=== PATIENT | male | born 1935 | race Caucasian/White ===

== ENCOUNTER → 2023-09-03 03:00 | Outpatient (REF) | payer OTHER, MEDICARE, SELFPAY ==
[2023-09-03 13:10] LABS: Urine Albumin Trace (Neg - Trace); Urine Bilirubin Negative (Negative); Urine Character Clear (Clear); Urine Color Yellow; Urine Glucose Negative (Negative); Urine Ketone Negative (Negative); Urine Leukocyte 2+ (Negative); Urine Nitrite Positive (Negative); Urine Occult Blood 3+ (Negative); Urine Specific Gravity 1.015 (<1.030); Urine Urobilinogen Negative (Neg - 1+)
[2023-09-03 13:29] LABS: Urine Mucus Few; Urine Squamous Cell 0-2 /LPF (Few)
[2023-09-03 13:30] LABS: Urine Bacteria Few (Negative); Urine White Cell 30-40 /HPF (0-5)
== END ==
LOC: OLABN 03:00
PROVIDERS: ATTENDING PHYSICIAN Student in an Organized Health Care Education/Training Program
DX: R39.15 Urgency of urination (principal)
CPT/HCPCS: 81003; 81015; 87077; 87086; 87186

== ENCOUNTER → 2023-09-04 09:57 | Outpatient (REF) | payer OTHER, MEDICARE, SELFPAY ==
[2023-09-04 10:26] LABS: Hematocrit 28.5 % (39.0-52.0); Hemoglobin 9.1 g/dL (13.0-18.0); Mean Corp Hgb Conc. 31.9 g/dL (33.0-37.0); Mean Corpuscular Hgb 31.9 pg (27.0-31.0); Mean Platelet Volume 9.7 fL (7.4-10.4); Platelet Count 332 10^3/uL (130-400); Red Blood Cell Count 2.85 10^6/uL (4.70-6.10); Red Cell Dist. Width 12.3 % (11.5-14.5); White Blood Cell Count 12.5 10^3/uL (4.8-10.8)
[2023-09-04 10:57] LABS: Blood Urea Nitrogen 37 mg/dl (9-20); Calcium 9.7 mg/dl (8.4-10.2); Carbon Dioxide 26 mmol/L (22-30); Chloride 108 mmol/L (98-107); Glucose 84 mg/dl (70-99); Magnesium 2.1 mg/dl (1.6-2.3); Potassium 4.3 mmol/L (3.5-5.1); Sodium 136 mmol/L (135-145); eGFR > 60.00
== END ==
LOC: OLABN 09:57
PROVIDERS: ATTENDING PHYSICIAN Student in an Organized Health Care Education/Training Program
DX: I10 Essential (primary) hypertension (principal); E78.5 Hyperlipidemia, unspecified
CPT/HCPCS: 80048; 83735; 85027

== ENCOUNTER → 2023-09-19 10:50 | Outpatient (REF) | payer OTHER, MEDICARE, SELFPAY ==
[2023-09-19 12:09] LABS: Urine Albumin Negative (Neg - Trace); Urine Bilirubin Negative (Negative); Urine Character Clear (Clear); Urine Color Yellow; Urine Glucose Negative (Negative); Urine Ketone Negative (Negative); Urine Leukocyte Negative (Negative); Urine Nitrite Negative (Negative); Urine Occult Blood Negative (Negative); Urine Urobilinogen Negative (Neg - 1+)
== END ==
LOC: OLABN 10:50
PROVIDERS: ATTENDING PHYSICIAN Student in an Organized Health Care Education/Training Program
DX: R39.15 Urgency of urination (principal)
CPT/HCPCS: 81003; 87086

== ENCOUNTER → 2023-10-03 12:37 | Outpatient (REF) | payer OTHER, MEDICARE, SELFPAY ==
[2023-10-03 13:24] LABS: % Eosinophils 2.7 % (0-6); % Immature Granulocytes 0.4 % (0-0.5); % Lymphocytes 21.7 % (20.5-51.1); % Monocytes 10.2 % (1.7-9.3); Absolute Basophils 0.1 10^3/uL (0-0.2); Absolute Eosinophils 0.2 10^3/uL (0-0.7); Absolute Lymphocytes 1.7 10^3/uL (1.2-3.4); Absolute Monocytes 0.8 10^3/uL (0.1-0.6); Absolute Neutrophils 5.1 10^3/uL (1.4-6.5); Hemoglobin 9.1 g/dL (13.0-18.0); Mean Corp Hgb Conc. 30.3 g/dL (33.0-37.0); Mean Corpuscular Hgb 30.6 pg (27.0-31.0); Mean Platelet Volume 10.4 fL (7.4-10.4); Nucleated Red Blood Cells % 0 % (-); Platelet Count 253 10^3/uL (130-400); Red Blood Cell Count 2.97 10^6/uL (4.70-6.10); Red Cell Dist. Width 12.7 % (11.5-14.5)
[2023-10-03 14:04] LABS: Blood Urea Nitrogen 32 mg/dl (9-20); Calcium 9.7 mg/dl (8.4-10.2); Carbon Dioxide 26 mmol/L (22-30); Chloride 108 mmol/L (98-107); Glucose 100 mg/dl (70-99); Magnesium 2.1 mg/dl (1.6-2.3); Potassium 4.9 mmol/L (3.5-5.1); Sodium 139 mmol/L (135-145)
[2023-10-03 14:12] LABS: NT-proBNP 21600 pg/ml
== END ==
LOC: OLABN 12:37
PROVIDERS: ATTENDING PHYSICIAN Student in an Organized Health Care Education/Training Program
DX: I10 Essential (primary) hypertension (principal); R60.9 Edema, unspecified
CPT/HCPCS: 36415; 80048; 83735; 83880; 85025

== ENCOUNTER → 2023-10-09 11:47 | Outpatient (REF) | payer OTHER, MEDICARE, SELFPAY ==
[2023-10-09 13:35] LABS: Blood Urea Nitrogen 41 mg/dl (9-20); Calcium 10.2 mg/dl (8.4-10.2); Carbon Dioxide 27 mmol/L (22-30); Chloride 107 mmol/L (98-107); Glucose 101 mg/dl (70-99); Magnesium 2.1 mg/dl (1.6-2.3); Potassium 4.2 mmol/L (3.5-5.1); Sodium 141 mmol/L (135-145)
== END ==
LOC: OLABN 11:47
PROVIDERS: ATTENDING PHYSICIAN Student in an Organized Health Care Education/Training Program
DX: R60.9 Edema, unspecified (principal); N17.9 Acute kidney failure, unspecified
CPT/HCPCS: 36415; 80048; 83735

== ENCOUNTER 2023-10-16 13:36 | Inpatient (IN) | payer MEDICARE, OTHER, SELFPAY ==
[2023-10-16] VITALS (86 sets, daily range): BP systolic 89–163; BP diastolic 50–109; PULSE 2–108; BMI 34.0
[2023-10-16 10:08] LABS: Glucose - Point of Care 152 mg/dl (70-99)
--- NOTE | 2023-10-16 10:19 | ED.GENMED ---
History of Present Illness
General
Chief Complaint: Change Level of Consciousness
Time Seen by Provider: 10/16/23 10:06
Travel History
Have you had any contact with someone who has COVID-19?: Unable to Answer
Do you have any symptoms of coronavirus? Fever > 100 degrees, chills, cough, shortness of breath, sore throat, loss of taste or smell, muscle aches, or headache?: Unable to Answer
History of Present Illness
History of Present Illness:
HPI: Patient presents due to shortness of breath and altered level of consciousness. Details are somewhat limited at this time. I spoke to the daughter who states that he recently had a heart attack and was recently volume overloaded and they were
trying to increase his diuretic as an outpatient. He has been doing poorly over the last few days and this morning became much more unresponsive
EXAM:
GENERAL: Is critically ill in appearance
HEENT: Moist oral mucosa
CARDIOVASCULAR: Regular rate and rhythm
PULMONARY: Has increased work of breathing, accessory muscle use, coarse breath sounds
ABDOMEN: Soft and nontender with no peritoneal signs
NEUROLOGIC: The patient is currently nonverbal and does not respond to sternal rub his eyes are closed
EXTREMITIES: 3+ bilateral lower extremity edema
PYSCHIATRIC: Nonverbal
TIME OF INITIAL ENCOUNTER: 10 AM
NUMBER AND COMPLEXITY OF PROBLEMS ADDRESSED AT THE ENCOUNTER
� Chronic conditions affecting care: CAD/OK, volume overload/CHF
� Acute Exacerbation and/or Progression of Chronic Illness: This is an acute problem
� Differential Diagnosis includes: Volume overload, pulmonary edema, pleural effusions, pneumonia/sepsis, hypercapnia
AMOUNT AND/OR COMPLEXITY OF DATA TO BE REVIEWED AND ANALYZED
� I performed an independent evaluation of and my interpretation is:
EKG: Sinus 92, right bundle branch block, inferior Q waves, PVC, nonspecific ST abnormality, no old to compare
CT:
X-rays: Chest x-ray suggest volume overload/pleural effusion on the right
Laboratory Studies: BNP greater than 27,000, white count 17.5, hemoglobin 10.9, creatinine 1.8 with no old to compare bicarb is 38, ABG shows pCO2 of 87
Other:
� Review of other/old records: No old records available for review however I did review the POLST and advanced directive
� Clinical information was obtained by an independent historian: I spoke to daughter in the family room as well as the son over the phone. We discussed the POLST indicating yes to CPR if he is in a code situation. I also
reviewed the advance directive indicating that if he is in a end-stage medical condition with no meaningful chance of recovery that he would not want to be intubated. At this point is unclear if he will have a meaningful chance of recovery with
intubation and aggressive care. Daughter and son have been talking extensively and I am awaiting their wishes as of 10:23 AM
� Prescriptions/Medications Considered but not given:
� Further testing considered but not performed:
RISK OF COMPLICATIONS AND/OR MORBIDITY OR MORTALITY OF PATIENT MANAGEMENT
� Social determinants of health affecting care: Currently staying at [facility] after rehab for [place]
� Discussion with other providers: Hospitalist for admission, Dr. Blue
� Escalation of care including admission/observation vs risk of discharge considered: The patient is critically ill in appearance. He is nonresponsive to sternal rub markedly decreased GCS. Multiple discussions with family.
Ultimately decided against intubation. He did improve while on BiPAP released from an oxygen standpoint however his mental status has remained poor. There likely is a component of hypercapnic respiratory failure as well based on ABG.
Phy Exam
Physical Exam
Physical Exam:
See HPI
Course
Orders/Labs/Results
Orders:
Orders
10/16/23 09:54
Etomidate [Amidate] 40 mg .ROUTE .STK-MED ONE
Succinylcholine Chloride [Anectine] 200 mg .ROUTE .STK-MED ONE
10/16/23 10:02
Electrocardiogram (*1) Urgent
Reason for Study: Other
Other Reason for Exam: Respiratory Distress
Cardiac Monitoring- Treatment ONCE
EKG- Treatment ONCE
IV Insert/Care/Rem.- Treatment PRN
O2 Therapy [RESP] Urgent
Titrate/Wean O2 to maintain O2 sat greater than (%): 93
Special Instructions: TO MAINTAIN CONTINUOUS O2 SATS >/= 93%
Pulse Ox/cont/shift [RESP] Urgent
Quantity: 1
Special Instructions: continuous pulse ox
10/16/23 10:08
Complete Blood Count/With Diff Urgent
Comprehensive Metabolic Panel Urgent
NT-proBNP Urgent
Prothrombin Time Urgent
Troponin I Urgent
Propofol 1,000,000 Mcg/100 ml [Diprivan] 1,000,000 mcg in 100 ml .ROUTE .STK-MED
10/16/23 10:16
COVID-19 Antigen Urgent
Source: Nasal Swab
Lactic Acid Urgent
10/16/23 10:17
Blood Culture Urgent
ANNITA Source: Blood/Venous
Specimen Description:
INF RAPID [Influenza A+B Rapid Molecular] Urgent
ANNITA Source: Nasal Swab
Specimen Description:
10/16/23 10:18
CR Chest Portable - 1 View Urgent
Comment:
Reason For Exam: sob
Reason Study Needs to be Portable: Patient Unstable
10/16/23 10:20
Blood Culture Urgent
ANNITA Source: Blood/Venous
Specimen Description:
10/16/23 10:30
Furosemide [Lasix] 120 mg IV NOW STA
10/16/23 10:31
Furosemide [Lasix] 100 mg .ROUTE .STK-MED ONE
Furosemide [Lasix] 40 mg .ROUTE .STK-MED ONE
10/16/23 10:32
Nitroglycerin 100 mg/250 ml [Nitroglycerin Premix] 100 mg in 250 ml .ROUTE .STK-MED
10/16/23 10:33
Bipap [RESP] Urgent
Patient to use own unit?: No
Inspiratory Pressure (cm H2O): 12
Expiratory Pressure (cm H2O): 5
10/16/23 10:45
Nitroglycerin 100 mg/250 ml [Nitroglycerin Premix] 100 mg in 250 ml IV PER PROTOCOL
Initial dose in mcg/min, then titrate:: 10
Titrate to keep:: MAP 70-100 mmHg
Titrate by mcg/min:: 5 mcg/min, may increase by 10 mcg/min if dose > 20 mcg/min
Frequency of titrations (minutes):: every 3-5 minutes
Maximum dose in mcg/min:: 200
Begin to taper infusion when:: Remained at goal for 2hrs
Taper by mcg/min:: 5 mcg/min
Frequency of taper (minutes) if patient maintains goal:: 30
Taper to off?: Yes
If infusion off & no longer maintaining goal:: Contact Provider
10/16/23 12:30
ABG [Arterial Blood Gas] Urgent
%Oxygen/Room Air: 100
10/16/23 12:52
UA Reflex to Culture [Urinalysis Reflex To Culture] Stat
Abnormal Lab Results
10/16/23 10/16/23 10/16/23
10:07 10:08 12:30
WBC 17.5 H 10^3/uL
(4.8-10.8)
RBC 3.57 L 10^6/uL
(4.70-6.10)
Hgb 10.9 L g/dL
(13.0-18.0)
Hct 37.1 L %
(39.0-52.0)
MCV 103.9 H fL
(80.0-94.0)
MCHC 29.4 L g/dL
(33.0-37.0)
MPV 10.8 H fL
(7.4-10.4)
Abs Immat Gran (auto) 0.1 H 10^3/uL
(0-0.05)
Absolute Neuts (auto) 14.4 H 10^3/uL
(1.4-6.5)
Absolute Monos (auto) 1.7 H 10^3/uL
(0.1-0.6)
Immature Gran % 0.7 H %
(0-0.5)
Neutrophils % 82.0 H %
(42.2-75.2)
Lymphocytes % 6.9 L %
(20.5-51.1)
Monocytes % 9.7 H %
(1.7-9.3)
PT 14.7 H Sec
(11.4-14.6)
pH 7.24 L
(7.35-7.45)
pCO2 87 H* mmHg
(35-48)
pO2 68 L mmHg
(83-108)
HCO3 37.3 H mmol/L
(21-28)
Sodium 146 H mmol/L
(135-145)
Carbon Dioxide 38 H mmol/L
(22-30)
BUN 47 H mg/dl
(9-20)
Creatinine 1.8 H mg/dL
(0.7-1.3)
Glucose 146 H mg/dl
(70-99)
Troponin I 0.251 H* ng/ml
POC Glucose 152 H mg/dl
(70-99)
10/16/23 10:08
10/16/23 10:08
Vital Signs
Initial and Last Documented VS:
Initial Vital Signs
BP
150/70
10/16/23 09:57
Last Documented Vital Signs
Temp Pulse Resp BP Pulse Ox
100.7 F H 87 29 134/72 92
10/16/23 10:10 10/16/23 12:40 10/16/23 12:40 10/16/23 12:40 10/16/23 12:40
*Pulse Oximetry
Patient hypoxic: yes
Comment: 88% on nonrebreather mask
*Critical Care Note
Total Time (30-74mins, 75-104mins- exclusive of procedures): 65 minutes
comment:
I had numerous discussions with family both at bedside and over the phone. Considered intubation and was prepared to intubate but ultimately decision made to hold off on intubation. We have placed him on BiPAP and vital signs closely monitored.
His sats have primarily been in the 80% range and transiently became bradycardic but has stabilized more recently. Will be DNR now. Multiple reassessment. He ultimately was placed on BiPAP.
ED Attending Note
-
Portions of this chart may have been created with voice recognition software.� Occasional wrong word or��sound alike� substitutions may have occurred due to the inherent limitations of voice recognition software.
Discharge Plan
Departure
Patient Disposition: Admit
Date of Disposition: 10/16/23
Time of Disposition: 11:18
Presentation/result/management discussed w/ accepting MD/DO: Hospitalist
Discharge Problem:
Volume overload
Prescriptions:
No Action
multivitamin Tablet
1 tab PO DAILY
furosemide 40 mg Tablet
120 mg PO DAILY
atorvastatin 80 mg Tablet
80 mg PO QPM
acetaminophen [Tylenol] 325 mg Tablet
650 mg PO Q4H MDD 3000 mg PRN (Reason: mild pain/fever>100.4)
lidocaine 4 % Cream
1 applic TOPICAL BID
Patient Comments:
10/16/2023, first date: 10/03/2023 given for 14 days.
clopidogrel 75 mg Tablet
75 mg PO DAILY
aspirin 81 mg Tablet,Delayed Release (Dr/Ec)
81 mg PO DAILY
tramadol 50 mg Tablet
50 mg PO BID PRN (Reason: moderate pain)
ascorbic acid (vitamin C) [Vitamin C] 500 mg Tablet
1,000 mg PO DAILY
bisacodyl 10 mg Suppository
10 mg [place] DAILY PRN (Reason: q 3 days when no BM and MOM/lactulose ineffective)
ginkgo biloba 60 mg Tablet
60 mg PO DAILY
nitroglycerin 0.4 mg Tablet, Sublingual
0.4 mg SUBLINGUAL [id number] PRN (Reason: acute angina)
oxybutynin chloride 5 mg Tablet Extended Release 24hr
5 mg PO DAILY
gabapentin 300 mg Capsule
300 mg PO Q12H
folic acid 1 mg Tablet
1 mg PO DAILY
metoprolol succinate 25 mg Tablet Extended Release 24 Hr
25 mg PO DAILY
finasteride 5 mg Tablet
5 mg PO DAILY
loratadine 10 mg Tablet
10 mg PO DAILY
lactulose 10 gram/15 mL Solution
30 ml PO HS PRN (Reason: constipation)
[place]-3 1,000 mg capsule
1,000 mg PO DAILY
Referrals:
Je Owen DO [Family Provider] -
Interventions
Interventions:
*Risk Screen - Suicide Last Done: 10/16/23 11:30
*General Assessment Last Done: 10/16/23 10:03
*Neglect/Abuse Screening Last Done: 10/16/23 11:30
ED- Cardiac Assessment Last Done: 10/16/23 10:27
ED- Neurological Assessment Last Done: 10/16/23 11:00
ED-Psychological Assessment Last Done: 10/16/23 11:00
ED- Pulmonary Assessment Last Done: 10/16/23 11:00
Discharge Date and Time
Print Language: CHADIAN
[2023-10-16 10:23] LABS: % Basophils 0.6 % (0-2); % Eosinophils 0.1 % (0-6); % Immature Granulocytes 0.7 % (0-0.5); % Lymphocytes 6.9 % (20.5-51.1); % Monocytes 9.7 % (1.7-9.3); Absolute Basophils 0.1 10^3/uL (0-0.2); Absolute Immature Granulocytes 0.1 10^3/uL (0-0.05); Absolute Lymphocytes 1.2 10^3/uL (1.2-3.4); Absolute Monocytes 1.7 10^3/uL (0.1-0.6); Absolute Neutrophils 14.4 10^3/uL (1.4-6.5); Hematocrit 37.1 % (39.0-52.0); Hemoglobin 10.9 g/dL (13.0-18.0); Mean Corp Hgb Conc. 29.4 g/dL (33.0-37.0); Mean Corpuscular Hgb 30.5 pg (27.0-31.0); Mean Corpuscular Volume 103.9 fL (80.0-94.0); Mean Platelet Volume 10.8 fL (7.4-10.4); Nucleated Red Blood Cells % 0 % (-); Platelet Count 217 10^3/uL (130-400); Red Blood Cell Count 3.57 10^6/uL (4.70-6.10); Red Cell Dist. Width 13.2 % (11.5-14.5); White Blood Cell Count 17.5 10^3/uL (4.8-10.8)
[2023-10-16 10:24] LABS: INR 1.14; PT 14.7 Sec (11.4-14.6)
[2023-10-16] MEDS: LASIX 120 MG IV (10:35)
[2023-10-16 10:38] LABS: ALT (SGPT) 12 U/L (0-50); AST (SGOT) 18 U/L (17-59); Albumin 3.7 g/dl (3.5-5.0); Alkaline Phosphatase 93 U/L (38-126); Blood Urea Nitrogen 47 mg/dl (9-20); Carbon Dioxide 38 mmol/L (22-30); Chloride 102 mmol/L (98-107); Glucose 146 mg/dl (70-99); Potassium 4.1 mmol/L (3.5-5.1); Sodium 146 mmol/L (135-145); Total Bilirubin 0.6 mg/dl (0.2-1.3); Total Protein 6.7 g/dl (6.3-8.2); eGFR 36.21
[2023-10-16] MEDS: NITROGLYCERIN PREMIX 250 IV (10:40)
[2023-10-16 10:45] LABS: COVID-19 Antigen Negative (Negative)
[2023-10-16 10:53] LABS: NT-proBNP > 27000 pg/ml; Troponin I 0.251 ng/ml
[2023-10-16 12:38] LABS: B.E. 7.5 mmol/L; HCO3 37.3 mmol/L (21-28); O2 Saturation % 95.2 % (94-98); PO2 68 mmHg (83-108); pH 7.24 (7.35-7.45)
[2023-10-16 12:46] LABS: PCO2 87 mmHg (35-48)
--- NOTE | 2023-10-16 13:23 | HPS.HSE ---
Addendum entered and electronically signed by Avtar Medina MD 10/16/23 15:23:
I saw and examined the patient.
The HEALTH IT SPECIALIST or PA's note was reviewed and I agree with the note.
Comment: 88 y/o male past medical history of a recent PA with stent at [facility], CHF, HTN and COPD who presents with acute change in mental status. History was taken from the 2 daughters at bedside. Patient has had persistent weight gain
despite increasing doses of Lasix. Noted to have febrile episode and patient, altered mental status. Blood gas with evidence of acute hypercapnic respiratory failure. Of note, should to have on NIV at night although noncompliant. Patient
lethargic although does follow commands, slightly more awake than arrival to the ED. blood pressure 118/62, pulse 86. Crackles also noted bilaterally. ABG with pH 7.2 . White count 17.5, creatinine 1.8, sodium 146, proBNP above 27,000
(21,600 on 10/03/2023). x-ray showing possible right basilar opacification suggesting right pleural effusion. Of note patient's nurse was saying patient sounded like he had a gurgling voice yesterday.
Plan
# Acute hypercapnic respiratory failure
�most likely exacerbated by acute on chronic heart failure, unknown type as well as possible UTI/infection
� Noncompliant to BiPAP at facility
� Continue BiPAP for now
� Continue IV diuresis, antibiotics
#Acute on chronic heart failure, unknown type
# Follow-up new echo
� Continue 80 mg IV Lasix twice daily
� Cardiology consulted�monitor I's and O's and daily weights
#Sepsis
� Possible pneumonia including a large aspiration pneumonia versus UTI
� Speech eval
� Follow-up urine analysis, cultures
� Follow-up with cultures
� Empiric antibiotics vancomycin and Zosyn�follow MRSA swab
#Elevated troponin, suspect nonischemic myocardial injury
� Continue to trend troponins until peak
# ENRICO
# Most likely cardiorenal
Monitor with diuresis
� Can follow-up VBG in 2 hours
#Acute metabolic encephalopathy
� Secondary to most likely hypercapnia as well as possible infection
- treat as above
#Urinary retention
� Lock catheter placed in ED
� Start Flomax when able to tolerate p.o.
� Status post stent August 2023
� Obtain records from [facility] [facility]
� Resume aspirin and Plavix when able to tolerate medications
#Hyperlipidemia
� Resume statin when able to tolerate p.o.
#DVT prophylaxis
� HSQ
#DNR/DNI
Original Note:
Family Physician
-
Family Physician: Je Owen,
Chief Complaint
-
Change in mental status
History of Present Illness
Patient is an 88 y/o male past medical history of a recent PA with stent at [facility], CHF, HTN and COPD who presents with acute change in mental status. Patient is unable to provide any history, additional history is obtained from patient's
daughter at the bedside. Patient was admitted to [facility] about a month ago following a hospitalization at [facility] for an acute PA requiring stent. Daughter reports over the past few weeks patient has gained a significant amount of weight,
over 20lbs, despite increasing Lasix dose over the last week. Prior to arrival patient had been complaining of having difficulty urinating. While at [facility] patient had required a Lock catheter which was removed a few weeks ago.
Medical History
Past Medical History
Past Medical History: Reports Other
Additional Past Medical History:
Coronary Artery Disease
Congestive Heart Failure
Essential Hypertension
Hyperlipidemia
COPD
Peripheral Neuropathy
Obstructive Sleep Apnea
Bladder Cancer
Past Surgical History: Reports Other
Additional Past Surgical History:
TURBT
Foot/Ankle Surgery
Social History
Tobacco: Former Smoker (Quit over 30 years ago)
Living: Other (Currently resides at [facility] for receiving rehab following recent hospitalization)
Family History
Family History: Unable to Obtain
Allergies / Home Medications
Allergies reflects when Allergies were last updated in [facility].
Home Medications with original date entered in [facility]
Allergy/Medication List:
Allergies
Allergy/AdvReac Type Severity Reaction Status Date / Time
No Known Allergies Allergy Unverified 10/16/23 09:59
Home Medications
[place]-3 1,000 mg PO DAILY Supplement 10/16/23
acetaminophen 325 mg tablet (Tylenol) 650 mg PO Q4H PRN mild pain/fever>100.4 10/16/23
ascorbic acid (vitamin C) 500 mg tablet (Vitamin C) 1,000 mg PO DAILY Supplement 10/16/23
aspirin 81 mg tablet,delayed release 81 mg PO DAILY Blood Clot Prevention/Tx 10/16/23
atorvastatin 80 mg tablet 80 mg PO QPM High Cholesterol 10/16/23
bisacodyl 10 mg rectal suppository 10 mg AK DAILY PRN q 3 days when no BM and MOM/lactulose ineffective 10/16/23
clopidogrel 75 mg tablet 75 mg PO DAILY Blood Clot Prevention/Tx 10/16/23
finasteride 5 mg tablet 5 mg PO DAILY Urinary Issue 10/16/23
folic acid 1 mg tablet 1 mg PO DAILY Supplement 10/16/23
furosemide 40 mg tablet 120 mg PO DAILY Fluid Retention/Swelling 10/16/23
gabapentin 300 mg capsule 300 mg PO Q12H Pain 10/16/23
ginkgo biloba 60 mg tablet 60 mg PO DAILY Supplement 10/16/23
lactulose 10 gram/15 mL oral solution 30 ml PO HS PRN constipation 10/16/23
lidocaine 4 % topical cream 1 applic topical BID B/L feet 10/16/23
loratadine 10 mg tablet 10 mg PO DAILY Allergies 10/16/23
metoprolol succinate 25 mg tablet,extended release 24 hr 25 mg PO DAILY Blood Pressure 10/16/23
multivitamin 1 tab PO DAILY Supplement 10/16/23
nitroglycerin 0.4 mg sublingual tablet 0.4 mg sublingual [id number] PRN acute angina 10/16/23
oxybutynin chloride 5 mg tablet,extended release 24 hr 5 mg PO DAILY Urinary Issue 10/16/23
tramadol 50 mg tablet 50 mg PO BID PRN moderate pain 10/16/23
Review of Systems
-
Unable to obtain full review of systems at this time due to: Acuity
Physical Exam
Vital Signs
Vital Signs
Temp Pulse Resp BP Pulse Ox
100.7 F H 87 29 134/72 92
10/16/23 10:10 10/16/23 12:40 10/16/23 12:40 10/16/23 12:40 10/16/23 12:40
Physical Exam
General: Well Developed and Well Nourished
HEENT: Anicteric, Moist mucous membranes and Oxygen (BiPAP)
Respiratory: Wheezes (Faint anteriorly) and Non Labored Respirations
Cardiac: S1/S2 and Regular Rhythm; No Murmur
GI: Soft and Non Tender
Genito-urinary: Lock
Musculoskeletal: No Clubbing, No Cyanosis and Other (+3 pitting edema bilateral lower ext; Mild edema noted in bilateral fingers)
Skin: Warm and Dry
Neuro: Other (Slightly opens his eyes to name, but otherwise unable to participate in neurologic evaluation)
Laboratory Results
-
10/16/23 10:08
10/16/23 10:08
Laboratory Results
PT 14.7 Sec (11.4-14.6) H 10/16/23 10:08
INR 1.14 10/16/23 10:08
pH 7.24 (7.35-7.45) L 10/16/23 12:30
pCO2 87 mmHg (35-48) H* 10/16/23 12:30
pO2 68 mmHg (83-108) L 10/16/23 12:30
HCO3 37.3 mmol/L (21-28) H 10/16/23 12:30
Lactic Acid 1.0 mmol/L (0.7-2.0) 10/16/23 10:16
Total Bilirubin 0.6 mg/dl (0.2-1.3) 10/16/23 10:08
AST 18 U/L (17-59) 10/16/23 10:08
ALT 12 U/L (0-50) 10/16/23 10:08
Alkaline Phosphatase 93 U/L (38-126) 10/16/23 10:08
Troponin I 0.251 ng/ml H* 10/16/23 10:08
Data Reviewed
-
Diagnostic Radiology: Report Reviewed by me
Lab Data: Labs Reviewed by me
Old Records: Requested and Reviewed
Impression/Plan
-
Acute Hypercapnic Respiratory Failure
-Patient placed on BiPAP in ED
-Admit to IMU for close monitoring
-Recheck ABG later this afternoon
Acute on Chronic Heart Failure of unknown type
-Consult Cardiology
-Check Echo
-Continue Lasix 80mg IV BID
-Monitor Is&Os and Daily Weights
Elevated Troponin suspect Non-Ischemic Myocardial Injury secondary to heart failure and hypoxia
-Continue to trend troponin
Acute Kidney Injury
-Continue to monitor creatinine closely
Urinary Retention
-Lock catheter placed in ED
-Start Flomax when able to take PO
Fever/Leukocytosis, possible PNA vs UTI
-Check urinalysis
-Await blood culture
-Start empiric vancomycin and Zosyn
Coronary Artery Disease s/p stent August 2023
-Attempt to obtain records from [facility]
-Resume aspirin and Plavix when able to take oral meds
Hyperlipidemia
-Resume atorvastatin when able to take oral meds
DVT proph: SC Heparin
Code Status: DNR/DNI
--- NOTE | 2023-10-16 14:23 | CON.CAR ---
Addendum entered and electronically signed by Mahamed Soni MD 10/16/23 21:47:
I saw and examined the patient.
The EMPLOYEE WELLNESS/FITNESS COORDINATOR or PA's note was reviewed and I agree with the note.
Comment: General: unresponsive
Neck: Supple, no JVD, HJR, carotids +2 B/L, no bruits bilaterally.
Heart: Non displaced PMI, RRR, no murmurs, No S3, S4, no rubs.
Lungs: scattered rhonchi with poor effort
Extremities: moderate lower extremity edema bilaterally.
Neuro: unresponsive
Robert has a history of in her study with RCA stent in August 2023 at [facility], chronic systolic CHF, viral encephalitis, footdrop, prothrombin, bladder cancer, cardiomyopathy ejection fraction 35%. He has been treated as an outpatient for CHF with
escalating Lasix doses. He has been at [facility]. He presented with change in mental status with fever and leukocytosis. [place] to be in CHF with pro BNP of greater than 27,000 and is currently on BiPAP.
We'll treat for CHF. Get records from [facility]. Treat with antibiotics. Discussed with patient and family in detail at bedside. check echocardiogram. Follow renal function with diuresis. Track troponins.
Original Note:
Consultation
Consultation Request
Date/Time Consultation Performed: 10/16/23
Requesting Provider: Dr. Medina
Performing Provider: Elizabeth Paayn PA-C for Dr. Soni
Reason for Consultation: SOB, CHF
Medical History
-
Chief Complaint: SOB
History of Present Illness:
Patient is an 88 yo F with PMH of viral encephalitis ~25 years ago, foot drop and neuropathy, ambulatory around apartment with walker, history of bladder cancer s/p TURBT 2016 who had recent admission to [facility] 08/2023. He was found to have acute
inferior STEMI and underwent cath resulting in RCA PCI per daughter. Echo during that admission showed ICM with EF 35-40%. He had issues with his kidneys during that admission per daughters. He was discharged to [facility] and was not on diuretic upon DC
(he had been on chlorthalidone prior which was stopped during admission). Daughter believes he had post admission blood work ~10/03 [place] [address]. He was started on po lasix 40mg daily at that time. He was then seen in office
by Dr. Cooley's EMPLOYEE WELLNESS/FITNESS COORDINATOR last and was felt to be grossly volume overloaded. reportedly had echo in office same day which was 'good for him.' his lasix dose was increased to 80mg daily x5 days with plan to increase to 120mg daily thereafter if
still with volume overload. He was increased to 120mg daily yesterday as weight has continued to trend up. He has also had difficulty with urination, resulting in bernabe placement and then hematuria, which was removed at [facility] ~2 weeks post discharge.
He was brought to [facility] this morning due to change in mental status. with fever and leukocytosis. Also with proBNP >70477. Currently on BIPAP, which he was reportedly supposed to be getting at [facility] but was not by report.
PMH:
Admission to [facility] 08/2023 for acute inferior STEMI status post RCA PCI, ischemic cardiomyopathy EF 35 to 40%
Chronic heart failure with reduced EF
HLD
HTN
History of viral encephalitis approximately 25 years ago
Foot drop
Peripheral neuropathy
History of bladder cancer status post TURP in 2017
Pulmonary nodules
Past Medical History
Past Medical History: Other (in HPI)
Social History
Tobacco: Former Smoker (remote)
Alcohol: None
Living: With Roomate
Employment: Retired
Allergies / Home Medications
Allergy/AdvReac Type Severity Reaction Status Date / Time
No Known Allergies Allergy Unverified 10/16/23 09:59
�Medication �Instructions �Recorded �Confirmed �Type
[place]-3 1,000 mg PO DAILY Supplement 10/16/23 10/16/23 History
acetaminophen 325 mg tablet 650 mg PO Q4H PRN mild 10/16/23 10/16/23 History
(Tylenol) pain/fever>100.4
ascorbic acid (vitamin C) 500 mg 1,000 mg PO DAILY Supplement 10/16/23 10/16/23 History
tablet (Vitamin C)
aspirin 81 mg tablet,delayed 81 mg PO DAILY Blood Clot 10/16/23 10/16/23 History
release Prevention/Tx
atorvastatin 80 mg tablet 80 mg PO QPM High Cholesterol 10/16/23 10/16/23 History
bisacodyl 10 mg rectal suppository 10 mg TX DAILY PRN q 3 days when 10/16/23 10/16/23 History
no BM and MOM/lactulose ineffective
clopidogrel 75 mg tablet 75 mg PO DAILY Blood Clot 10/16/23 10/16/23 History
Prevention/Tx
finasteride 5 mg tablet 5 mg PO DAILY Urinary Issue 10/16/23 10/16/23 History
folic acid 1 mg tablet 1 mg PO DAILY Supplement 10/16/23 10/16/23 History
furosemide 40 mg tablet 120 mg PO DAILY Fluid 10/16/23 10/16/23 History
Retention/Swelling
gabapentin 300 mg capsule 300 mg PO Q12H Pain 10/16/23 10/16/23 History
ginkgo biloba 60 mg tablet 60 mg PO DAILY Supplement 10/16/23 10/16/23 History
lactulose 10 gram/15 mL oral 30 ml PO HS PRN constipation 10/16/23 10/16/23 History
solution
lidocaine 4 % topical cream 1 applic topical BID B/L feet 10/16/23 10/16/23 History
loratadine 10 mg tablet 10 mg PO DAILY Allergies 10/16/23 10/16/23 History
metoprolol succinate 25 mg 25 mg PO DAILY Blood Pressure 10/16/23 10/16/23 History
tablet,extended release 24 hr
multivitamin 1 tab PO DAILY Supplement 10/16/23 10/16/23 History
nitroglycerin 0.4 mg sublingual 0.4 mg sublingual [id number] PRN 10/16/23 10/16/23 History
tablet acute angina
oxybutynin chloride 5 mg 5 mg PO DAILY Urinary Issue 10/16/23 10/16/23 History
tablet,extended release 24 hr
tramadol 50 mg tablet 50 mg PO BID PRN moderate pain 10/16/23 10/16/23 History
Review of Systems
-
Unable to obtain full review of systems at this time due to: Other (lethargic on BIPAP)
History Source: Family
All other systems: Negative unless noted
Physical Exam
Vital Signs
Temp Pulse Resp BP Pulse Ox
100.7 F H 86 15 118/62 99
10/16/23 10:10 10/16/23 14:00 10/16/23 14:00 10/16/23 14:00 10/16/23 14:00
Lab Results
10/16/23 10:08
10/16/23 10:08
Troponin I 0.251 ng/ml H* 10/16/23 10:08
Pio-I-Pggqjzbgqwd Pept > 85479 pg/ml 10/16/23 10:08
Physical Exam
General: Other (lethargic on BiPAP. obese)
HEENT: Normocephalic, Anicteric and Moist Mucous Membranes
Respiratory: Non Labored Respirations and Other (decreased BS at bases)
Cardiac: S1/S2 and Regular Rhythm
GI: Soft and Normal Bowel Sounds
Musculoskeletal: No Clubbing, No Cyanosis and Edema (3+ edema to thighs, also with 1+ B/L UE edema)
Skin: Warm and Dry
Neuro: Other (lethargic on BIPAP)
Impression / Plan
-
Primary Retail Special Event Associate: Dr. Cooley of [facility]
Assessment:
Presentation with change in mental status
Lethargy
Acute on chronic HFrEF
Acute hypercapnic respiratory failure, requiring BIPAP in ER
Elevated troponin
Leukocytosis with fever, presumed sepsis
ENRICO on CKD
Urinary retention
Admission to [facility] 08/2023 for acute inferior STEMI status post RCA PCI
ischemic cardiomyopathy EF 35 to 40% by echo 08/2023
HLD
HTN
RBBB, chronic
History of viral encephalitis approximately 25 years ago
Foot drop
Peripheral neuropathy
History of bladder cancer status post TURP in 2017
Pulmonary nodules
DNR code status
ECHO 08/21/2023: EF 35 to 40%, anteroseptal akinesis, mild global hypokinesis of the rest of LV, grade 1 diastolic dysfunction, trivial posterior pericardial effusion
Plan:
-Patient presents from [facility] with change in mental status
-s/p admission to [facility] 08/20-08/26/23. records obtained and reviewed from [facility] cardiology and [facility] including echo 08/21/23, cath report 08/21/23, discharge summary 08/26/23
-found to have evidence of acute CHF as well as possible sepsis with fever and leukocytosis
-continue abx per primary service
-proBNP >13685.
-patient ill. remains lethargic and currently on BIPAP in ER, wean as able
-Cr 1.8 on 10/15. was 1.3 on 10/08. would recommend IV diuresis, currently ordered 80mg IV BID. was on increasing diuretic therapy as OP, yesterday started 120mg daily, prior had been on 40 then 80mg. will need to determine dosing for DC. if Cr
continues to uptrend, consider nephro eval
-patient's daughter states patient was seen in office last week and had repeat echo, but no record of this in [facility] office, ? EKG. will repeat echo here to reassess EF
-continue low dose toprol 25mg daily as BP will tolerate. no leann/arb/arni, aldactone, SgLT2 inhibitor at present with ENRICO
-trend trop to peak. suspected nonischemic myocardial injury secondary to CHF, sepsis. no present chest pain. s/p RCA PCI 08/2023, continue asa and plavix. EKG SR with RBBB and prior inferior infarct.
-DNR code status noted
-d/w hospitalist IOANA
-d/w patient's family members at bedside
Data Reviewed
-
EKG: Tracing Personally Visualized and interpreted
Radiology: Report Reviewed by me
Medical Tests (Nuc Med, Echo etc): Report Reviewed by me
Labs: Labs Reviewed by me
Old Records: Requested and Reviewed
[2023-10-16 15:32] LABS: Urine Albumin Trace (Neg - Trace); Urine Bilirubin Negative (Negative); Urine Character Clear (Clear); Urine Color Yellow; Urine Glucose Negative (Negative); Urine Ketone Negative (Negative); Urine Leukocyte Negative (Negative); Urine Nitrite Negative (Negative); Urine Occult Blood 4+ (Negative); Urine Specific Gravity 1.015 (<1.030); Urine Urobilinogen Negative (Neg - 1+)
[2023-10-16 15:52] LABS: Urine Bacteria Moderate (Negative); Urine Red Blood Cell 50-60 /HPF (0-2); Urine White Cell 0-2 /HPF (0-5)
[2023-10-16 16:03] LABS: B.E. 10.4 mmol/L; HCO3 38.5 mmol/L (21-28); PO2 121 mmHg (83-108); pH 7.33 (7.35-7.45)
[2023-10-16 16:04] LABS: PCO2 73 mmHg (35-48)
[2023-10-16] MEDS: VANCOCIN 540 MG IV (16:40)
[2023-10-16] MEDS: LASIX 80 MG IV (16:42)
[2023-10-16] MEDS: HEPARIN 5000 UNITS SC ×2 (16:43→23:29)
--- NOTE | 2023-10-16 16:43 | PTCARENOTE ---
Pt arrived from ED via stretcher, on Bipap. Pt tachypneic and with sats in the high 80-low 90's- settings adjusted by RT. Pt unresponsive, only with an occasional grunt. Unable to answer admission questions. Medications administered as ordered. Bed
alarm in place for safety.
--- NOTE | 2023-10-16 17:22 | PTCARENOTE ---
Addendum entered by Aura Bauer 10/16/23 18:35:
Dr Anders at bedside to examine pt with this RN. Pt somewhat more awake upon reassessment. Sat's in the low 90's, RR in the 20's. Bed alarm in place.
Original Note:
Pt maxed on bipap with sats low in the 90's. Tremulous. Tachypneic with rates in the 20-40's. Attempts to obtain Trop unsuccessful x3, awaiting phlebotomy. Family now present, anxious regarding plan of care. Emotional support provided. Dr. Anders
notified of clinical presentation as cross coverage MD, arrived on unit and reviewing chart at this time.
[2023-10-16] MEDS: ZOSYN 50 IV ×2 (17:52→23:29)
--- NOTE | 2023-10-16 18:01 | W.PN.UPDATE ---
Update Note
Progress Note Update
Called to see patient by nursing as patient appeared unstable
Reviewed chart--spoke with PA who was admitting patient
Examined patient and spoke with family at bedside
temp 100 axillary, RR 20s HR 98 sat 89% 20/8 on 15L
GENERAL: well developed, well nourished, male in no apparent distress
HEENT:NC/AT--BiPAP Mask on--took off briefly with resp to hear pt--was talking about his neighbor having a view of his house
HEART: regular rate and rhythm, +S1, +S2--tachycardic
LUNGS : coarse breath sounds bilaterally
ABDOM: soft, nontender, nondistended, + bowel sounds
EXT: no cyanosis, clubbing-- still with edema bilaterally
NEUROLOGIC: confused
: bernabe
PLAN:
Spoke with nursing, family
Would keep BiPAP as is, continue IV Lasix as is, continue antibiotics as is
family asking about moving him to ICU with noninvasive ventilation (told to them by ED), given his DNR status and significant illness, I spoke with family and stated that I would not pursue that option because despite the fact that it is
noninvasive, it is not comfortable--they are in full agreement and wish for him to be comfortable in the event he worsens
will check ABG at 9 PM
add TSH to AM labs (he has that pale doughy appearance)
time: 35 minutes
[2023-10-16 19:25] LABS: Troponin I 0.455 ng/ml
[2023-10-16 20:43] LABS: B.E. 11.9 mmol/L; HCO3 38.3 mmol/L (21-28); O2 Saturation % 98.8 % (94-98); PCO2 59 mmHg (35-48); PO2 83 mmHg (83-108); pH 7.42 (7.35-7.45)
[2023-10-16] MEDS: TYLENOL/FEVERALL 650 MG RECTAL (21:10)
--- NOTE | 2023-10-16 23:06 | PTCARENOTE ---
Received pt at start of shift. daughter at bedside. arousable to verbal but very lethargic, drowsy, & confused. Pt was speaking but it was more garbles & unable to understand. BP's are running soft but stable at this time. Lock in place draining
great. Q2T. 15L on Bipap. ivabx. repeat abg's completed & have improved, RT at bedside, daughter updated. trending trops. lungs very diminished. Will continue to monitor progress. bed alarm on.
[2023-10-16 23:20] LABS: Troponin I 0.597 ng/ml
[2023-10-17] VITALS (26 sets, daily range): BP systolic 92–140; BP diastolic 48–107; PULSE 2–99; BMI 32.6
--- NOTE | 2023-10-17 03:20 | PTCARENOTE ---
Pt is now aaox3 & sao2 is 100%. TT RT & starting to wean. Weaned to 10L bipap. Will continue & monitor.
[2023-10-17 03:50] LABS: Troponin I 0.685 ng/ml
[2023-10-17 03:51] LABS: ALT (SGPT) 12 U/L (0-50); AST (SGOT) 18 U/L (17-59); Albumin 2.9 g/dl (3.5-5.0); Alkaline Phosphatase 73 U/L (38-126); Blood Urea Nitrogen 53 mg/dl (9-20); Calcium 9.5 mg/dl (8.4-10.2); Carbon Dioxide 34 mmol/L (22-30); Chloride 105 mmol/L (98-107); Estimated Creatinine Clearance 31 ml/min; Glucose 114 mg/dl (70-99); HDL Cholesterol 24 mg/dl; LDL Cholesterol, Calculated 32 mg/dl; Magnesium 1.9 mg/dl (1.6-2.3); Potassium 3.6 mmol/L (3.5-5.1); Sodium 144 mmol/L (135-145); Total Bilirubin 0.7 mg/dl (0.2-1.3); Total Cholesterol 69 mg/dl (50-199); Total Protein 5.5 g/dl (6.3-8.2); Triglyceride 69 mg/dl (10-149); Very Low Density Lipoprotein 13 mg/dl (0-30); eGFR 33.93
[2023-10-17 04:22] LABS: TSH Reflex To Free T4 0.63 uIU/ml (0.47-4.68)
--- NOTE | 2023-10-17 04:27 | PTCARENOTE ---
Troponin's still trending up. Patient denies any CP. VSS.
[2023-10-17] MEDS: ZOSYN 50 IV ×4 (05:43→23:54)
[2023-10-17 09:22] LABS: Troponin I 0.901 ng/ml
[2023-10-17] MEDS: PLAVIX 75 MG PO (09:52)
[2023-10-17] MEDS: TOPROL XL 25 MG PO (09:53)
[2023-10-17] MEDS: LASIX 80 MG IV ×2 (09:53→18:20)
[2023-10-17] MEDS: HEPARIN 5000 UNITS SC ×3 (09:53→23:54)
[2023-10-17] MEDS: ASPIR LOW (ENTERIC COATED) 81 MG PO (09:53)
--- NOTE | 2023-10-17 09:59 | W.PN.CARDCBS ---
Today's Communication / Plan
-
Will continue IV Lasix.
Continue aspirin, Plavix, and metoprolol. He is status post recent PCI.
Troponin is at 0.9, however I suspect this is nonischemic myocardial injury. He has no chest pains.
Will need to follow creatinine closely is up to 1.9. Will continue IV Lasix for now.
Impression / Plan
-
Primary Public Address System Mechanic: Dr. Cooley of [facility]
Assessment:
Presentation with change in mental status
Lethargy
Acute on chronic HFrEF
Acute hypercapnic respiratory failure, requiring BIPAP in ER
Elevated troponin
Leukocytosis with fever, presumed sepsis
ENRICO on CKD
Urinary retention
Admission to [facility] 08/2023 for acute inferior STEMI status post RCA PCI
ischemic cardiomyopathy EF 35 to 40% by echo 08/2023
HLD
HTN
RBBB, chronic
History of viral encephalitis approximately 25 years ago
Foot drop
Peripheral neuropathy
History of bladder cancer status post TURP in 2017
Pulmonary nodules
DNR code status
ECHO 08/21/2023: EF 35 to 40%, anteroseptal akinesis, mild global hypokinesis of the rest of LV, grade 1 diastolic dysfunction, trivial posterior pericardial effusion
Echo 10/16/2023, EF 30 to 35%, mild to moderate aortic stenosis, mean gradient 15, mild TR with PA pressure 55, RV hypokinesis
Plan:
-He is now diuresing. Continue Lasix 80 mg IV twice daily. Creatinine up to 1.9. Continue to follow.
-Weight is overall down.
-Continue antibiotics
-Echo was reviewed. His EF is depressed with moderate AAS and RV hypokinesis.
-continue low dose toprol 25mg daily as BP will tolerate. no leann/arb/arni, aldactone, SgLT2 inhibitor at present with NERICO
-trend trop to peak. suspected nonischemic myocardial injury secondary to CHF, sepsis. no present chest pain. s/p RCA PCI 08/2023, continue asa and plavix. EKG SR with RBBB and prior inferior infarct.
-DNR code status noted
Progress Note - Public Address System Mechanic
Subjective
Date of Service: October 17, 2023
He feels better today and is diuresing. Breathing is improved.
Objective
Labs:
10/16/23 10:08
10/17/23 03:12
Labs
Hgb 10.9 g/dL (13.0-18.0) L 10/16/23 10:08
Hct 37.1 % (39.0-52.0) L 10/16/23 10:08
Plt Count 217 10^3/uL (130-400) 10/16/23 10:08
PT 14.7 Sec (11.4-14.6) H 10/16/23 10:08
INR 1.14 10/16/23 10:08
Sodium 144 mmol/L (135-145) 10/17/23 03:12
Potassium 3.6 mmol/L (3.5-5.1) 10/17/23 03:12
BUN 53 mg/dl (9-20) H 10/17/23 03:12
Creatinine 1.9 mg/dL (0.7-1.3) H 10/17/23 03:12
Glucose 114 mg/dl (70-99) H 10/17/23 03:12
Troponins
10/16/23 10/16/23 10/16/23
10:08 18:54 22:42
Troponin I 0.251 H* 0.455 H* 0.597 H* D
10/17/23 10/17/23
03:12 08:37
Troponin I 0.685 H* 0.901 H* D
Vital Signs and I&O:
Vital Signs
Temp Pulse Resp BP Pulse Ox
98.6 F 102 17 139/79 98
10/17/23 07:43 10/17/23 09:53 10/17/23 05:00 10/17/23 09:53 10/17/23 05:00
Vital Signs
Temp Pulse Resp BP Pulse Ox
98.6 F 102 17 139/79 98
10/17/23 07:43 10/17/23 09:53 10/17/23 05:00 10/17/23 09:53 10/17/23 05:00
Intake & Output
10/15/23 10/16/23 10/17/23 10/18/23
06:59 06:59 06:59 06:59
Output Total 800 / 800
Balance -800 / -800
Physical Exam
Physical Exam
GEN: No distress, awake, Ox3
HEENT: supple, anicteric, mmm
LUNGS: Bilateral rhonchi
CV: Reg, S1/S2, 1/6 syst LSB, S3+
ABD: soft, BS+, NT/ND
EXT: ++ edema
NEURO: Gross non-focal
SKIN: No rash
--- NOTE | 2023-10-17 11:01 | PTOTSP ---
Dysphagia Evaluation
Suspect oral/pharyngeal stages of swallowing functional at this time based on clinical bedside swallow evaluation. However, increase in audible wheeze noted after PO trials as well as delayed coughing after all trials were completed. Cannot
determine if this was due to general exertion vs aspiration at the bedside. Patient reported history of dysphagia but could not elaborate and has a documented history of a cognitive impairment. Consider video swallow study to objectively assess
swallow and r/o aspiration given concern for possible PNA.
Recommend:
1. Regular, Thin Liquids
2. Medications as best tolerated
3. Strategies: SUPERVISION with PO, upright to 90 degrees, small sips/bites, slow rate with breaks for breathing
4. Oral care 3x daily
5. Consider video swallow study
--- NOTE | 2023-10-17 14:16 | PTOTSP ---
Video Swallow Study
Summary: Patient presents with WFL-mild oral and mild pharyngeal stage of swallowing. No definitive aspiration visualized. Please see patient care note for full details of penetration/aspiration and swallowing physiology.
Recommend:
1. Regular, Thin Liquids
2. Medications - whole in puree
3. Strategies: SUPERVISION with PO, upright to 90 degrees, small sips/bites, slow rate with breaks for breathing, TUCK CHIN when swallowing liquids
4. Oral care 3x daily
5. Dysphagia therapy follow up for education, instruction in compensations, and to assess tolerance of diet.
--- NOTE | 2023-10-17 15:06 | W.PN.HOSP.TC ---
Today's Communication/Plan
-
cont zosyn, f/u mrsa
IV lasix
BiPAP QHS and Naps
monitor renal function with diuresis
wean o2
asa, plavix, bb
trend trops - f/u cards recs
Assessment / Plan
Assessment / Plan
Physical Exam
General: Well Developed and Well Nourished
HEENT: Anicteric, Moist mucous membranes and Oxygen - 2L
Respiratory: Wheezes (Faint) and Non Labored Respirations
Cardiac: S1/S2 and Regular Rhythm; No Murmur
GI: Soft and Non Tender
Genito-urinary: Lock
Musculoskeletal: No Clubbing, No Cyanosis and Other (+3 pitting edema bilateral lower ext; Mild edema noted in bilateral fingers)
Skin: Warm and Dry
Neuro: AAOx1-2; much more alert than yesterday
# Acute hypercapnic respiratory failure
�most likely exacerbated by acute on chronic HFrEF, as well as possible pneumonia with Fever and impaired resp status
� Noncompliant to BiPAP at facility
� Continue BiPAP QHS and Naps
� Continue IV diuresis, antibiotics
#Acute on chronic HFrEF
- echo: EF is depressed (30-35%) with moderate AAS and RV hypokinesis.
� Continue 80 mg IV Lasix twice daily
� Cardiology consulted�monitor I's and O's and daily weights
-Monitor daily weights, Is&Os
#Severe Sepsis
� Possible pneumonia including a large aspiration pneumonia
-COVID, Flu negative
-Urine cultures negative
- Speech eval - reg, thin liquids
� F/u cultures
� Empiric antibiotics Zosyn
�follow MRSA swab
#Elevated troponin, suspect nonischemic myocardial injury
� Continue to trend troponins until peak
-no chest pain
-f/u cards recs
# ENRICO
# Most likely cardiorenal
Monitor with diuresis
#Acute metabolic encephalopathy
� Secondary to most likely hypercapnia as well as possible infection
- treat as above
-improving
#Urinary retention
� Lock catheter placed in ED
� Start Flomax when able to tolerate p.o.
#CAD
� Status post stent August 2023
� Obtain records from [place]
� Resume aspirin and Plavix,
-Cont BB
#Hyperlipidemia
� Resume statin when able to tolerate p.o.
#DVT prophylaxis
� HSQ
#DNR/DNI
Total time spent on today's encounter was 50 minutes which included time spent in counseling the patient/family regarding diagnosis and treatment plan as listed above, goals of care, and symptom management. Case was discussed with nursing staff,
specialists, and care coordinators/case management. All labs and imaging personally reviewed by me. Remainder the time spent in detailed review of previous records, lab data, imaging, and other medical provider documentation.
Anticipated Discharge: > 48 hours
Subjective/Interval History
-
Date of Service: October 17, 2023
Off noninvasive ventilation, mental status improved
Objective Data
-
Labs:
Laboratory Results
10/17/23
03:12
Sodium 144
Potassium 3.6
Chloride 105
Carbon Dioxide 34 H
BUN 53 H
Creatinine 1.9 H
Glucose 114 H
Calcium 9.5
Total Bilirubin 0.7
AST 18
ALT 12
Alkaline Phosphatase 73
Vital Signs:
Vital Signs
Temp Pulse Resp BP Pulse Ox
98.6 F 102 17 139/79 100
10/17/23 07:43 10/17/23 09:53 10/17/23 05:00 10/17/23 09:53 10/17/23 13:46
I&O
10/16/23 10/17/23 10/18/23
06:59 06:59 06:59
Output Total 800 / 800
Balance -800 / -800
Review of Systems
-
History Source: Patient
All other systems: Not reviewed unless documented
Data Reviewed
-
Diagnostic Radiology: Image personally visualized and interpreted and Report Reviewed by me
Labs: Labs Reviewed by me
--- NOTE | 2023-10-17 15:35 | PTCARENOTE ---
Troponin resulted this am 0.0901, Dr. Medina notified, awaiting cards rec at this time.
--- NOTE | 2023-10-17 15:43 | CM ---
Patient from [facility] with Dx Acute hypercapnic respiratory failure< HF, sepsis, ENRICO, acute metabolic encephalopathy, urinary retention. O2 2L. Receiving IV Lasix, IV Abx. VSE today.
Met with patient and daughter Andra;
the patient resides with a roommate in a third floor apartment with elevator in building in [place].
He had been independent in ADLs and ambulation using his RW prior to his last admission.
The patient had been mostly homebound but still has a drivers license and a car with hand controls due to neuropathy & footdrop.
He was recently at [facility] and discharged to [facility] for rehab.
DME - RW, shower chair
No prior VN
SNF - prior [facility]
[place] - prior [facility]
The patient's daughter Andra (ph [phone]) in [place] and son Luis (ph [phone]) in [place] are both POA - Andra is primary contact.
Andra would like the patient to return to [facility] to complete rehab. She had a call today from their SW and was debating whether to hold his SNF bed.
Spoke with Xavier, [facility]; the patient was there for short term rehab and is on a private pay bed hold. He was actively receiving PT/OT. He was able to transfer to a w/c with assist of 2. They are able to accept the patient back
when he is medically ready. The ph for report to is [phone], fax [phone]. If ready over the weekend, call the main # and speak with nursing bleach supervisor.
Plan return to [facility] when medically ready.
[2023-10-17 21:57] LABS: Troponin I 0.723 ng/ml
[2023-10-18] VITALS (33 sets, daily range): BP systolic 95–143; BP diastolic 46–110; PULSE 2–89; O2SAT 94; BMI 32.3
[2023-10-18 05:03] LABS: Hematocrit 32.7 % (39.0-52.0); Hemoglobin 10.2 g/dL (13.0-18.0); Mean Corp Hgb Conc. 31.2 g/dL (33.0-37.0); Mean Corpuscular Hgb 30.3 pg (27.0-31.0); Mean Platelet Volume 11.2 fL (7.4-10.4); Platelet Count 201 10^3/uL (130-400); Red Blood Cell Count 3.37 10^6/uL (4.70-6.10); Red Cell Dist. Width 13.3 % (11.5-14.5); White Blood Cell Count 12.2 10^3/uL (4.8-10.8)
[2023-10-18 05:24] LABS: ALT (SGPT) 15 U/L (0-50); AST (SGOT) 24 U/L (17-59); Alkaline Phosphatase 70 U/L (38-126); Blood Urea Nitrogen 71 mg/dl (9-20); Calcium 9.7 mg/dl (8.4-10.2); Carbon Dioxide 39 mmol/L (22-30); Chloride 101 mmol/L (98-107); Estimated Creatinine Clearance 29 ml/min; Glucose 111 mg/dl (70-99); Potassium 3.1 mmol/L (3.5-5.1); Sodium 144 mmol/L (135-145); Total Bilirubin 0.6 mg/dl (0.2-1.3); Total Protein 5.9 g/dl (6.3-8.2)
[2023-10-18] MEDS: ZOSYN 50 IV ×4 (05:42→23:10)
[2023-10-18 05:47] LABS: Troponin I 0.557 ng/ml
[2023-10-18] MEDS: KCL 270 MEQ IV (06:31)
[2023-10-18] MEDS: ASPIR LOW (ENTERIC COATED) 81 MG PO (09:24)
[2023-10-18] MEDS: LASIX 80 MG IV ×2 (09:24→15:28)
[2023-10-18] MEDS: HEPARIN 5000 UNITS SC ×3 (09:24→23:09)
[2023-10-18] MEDS: TOPROL XL 25 MG PO (09:24)
[2023-10-18] MEDS: PLAVIX 75 MG PO (09:24)
[2023-10-18] MEDS: KCL ELIXIR 40 MEQ PO ×2 (10:07→12:11)
--- NOTE | 2023-10-18 11:40 | PTCARENOTE ---
Patient oriented x3 this morning. Pt took off his BiPAP himself and then was switched to 4L NC by nursing, will wean as tolerated. Pt has been incontinent of bowel this morning. Lock catheter intact and to remain per , asked for new
order. Pt's daughter Andra was updated by phone this morning and also now at the bedside. PT worked with patient and he was assisted x2 to chair. Bed alarm on. Assessment, care and VS as charted.
--- NOTE | 2023-10-18 15:22 | W.PN.HOSP.TC ---
Today's Communication/Plan
-
cont diuresis, abx
monitor I&Os and daily weights, maintain bernabe
wean o2
cxr in am
Assessment / Plan
Assessment / Plan
Physical Exam
General: Well Developed and Well Nourished
HEENT: Anicteric, Moist mucous membranes and Oxygen - 2L
Respiratory: Wheezes (Faint) and Non Labored Respirations
Cardiac: S1/S2 and Regular Rhythm; No Murmur
GI: Soft and Non Tender
Genito-urinary: Bernabe
Musculoskeletal: No Clubbing, No Cyanosis and Other (+3 pitting edema bilateral lower ext; Mild edema noted in bilateral fingers)
Skin: Warm and Dry
Neuro: AAOx1-2; much more alert than yesterday
# Acute hypercapnic respiratory failure
�most likely exacerbated by acute on chronic HFrEF, as well as possible pneumonia with Fever and impaired resp status
� Noncompliant to BiPAP at facility
� Continue BiPAP QHS and Naps
� Continue IV diuresis, antibiotics
#Acute on chronic HFrEF
- echo: EF is depressed (30-35%) with moderate AAS and RV hypokinesis.
� Continue 80 mg IV Lasix twice daily
� Cardiology consulted
�monitor I's and O's and daily weights
-Monitor daily weights, Is&Os
#Severe Sepsis
� Possible pneumonia including a large aspiration pneumonia
-COVID, Flu negative
-Urine cultures negative
- Speech eval - reg, thin liquids
� cultures NGTD
� Empiric antibiotics Zosyn
�MRSA swab - negative
#Elevated troponin, suspect nonischemic myocardial injury
� Continue to trend troponins until peak
-no chest pain
-f/u cards recs
# ENRICO
# Most likely cardiorenal
Monitor with diuresis
#Acute metabolic encephalopathy
� Secondary to most likely hypercapnia as well as possible infection
- treat as above
-improving
#Urinary retention
� Bernabe catheter placed in ED
� Start Flomax when able to tolerate p.o.
#CAD
� Status post stent August 2023
� Obtain records from [facility]
� Resume aspirin and Plavix,
-Cont BB
#Hypokalemia
-monitor and replete
#Hyperlipidemia
� Resume statin when able to tolerate p.o.
#DVT prophylaxis
� HSQ
#DNR/DNI
Total time spent on today's encounter was 51 minutes which included time spent in counseling the patient/family regarding diagnosis and treatment plan as listed above, goals of care, and symptom management. Case was discussed with nursing staff,
specialists, and care coordinators/case management. All labs and imaging personally reviewed by me. Remainder the time spent in detailed review of previous records, lab data, imaging, and other medical provider documentation.
Anticipated Discharge: > 48 hours
Subjective/Interval History
-
Date of Service: October 18, 2023
sitting in chair, saturating 93% on 3L
Objective Data
-
Labs:
Laboratory Results
10/18/23
04:50
WBC 12.2 H
Hgb 10.2 L
Hct 32.7 L
Plt Count 201
Sodium 144
Potassium 3.1 L
Chloride 101
Carbon Dioxide 39 H
BUN 71 H
Creatinine 2.0 H
Glucose 111 H
Calcium 9.7
Total Bilirubin 0.6
AST 24
ALT 15
Alkaline Phosphatase 70
Vital Signs:
Vital Signs
Temp Pulse Resp BP Pulse Ox
98.6 F 107 31 112/57 95
10/18/23 11:41 10/18/23 12:43 10/18/23 12:43 10/18/23 12:43 10/18/23 12:43
I&O
10/17/23 10/18/23 10/19/23
06:59 06:59 06:59
Intake Total 290 / 290
Output Total 800 / 800 1800 / 1800
Balance -800 / -800 -1510 / -1510
Review of Systems
-
History Source: Patient
All other systems: Not reviewed unless documented
Data Reviewed
-
Diagnostic Radiology: Image personally visualized and interpreted and Report Reviewed by me
Labs: Labs Reviewed by me
--- NOTE | 2023-10-18 18:27 | W.PN.CARDCBS ---
Today's Communication / Plan
-
Switch to Lasix 80 mg p.o. twice daily with creatinine at 2.0. Replete potassium.
Continue Toprol. Blood pressure remains marginal.
Continue antibiotics.
Once kidney stabilize could consider JENNA/ARB/Arni/Entresto/SLG 2
Impression / Plan
-
Primary Bottle Capping Machine Operator: Dr. Cooley of [facility]
Assessment:
Presentation with change in mental status
Lethargy
Acute on chronic HFrEF
Acute hypercapnic respiratory failure, requiring BIPAP in ER
Elevated troponin
Leukocytosis with fever, presumed sepsis
ENRICO on CKD
Urinary retention
Admission to [facility] 08/2023 for acute inferior STEMI status post RCA PCI
ischemic cardiomyopathy EF 35 to 40% by echo 08/2023
HLD
HTN
RBBB, chronic
History of viral encephalitis approximately 25 years ago
Foot drop
Peripheral neuropathy
History of bladder cancer status post TURP in 2017
Pulmonary nodules
DNR code status
ECHO 08/21/2023: EF 35 to 40%, anteroseptal akinesis, mild global hypokinesis of the rest of LV, grade 1 diastolic dysfunction, trivial posterior pericardial effusion
Echo 10/16/2023, EF 30 to 35%, mild to moderate aortic stenosis, mean gradient 15, mild TR with PA pressure 55, RV hypokinesis
Plan:
-He is now diuresing. Will switch to Lasix 80 mg p.o. twice daily. Creatinine is up to 2.0. Replete potassium.
-Weight is overall down.
-Continue antibiotics
-Echo was reviewed. His EF is depressed with moderate AAS and RV hypokinesis.
-continue low dose toprol 25mg daily as BP will tolerate. no jenna/arb/arni, aldactone, SgLT2 inhibitor at present with ENRICO
-trend trop to peak. suspected nonischemic myocardial injury secondary to CHF, sepsis. no present chest pain. s/p RCA PCI 08/2023, continue asa and plavix. EKG SR with RBBB and prior inferior infarct.
-I do not think he is an ideal candidate for primary prevention ICD
-DNR code status noted
Progress Note - Bottle Capping Machine Operator
Subjective
Date of Service: October 18, 2023
Breathing continues to improve. His weight is overall down with IV diuresis.
Objective
Labs:
10/18/23 04:50
10/18/23 04:50
Labs
Hgb 10.2 g/dL (13.0-18.0) L 10/18/23 04:50
Hct 32.7 % (39.0-52.0) L 10/18/23 04:50
Plt Count 201 10^3/uL (130-400) 10/18/23 04:50
PT 14.7 Sec (11.4-14.6) H 10/16/23 10:08
INR 1.14 10/16/23 10:08
Sodium 144 mmol/L (135-145) 10/18/23 04:50
Potassium 3.1 mmol/L (3.5-5.1) L 10/18/23 04:50
BUN 71 mg/dl (9-20) H 10/18/23 04:50
Creatinine 2.0 mg/dL (0.7-1.3) H 10/18/23 04:50
Glucose 111 mg/dl (70-99) H 10/18/23 04:50
Troponins
10/16/23 10/16/23 10/16/23
10:08 18:54 22:42
Troponin I 0.251 H* 0.455 H* 0.597 H* D
10/17/23 10/17/23 10/17/23
03:12 08:37 16:00
Troponin I 0.685 H* 0.901 H* D Cancelled
10/17/23 10/18/23 10/18/23
21:25 04:50 10:00
Troponin I 0.723 H* 0.557 H* Cancelled
Vital Signs and I&O:
Vital Signs
Temp Pulse Resp BP Pulse Ox
98.1 F 64 23 95/54 100
10/18/23 15:46 10/18/23 18:00 10/18/23 18:00 10/18/23 18:00 10/18/23 18:08
Vital Signs
Temp Pulse Resp BP Pulse Ox
98.1 F 64 23 /54 100
10/18/23 15:46 10/18/23 18:00 10/18/23 18:00 10/18/23 18:00 10/18/23 18:08
Intake & Output
10/16/23 10/17/23 10/18/23 10/19/23
06:59 06:59 06:59 06:59
Intake Total 290 / 290 580 / 580
Output Total 800 / 800 1800 / 1800 700 / 700
Balance -800 / -800 -1510 / -1510 -120 / -120
Physical Exam
Physical Exam
GEN: No distress, awake,
HEENT: supple, anicteric, mmm
LUNGS: CTA, no wheezes/rales
CV: Reg, S1/S2, 1/6 syst LSB, no gallop
ABD: soft, BS+, NT/ND
EXT: +1 edema
NEURO: Gross non-focal
SKIN: No rash
--- NOTE | 2023-10-18 22:00 | PTCARENOTE ---
Assume care from AM RN. VSS. AAOx1, drowsy,forgetful and confused. Easily arousable. NSR w/ PVC in the monitor. +1 BLUE and +2 BLLE, scrotal edema. Pt has been on BIPAP 12/5 10L throughout the night, SaO2 96%. Lung sounds are diminished and
occasional moist nonproductive cough. Pt requires monitoring with eating and drinking. Lock cath intact. Will continue with tx.
[2023-10-19] VITALS (17 sets, daily range): BP systolic 104–140; BP diastolic 53–104; PULSE 2–89; BMI 31.7
[2023-10-19] MEDS: ZOSYN 50 IV ×4 (05:48→23:22)
[2023-10-19 05:54] LABS: Hematocrit 33.9 % (39.0-52.0); Hemoglobin 10.4 g/dL (13.0-18.0); Mean Corp Hgb Conc. 30.7 g/dL (33.0-37.0); Mean Corpuscular Hgb 30.3 pg (27.0-31.0); Mean Corpuscular Volume 98.8 fL (80.0-94.0); Mean Platelet Volume 11.4 fL (7.4-10.4); Platelet Count 189 10^3/uL (130-400); Red Blood Cell Count 3.43 10^6/uL (4.70-6.10); Red Cell Dist. Width 13.2 % (11.5-14.5); White Blood Cell Count 13.5 10^3/uL (4.8-10.8)
[2023-10-19 06:30] LABS: ALT (SGPT) 13 U/L (0-50); AST (SGOT) 21 U/L (17-59); Albumin 2.9 g/dl (3.5-5.0); Alkaline Phosphatase 78 U/L (38-126); Blood Urea Nitrogen 74 mg/dl (9-20); Carbon Dioxide 38 mmol/L (22-30); Chloride 102 mmol/L (98-107); Estimated Creatinine Clearance 27 ml/min; Glucose 108 mg/dl (70-99); Magnesium 2.4 mg/dl (1.6-2.3); Potassium 3.5 mmol/L (3.5-5.1); Sodium 148 mmol/L (135-145); Total Bilirubin 0.8 mg/dl (0.2-1.3); Total Protein 5.7 g/dl (6.3-8.2); eGFR 30.09
[2023-10-19] MEDS: HEPARIN 5000 UNITS SC ×3 (08:00→23:21)
[2023-10-19] MEDS: ASPIR LOW (ENTERIC COATED) 81 MG PO (08:01)
[2023-10-19] MEDS: TOPROL XL 25 MG PO (08:01)
[2023-10-19] MEDS: PLAVIX 75 MG PO (08:01)
[2023-10-19] MEDS: LASIX 80 MG PO ×2 (08:01→16:34)
--- NOTE | 2023-10-19 08:24 | PTCARENOTE ---
Pt aaox3 this morning and using call lyon appropriately. Pt supervised while eating breakfast. Meds given in applesauce. Oral care provided following breakfast. Pt still with occasional coughing, unable to bring any sputum up at this time but
encouraged hard coughs. Daughter Andra updated over the phone this morning. Assessment, care and VS as charted.
--- NOTE | 2023-10-19 10:23 | W.PN.CARDCBS ---
Today's Communication / Plan
-
Cr 2.1 from 2.0; diuresing overnight -> Continue Lasix and monitor
ABX per primary service
Continue BB; once renal function stabilizes/improves, consider additional HF medical therapy (JENNA/ARB/ARNI/Entresto/SGLT2)
Impression / Plan
-
Primary Cnc Service Engineer: Dr. Cooley of [facility]
Assessment:
Presentation with change in mental status
Lethargy
Acute on chronic HFrEF
Acute hypercapnic respiratory failure, requiring BIPAP in ER
Elevated troponin
Leukocytosis with fever, presumed sepsis
ENRICO on CKD
Urinary retention
Admission to [facility] 08/2023 for acute inferior STEMI status post RCA PCI
ischemic cardiomyopathy EF 35 to 40% by echo 08/2023
HLD
HTN
RBBB, chronic
History of viral encephalitis approximately 25 years ago
Foot drop
Peripheral neuropathy
History of bladder cancer status post TURP in 2017
Pulmonary nodules
DNR code status
ECHO 08/21/2023: EF 35 to 40%, anteroseptal akinesis, mild global hypokinesis of the rest of LV, grade 1 diastolic dysfunction, trivial posterior pericardial effusion
Echo 10/16/2023, EF 30 to 35%, mild to moderate aortic stenosis, mean gradient 15, mild TR with PA pressure 55, RV hypokinesis
Plan:
-He is now diuresing. Continue Lasix 80 mg p.o. twice daily. Creatinine is up to 2.0. Replete potassium.---down 2L overnight 10/17-10/18
-Weight is overall down; monitor I/Os, and weights
-Continue antibiotics
-Echo was reviewed. His EF is depressed with moderate AAS and RV hypokinesis.
-continue low dose toprol 25mg daily as BP will tolerate. no jenna/arb/arni, aldactone, SgLT2 inhibitor at present with ENRICO
-trend trop to peak. suspected nonischemic myocardial injury secondary to CHF, sepsis. no present chest pain. s/p RCA PCI 08/2023, continue asa and plavix. EKG SR with RBBB and prior inferior infarct.
-I do not think he is an ideal candidate for primary prevention ICD
-DNR code status noted
Progress Note - Cnc Service Engineer
Subjective
Date of Service: October 19, 2023
Patient seen and examined. No acute events overnight. Patient resting comfortably noting cough. No cp, sob, palpitations, pnd, or weakness. SR with PACs on telemetry.
Objective
Labs:
10/19/23 05:31
10/19/23 05:31
Labs
Hgb 10.4 g/dL (13.0-18.0) L 10/19/23 05:31
Hct 33.9 % (39.0-52.0) L 10/19/23 05:31
Plt Count 189 10^3/uL (130-400) 10/19/23 05:31
PT 14.7 Sec (11.4-14.6) H 10/16/23 10:08
INR 1.14 10/16/23 10:08
Sodium 148 mmol/L (135-145) H 10/19/23 05:31
Potassium 3.5 mmol/L (3.5-5.1) 10/19/23 05:31
BUN 74 mg/dl (9-20) H 10/19/23 05:31
Creatinine 2.1 mg/dL (0.7-1.3) H 10/19/23 05:31
Glucose 108 mg/dl (70-99) H 10/19/23 05:31
Troponins
10/16/23 10/16/23 10/16/23
10:08 18:54 22:42
Troponin I 0.251 H* 0.455 H* 0.597 H* D
10/17/23 10/17/23 10/17/23
03:12 08:37 16:00
Troponin I 0.685 H* 0.901 H* D Cancelled
10/17/23 10/18/23 10/18/23
21:25 04:50 10:00
Troponin I 0.723 H* 0.557 H* Cancelled
Vital Signs and I&O:
Vital Signs
Temp Pulse Resp BP Pulse Ox
98.4 F 89 26 116/70 95
10/19/23 07:52 10/19/23 08:01 10/19/23 08:00 10/19/23 08:01 10/19/23 09:59
Vital Signs
Temp Pulse Resp BP Pulse Ox
98.4 F 89 26 116/70 95
10/19/23 07:52 10/19/23 08:01 10/19/23 08:00 10/19/23 08:01 10/19/23 09:59
Intake & Output
10/17/23 10/18/23 10/19/23 10/20/23
06:59 06:59 06:59 06:59
Intake Total 290 / 290 820 / 820
Output Total 800 / 800 1800 / 1800 2850 / 2850
Balance -800 / -800 -1510 / -1510 -2029 / -2029
Physical Exam
Physical Exam
GEN: No distress, awake,
HEENT: supple, anicteric, mmm
LUNGS: CTA, no wheezes/rales
CV: Reg, S1/S2, 1/6 syst LSB, no gallop
ABD: soft, BS+, NT/ND
EXT: +1 edema
NEURO: Gross non-focal
SKIN: No rash
[2023-10-19] MEDS: KCL ELIXIR 40 MEQ PO (11:22)
--- NOTE | 2023-10-19 15:14 | W.PN.HOSP.TC ---
Today's Communication/Plan
-
switch to PO lasix
cont abx
wean o2
PT/OT; ambulation
monitor renal function with diuretics
Assessment / Plan
Assessment / Plan
Physical Exam
General: Well Developed and Well Nourished
HEENT: Anicteric, Moist mucous membranes and Oxygen - 2L
Respiratory: Wheezes (Faint) and Non Labored Respirations
Cardiac: S1/S2 and Regular Rhythm; No Murmur
GI: Soft and Non Tender
Genito-urinary: Lock
Musculoskeletal: No Clubbing, No Cyanosis and Other (+3 pitting edema bilateral lower ext; Mild edema noted in bilateral fingers)
Skin: Warm and Dry
Neuro: AAOx1-2; much more alert than yesterday
# Acute hypercapnic respiratory failure
�most likely exacerbated by acute on chronic HFrEF, as well as possible pneumonia with Fever and impaired resp status
� Noncompliant to BiPAP at facility
� Continue BiPAP QHS and Naps
� Continue IV diuresis, antibiotics
#Acute on chronic HFrEF
- echo: EF is depressed (30-35%) with moderate AAS and RV hypokinesis.
� Switch to PO lasix
� Cardiology consulted
�monitor I's and O's and daily weights
-Monitor daily weights, Is&Os
#Severe Sepsis
� Possible pneumonia including a large aspiration pneumonia
-COVID, Flu negative
-Urine cultures negative
- Speech eval - reg, thin liquids
� cultures NGTD
� Empiric antibiotics Zosyn
�MRSA swab - negative
#Hypernatremia
-most likely 2/2 to overdiuresis
-Monitor with switching to PO lasix
#Elevated troponin, suspect nonischemic myocardial injury
� Continue to trend troponins until peak
-no chest pain
-f/u cards recs
# ENRICO
# Most likely cardiorenal v septic atn
Monitor with diuresis, resuscitation
#Acute metabolic encephalopathy
� Secondary to most likely hypercapnia as well as possible infection
- treat as above
-improving
#Urinary retention
� Lock catheter placed
#CAD
� Status post stent August 2023
� Obtain records from [place]
� Resume aspirin and Plavix,
-Cont BB
#Hypokalemia
-monitor and replete
#Hyperlipidemia
� Resume statin when able to tolerate p.o.
#DVT prophylaxis
� HSQ
#DNR/DNI
Total time spent on today's encounter was 52 minutes which included time spent in counseling the patient/family regarding diagnosis and treatment plan as listed above, goals of care, and symptom management. Case was discussed with nursing staff,
specialists, and care coordinators/case management. All labs and imaging personally reviewed by me. Remainder the time spent in detailed review of previous records, lab data, imaging, and other medical provider documentation.
Anticipated Discharge: > 48 hours
Subjective/Interval History
-
Date of Service: October 19, 2023
More alert today
Objective Data
-
Labs:
Laboratory Results
10/19/23
05:31
WBC 13.5 H
Hgb 10.4 L
Hct 33.9 L
Plt Count 189
Sodium 148 H
Potassium 3.5
Chloride 102
Carbon Dioxide 38 H
BUN 74 H
Creatinine 2.1 H
Glucose 108 H
Calcium 10.0
Total Bilirubin 0.8
AST 21
ALT 13
Alkaline Phosphatase 78
Vital Signs:
Vital Signs
Temp Pulse Resp BP Pulse Ox
98.4 F 81 29 106/54 99
10/19/23 11:50 10/19/23 14:00 10/19/23 14:00 10/19/23 14:00 10/19/23 14:00
I&O
10/18/23 10/19/23 10/20/23
06:59 06:59 06:59
Intake Total 290 / 290 820 / 820 120 / 120
Output Total 1800 / 1800 2850 / 2850 400 / 400
Balance -1510 / -1510 -2030 / -2030 -280 / -280
Review of Systems
-
History Source: Patient
All other systems: Not reviewed unless documented
Data Reviewed
-
Diagnostic Radiology: Image personally visualized and interpreted and Report Reviewed by me
Labs: Labs Reviewed by me
--- NOTE | 2023-10-19 22:30 | PTCARENOTE ---
Pt has been AAOx2 forgetful and confused. Anxious and periods of drowsiness. Flat effect and withdrawn. NRS in the monitor. +2 BLLE and +1 BLUE, and scrotal edema. Pt is on BIPAP 12/5 6L tachypneic, dyspneic with exertion, orthopneic. Nonproductive
cough. High aspiration risk, requires monitoring when eating. Lung sounds are diminished. Abd round and obese. Pt has been have clear mucus BP. Lock cath intact. Will continue to monitor.
[2023-10-20] VITALS (17 sets, daily range): BP systolic 109–137; BP diastolic 51–86; PULSE 2–93; O2SAT 96; BMI 31.3
--- NOTE | 2023-10-20 04:55 | PTCARENOTE ---
Pt converted to Afib 80-100's. Pt changed rhythm after having a clear mucus BM and passing flatulence. PAEDIATRICIAN notified and EKG done to confirm heat rhythm. Will Cont w/ tx.
[2023-10-20] MEDS: ZOSYN 50 IV ×4 (05:38→23:05)
[2023-10-20 05:53] LABS: Hematocrit 34.2 % (39.0-52.0); Hemoglobin 10.5 g/dL (13.0-18.0); Mean Corp Hgb Conc. 30.7 g/dL (33.0-37.0); Mean Corpuscular Hgb 29.7 pg (27.0-31.0); Mean Corpuscular Volume 96.9 fL (80.0-94.0); Mean Platelet Volume 11.1 fL (7.4-10.4); Platelet Count 214 10^3/uL (130-400); Red Blood Cell Count 3.53 10^6/uL (4.70-6.10); Red Cell Dist. Width 13.4 % (11.5-14.5); White Blood Cell Count 15.1 10^3/uL (4.8-10.8)
[2023-10-20 06:12] LABS: Blood Urea Nitrogen 76 mg/dl (9-20); Calcium 9.8 mg/dl (8.4-10.2); Chloride 102 mmol/L (98-107); Estimated Creatinine Clearance 28 ml/min; Glucose 113 mg/dl (70-99); Potassium 3.3 mmol/L (3.5-5.1); Sodium 148 mmol/L (135-145)
[2023-10-20 06:23] LABS: Carbon Dioxide 38 mmol/L (22-30)
[2023-10-20] MEDS: KCL ELIXIR 40 MEQ PO (07:14)
[2023-10-20] MEDS: HEPARIN 5000 UNITS SC ×2 (07:59→16:31)
[2023-10-20] MEDS: LASIX 80 MG PO ×2 (07:59→16:33)
[2023-10-20] MEDS: ASPIR LOW (ENTERIC COATED) 81 MG PO (07:59)
[2023-10-20] MEDS: TOPROL XL 25 MG PO (08:00)
[2023-10-20] MEDS: PLAVIX 75 MG PO (08:00)
--- NOTE | 2023-10-20 13:30 | W.PN.HOSP.TC ---
Today's Communication/Plan
-
cont abx
wean o2
monitor renal function, na
monitor mental status
early ambulation/PT/OT
restart finasteride
cxr in am
Assessment / Plan
Assessment / Plan
Physical Exam
General: Well Developed and Well Nourished
HEENT: Anicteric, Moist mucous membranes and Oxygen - 2L
Respiratory: Wheezes (Faint) and Non Labored Respirations
Cardiac: S1/S2 and Regular Rhythm; No Murmur
GI: Soft and Non Tender
Genito-urinary: Lock
Musculoskeletal: No Clubbing, No Cyanosis and Other (+3 pitting edema bilateral lower ext; Mild edema noted in bilateral fingers)
Skin: Warm and Dry
Neuro: AAOx1-2; much more alert than yesterday
# Acute hypercapnic respiratory failure
�most likely exacerbated by acute on chronic HFrEF, as well as possible pneumonia with Fever and impaired resp status
� Noncompliant to BiPAP at facility
� Continue BiPAP QHS and Naps
� switch to PO diuresis, antibiotics
#Acute on chronic HFrEF
- echo: EF is depressed (30-35%) with moderate AAS and RV hypokinesis.
� Switch to PO lasix
� Cardiology consulted
�monitor I's and O's and daily weights
-Monitor daily weights, Is&Os
#Severe Sepsis
� Possible pneumonia including a large aspiration pneumonia
-COVID, Flu negative
-Urine cultures negative
- Speech eval - reg, thin liquids
� cultures NGTD
� Empiric antibiotics Zosyn - can switch to unasyn tomorrow if continues to improve
�MRSA swab - negative
#Hypernatremia
-most likely 2/2 to overdiuresis
-Monitor with switching to PO lasix
#Elevated troponin, suspect nonischemic myocardial injury
� Continue to trend troponins until peak
-no chest pain
-f/u cards recs
# ENRICO
# Most likely cardiorenal v septic atn
Monitor with diuresis, resuscitation
#Acute metabolic encephalopathy
� Secondary to most likely hypercapnia as well as possible infection
- treat as above
-improving
#Urinary retention
� Lock catheter placed
-TOV prior to dc
-restart finasteride
#CAD
� Status post stent August 2023
� Obtain records from [place]
� Resume aspirin and Plavix,
-Cont BB
#Hypokalemia
-monitor and replete
#Hyperlipidemia
� Resume statin when able to tolerate p.o.
#DVT prophylaxis
� HSQ
#DNR/DNI
Total time spent on today's encounter was 53 minutes which included time spent in counseling the patient/family regarding diagnosis and treatment plan as listed above, goals of care, and symptom management. Case was discussed with nursing staff,
specialists, and care coordinators/case management. All labs and imaging personally reviewed by me. Remainder the time spent in detailed review of previous records, lab data, imaging, and other medical provider documentation.
Anticipated Discharge: 24 - 48 hours
Subjective/Interval History
-
Date of Service: October 20, 2023
No acute events
Objective Data
-
Labs:
Laboratory Results
10/20/23
05:32
WBC 15.1 H
Hgb 10.5 L
Hct 34.2 L
Plt Count 214
Sodium 148 H
Potassium 3.3 L
Chloride 102
Carbon Dioxide 38 H
BUN 76 H
Creatinine 2.0 H
Glucose 113 H
Calcium 9.8
Vital Signs:
Vital Signs
Temp Pulse Resp BP Pulse Ox
98.1 F 83 31 133/58 91
10/20/23 04:05 10/20/23 12:00 10/20/23 12:00 10/20/23 12:00 10/20/23 12:00
I&O
10/19/23 10/20/23 10/21/23
06:59 06:59 06:59
Intake Total 820 / 820 1280 / 1280 50 / 50
Output Total 2850 / 2850 1850 / 1850 500 / 500
Balance -2030 / -2030 -570 / -570 -450 / -450
Review of Systems
-
History Source: Patient
All other systems: Not reviewed unless documented
Data Reviewed
-
Diagnostic Radiology: Image personally visualized and interpreted and Report Reviewed by me
Labs: Labs Reviewed by me
--- NOTE | 2023-10-20 14:47 | PTCARENOTE ---
Pt lethargic, rsp called ti put pt on Bipap,
--- NOTE | 2023-10-20 16:25 | CHAP ---
A visit had been requested for Mr. Schaeferan. Emotional support provided - he appreciated the company.
[2023-10-20] MEDS: PROSCAR 5 MG PO (16:33)
--- NOTE | 2023-10-20 19:46 | W.PN.CARDCBS ---
Today's Communication / Plan
-
Remains overloaded, continue diuresis
Antibiotics per primary service
Monitor renal function and mental status
New diagnosis atrial fibrillation, paroxysmal start heparin for now monitor
Obtain records from primary orthotic aide
Impression / Plan
-
Primary Kettle Coordinator: Dr. Cooley of [facility]
Assessment:
Presentation with change in mental status
Lethargy
Acute on chronic HFrEF
PAF new diagnosis
Acute hypercapnic respiratory failure, requiring BIPAP in ER
Elevated troponin
Leukocytosis with fever, presumed sepsis
ENRICO on CKD
Urinary retention
Admission to [facility] 08/2023 for acute inferior STEMI status post RCA PCI
ischemic cardiomyopathy EF 35 to 40% by echo 08/2023
HLD
HTN
RBBB, chronic
History of viral encephalitis approximately 25 years ago
Foot drop
Peripheral neuropathy
History of bladder cancer status post TURP in 2017
Pulmonary nodules
DNR code status
ECHO 08/21/2023: EF 35 to 40%, anteroseptal akinesis, mild global hypokinesis of the rest of LV, grade 1 diastolic dysfunction, trivial posterior pericardial effusion
Echo 10/16/2023, EF 30 to 35%, mild to moderate aortic stenosis, mean gradient 15, mild TR with PA pressure 55, RV hypokinesis
Plan:
-He is now diuresing. Continue Lasix 80 mg p.o. twice daily. Creatinine is up to 2.0. Replete potassium.---down 2L overnight 10/17-10/18; down an additional 1.1 L 10/19
-Weight is overall down; monitor I/Os, and weights
-Continue antibiotics
� New diagnosis of paroxysmal atrial fibrillation patient with an episode lasting roughly 5 hours overnight; however unclear if this is present from prior documentation of prior orthotic aide; recommend obtaining records. May need more thoughtful
discussion regarding anticoagulation given significant comorbidities. In the short-term, can start IV heparin without bolus and monitor PTT. When patient is stable place, can consider change to oral anticoagulation
-Echo was reviewed. His EF is depressed with moderate AAS and RV hypokinesis.
-continue low dose toprol 25mg daily as BP will tolerate. no leann/arb/arni, aldactone, SgLT2 inhibitor at present with ENRICO
-trend trop to peak. suspected nonischemic myocardial injury secondary to CHF, sepsis. no present chest pain. s/p RCA PCI 08/2023, continue asa and plavix. EKG SR with RBBB and prior inferior infarct.
-I do not think he is an ideal candidate for primary prevention ICD
-DNR code status noted
Progress Note - Kettle Coordinator
Subjective
Date of Service: October 20, 2023
Patient seen and examined this morning. No acute events overnight. Of note, patient had an episode of atrial fibrillation lasting from roughly 230 to 7:30 AM roughly 5 hours in duration unclear if symptomatic. Patient denies chest pain,
palpitations, lightheadedness, dizziness. Notes continued shortness of breath and fatigue.
Objective
Labs:
10/20/23 05:32
10/20/23 05:32
Labs
Hgb 10.5 g/dL (13.0-18.0) L 10/20/23 05:32
Hct 34.2 % (39.0-52.0) L 10/20/23 05:32
Plt Count 214 10^3/uL (130-400) 10/20/23 05:32
PT 14.7 Sec (11.4-14.6) H 10/16/23 10:08
INR 1.14 10/16/23 10:08
Sodium 148 mmol/L (135-145) H 10/20/23 05:32
Potassium 3.3 mmol/L (3.5-5.1) L 10/20/23 05:32
BUN 76 mg/dl (9-20) H 10/20/23 05:32
Creatinine 2.0 mg/dL (0.7-1.3) H 10/20/23 05:32
Glucose 113 mg/dl (70-99) H 10/20/23 05:32
Troponins
10/17/23 10/17/23 10/18/23
16:00 21:25 04:50
Troponin I Cancelled 0.723 H* 0.557 H*
10/18/23
10:00
Troponin I Cancelled
Vital Signs and I&O:
Vital Signs
Temp Pulse Resp BP Pulse Ox
99.1 F 86 33 135/62 96
10/20/23 15:50 10/20/23 16:33 10/20/23 16:00 10/20/23 16:33 10/20/23 16:00
Vital Signs
Temp Pulse Resp BP Pulse Ox
99.1 F 86 33 135/62 96
10/20/23 15:50 10/20/23 16:33 10/20/23 16:00 10/20/23 16:33 10/20/23 16:00
Intake & Output
10/18/23 10/19/23 10/20/23 10/21/23
06:59 06:59 06:59 06:59
Intake Total 290 / 290 820 / 820 1280 / 1280 340 / 340
Output Total 1800 / 1800 2850 / 2850 1850 / 1850 750 / 750
Balance -1510 / -1510 -2030 / -2030 -570 / -570 -410 / -410
Physical Exam
Physical Exam
GEN: No distress, awake,
HEENT: supple, anicteric, mmm
LUNGS: CTA, no wheezes/rales
CV: Reg, S1/S2, 1/6 syst LSB, no gallop
ABD: soft, BS+, NT/ND
EXT: +1 edema
NEURO: Gross non-focal
SKIN: No rash
[2023-10-20 23:14] LABS: Hematocrit 32.7 % (39.0-52.0); Hemoglobin 10.1 g/dL (13.0-18.0); Mean Corp Hgb Conc. 30.9 g/dL (33.0-37.0); Mean Corpuscular Hgb 30.4 pg (27.0-31.0); Mean Corpuscular Volume 98.5 fL (80.0-94.0); Platelet Count 206 10^3/uL (130-400); Red Blood Cell Count 3.32 10^6/uL (4.70-6.10); Red Cell Dist. Width 13.4 % (11.5-14.5); White Blood Cell Count 13.1 10^3/uL (4.8-10.8)
[2023-10-20] MEDS: HEPARIN 25000 UNITS/250 ML IV (23:15)
--- NOTE | 2023-10-20 23:17 | PTCARENOTE ---
Received pt from jennifer RN. Pt is AAOx2 (time), confused/forgetful, drowsy, slow speech. NSR w/PVCs on the monitor. On 3L NC, pt placed on bipap HS 12/5 @ 12L O2 sat 90%, lungs diminished. Lock in place for acute retention, hygiene provided.
Incont of stool. Heparin gtt started per Dr. Christian orders @ 1000 units/hr. Pt is laying comfortable in bed with call lyon in reach.
[2023-10-20 23:27] LABS: APTT 34.6 Sec (23.4-35.0)
[2023-10-21] VITALS (12 sets, daily range): BP systolic 95–137; BP diastolic 45–85; PULSE 2–68; BMI 31.1
[2023-10-21] MEDS: ZOSYN 50 IV ×3 (05:09→17:08)
[2023-10-21 05:16] LABS: Hematocrit 34.5 % (39.0-52.0); Hemoglobin 10.2 g/dL (13.0-18.0); Mean Corp Hgb Conc. 29.6 g/dL (33.0-37.0); Mean Corpuscular Volume 101.5 fL (80.0-94.0); Mean Platelet Volume 11.2 fL (7.4-10.4); Platelet Count 188 10^3/uL (130-400); Red Cell Dist. Width 13.6 % (11.5-14.5); White Blood Cell Count 12.6 10^3/uL (4.8-10.8)
[2023-10-21 05:29] LABS: APTT 82.4 Sec (23.4-35.0)
[2023-10-21 05:42] LABS: Blood Urea Nitrogen 76 mg/dl (9-20); Calcium 9.8 mg/dl (8.4-10.2); Carbon Dioxide 40 mmol/L (22-30); Chloride 104 mmol/L (98-107); Estimated Creatinine Clearance 27 ml/min; Glucose 121 mg/dl (70-99); Magnesium 2.5 mg/dl (1.6-2.3); Potassium 3.5 mmol/L (3.5-5.1); Sodium 151 mmol/L (135-145); eGFR 30.09
--- NOTE | 2023-10-21 05:54 | W.PN.HOSP.TC ---
Today's Communication/Plan
-
monitor renal function
gentle hydration as per nephro
hep gtt to transition to Eliquis as per Cardio
wean O2 supplementation as tolerated
PT/OT
Assessment / Plan
Assessment / Plan
Physical Exam
General: Well Developed and Well Nourished
HEENT: Anicteric, Moist mucous membranes and Oxygen - 2L
Respiratory: Wheezes (Faint) and Non Labored Respirations
Cardiac: S1/S2 and Regular Rhythm; No Murmur
GI: Soft and Non Tender
Genito-urinary: Lock
Musculoskeletal: No Clubbing, No Cyanosis and Other (+3 pitting edema bilateral lower ext; Mild edema noted in bilateral fingers)
Skin: Warm and Dry
Neuro: Awake Alert Conversant some confusion noted
# Acute hypercapnic respiratory failure
�most likely exacerbated by acute on chronic HFrEF, as well as possible pneumonia with Fever impaired resp status
� Noncompliant to BiPAP at facility
� Continue BiPAP QHS and Naps
-wean O2 supplementation as tolerated
#Acute on chronic HFrEF
- echo: EF is depressed (30-35%) with moderate AAS and RV hypokinesis.
� Cardiology consult appreciated
� Lasix switched from IV to PO since placed on hold d/t concerns overdiuresis progressive Hypernatremia
�monitor I's and O's and daily weights
-Monitor daily weights, Is&Os
#New paroxysmal afib
Cardio eval appreciated
hep gtt transitioned to Eliquis renally dosed
#CAD
� Status post stent August 2023 [place]
� on aspirin and Plavix, w/ start of anticoagulation for pAfib as above, ASA discontinued in favor of Plavix/Eliquis combination as per Cardio
-Cont BB
#Severe Sepsis
� Possible pneumonia including a large aspiration pneumonia
-COVID, Flu negative
-Urine cultures negative
- Speech eval - reg, thin liquids
� cultures NGTD
� Empiric antibiotics Zosyn Day 6, tentatively planning for 7 day course.
�MRSA swab - negative
#Hypernatremia
#ENRICO
-most likely 2/2 to overdiuresis
-Lasix since placed on hold
-liberalized fluid restriction
-2g Na restriction
-Nephro eval appreciated gentle IVF hydration D5W
#Elevated troponin, suspect nonischemic myocardial injury
� Troponin trended to peak 0.901 since trended down
- chest pain free
#Acute metabolic encephalopathy
� Secondary to most likely hypercapnia as well as possible infection
- treat as above
-improving
#Urinary retention
� Lock catheter placed
-TOV prior to dc
- finasteride
#Hypokalemia
-monitor and replete
#Hyperlipidemia
� Resume statin when able to tolerate p.o.
#DVT prophylaxis
� HSQ
#DNR/DNI
discussed with Patient and Patient's daughter Andra
Total time spent on today's encounter was 53 minutes which included time spent in counseling the patient/family regarding diagnosis and treatment plan as listed above, goals of care, and symptom management. Case was discussed with nursing staff,
specialists, and care coordinators/case management. All labs and imaging personally reviewed by me. Remainder the time spent in detailed review of previous records, lab data, imaging, and other medical provider documentation.
Anticipated Discharge: > 48 hours
Subjective/Interval History
-
Date of Service: October 21, 2023
Seen and examined at bedside in no acute distress resting comfortably in bed. remains oxygen dependent.
Objective Data
-
Labs:
Laboratory Results
10/20/23 10/21/23 10/21/23
23:04 04:59 11:00
WBC 13.1 H 12.6 H
Hgb 10.1 L 10.2 L
Hct 32.7 L 34.5 L
Plt Count 206 188
APTT 34.6 82.4 H Pending
Sodium 151 H
Potassium 3.5
Chloride 104
Carbon Dioxide 40 H
BUN 76 H
Creatinine 2.1 H
Glucose 121 H
Calcium 9.8
Vital Signs:
Vital Signs
Temp Pulse Resp BP Pulse Ox
98.1 F 71 25 124/45 93
10/21/23 04:26 10/21/23 04:00 10/21/23 04:00 10/21/23 04:00 10/21/23 04:00
I&O
10/19/23 10/20/23 10/21/23
06:59 06:59 06:59
Intake Total 820 / 820 1280 / 1280 440 / 440
Output Total 2850 / 2850 1850 / 1850 1500 / 1500
Balance -2030 / -2030 -570 / -570 -1060 / -1060
[2023-10-21] MEDS: ASPIR LOW (ENTERIC COATED) 81 MG PO (07:59)
[2023-10-21] MEDS: PLAVIX 75 MG PO (07:59)
[2023-10-21] MEDS: TOPROL XL 25 MG PO (07:59)
[2023-10-21] MEDS: LASIX 80 MG PO (08:00)
[2023-10-21] MEDS: PROSCAR 5 MG PO (08:00)
--- NOTE | 2023-10-21 10:20 | W.PN.CARDCBS ---
Today's Communication / Plan
-
Plan:
Volume status improved. Sodium is 151 and he could be a little bit too dry. He has been receiving Lasix 80 mg p.o. twice daily. Hold Lasix for now. Defer to primary service whether 500 milliliters D5W would be helpful.
Follow creatinine
Replete potassium
New diagnosis of paroxysmal atrial fibrillation now in sinus rhythm. However unclear if this is present from prior documentation of prior ultrasound tech. After discussion with family and plan for long-term care facility IV heparin will be switched
to novel anticoagulant. Patient will be on Eliquis and Plavix and aspirin will be discontinued (recent stent at [place] 08/31 )
Impression / Plan
-
Primary Ratings Analyst: Dr. Cooley of [facility]
Assessment:
Presentation with change in mental status
Lethargy
Acute on chronic HFrEF
Now with hypernatremia
PAF new diagnosis
Acute hypercapnic respiratory failure, requiring BIPAP in ER
Elevated troponin
Leukocytosis with fever, presumed sepsis
ENRICO on CKD
Urinary retention
Admission to [facility] 08/2023 for acute inferior STEMI status post RCA PCI
ischemic cardiomyopathy EF 35 to 40% by echo 08/2023
HLD
HTN
RBBB, chronic
History of viral encephalitis approximately 25 years ago
Foot drop
Peripheral neuropathy
History of bladder cancer status post TURP in 2017
Pulmonary nodules
DNR code status
ECHO 08/21/2023: EF 35 to 40%, anteroseptal akinesis, mild global hypokinesis of the rest of LV, grade 1 diastolic dysfunction, trivial posterior pericardial effusion
Echo 10/16/2023, EF 30 to 35%, mild to moderate aortic stenosis, mean gradient 15, mild TR with PA pressure 55, RV hypokinesis
Plan:
-Volume status improved compared to prior. Initial weight was around 207 pounds now 198 pounds currently. However his sodium is 151 and he could be a little bit too dry. He has been receiving Lasix 80 mg p.o. twice daily. Hold Lasix for now.
Perhaps 500 to D5W would be helpful. Will defer to primary service. Creatinine had increased to 2.1 but stable. Continue current treatment. Monitor input/output and daily weights.
-Asymptomatic PVCs noted on the monitor. Primary service to replete potassium.
� New diagnosis of paroxysmal atrial fibrillation patient with an episode lasting roughly 5 hours 10/20/2023; however unclear if this is present from prior documentation of prior ultrasound tech. Patient remains in sinus rhythm. Currently on IV
heparin. tax services professional had discussion with daughter at great length. Plan for patient is to eventually stay at long-term facility. Discussion regarding risks and benefits of oral anticoagulation was undertaken. Both patient and
family agreeable to proceed and IV heparin will be switched to Eliquis.
-Echo was reviewed. His EF is depressed with moderate AAS and RV hypokinesis. This is known post recent stents.
-Continue low dose toprol 25mg daily as BP will tolerate. Patient unfortunately cannot take leann/arb/arni, aldactone, SgLT2 inhibitor at present with ENRICO. Continue to reassess. Guideline directed medical therapy as able.
-Troponin peaked at 0.901 suspected nonischemic myocardial injury secondary to CHF, sepsis. Patient is s/p RCA PCI 08/2023, had been on asa and plavix. Now switched to Plavix/Eliquis.
-Continue antibiotics for pneumonia per primary service
-I do not think he is an ideal candidate for primary prevention ICD at this time.
-DNR code status noted
Discussed plan with anticoagulation with nursing.
Progress Note - Ratings Analyst
Subjective
Date of Service: October 21, 2023
Patient denies chest pain and palpitations.
Objective
Labs:
10/21/23 04:59
10/21/23 04:59
Labs
Hgb 10.2 g/dL (13.0-18.0) L 10/21/23 04:59
Hct 34.5 % (39.0-52.0) L 10/21/23 04:59
Plt Count 188 10^3/uL (130-400) 10/21/23 04:59
PT 14.7 Sec (11.4-14.6) H 10/16/23 10:08
INR 1.14 10/16/23 10:08
APTT 82.4 Sec (23.4-35.0) H 10/21/23 04:59
Sodium 151 mmol/L (135-145) H 10/21/23 04:59
Potassium 3.5 mmol/L (3.5-5.1) 10/21/23 04:59
BUN 76 mg/dl (9-20) H 10/21/23 04:59
Creatinine 2.1 mg/dL (0.7-1.3) H 10/21/23 04:59
Glucose 121 mg/dl (70-99) H 10/21/23 04:59
Vital Signs and I&O:
Vital Signs
Temp Pulse Resp BP Pulse Ox
97.6 F 73 25 102/74 97
10/21/23 07:19 10/21/23 08:03 10/21/23 08:03 10/21/23 08:03 10/21/23 08:03
Vital Signs
Temp Pulse Resp BP Pulse Ox
97.6 F 73 25 102/74 97
10/21/23 07:19 10/21/23 08:03 10/21/23 08:03 10/21/23 08:03 10/21/23 08:03
Intake & Output
10/19/23 10/20/23 10/21/23 10/22/23
06:59 06:59 06:59 06:59
Intake Total 820 / 820 1280 / 1280 440 / 440 240 / 240
Output Total 2850 / 2850 1850 / 1850 1500 / 1500
Balance -2030 / -2030 -570 / -570 -1060 / -1060 240 / 240
Physical Exam
Physical Exam
General: Frail elderly man
Heart: Distant heart sounds
Lungs: Coarse anterior breath sounds
Extremities: +1 edema bilateral
Neuro: Grossly nonfocal, awake, alert
[2023-10-21] MEDS: KCL ELIXIR 40 MEQ PO (11:08)
[2023-10-21] MEDS: D5W 500 IV (11:35)
--- NOTE | 2023-10-21 12:04 | W.CON.NEPH ---
Consultation
-
Date/Time Consultation Requested: 10/21/2023 10:28AM
Date/Time Consultation Performed: 10/21/2023 12:05PM
Requesting Provider: Cecilio Engle
Performing Provider: Adrianne Mojica
Reason for Consultation: hypernatremia
Medical History
-
Chief Complaint: hypernatremia
History of Present Illness:
Mr. Lainez is an 88YOM with PMH of CHF, CAD, HTN, DLD, COPD, peripheral neuropathy, MARICEL, bladder cancer who presents to the hospital for a change in mental status. he had come from a fpc after a recent hospitalization s/p DC requiring
stenting. He had gained a significant amount of weight over the weeks prior to admission. Patient has undergone treatment for PNA. He is also recieving BiPAP.
Nephrology is consulted for hypernatremia. His Na has trended up from 146 on admission to 151 currently. He does endorse being thirsty. It appears his mentation might now be at baseline.
Past Medical History
Coronary Artery Disease
Congestive Heart Failure
Essential Hypertension
Hyperlipidemia
COPD
Peripheral Neuropathy
Obstructive Sleep Apnea
Bladder Cancer
Past Surgical History: Other (TURBT Foot/Ankle Surgery)
Social History
Tobacco: Former Smoker
Alcohol: None
Drug: None
Living: Jail
Family History
Family History: Not Pertinent
Allergies / Home Medications
Allergy/AdvReac Type Severity Reaction Status Date / Time
No Known Allergies Allergy Unverified 10/16/23 09:59
�Medication �Instructions �Recorded �Confirmed �Type
[place]-3 1,000 mg PO DAILY Supplement 10/16/23 10/16/23 History
acetaminophen 325 mg tablet 650 mg PO Q4H PRN mild 10/16/23 10/16/23 History
(Tylenol) pain/fever>100.4
ascorbic acid (vitamin C) 500 mg 1,000 mg PO DAILY Supplement 10/16/23 10/16/23 History
tablet (Vitamin C)
aspirin 81 mg tablet,delayed 81 mg PO DAILY Blood Clot 10/16/23 10/16/23 History
release Prevention/Tx
atorvastatin 80 mg tablet 80 mg PO QPM High Cholesterol 10/16/23 10/16/23 History
bisacodyl 10 mg rectal suppository 10 mg OK DAILY PRN q 3 days when 10/16/23 10/16/23 History
no BM and MOM/lactulose ineffective
clopidogrel 75 mg tablet 75 mg PO DAILY Blood Clot 10/16/23 10/16/23 History
Prevention/Tx
finasteride 5 mg tablet 5 mg PO DAILY Urinary Issue 10/16/23 10/16/23 History
folic acid 1 mg tablet 1 mg PO DAILY Supplement 10/16/23 10/16/23 History
furosemide 40 mg tablet 120 mg PO DAILY Fluid 10/16/23 10/16/23 History
Retention/Swelling
gabapentin 300 mg capsule 300 mg PO Q12H Pain 10/16/23 10/16/23 History
ginkgo biloba 60 mg tablet 60 mg PO DAILY Supplement 10/16/23 10/16/23 History
lactulose 10 gram/15 mL oral 30 ml PO HS PRN constipation 10/16/23 10/16/23 History
solution
lidocaine 4 % topical cream 1 applic topical BID B/L feet 10/16/23 10/16/23 History
loratadine 10 mg tablet 10 mg PO DAILY Allergies 10/16/23 10/16/23 History
metoprolol succinate 25 mg 25 mg PO DAILY Blood Pressure 10/16/23 10/16/23 History
tablet,extended release 24 hr
multivitamin 1 tab PO DAILY Supplement 10/16/23 10/16/23 History
nitroglycerin 0.4 mg sublingual 0.4 mg sublingual [id number] PRN 10/16/23 10/16/23 History
tablet acute angina
oxybutynin chloride 5 mg 5 mg PO DAILY Urinary Issue 10/16/23 10/16/23 History
tablet,extended release 24 hr
tramadol 50 mg tablet 50 mg PO BID PRN moderate pain 10/16/23 10/16/23 History
Review of Systems
-
Unable to obtain full review of systems at this time due to: Dementia
History Source: Patient
All other systems: Negative unless noted
Constitutional: Weight Gain
EENT: Other (dry mouth)
Respiratory: Cough
Neurological: Weakness
Physical Exam
Vital Signs
Vital Signs
Temp Pulse Resp BP Pulse Ox
97.1 F 73 25 102/74 97
10/21/23 11:00 10/21/23 08:03 10/21/23 08:03 10/21/23 08:03 10/21/23 08:03
Lab Results
WBC 12.6 10^3/uL (4.8-10.8) H 10/21/23 04:59
RBC 3.40 10^6/uL (4.70-6.10) L 10/21/23 04:59
Hgb 10.2 g/dL (13.0-18.0) L 10/21/23 04:59
Hct 34.5 % (39.0-52.0) L 10/21/23 04:59
Plt Count 188 10^3/uL (130-400) 10/21/23 04:59
Sodium 151 mmol/L (135-145) H 10/21/23 04:59
Potassium 3.5 mmol/L (3.5-5.1) 10/21/23 04:59
Chloride 104 mmol/L (98-107) 10/21/23 04:59
Carbon Dioxide 40 mmol/L (22-30) H 10/21/23 04:59
BUN 76 mg/dl (9-20) H 10/21/23 04:59
Creatinine 2.1 mg/dL (0.7-1.3) H 10/21/23 04:59
eGFR 30.09 10/21/23 04:59
Glucose 121 mg/dl (70-99) H 10/21/23 04:59
Calcium 9.8 mg/dl (8.4-10.2) 10/21/23 04:59
Yun-V-Bskppznbpry Pept > 60848 pg/ml 10/16/23 10:08
Albumin 2.9 g/dl (3.5-5.0) L 10/19/23 05:31
Physical Exam
General: Awake, Alert, No Distress and Nontoxic
HEENT: PERRL, EOMI, Anicteric, Conjunctivae Clear, Ear/Nose Intact, Neck Supple and Trachea Midline
Respiratory: Crackels
Cardiac: S1/S2 and Regular Rate/Rhythm
Breast: N/A
Abdomen: Soft and Nontender
Genito-urinary: Clear Urine
Musculoskeletal: No Clubbing, No Cyanosis and Edema
Skin: No Rash
Neuro: Nonfocal/Grossly Intact
Hematologic/Lymphatic: No Cervical Lymphadenopathy
Psych: Mood/afflect pleasant
Data Reviewed
-
Radiology: Image Personally Visualized and interpreted (RLL PNA, PLEURAL EFFUSION ON R)
Labs: Labs Reviewed by me, Discussed with Nurse and Discussed with Patient
Old Records: Reviewed
Assessment/Plan
-
Assessment:
hypernatremia
sepsis 2/2 to PNA
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
CKD (bl Cr 1.8-2.1)
Afib
CAD s/p recent stenting
Plan:
- i agree with liberalizing fluids
- he has lost about 9lbs at this point
- has at minimum 2L FWD. will plan for 1L at 60cc/hr of D5W and encourage more PO intake. unclear if he will correct adequately due to his mental status
- continue to trend Na
- okay to correct Na to 145 or less at this point
- diuretics per cardiology. lasix on hold
[2023-10-21 13:49] LABS: APTT 99.6 Sec (23.4-35.0)
[2023-10-21] MEDS: ELIQUIS 2.5 MG PO (20:18)
[2023-10-21] MEDS: D5W 1000 IV (21:18)
--- NOTE | 2023-10-21 21:20 | PTCARENOTE ---
Heparin gtt stopped, first dose of Eliquis given. Patient able to swallow pill with applesauce, no s/s of aspiration. Lungs sound diminished. Sp02 97-99% on 6L. Patient incontinent of large amount of stool and urine. Isabelle care provided, barrier
cream applied generously. Sacrum has a small, pea-sized stage 2, and stage 1. Repositioned with pillows, heels floated. Oral care done. NSR/SB w/ PVCs on tele. IVF continue per AUG. Bed alarm set. call lyon and tray table left within reach.
[2023-10-22] VITALS (14 sets, daily range): BP systolic 91–146; BP diastolic 45–103; PULSE 2–68; BMI 31.7
[2023-10-22] MEDS: ZOSYN 50 IV ×4 (00:54→17:09)
[2023-10-22 04:51] LABS: Hematocrit 33.1 % (39.0-52.0); Hemoglobin 9.7 g/dL (13.0-18.0); Mean Corp Hgb Conc. 29.3 g/dL (33.0-37.0); Mean Corpuscular Hgb 29.8 pg (27.0-31.0); Mean Corpuscular Volume 101.5 fL (80.0-94.0); Mean Platelet Volume 11.3 fL (7.4-10.4); Platelet Count 193 10^3/uL (130-400); Red Blood Cell Count 3.26 10^6/uL (4.70-6.10); Red Cell Dist. Width 13.4 % (11.5-14.5); White Blood Cell Count 11.3 10^3/uL (4.8-10.8)
[2023-10-22 05:19] LABS: Blood Urea Nitrogen 72 mg/dl (9-20); Calcium 9.4 mg/dl (8.4-10.2); Chloride 99 mmol/L (98-107); Estimated Creatinine Clearance 23 ml/min; Glucose 164 mg/dl (70-99); Magnesium 2.5 mg/dl (1.6-2.3); Phosphorus 5.2 mg/dl (2.5-4.5); Potassium 3.9 mmol/L (3.5-5.1); Sodium 148 mmol/L (135-145); eGFR 24.41
[2023-10-22 05:31] LABS: Carbon Dioxide 36 mmol/L (22-30)
--- NOTE | 2023-10-22 07:32 | W.PN.HOSP.TC ---
Today's Communication/Plan
-
monitor renal function
gentle hydration as per nephro
last day of abx
cont Plavix and renally dosed Eliquis
wean O2 supplementation as tolerated
PT/OT
Assessment / Plan
Assessment / Plan
Physical Exam
General: Well Developed and Well Nourished
HEENT: Anicteric, Moist mucous membranes and Oxygen - 3L
Respiratory: Clear to auscultation b/l no wheezes crackles noted
Cardiac: S1/S2 and Regular Rhythm; No Murmur
GI: Soft and Non Tender
Genito-urinary: Lock
Musculoskeletal: No Clubbing, No Cyanosis and Other (+3 pitting edema bilateral lower ext; Mild edema noted in bilateral fingers)
Skin: Warm and Dry
Neuro: Awake Alert Conversant some confusion noted
# Acute hypercapnic respiratory failure
�most likely exacerbated by acute on chronic HFrEF, as well as possible pneumonia with Fever impaired resp status
� Noncompliant to BiPAP at facility
� Continue BiPAP QHS and Naps
-wean O2 supplementation as tolerated
#Acute on chronic HFrEF
- echo: EF is depressed (30-35%) with moderate AAS and RV hypokinesis.
� Cardiology consult appreciated
� Lasix switched from IV to PO since placed on hold d/t concerns overdiuresis progressive Hypernatremia
�monitor I's and O's and daily weights
-Monitor daily weights, Is&Os
#New paroxysmal afib
Cardio eval appreciated
hep gtt transitioned to Eliquis renally dosed
#CAD
� Status post stent August 2023 [place]
� on aspirin and Plavix, w/ start of anticoagulation for pAfib as above, ASA discontinued in favor of Plavix/Eliquis combination as per Cardio
-Cont BB
#Severe Sepsis
� Possible pneumonia including a large aspiration pneumonia
-COVID, Flu negative
-Urine cultures negative
- Speech eval - reg, thin liquids
� cultures NGTD
� Empiric antibiotics Zosyn Day 7 last day of abx then monitor off
�MRSA swab - negative
#Hypernatremia
#ENRICO
-most likely 2/2 to overdiuresis
-Lasix since placed on hold
-liberalized fluid restriction
-2g Na restriction
-Nephro eval appreciated gentle IVF hydration D5W
#Elevated troponin, suspect nonischemic myocardial injury
� Troponin trended to peak 0.901 since trended down
- chest pain free
#Acute metabolic encephalopathy
� Secondary to most likely hypercapnia as well as possible infection
- treat as above
-improving
#Urinary retention
� Lock catheter placed
-TOV prior to dc
- finasteride
#Hypokalemia
-monitor and replete
#Hyperlipidemia
� Resume statin when able to tolerate p.o.
#DVT prophylaxis
� HSQ
#DNR/DNI
discussed with Patient and Patient's daughter Andra
Total time spent on today's encounter was 55 minutes which included time spent in counseling the patient/family regarding diagnosis and treatment plan as listed above, goals of care, and symptom management. Case was discussed with nursing staff,
specialists, and care coordinators/case management. All labs and imaging personally reviewed by me. Remainder the time spent in detailed review of previous records, lab data, imaging, and other medical provider documentation.
Anticipated Discharge: > 48 hours
Subjective/Interval History
-
Date of Service: October 22, 2023
Seen and examined at bedside in no acute distress resting comfortably in bed. stable respiratory status remains oxygen dependent.
Objective Data
-
Labs:
Laboratory Results
10/22/23
04:21
WBC 11.3 H
Hgb 9.7 L
Hct 33.1 L
Plt Count 193
Sodium 148 H
Potassium 3.9
Chloride 99
Carbon Dioxide 36 H
BUN 72 H
Creatinine 2.5 H
Glucose 164 H
Calcium 9.4
Vital Signs:
Vital Signs
Temp Pulse Resp BP Pulse Ox
97.3 F 57 17 91/45 88
10/22/23 03:37 10/22/23 06:00 10/22/23 06:00 10/22/23 06:00 10/22/23 06:00
I&O
10/21/23 10/22/23 10/23/23
06:59 06:59 06:59
Intake Total 440 / 440 1388 / 1388
Output Total 1500 / 1500
Balance -1060 / -1060 1388 / 1388
[2023-10-22] MEDS: ELIQUIS 2.5 MG PO ×2 (09:04→20:15)
[2023-10-22] MEDS: PLAVIX 75 MG PO (09:04)
[2023-10-22] MEDS: PROSCAR 5 MG PO (09:04)
[2023-10-22] MEDS: TOPROL XL 25 MG PO (09:05)
--- NOTE | 2023-10-22 09:58 | W.PN.CARDCBS ---
Today's Communication / Plan
-
In sinus rhythm. Continue Toprol and Eliquis 2.5 mg p.o. twice daily. Hemoglobin at 9.7.
Hypernatremia is improving but creatinine at 2.5. Continue to hold diuretics with gentle hydration.
Would continue Plavix, Toprol and atorvastatin for CAD
Impression / Plan
-
Primary Interventional Neuroradiologist: Dr. Cooley of [facility]
Assessment:
Presentation with change in mental status
Lethargy
Acute on chronic HFrEF
Now with hypernatremia
PAF new diagnosis
Acute hypercapnic respiratory failure, requiring BIPAP in ER
Elevated troponin
Leukocytosis with fever, presumed sepsis
ENRICO on CKD
Urinary retention
Admission to [facility] 08/2023 for acute inferior STEMI status post RCA PCI
ischemic cardiomyopathy EF 35 to 40% by echo 08/2023
HLD
HTN
RBBB, chronic
History of viral encephalitis approximately 25 years ago
Foot drop
Peripheral neuropathy
History of bladder cancer status post TURP in 2016
Pulmonary nodules
DNR code status
ECHO 08/21/2023: EF 35 to 40%, anteroseptal akinesis, mild global hypokinesis of the rest of LV, grade 1 diastolic dysfunction, trivial posterior pericardial effusion
Echo 10/16/2023, EF 30 to 35%, mild to moderate aortic stenosis, mean gradient 15, mild TR with PA pressure 55, RV hypokinesis
Plan:
-He likely remains somewhat volume depleted. Continue gentle hydration. Sodium is improved and down to 148. Creatinine at 2.5. Continue to follow. Continue to hold diuresis.
-He is back in sinus rhythm but agreeable to start full anticoagulation. Continue Toprol 25 mg daily and Eliquis 2.5 mg daily.
-We will need to watch for bleeding with the Eliquis and Plavix with recent PCI.
-Echo was reviewed. His EF is depressed with moderate AAS and RV hypokinesis. This is known post recent stents.
-Continue low dose toprol 25mg daily as BP will tolerate. Patient unfortunately cannot take leann/arb/arni, aldactone, SgLT2 inhibitor at present with ENRICO. Continue to reassess. Guideline directed medical therapy as able.
-Troponin peaked at 0.901 suspected nonischemic myocardial injury secondary to CHF, sepsis. Patient is s/p RCA PCI 08/2023, had been on asa and plavix. Now switched to Plavix/Eliquis.
-Continue antibiotics for pneumonia per primary service
-I do not think he is an ideal candidate for primary prevention ICD at this time.
-DNR code status noted
Progress Note - Interventional Neuroradiologist
Subjective
Date of Service: October 22, 2023
States he is thirsty. Denies chest pains or shortness of breath.
Objective
Labs:
10/22/23 04:21
10/22/23 04:21
Labs
Hgb 9.7 g/dL (13.0-18.0) L 10/22/23 04:21
Hct 33.1 % (39.0-52.0) L 10/22/23 04:21
Plt Count 193 10^3/uL (130-400) 10/22/23 04:21
PT 14.7 Sec (11.4-14.6) H 10/16/23 10:08
INR 1.14 10/16/23 10:08
APTT 99.6 Sec (23.4-35.0) H 10/21/23 13:12
Sodium 148 mmol/L (135-145) H 10/22/23 04:21
Potassium 3.9 mmol/L (3.5-5.1) 10/22/23 04:21
BUN 72 mg/dl (9-20) H 10/22/23 04:21
Creatinine 2.5 mg/dL (0.7-1.3) H 10/22/23 04:21
Glucose 164 mg/dl (70-99) H 10/22/23 04:21
Vital Signs and I&O:
Vital Signs
Temp Pulse Resp BP Pulse Ox
97.3 F 82 17 146/76 88
10/22/23 03:37 10/22/23 09:05 10/22/23 06:00 10/22/23 09:05 10/22/23 06:00
Vital Signs
Temp Pulse Resp BP Pulse Ox
97.3 F 82 17 146/76 88
10/22/23 03:37 10/22/23 09:05 10/22/23 06:00 10/22/23 09:05 10/22/23 06:00
Intake & Output
10/20/23 10/21/23 10/22/23 10/23/23
06:59 06:59 06:59 06:59
Intake Total 1280 / 1280 440 / 440 1388 / 1388
Output Total 1850 / 1850 1500 / 1500
Balance -570 / -570 -1060 / -1060 1388 / 1388
Physical Exam
Physical Exam
GEN: No distress, awake, Ox3
HEENT: supple, anicteric, mmm
LUNGS: CTA, no wheezes/rales
CV: Reg, S1/S2, 1/6 syst LSB, no gallop
ABD: soft, BS+, NT/ND
EXT: No edema
NEURO: Gross non-focal
SKIN: No rash
--- NOTE | 2023-10-22 10:11 | CM ---
I spoke with Xavier at [facility] ([phone]) to check status of private pay bed hold. She will confirm with Drop Hammer Mechanic and get back to me with an update. CM will continue to follow.
--- NOTE | 2023-10-22 10:43 | CM ---
I visited with Robert this morning; he was listening to the television with headphones at the time of my visit and appeared to be sleeping (eyes closed), however he opened his eyes and asked for a drink. PCT and RN advised of pt request. RN
advised that he needs to be supervised when drinking and would see him shortly to assist.
Case Management will continue to follow to assist with discharge plans; anticipate return to [facility] when medically stable.
--- NOTE | 2023-10-22 14:23 | PTOTSP ---
ST Follow-Up
Pt continues to present with mild pharyngeal dysphagia with a suspected esophageal component. Pt is at a LOW threshold for diet downgrade given his current respiratory status. Of note, pt's current presentation could be 2/2 esophageal dysfunction +
the use of BiPAP resulting in reverse aspiration.
Recommendations:
- Continue with REGULAR SOLIDS and THIN LIQUIDS with SINGLE SIPS and CHIN TUCK; meds crushed in puree.
- FULL SUPERVISION for all PO intake to ensure pt utilizes chin tuck and single sips; if pt needs to cough, encourage him to cough LOUD/strong.
- Aspiration & reflux precautions: HOB fully upright for ALL PO intake and for at least 60 minutes after PO intake; alternate liquids and solids; consider adding PPI.
- EKG MANAGER will continue to follow closely to ensure pt is on the safest/least restrictive diet and to determine whether or not a VFSS should be repeated given his worsening respiratory status.
--- NOTE | 2023-10-22 15:14 | W.PN.NEPH.PH ---
Today's Communication / Plan
-
- more D5W today
Assessment/Plan
-
Assessment:
hypernatremia
sepsis 2/2 to PNA
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
CKD (bl Cr 1.8-2.1)
Afib
CAD s/p recent stenting
Plan:
Hypernatremia
- i agree with liberalizing fluids
- he has lost about 9lbs at this point
- has at minimum 2L FWD. will plan for another 1L at 60cc/hr of D5W and encourage more PO intake. patient's mental status makes PO repletion difficult
- continue to trend Na
- okay to correct Na to 145 or less at this point
- diuretics per cardiology. lasix on hold
ENRICO
- Cr worse at 2.5 today
- will give D5W for hypernatremia. this will not fix intravascular volume depletion
- once Na corrects, can plan for LR tomorrow
-
-
Date of Service: October 22, 2023
CC / HPI / ROS
-
Chief Complaint:
hypernatremia
ENRICO
History of Present Illness:
hypernatremia to 151, now donw to 148
ENRICO Cr up to 2.5 (bl 2)
Review of Systems:
- sleeping comfortably
- pleasantly confused
Labs
-
Labs:
WBC 11.3 10^3/uL (4.8-10.8) H 10/22/23 04:21
RBC 3.26 10^6/uL (4.70-6.10) L 10/22/23 04:21
Hgb 9.7 g/dL (13.0-18.0) L 10/22/23 04:21
Hct 33.1 % (39.0-52.0) L 10/22/23 04:21
Plt Count 193 10^3/uL (130-400) 10/22/23 04:21
Sodium 148 mmol/L (135-145) H 10/22/23 04:21
Potassium 3.9 mmol/L (3.5-5.1) 10/22/23 04:21
Chloride 99 mmol/L (98-107) 10/22/23 04:21
Carbon Dioxide 36 mmol/L (22-30) H 10/22/23 04:21
BUN 72 mg/dl (9-20) H 10/22/23 04:21
Creatinine 2.5 mg/dL (0.7-1.3) H 10/22/23 04:21
eGFR 24.41 10/22/23 04:21
Glucose 164 mg/dl (70-99) H 10/22/23 04:21
Calcium 9.4 mg/dl (8.4-10.2) 10/22/23 04:21
Phosphorus 5.2 mg/dl (2.5-4.5) H 10/22/23 04:21
Feh-K-Cgpovtqltgs Pept > 36619 pg/ml 10/16/23 10:08
Albumin 2.9 g/dl (3.5-5.0) L 10/19/23 05:31
Physical Exam
-
Vital Signs:
Vital Signs
Temp Pulse Resp BP Pulse Ox
98.2 F 63 29 118/103 97
10/22/23 12:00 10/22/23 12:00 10/22/23 12:00 10/22/23 12:00 10/22/23 11:08
Cardiovascular:: Regular rate and rhythm
Respiratory:: Bilateral: Coarse
Lung Excursion:: Normal
Abdomen:: Nontender and Soft
Bowel Sounds:: Normal
Extremity Edema:: None: Bilateral:
Lock Catheter: No
[2023-10-22] MEDS: D5W 1000 IV (15:26)
--- NOTE | 2023-10-22 17:38 | PTCARENOTE ---
Patient awake for most of the day and sat in chair for about 2 hours. He had 2 loose BM's but was able to tell us he was soiled. Patient had a poor appetite today. He ate fruit and yogurt but refusing most of his main course of his meals. Pt's
daughter, Andra, was updated and she is concerned he may be 'giving up.' He likes his oral fluids. Nephrology advised his fluids may be liberalized. Assessment, care and VS as charted.
[2023-10-23] VITALS (17 sets, daily range): BP systolic 95–145; BP diastolic 51–88; PULSE 2–74; O2SAT 98–99; BMI 32.4
--- NOTE | 2023-10-23 03:15 | DOWNTIME ---
There was a [employer] Client Call Center Recruiter Downtime on 10/22/2023 from 0100 to 10/23/2023 at 0300. Downtime documentation of patient's care, including medication administrations, has been reconciled in the electronic record per guidelines. Refer to the
patient's paper chart under the miscellaneous tab to see printed paper medication records and downtime forms.
[2023-10-23 05:35] LABS: Mean Corp Hgb Conc. 29.4 g/dL (33.0-37.0); Mean Corpuscular Hgb 29.9 pg (27.0-31.0); Mean Corpuscular Volume 101.5 fL (80.0-94.0); Mean Platelet Volume 11.3 fL (7.4-10.4); Platelet Count 181 10^3/uL (130-400); Red Blood Cell Count 3.35 10^6/uL (4.70-6.10); Red Cell Dist. Width 13.2 % (11.5-14.5); White Blood Cell Count 13.1 10^3/uL (4.8-10.8)
[2023-10-23 06:26] LABS: Blood Urea Nitrogen 77 mg/dl (9-20); Calcium 9.3 mg/dl (8.4-10.2); Carbon Dioxide 36 mmol/L (22-30); Chloride 94 mmol/L (98-107); Estimated Creatinine Clearance 23 ml/min; Glucose 121 mg/dl (70-99); Magnesium 2.5 mg/dl (1.6-2.3); Phosphorus 4.5 mg/dl (2.5-4.5); Potassium 3.2 mmol/L (3.5-5.1); Sodium 139 mmol/L (135-145); eGFR 24.41
--- NOTE | 2023-10-23 07:09 | W.PN.HOSP.TC ---
Addendum entered and electronically signed by Cecilio Engle MD 10/24/23 08:22:
Stage 2 pressure ulcer gluteal cleft, stage 1 pressure ulcer sacrum
cont local wound care
Original Note:
Today's Communication/Plan
-
monitor renal function
IVF completed
once lasix 40 mg IV as per Cardio
replete Potassium
cont Plavix and renally dosed Eliquis
wean O2 supplementation as tolerated
PT/OT
Assessment / Plan
Assessment / Plan
Physical Exam
General: Well Developed and Well Nourished
HEENT: Anicteric, Moist mucous membranes and Oxygen - 3L
Respiratory: Clear to auscultation b/l no wheezes crackles noted
Cardiac: S1/S2 and Regular Rhythm; No Murmur
GI: Soft and Non Tender
Genito-urinary: Lock
Musculoskeletal: No Clubbing, No Cyanosis, +2 pitting edema bilateral lower ext
Skin: Warm and Dry
Neuro: Awake Alert Conversant some confusion noted
# Acute hypercapnic respiratory failure
�most likely exacerbated by acute on chronic HFrEF, as well as possible pneumonia with Fever impaired resp status
� Noncompliant to BiPAP at facility
� Continue BiPAP QHS and Naps
-wean O2 supplementation as tolerated
#Acute on chronic HFrEF
- echo: EF is depressed (30-35%) with moderate AAS and RV hypokinesis.
� Cardiology consult appreciated
� Lasix switched from IV to PO since placed on hold d/t concerns overdiuresis progressive Hypernatremia
-Hypernatremia since resolved as below, kidney function appears stable, once lasix IV 40 mg ordered 10/22 as per cardio recc's
�monitor I's and O's and daily weights
-Monitor daily weights, Is&Os
#New paroxysmal afib
Cardio eval appreciated
hep gtt transitioned to Eliquis renally dosed
cont Eliquis
#CAD
� Status post stent August 2023 [place]
� on aspirin and Plavix, w/ start of anticoagulation for pAfib as above, ASA discontinued in favor of Plavix/Eliquis combination as per Cardio
-Cont BB
#Severe Sepsis
� Possible pneumonia including a large aspiration pneumonia
-COVID, Flu negative
-Urine cultures negative
- Speech eval - reg, thin liquids
� cultures NGTD
� Empiric antibiotics Zosyn completed 7 days however leukocytosis remains persistent though mild, afebrile, ID eval requested
�MRSA swab - negative
#Hypernatremia
#ENRICO
-most likely 2/2 to overdiuresis
-scheduled oral Lasix 80 mg BID placed on hold
-liberalized fluid restriction
-2g Na restriction
-Resolved
-Nephro eval appreciated IVF hydration D5W completed
#Elevated troponin, suspect nonischemic myocardial injury
� Troponin trended to peak 0.901 since trended down
- chest pain free
#Acute metabolic encephalopathy
� Secondary to most likely hypercapnia as well as possible infection
- treat as above
-improving
#Urinary retention
� Lock catheter placed
-TOV prior to dc
- finasteride
#Hypokalemia
-monitor and replete as necessary
-scheduled potassium 20 mEQ BID started 10/22
#Hyperlipidemia
� Resume statin when able to tolerate p.o.
#DVT prophylaxis
� HSQ
#DNR/DNI
discussed with Patient and Patient's daughter Andra
Total time spent on today's encounter was 55 minutes which included time spent in counseling the patient/family regarding diagnosis and treatment plan as listed above, goals of care, and symptom management. Case was discussed with nursing staff,
specialists, and care coordinators/case management. All labs and imaging personally reviewed by me. Remainder the time spent in detailed review of previous records, lab data, imaging, and other medical provider documentation.
Anticipated Discharge: > 48 hours
Subjective/Interval History
-
Date of Service: October 23, 2023
Seen and examined at bedside in no acute distress sitting up comfortably in bed. Reports overall feeling well. Remains oxygen dependent 3L. AOx3
Objective Data
-
Labs:
Laboratory Results
10/23/23
05:30
WBC 13.1 H
Hgb 10.0 L
Hct 34.0 L
Plt Count 181
Sodium 139 D
Potassium 3.2 L
Chloride 94 L
Carbon Dioxide 36 H
BUN 77 H
Creatinine 2.5 H
Glucose 121 H
Calcium 9.3
Vital Signs:
Vital Signs
Temp Pulse Resp BP Pulse Ox
98.0 F 60 23 116/54 93
10/23/23 03:56 10/23/23 06:14 10/23/23 06:14 10/23/23 06:14 10/23/23 06:14
I&O
10/22/23 10/23/23 10/24/23
06:59 06:59 06:59
Intake Total 1388 / 1388 2444 / 2444
Balance 1388 / 1388 2444 / 2444
[2023-10-23] MEDS: D5W IV (07:40)
[2023-10-23] MEDS: PROSCAR 5 MG PO (08:14)
[2023-10-23] MEDS: ELIQUIS 2.5 MG PO ×2 (08:14→20:35)
[2023-10-23] MEDS: PLAVIX 75 MG PO (08:14)
[2023-10-23] MEDS: TOPROL XL PO (08:15)
--- NOTE | 2023-10-23 09:05 | W.PN.NEPH.PH ---
Today's Communication / Plan
-
No more IV fluid
Follow BMP
Check postvoid bladder scan
Assessment/Plan
-
Assessment:
hypernatremia
sepsis 2/2 to PNA
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
CKD (bl Cr 1.8-2.1)
Afib
CAD s/p recent stenting
Plan:
Hypernatremia
- i agree with liberalizing fluids
- he has lost about 9lbs at this point
- has at minimum 2L FWD. will plan for another 1L at 60cc/hr of D5W and encourage more PO intake. patient's mental status makes PO repletion difficult
- continue to trend Na
- okay to correct Na to 145 or less at this point
- diuretics per cardiology. lasix on hold
ENR[place]
- Cr unchanged at 2.5, no urine output recorded
-Hyponatremia corrected
-Replete potassium
- once Na corrects, can plan for LR tomorrow
-Check bladder scan with low threshold for Lock catheter
-
-
Date of Service: October 23, 2023
CC / HPI / ROS
-
Chief Complaint:
hypernatremia
ENRICO
History of Present Illness:
hypernatremia now normalized
EN[place] Cr up to 2.5 (bl 2)
Hypotensive
Review of Systems:
- sleeping comfortably
- pleasantly confused
Labs
-
Labs:
WBC 13.1 10^3/uL (4.8-10.8) H 10/23/23 05:30
RBC 3.35 10^6/uL (4.70-6.10) L 10/23/23 05:30
Hgb 10.0 g/dL (13.0-18.0) L 10/23/23 05:30
Hct 34.0 % (39.0-52.0) L 10/23/23 05:30
Plt Count 181 10^3/uL (130-400) 10/23/23 05:30
Sodium 139 mmol/L (135-145) D 10/23/23 05:30
Potassium 3.2 mmol/L (3.5-5.1) L 10/23/23 05:30
Chloride 94 mmol/L (98-107) L 10/23/23 05:30
Carbon Dioxide 36 mmol/L (22-30) H 10/23/23 05:30
BUN 77 mg/dl (9-20) H 10/23/23 05:30
Creatinine 2.5 mg/dL (0.7-1.3) H 10/23/23 05:30
eGFR 24.41 10/23/23 05:30
Glucose 121 mg/dl (70-99) H 10/23/23 05:30
Calcium 9.3 mg/dl (8.4-10.2) 10/23/23 05:30
Phosphorus 4.5 mg/dl (2.5-4.5) 10/23/23 05:30
Ncm-T-Inmztowmrcn Pept > 25263 pg/ml 10/16/23 10:08
Albumin 2.9 g/dl (3.5-5.0) L 10/19/23 05:31
Physical Exam
-
Vital Signs:
Vital Signs
Temp Pulse Resp BP Pulse Ox
98.3 F 69 23 98/51 93
10/23/23 07:51 10/23/23 08:15 10/23/23 06:14 10/23/23 08:15 10/23/23 06:14
Cardiovascular:: Irregular rate and rhythm
Respiratory:: Bilateral: Coarse
Lung Excursion:: Normal
Abdomen:: Nontender and Soft
Bowel Sounds:: Decreased
Extremity Edema:: +2: Bilateral:
Lock Catheter: No
--- NOTE | 2023-10-23 10:27 | W.PN.CARDCBS ---
Today's Communication / Plan
-
Weight back up after sodium is corrected. Would give Lasix 40 mg IV today. Creatinine at 2.5.
Continue metoprolol and Eliquis for paroxysmal A-fib.
Continue medical therapy for coronary artery disease.
Hemoglobin overall stable at 10. Remains on Plavix and Eliquis.
Impression / Plan
-
Primary Engine Designer: Dr. Cooley of [facility]
Assessment:
Presentation with change in mental status
Lethargy
Acute on chronic HFrEF
Now with hypernatremia
PAF new diagnosis
Acute hypercapnic respiratory failure, requiring BIPAP in ER
Elevated troponin
Leukocytosis with fever, presumed sepsis
ENRICO on CKD
Urinary retention
Admission to [facility] 08/2023 for acute inferior STEMI status post RCA PCI
ischemic cardiomyopathy EF 35 to 40% by echo 08/2023
HLD
HTN
RBBB, chronic
History of viral encephalitis approximately 25 years ago
Foot drop
Peripheral neuropathy
History of bladder cancer status post TURP in 2017
Pulmonary nodules
DNR code status
ECHO 08/21/2023: EF 35 to 40%, anteroseptal akinesis, mild global hypokinesis of the rest of LV, grade 1 diastolic dysfunction, trivial posterior pericardial effusion
Echo 10/16/2023, EF 30 to 35%, mild to moderate aortic stenosis, mean gradient 15, mild TR with PA pressure 55, RV hypokinesis
Plan:
-His weight is back up with IV fluids. His sodium is corrected. Creatinine overall stable at 2.5. Will give Lasix 40 mg IV x 1 today. Continue to follow sodium and creatinine closely.
-He is back in sinus rhythm but agreeable to start full anticoagulation. Continue Toprol 25 mg daily and Eliquis 2.5 mg daily.
-We will need to watch for bleeding with the Eliquis and Plavix with recent PCI.
-Echo was reviewed. His EF is depressed with moderate AAS and RV hypokinesis. This is known post recent stents.
-Continue low dose toprol 25mg daily as BP will tolerate. Patient unfortunately cannot take leann/arb/arni, aldactone, SgLT2 inhibitor at present with ENRIOC. Continue to reassess. Guideline directed medical therapy as able.
-Troponin peaked at 0.901 suspected nonischemic myocardial injury secondary to CHF, sepsis. Patient is s/p RCA PCI 08/2023, had been on asa and plavix. Now switched to Plavix/Eliquis.
-Finished antibiotics for pneumonia per primary service
-I do not think he is an ideal candidate for primary prevention ICD at this time.
-DNR code status noted
Progress Note - Engine Designer
Subjective
Date of Service: October 23, 2023
Overall feels okay but weight is back up. Sodium is now corrected. Denies chest pain.
Objective
Labs:
10/23/23 05:30
10/23/23 05:30
Labs
Hgb 10.0 g/dL (13.0-18.0) L 10/23/23 05:30
Hct 34.0 % (39.0-52.0) L 10/23/23 05:30
Plt Count 181 10^3/uL (130-400) 10/23/23 05:30
PT 14.7 Sec (11.4-14.6) H 10/16/23 10:08
INR 1.14 10/16/23 10:08
APTT 99.6 Sec (23.4-35.0) H 10/21/23 13:12
Sodium 139 mmol/L (135-145) D 10/23/23 05:30
Potassium 3.2 mmol/L (3.5-5.1) L 10/23/23 05:30
BUN 77 mg/dl (9-20) H 10/23/23 05:30
Creatinine 2.5 mg/dL (0.7-1.3) H 10/23/23 05:30
Glucose 121 mg/dl (70-99) H 10/23/23 05:30
Vital Signs and I&O:
Vital Signs
Temp Pulse Resp BP Pulse Ox
98.3 F 69 23 98/51 93
10/23/23 07:51 10/23/23 08:15 10/23/23 06:14 10/23/23 08:15 10/23/23 06:14
Vital Signs
Temp Pulse Resp BP Pulse Ox
98.3 F 69 23 98/51 93
10/23/23 07:51 10/23/23 08:15 10/23/23 06:14 10/23/23 08:15 10/23/23 06:14
Intake & Output
10/21/23 10/22/23 10/23/23 10/24/23
06:59 06:59 06:59 06:59
Intake Total 440 / 440 1388 / 1388 2444 / 2444
Output Total 1500 / 1500
Balance -1060 / -1060 1388 / 1388 2444 / 2444
Physical Exam
Physical Exam
GEN: No distress, awake, Ox3
HEENT: supple, anicteric, mmm
LUNGS: bilat rhochi
CV: Reg, S1/S2, 1/6 syst LSB, no gallop
ABD: soft, BS+, NT/ND
EXT: +1 edema
NEURO: Gross non-focal
SKIN: No rash
--- NOTE | 2023-10-23 10:55 | CON.ID ---
Consultation
-
Date/Time Consultation Requested: 10/23/23 10:35
Date/Time Consultation Performed: 10/23/23 10:57
Requesting Provider: Dr Engle
Performing Provider: Dr Poole
Reason for Consultation: persistent leukocytosis despite 7 days abx sepsis pna
Chief Complaint / Past History
Chief Complaint
AMS
History of Present Illness
Mr Lainez is an 88 year old male with history of COPD, CHF EF 35%, Bladder Cancer who presented here 10/15 (7 days ago) for AMS, history at that time from daughter, he was recently hospitalized at [facility] for [place] requiring stent and discharged to
rehab. Then gained about 20 lbs over sevveral weeks despite escalating lasix doses. +urinary obstructive symptoms; previously required bernabe.
Course here has been notable in that he initially required Bipap, diagnosed with possible pneumonia with aspiration, TME, ENRICO cr baseline 2 now 2.5
Currently afebrile, last fevers were 10/15, bp intermittent mild hypotension, HR currently 60-70, wbc 13 now, on arrival it was 17.5. Yesterday 11. No steroids. cr 2.5. CXR 10/20: /Pleura: Interval worsening of airspace disease within the right
lung with patchy interstitial and alveolar opacities within the upper lung midlung with more confluent opacity seen within the right lung base. Small to moderate right-sided pleural effusion may also be present. There is a dense left basilar opacity
which obscures the hemidiaphragm, which may represent additional airspace consolidation and/or pleural fluid. No pneumothorax. CXR 10/15: some right basilar opacification at least in part suggesting right pleural effusion, cannot exclude
underlying/accompanying pneumonia, atelectasis or mass. Blood cultures x2 from 10/15 are finalized neg. Sputum culture not yet ordered. MRSA screen negative. Today is day 7 of zosyn. ID is consulted for assistance with antibiotic management.
Past History
Additional Past Medical History:
Viral encephalitis? remote
Coronary Artery Disease
Congestive Heart Failure
Essential Hypertension
Hyperlipidemia
COPD
Peripheral Neuropathy
Obstructive Sleep Apnea
Bladder Cancer status post TURP in 2017
Additional Past Surgical History:
TURBT
Foot/Ankle Surgery
Allergy History:
No Known Allergies Allergy (Unverified 10/16/23 09:59)
Medications Reviewed: Yes
Social History
Tobacco: Former Smoker
Living: Long Term
Employment: Not Employed
Family History
Family History: Not Pertinent
Review of Systems
Review of Systems
General: Negative Fever or Chills
unable to obtain due to the condition of the patient
Vital Signs
Temp Pulse Resp BP Pulse Ox
98.3 F 67 17 109/74 96
10/23/23 07:51 10/23/23 10:00 10/23/23 10:00 10/23/23 10:00 10/23/23 10:34
Physical Exam
Physical Exam
Constitutional: No Acute Distress and Chronically Ill
Cardiovascular: Regular Rate and S1/S2; Negative Murmur or Rub
Pulmonary: Clear and Symmetric; Negative Wheezes, Rales or Rhonchi
Gastrointestinal: Soft, Non Tender, Non Distended and Normal Bowel Sounds
Skin: Warm and Dry; Negative Rash or Jaundice
Lab / Diagnostic Study Results
10/23/23 05:30
10/23/23 05:30
Abs Immat Gran (auto) 0.1 10^3/uL (0-0.05) H 10/16/23 10:08
Absolute Neuts (auto) 14.4 10^3/uL (1.4-6.5) H 10/16/23 10:08
Absolute Lymphs (auto) 1.2 10^3/uL (1.2-3.4) 10/16/23 10:08
Absolute Monos (auto) 1.7 10^3/uL (0.1-0.6) H 10/16/23 10:08
Absolute Basos (auto) 0.1 10^3/uL (0-0.2) 10/16/23 10:08
Immature Gran % 0.7 % (0-0.5) H 10/16/23 10:08
Neutrophils % 82.0 % (42.2-75.2) H 10/16/23 10:08
Lymphocytes % 6.9 % (20.5-51.1) L 10/16/23 10:08
Monocytes % 9.7 % (1.7-9.3) H 10/16/23 10:08
Eosinophils % 0.1 % (0-6) 10/16/23 10:08
Basophils % 0.6 % (0-2) 10/16/23 10:08
PT 14.7 Sec (11.4-14.6) H 10/16/23 10:08
INR 1.14 10/16/23 10:08
Lactic Acid 1.0 mmol/L (0.7-2.0) 10/16/23 10:16
Microbiology Results
Micro:
10/16/23 10:20 Blood Culture - Final
Blood/Venous No Growth - Final Report
10/16/23 10:17 Blood Culture - Final
Blood/Venous No Growth - Final Report
10/16/23 22:42 MRSA Screen - Final
Nose No Methicillin Resistant Staphylococcus aureus isolated.
10/16/23 15:22 Urine Culture - Final
Urine NO GROWTH
10/16/23 10:17 Influenza Types A & B (TIANA) - Final
Nasal Swab Negative for Influenza A & B, NAAT
Negative results must be combined with clinical observations
and patient history.
Nucleic Acid Amplification test (NAAT)performed on the
[employer] platform.
Assessment / Plan
Possible Aspiration pneumonia
R sided Pleural Effusion
- sputum culture if able to produce one
- chest US to assess size of R sided effusion
- blood cultures from arrival finalized negative
- zosyn has a high salt load, will switch to unasyn while awaiting the above studies
- follow clinically
[2023-10-23] MEDS: LASIX 40 MG IV (11:37)
[2023-10-23] MEDS: KCL 40 MEQ PO (11:37)
--- NOTE | 2023-10-23 12:11 | PTCARENOTE ---
Addendum entered by Natalia Barker RN 10/23/23 14:21:
Pt has been bradycardic while sleeping HR in 50s, made aware on his rounds this morning.
Original Note:
Assumed care of patient this morning. He is aaox3 this morning but drowsy. Pt ate his muffin, banana, OJ and coffee this morning. Pt able to tell staff when he is soiled. Pericare performed. Pt remains on 3L NC, occasional throat clearing,
nonproductive cough. Lungs with fine crackles at the bases. Pt has been incontinent of bladder, Nephrology ordered bladder scan to check retention, resulted 153, see worklist. Pt sent for US of chest ordered by ID. Pt's daughter Andra at bedside
and updated. Assessment, care and VS as charted.
--- NOTE | 2023-10-23 15:59 | PN.CDI ---
CDI
- -
CDI:
Physician Documentation Request
Admit Date: 10/16/23 13:36
Dear Doctor Oniel,
Patient admitted for sepsis.
10/20-10/21 Nursing Documentation: 'Stage 2 pressure ulcer gluteal cleft, stage 1 pressure ulcer sacrum'
Physician documentation of the type and location of wounds is required for compliant documentation. Based on the above clinical findings and your assessment, please provide the following in your progress note:
1. Location of the ulcer/wound, including laterality.
2. Type (etiology) of ulcer/wound:
- Diabetic ulcer
- Arterial (ischemic) ulcer
- Traumatic wound
- Venous stasis ulcer
- Pressure (decubitus) ulcer
- Non-healing surgical wound
- Other
- Unable to determine
3. For a non-pressure ulcer, please indicate the depth/severity:
- Limited to the breakdown of skin
- With fat layer exposed
- With necrosis of muscle
- With necrosis of bone
- Other
- Unable to determine
4. If a pressure ulcer, please also include the stage* of the ulcer:
- Stage 1 - Skin intact, non-blanchable redness
- Stage 2 - Partial thickness loss of dermis, includes intact or open blister
- Stage 3 - Full thickness tissue not including bone, tendon or muscle
- Stage 4 - Full thickness tissue loss, including exposed bone, tendon or muscle
- Unstageable - Full thickness loss in which the base of the ulcer is covered by slough (yellow, isabel, toussaint, green or brown) and/or eschar (isabel, brown or black) in the wound bed.
- Unable to determine
Use of terms such as suspected, likely, concern for, or probable (associated with a specific diagnosis that is being evaluated, monitored, or treated as if it exists) are acceptable and can be coded in the inpatient setting, when documented at the
time of discharge.
Thank you,
Catie Schuster RN, BSN
CDI Specialist
Available via [place] text
Please use your independent medical judgment in providing your response.
*Source: National Pressure Ulcer Advisory Panel (NPUAP)
[2023-10-23] MEDS: KCL 20 MEQ PO (20:35)
[2023-10-23] MEDS: UNASYN IV (20:35)
[2023-10-24] VITALS (15 sets, daily range): BP systolic 88–145; BP diastolic 52–88; PULSE 2–90; O2SAT 95; BMI 32.6
[2023-10-24 04:48] LABS: Hematocrit 31.2 % (39.0-52.0); Hemoglobin 9.7 g/dL (13.0-18.0); Mean Corp Hgb Conc. 31.1 g/dL (33.0-37.0); Mean Corpuscular Hgb 29.8 pg (27.0-31.0); Mean Corpuscular Volume 95.7 fL (80.0-94.0); Mean Platelet Volume 11.6 fL (7.4-10.4); Platelet Count 204 10^3/uL (130-400); Red Blood Cell Count 3.26 10^6/uL (4.70-6.10); Red Cell Dist. Width 13.3 % (11.5-14.5); White Blood Cell Count 11.1 10^3/uL (4.8-10.8)
--- NOTE | 2023-10-24 05:19 | PTCARENOTE ---
No acute changes overnight. Incont of B&B. Swallowed meds whole in applesauce. Tele showing NSR HR 60-80s. Bipap HS. Repositioned throughout the night, heels floated. Pt able to sleep. Bed alarm set. Call lyon within reach.
[2023-10-24 05:20] LABS: Blood Urea Nitrogen 75 mg/dl (9-20); Calcium 9.1 mg/dl (8.4-10.2); Carbon Dioxide 37 mmol/L (22-30); Chloride 95 mmol/L (98-107); Estimated Creatinine Clearance 19 ml/min; Glucose 107 mg/dl (70-99); Magnesium 2.5 mg/dl (1.6-2.3); Phosphorus 4.7 mg/dl (2.5-4.5); Potassium 3.8 mmol/L (3.5-5.1); Sodium 139 mmol/L (135-145); eGFR 19.61
--- NOTE | 2023-10-24 07:17 | W.PN.HOSP.TC ---
Today's Communication/Plan
-
Abx completed, monitor off
monitor renal function
IVF completed
Lasix briefly resumed placed back on hold due to worsening ENRICO
replete Potassium
cont Plavix and renally dosed Eliquis
wean O2 supplementation as tolerated
PT/OT
VSE in AM
Lock re-inserted, maintain for acurrate I/O
Assessment / Plan
Assessment / Plan
Physical Exam
General: Well Developed and Well Nourished
HEENT: Anicteric, Moist mucous membranes and Oxygen - 3L
Respiratory: Clear to auscultation b/l no wheezes crackles noted
Cardiac: S1/S2 and Regular Rhythm; No Murmur
GI: Soft and Non Tender
Genito-urinary: Lock
Musculoskeletal: No Clubbing, No Cyanosis, +2 pitting edema bilateral lower ext
Skin: Warm and Dry
Neuro: Awake Alert Conversant some confusion noted, disoriented to time
# Acute hypercapnic respiratory failure
�most likely exacerbated by acute on chronic HFrEF, as well as possible pneumonia with Fever impaired resp status
� Noncompliant to BiPAP at facility
� Continue BiPAP QHS and Naps
-wean O2 supplementation as tolerated
#Acute on chronic HFrEF
- echo: EF is depressed (30-35%) with moderate AAS and RV hypokinesis.
� Cardiology consult appreciated
� Lasix switched from IV to PO since placed on hold d/t concerns overdiuresis progressive Hypernatremia
-Hypernatremia since resolved as below, kidney function appears stable, once lasix IV 40 mg ordered 10/22 as per cardio recc's, Cr however continued to worsen, Lasix since placed on hold again.
�monitor I's and O's and daily weights
-Monitor daily weights, Is&Os
#New paroxysmal afib
Cardio eval appreciated
hep gtt transitioned to Eliquis renally dosed
cont Eliquis
#CAD
� Status post stent August 2023 [place]
� on aspirin and Plavix, w/ start of anticoagulation for pAfib as above, ASA discontinued in favor of Plavix/Eliquis combination as per Cardio
-Cont BB
#Severe Sepsis
� Possible pneumonia including a large aspiration pneumonia
-COVID, Flu negative
-Urine cultures negative
- Speech eval - reg, thin liquids
� cultures NGTD
� Empiric antibiotics Zosyn completed 7 days however leukocytosis remains persistent though mild, afebrile, ID eval appreciated, initially abx continued with unasyn, total 8 days abx including zosyn, abx since discontinued monitoring off
�MRSA swab - negative
-VSE repeat in AM 10/24 to assess for possible silent aspiration
#Small moderate pleural effusion Right lung noted on chest US
IR eval requested thoracentesis
#Hypernatremia
#ENRICO
-most likely 2/2 to overdiuresis
-scheduled oral Lasix 80 mg BID placed on hold
-liberalized fluid restriction previously on 40 oz increased to 48 oz
-2g Na restriction
-hypernatremia since resolved
-Nephro eval appreciated IVF hydration D5W completed
-Cr however continues to worsen, lasix previously resumed placed back on hold.
#Elevated troponin, suspect nonischemic myocardial injury
� Troponin trended to peak 0.901 since trended down
- chest pain free
#Acute metabolic encephalopathy
� Secondary to most likely hypercapnia as well as possible infection
- treat as above
-fluctuating mental status throughout stay.
#Urinary retention
� Lock catheter placed
-TOV prior to dc
- finasteride
#Hypokalemia
-monitor and replete as necessary
-scheduled potassium 20 mEQ BID started 10/22
#Hyperlipidemia
� Resume statin when able to tolerate p.o.
#DVT prophylaxis
� HSQ
#Stage 2 pressure ulcer gluteal cleft, stage 1 pressure ulcer sacrum
cont local wound care
#DNR/DNI
discussed with Patient and Patient's daughter Andra
Total time spent on today's encounter was 55 minutes which included time spent in counseling the patient/family regarding diagnosis and treatment plan as listed above, goals of care, and symptom management. Case was discussed with nursing staff,
specialists, and care coordinators/case management. All labs and imaging personally reviewed by me. Remainder the time spent in detailed review of previous records, lab data, imaging, and other medical provider documentation.
Anticipated Discharge: > 48 hours
Subjective/Interval History
-
Date of Service: October 24, 2023
AOx2 disoriented to time. No acute distress. Remains oxygen dependent. Intermittent confusion noted throughout day.
Objective Data
-
Labs:
Laboratory Results
10/24/23
04:24
WBC 11.1 H
Hgb 9.7 L
Hct 31.2 L
Plt Count 204
Sodium 139
Potassium 3.8
Chloride 95 L
Carbon Dioxide 37 H
BUN 75 H
Creatinine 3.0 H
Glucose 107 H
Calcium 9.1
Vital Signs:
Vital Signs
Temp Pulse Resp BP Pulse Ox
98.1 F 75 18 121/88 96
10/24/23 03:42 10/24/23 06:00 10/24/23 06:00 10/24/23 06:00 10/24/23 06:00
I&O
10/23/23 10/24/23 10/25/23
06:59 06:59 06:59
Intake Total 2444 / 2444 580 / 580
Balance 2444 / 2444 580 / 580
[2023-10-24] MEDS: KCL 20 MEQ PO ×2 (08:41→20:05)
[2023-10-24] MEDS: PROSCAR 5 MG PO (08:41)
[2023-10-24] MEDS: TOPROL XL 25 MG PO (08:41)
[2023-10-24] MEDS: ELIQUIS 2.5 MG PO ×2 (08:41→20:05)
[2023-10-24] MEDS: PLAVIX 75 MG PO (08:41)
--- NOTE | 2023-10-24 08:49 | W.PN.CARDCBS ---
Today's Communication / Plan
-
HR and bp stable.
Cr is rising despite a dose of IV lasix on October 22. Hold further lasix for now.
Cont to monitor cr and wt.
Appreciate nephrology input.
Remains in sinus on Eliquis 2.5 mg BID and Toprol XL 25 mg daily.
Cont to monitor for bleeding with Eliquis and Plavix for recent PCI. He had been on DAPT with ASA and Plavix post PCI and is now on Eliquis and Plavix.
Echo shows EF reduced with mod and RV hypokinesis. EF remains reduced despite PCI.
Patient unfortunately cannot take ACEI/ARB/ARNI/Aldactone, SGLT2 inhibitor at present with ENRICO. GDMT as renal function and bp francheska allow.
Cont medi
Impression / Plan
-
Primary Proof Sorter: Dr. Cooley of [facility]
Impression:
Presentation with change in mental status
Lethargy
Acute on chronic HFrEF
Now with hypernatremia
PAF new diagnosis
Acute hypercapnic respiratory failure, requiring BIPAP in ER
Elevated troponin
Leukocytosis with fever, presumed sepsis
ENRICO on CKD
Urinary retention
Admission to [facility] 08/2023 for acute inferior STEMI status post RCA PCI
ischemic cardiomyopathy EF 35 to 40% by echo 08/2023
HLD
HTN
RBBB, chronic
History of viral encephalitis approximately 25 years ago
Foot drop
Peripheral neuropathy
History of bladder cancer status post TURP in 2017
Pulmonary nodules
DNR code status
ECHO 08/21/2023: EF 35 to 40%, anteroseptal akinesis, mild global hypokinesis of the rest of LV, grade 1 diastolic dysfunction, trivial posterior pericardial effusion
Echo 10/16/2023, EF 30 to 35%, mild to moderate aortic stenosis, mean gradient 15, mild TR with PA pressure 55, RV hypokinesis
Plan:
HR and bp stable.
Cr is rising despite a dose of IV lasix on October 22. Hold further lasix for now.
Cont to monitor cr and wt.
Appreciate nephrology input.
Remains in sinus on Eliquis 2.5 mg BID and Toprol XL 25 mg daily.
Cont to monitor for bleeding with Eliquis and Plavix for recent PCI. He had been on DAPT with ASA and Plavix post PCI and is now on Eliquis and Plavix.
Echo shows EF reduced with mod and RV hypokinesis. EF remains reduced despite PCI.
Patient unfortunately cannot take ACEI/ARB/ARNI/Aldactone, SGLT2 inhibitor at present with ENRICO. GDMT as renal function and bp francheska allow.
Cont medical therapy for nonMI trop with peak at 0.9.
ID managing abx.
Pt is DNR
Discussed with nursing.
Progress Note - Proof Sorter
Subjective
Date of Service: October 24, 2023
Pt seen and examined. No cp or dyspnea.
Objective
Labs:
10/24/23 04:24
10/24/23 04:24
Labs
Hgb 9.7 g/dL (13.0-18.0) L 10/24/23 04:24
Hct 31.2 % (39.0-52.0) L 10/24/23 04:24
Plt Count 204 10^3/uL (130-400) 10/24/23 04:24
PT 14.7 Sec (11.4-14.6) H 10/16/23 10:08
INR 1.14 10/16/23 10:08
APTT 99.6 Sec (23.4-35.0) H 10/21/23 13:12
Sodium 139 mmol/L (135-145) 10/24/23 04:24
Potassium 3.8 mmol/L (3.5-5.1) 10/24/23 04:24
BUN 75 mg/dl (9-20) H 10/24/23 04:24
Creatinine 3.0 mg/dL (0.7-1.3) H 10/24/23 04:24
Glucose 107 mg/dl (70-99) H 10/24/23 04:24
Vital Signs and I&O:
Vital Signs
Temp Pulse Resp BP Pulse Ox
98.0 F 85 18 124/60 96
10/24/23 07:32 10/24/23 08:41 10/24/23 06:00 10/24/23 08:41 10/24/23 06:00
Vital Signs
Temp Pulse Resp BP Pulse Ox
98.0 F 85 18 124/60 96
10/24/23 07:32 10/24/23 08:41 10/24/23 06:00 10/24/23 08:41 10/24/23 06:00
Intake & Output
10/22/23 10/23/23 10/24/23 10/25/23
06:59 06:59 06:59 06:59
Intake Total 1388 / 1388 2444 / 2444 580 / 580
Balance 1388 / 1388 2444 / 2444 580 / 580
Physical Exam
Physical Exam
General: No acute distress, awake but lethargic
Neck: Negative JVD
Heart: Regular, Negative S3 positive S1/S2, Negative S4, No murmur
Lungs: CTA b/l, negative wheezes/rales/rhonchi
Abd: Positive BS, NT/ND, neg rebound/rigidity/guarding
Ext: Negative cyanosis/clubbing/edema
Neuro: nonfocal
[2023-10-24] MEDS: UNASYN IV (09:27)
--- NOTE | 2023-10-24 10:03 | W.PN.NEPH.PH ---
Today's Communication / Plan
-
Lock
Holding diuretic
Follow BMP
Assessment/Plan
-
Assessment:
hypernatremia
sepsis 2/2 to PNA
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
CKD (bl Cr 1.8-2.1)
Afib
CAD s/p recent stenting
Plan:
Hypernatremia
- i agree with liberalizing fluids
-Serum sodium improved to 139
- diuretics per cardiology. lasix on hold
ENRICO
-Worsening with creatinine up to 3 no urine output record
-Check urine eosinophils to check for evolving acute interstitial nephritis in setting of antibiotic administration
-Lock to be placed
-Patient hemodynamically stable
-diuretics currently held
-
-
Date of Service: October 24, 2023
CC / HPI / ROS
-
Chief Complaint:
hypernatremia
ENRICO
History of Present Illness:
hypernatremia now normalized
ENRICO Cr up to 3(bl 2)
Hemodynamically stable
Review of Systems:
-Urine output not recorded
-Remains on oxygen
-Weights
- pleasantly confused
Labs
-
Labs:
WBC 11.1 10^3/uL (4.8-10.8) H 10/24/23 04:24
RBC 3.26 10^6/uL (4.70-6.10) L 10/24/23 04:24
Hgb 9.7 g/dL (13.0-18.0) L 10/24/23 04:24
Hct 31.2 % (39.0-52.0) L 10/24/23 04:24
Plt Count 204 10^3/uL (130-400) 10/24/23 04:24
Sodium 139 mmol/L (135-145) 10/24/23 04:24
Potassium 3.8 mmol/L (3.5-5.1) 10/24/23 04:24
Chloride 95 mmol/L (98-107) L 10/24/23 04:24
Carbon Dioxide 37 mmol/L (22-30) H 10/24/23 04:24
BUN 75 mg/dl (9-20) H 10/24/23 04:24
Creatinine 3.0 mg/dL (0.7-1.3) H 10/24/23 04:24
eGFR 19.61 10/24/23 04:24
Glucose 107 mg/dl (70-99) H 10/24/23 04:24
Calcium 9.1 mg/dl (8.4-10.2) 10/24/23 04:24
Phosphorus 4.7 mg/dl (2.5-4.5) H 10/24/23 04:24
Msi-B-Qdfqpwuampn Pept > 60325 pg/ml 10/16/23 10:08
Albumin 2.9 g/dl (3.5-5.0) L 10/19/23 05:31
Physical Exam
-
Vital Signs:
Vital Signs
Temp Pulse Resp BP Pulse Ox
98.0 F 85 18 124/60 96
10/24/23 07:32 10/24/23 08:41 10/24/23 06:00 10/24/23 08:41 10/24/23 06:00
Cardiovascular:: Regular rate and rhythm
Respiratory:: Bilateral: Coarse
Lung Excursion:: Normal
Abdomen:: Nontender
Bowel Sounds:: Normal
Extremity Edema:: None: Bilateral:
Lock Catheter: No
--- NOTE | 2023-10-24 11:38 | CM ---
CM following re: discharge planning.
Reviewed pt's chart, met with pt.
PT and OT continues recommending SNF level of care.
Pt is admitted from [facility] where he was for a short term rehab and per CM note, pt is private bed hold.
D/C plan: Return back to [facility] to continue on skilled services.
CM will follow with discharge plan updates as hospitalization progresses
[2023-10-24 11:51] LABS: Body Fluid for Eosinophils No Eosinophils seen
--- NOTE | 2023-10-24 11:58 | PTCARENOTE ---
Assumed care of patient this morning. He is oriented x2, disoriented to place and confused at times. He only ate his banana this morning and drank coffee and OJ. Pt has been incontinent of urine with minimal residual bladder scans, ordered
Lock catheter this morning, see worklist. His daughter, Andra, at the bedside and updated per ability. Assessment, care and VS as charted.
--- NOTE | 2023-10-24 13:54 | W.PN.ID1 ---
Date of Service
Date of Service: October 24, 2023
Today's Communication
- chest US small/mod free flowing effusion
- stop antibiotics and follow clinically
Assessment / Plan
Possible Aspiration pneumonia
R sided Pleural Effusion
- hasnt produced a sputum
- chest US small/mod free flowing effusion
- stop antibiotics and follow clinically
Chief Complaint
-: Pneumonia
Subjective / Review of Systems
afebrile
bp stable
declining wbc count
cr 3.0 today
no urine eos
chest US small/mod effusion - free flowing
Vital Signs / Physical Exam
Vital Signs
Vital Signs
Temp Pulse Resp BP Pulse Ox
98.5 F 74 23 127/63 97
10/24/23 12:03 10/24/23 10:17 10/24/23 10:17 10/24/23 10:17 10/24/23 10:33
Physical Exam
Constitutional: No Acute Distress
Cardiovascular: Regular Rate and S1/S2; Negative Murmur or Rub
Pulmonary: Clear and Symmetric; Negative Wheezes or Rales
Gastrointestinal: Soft, Non Tender, Non Distended and Normal Bowel Sounds
Skin: Warm and Dry; Negative Rash or Jaundice
Neurological: Awake
Objective Data
Lab Data
Lab Results
10/24/23 04:24
10/24/23 04:24
PT 14.7 Sec (11.4-14.6) H 10/16/23 10:08
INR 1.14 10/16/23 10:08
APTT 99.6 Sec (23.4-35.0) H 10/21/23 13:12
Estimated Creat Clear 19 ml/min 10/24/23 04:24
Lactic Acid 1.0 mmol/L (0.7-2.0) 10/16/23 10:16
Total Bilirubin 0.8 mg/dl (0.2-1.3) 10/19/23 05:31
AST 21 U/L (17-59) 10/19/23 05:31
ALT 13 U/L (0-50) 10/19/23 05:31
Alkaline Phosphatase 78 U/L (38-126) 10/19/23 05:31
Most recent labs reviewed.
Micro Results:
10/16/23 10:20 Blood Culture - Final
Blood/Venous No Growth - Final Report
10/16/23 10:17 Blood Culture - Final
Blood/Venous No Growth - Final Report
10/16/23 22:42 MRSA Screen - Final
Nose No Methicillin Resistant Staphylococcus aureus isolated.
10/16/23 15:22 Urine Culture - Final
Urine NO GROWTH
10/16/23 10:17 Influenza Types A & B (TIANA) - Final
Nasal Swab Negative for Influenza A & B, NAAT
Negative results must be combined with clinical observations
and patient history.
Nucleic Acid Amplification test (NAAT)performed on the
[employer] platform.
[2023-10-25] VITALS (13 sets, daily range): BP systolic 115–150; BP diastolic 55–99; PULSE 2–88; BMI 32.2
[2023-10-25 05:05] LABS: Hematocrit 31.7 % (39.0-52.0); Mean Corp Hgb Conc. 31.5 g/dL (33.0-37.0); Mean Corpuscular Hgb 29.8 pg (27.0-31.0); Mean Corpuscular Volume 94.3 fL (80.0-94.0); Mean Platelet Volume 11.5 fL (7.4-10.4); Platelet Count 223 10^3/uL (130-400); Red Blood Cell Count 3.36 10^6/uL (4.70-6.10); Red Cell Dist. Width 13.5 % (11.5-14.5)
[2023-10-25 05:11] LABS: Blood Urea Nitrogen 76 mg/dl (9-20); Calcium 9.2 mg/dl (8.4-10.2); Carbon Dioxide 38 mmol/L (22-30); Chloride 97 mmol/L (98-107); Estimated Creatinine Clearance 21 ml/min; Glucose 98 mg/dl (70-99); Magnesium 2.4 mg/dl (1.6-2.3); Phosphorus 4.3 mg/dl (2.5-4.5); Sodium 141 mmol/L (135-145); eGFR 21.31
--- NOTE | 2023-10-25 07:20 | W.PN.HOSP.TC ---
Today's Communication/Plan
-
wean O2 supplementation as tolerated
monitor off abx
monitor renal function, hold on lasix as per Cardio Nephro
PT/OT
Hydralazine start for afterload reduction as per Cardio
Assessment / Plan
Assessment / Plan
Physical Exam
General: Well Developed and Well Nourished
HEENT: Anicteric, Moist mucous membranes and Oxygen - 3L
Respiratory: Clear to auscultation b/l no wheezes crackles noted
Cardiac: S1/S2 and Regular Rhythm; No Murmur
GI: Soft and Non Tender
Genito-urinary: Lock
Musculoskeletal: No Clubbing, No Cyanosis, +2 pitting edema bilateral lower ext
Skin: Warm and Dry
Neuro: Awake Alert Conversant some confusion noted, disoriented to time
# Acute hypercapnic respiratory failure
�most likely exacerbated by acute on chronic HFrEF, as well as possible pneumonia with Fever impaired resp status
� Noncompliant to BiPAP at facility
� Continue BiPAP QHS and Naps
-wean O2 supplementation as tolerated
#Acute on chronic HFrEF
- echo: EF is depressed (30-35%) with moderate AAS and RV hypokinesis.
� Cardiology consult appreciated hydralazine added for afterload reduction 10/24
� Lasix switched from IV to PO since placed on hold d/t concerns overdiuresis progressive Hypernatremia
-Hypernatremia since resolved as below, kidney function appears stable, once lasix IV 40 mg ordered 10/22 as per cardio recc's, Cr however continued to worsen, Lasix since placed on hold again.
�monitor I's and O's and daily weights
-Monitor daily weights, Is&Os
#New paroxysmal afib
Cardio eval appreciated
hep gtt transitioned to Eliquis renally dosed
cont Eliquis
#CAD
� Status post stent August 2023 [facility]
� on aspirin and Plavix, w/ start of anticoagulation for pAfib as above, ASA discontinued in favor of Plavix/Eliquis combination as per Cardio
-Cont BB
#Severe Sepsis
� Possible pneumonia including a large aspiration pneumonia
-COVID, Flu negative
-Urine cultures negative
- Speech eval - reg, thin liquids
� cultures NGTD
� Empiric antibiotics Zosyn completed 7 days however leukocytosis remains persistent though mild, afebrile, ID eval appreciated, initially abx continued with unasyn, total 8 days abx including zosyn, abx since discontinued monitoring off
�MRSA swab - negative
-VSE repeat 10/24 noted improvement from prior VSE examination, no aspiration noted
#Small moderate pleural effusion Right lung noted on chest US
IR eval thoracentesis appreciated only 150 cc drawn, pleural fluid studies not suggestive of infection
#Hypernatremia
#ENRICO
-most likely 2/2 to overdiuresis
-scheduled oral Lasix 80 mg BID placed on hold
-liberalized fluid restriction previously on 40 oz increased to 48 oz
-2g Na restriction
-hypernatremia since resolved
-Nephro eval appreciated IVF hydration D5W completed
-Cr however continues to worsen, lasix previously resumed placed back on hold.
#Elevated troponin, suspect nonischemic myocardial injury
� Troponin trended to peak 0.901 since trended down
- chest pain free
#Acute metabolic encephalopathy
� Secondary to most likely hypercapnia as well as possible infection
- treat as above
-fluctuating mental status throughout stay.
#Urinary retention
� Lock catheter placed
-TOV prior to dc
- finasteride
#Hypokalemia
-monitor and replete as necessary
-scheduled potassium 20 mEQ BID started 10/22
#Hyperlipidemia
� Resume statin when able to tolerate p.o.
#DVT prophylaxis
� HSQ
#Stage 2 pressure ulcer gluteal cleft, stage 1 pressure ulcer sacrum
cont local wound care
#DNR/DNI
discussed with Patient and Patient's daughter Andra
Total time spent on today's encounter was 55 minutes which included time spent in counseling the patient/family regarding diagnosis and treatment plan as listed above, goals of care, and symptom management. Case was discussed with nursing staff,
specialists, and care coordinators/case management. All labs and imaging personally reviewed by me. Remainder the time spent in detailed review of previous records, lab data, imaging, and other medical provider documentation.
Anticipated Discharge: > 48 hours
Subjective/Interval History
-
Date of Service: October 25, 2023
Seen and examined at bedside no acute distress sitting up comfortably in bed. Daughter Andra present during evaluation.
Objective Data
-
Labs:
Laboratory Results
10/25/23
04:49
WBC 11.0 H
Hgb 10.0 L
Hct 31.7 L
Plt Count 223
Sodium 141
Potassium 4.0
Chloride 97 L
Carbon Dioxide 38 H
BUN 76 H
Creatinine 2.8 H
Glucose 98
Calcium 9.2
Vital Signs:
Vital Signs
Temp Pulse Resp BP Pulse Ox
96.8 F L 85 28 133/62 97
10/25/23 03:32 10/25/23 06:01 10/25/23 06:01 10/25/23 06:01 10/25/23 06:01
I&O
10/24/23 10/25/23 10/26/23
06:59 06:59 06:59
Intake Total 580 / 580 640 / 640
Output Total 1100 / 1100
Balance 580 / 580 -460 / -460
[2023-10-25] MEDS: KCL 20 MEQ PO ×2 (08:28→20:38)
[2023-10-25] MEDS: TOPROL XL 25 MG PO (08:28)
[2023-10-25] MEDS: PLAVIX 75 MG PO (08:28)
[2023-10-25] MEDS: ELIQUIS 2.5 MG PO ×2 (08:28→20:38)
[2023-10-25] MEDS: PROSCAR 5 MG PO (08:28)
[2023-10-25 09:29] LABS: Iron 75 ug/dl (49-181)
[2023-10-25 09:38] LABS: Percent Saturation 34 % (20-50); Total Iron Binding Capacity 220 ug/dl (261-462)
[2023-10-25 10:08] LABS: Folate > 20.0 ng/ml (2.76-20); Vitamin B12 968 pg/ml (239-931)
[2023-10-25 10:33] LABS: Body Fluid pH 7.44
[2023-10-25 10:42] LABS: Body Fluid LDH 91 U/L; Body Fluid Mononuclear 86.1 %; Body Fluid Polymorphonuclear 13.9 %; Body Fluid WBC 706 /CUMM
--- NOTE | 2023-10-25 10:51 | W.PN.ID1 ---
Date of Service
Date of Service: October 25, 2023
Today's Communication
follow off of antibiotics
Assessment / Plan
Possible Aspiration pneumonia
R sided Pleural Effusion
- hasnt produced a sputum
- s/p thora 10/24: pH normal, glucose normal, WBC monocytic, LDH low; body fluid gram stain neg and culture pending
- no indication to restart antibiotics
Chief Complaint
-: Pneumonia
Subjective / Review of Systems
remains afebrile
bp stable
minimal leukocytosis
cr slightly improved
s/p thora 10/24: pH normal, glucose normal, WBC pending, LDH low; body fluid gram stain and culture pending; 150 ccs straw fluid
Vital Signs / Physical Exam
Vital Signs
Vital Signs
Temp Pulse Resp BP Pulse Ox
98.3 F 85 28 133/62 97
10/25/23 07:30 10/25/23 06:01 10/25/23 06:01 10/25/23 06:01 10/25/23 06:01
Physical Exam
Constitutional: No Acute Distress
Cardiovascular: Regular Rate and S1/S2; Negative Murmur or Rub
Pulmonary: Clear and Symmetric; Negative Wheezes or Rales
Gastrointestinal: Soft, Non Tender, Non Distended and Normal Bowel Sounds
Skin: Warm and Dry; Negative Rash or Jaundice
Objective Data
Lab Data
Lab Results
10/25/23 04:49
10/25/23 04:49
PT 14.7 Sec (11.4-14.6) H 10/16/23 10:08
INR 1.14 10/16/23 10:08
APTT 99.6 Sec (23.4-35.0) H 10/21/23 13:12
Estimated Creat Clear 21 ml/min 10/25/23 04:49
Lactic Acid 1.0 mmol/L (0.7-2.0) 10/16/23 10:16
Total Bilirubin 0.8 mg/dl (0.2-1.3) 10/19/23 05:31
AST 21 U/L (17-59) 10/19/23 05:31
ALT 13 U/L (0-50) 10/19/23 05:31
Alkaline Phosphatase 78 U/L (38-126) 10/19/23 05:31
Most recent labs reviewed.
Micro Results:
10/25/23 10:06 Body Fluid Culture - Pending
Pleural Fluid Gram Stain - Pending
10/16/23 10:20 Blood Culture - Final
Blood/Venous No Growth - Final Report
10/16/23 10:17 Blood Culture - Final
Blood/Venous No Growth - Final Report
10/16/23 22:42 MRSA Screen - Final
Nose No Methicillin Resistant Staphylococcus aureus isolated.
10/16/23 15:22 Urine Culture - Final
Urine NO GROWTH
10/16/23 10:17 Influenza Types A & B (TIANA) - Final
Nasal Swab Negative for Influenza A & B, NAAT
Negative results must be combined with clinical observations
and patient history.
Nucleic Acid Amplification test (NAAT)performed on the
[employer] platform.
[2023-10-25 10:53] LABS: Body Fluid Glucose 106 mg/dl
[2023-10-25 10:59] LABS: Body Fluid Triglycerides < 30 mg/dl
--- NOTE | 2023-10-25 11:00 | PTCARENOTE ---
Sent to radiology this am completed VSE and thoracentesis. Returned with dressing to upper back with small amt sanganeous drainage- reinforced with 2x2s and surg. tape. O2 3L NC 98%- LCTA shallow.
[2023-10-25 11:13] LABS: Body Fluid Second Tech EF
--- NOTE | 2023-10-25 11:25 | CM ---
Patient from [facility] with Dx Acute hypercapnic respiratory failure< HF, sepsis, ENRICO, acute metabolic encephalopathy, urinary retention. O2 & BiPAP. VSE today. Thoracentesis today. PT/OT recommend skilled rehab. Per nursing; drowsy
slow speech.
Message with Dr Engle; patient will be here over weekend.
Spoke with Fatimah [facility] (cell [phone]); provided clinical update including that patient would remain here over weekend 10/25 - 10/26. If discharged, please contact weekend operations supervisor chemical cleaning at [phone]. The for report
[phone], fax [phone].
Spoke with patient's daughter Andra (ph [phone]); she was with her father at the bedside. She is aware he will be here over the weekend.
Plan return to [facility] when medically ready.
--- NOTE | 2023-10-25 11:35 | PTOTSP ---
Addendum entered and electronically signed by ST Verónica 10/25/23 14:24:
Supervision with PO, assist as needed
Original Note:
Video Swallow Examination
Summary: Oral and pharyngeal stages of swallowing grossly WFL. No laryngeal penetration or aspiration occurred. Esophageal sweep revealed retention throughout the esophagus which did not clear with a thin liquid wash. Risk for bottom up
aspiration is elevated.
Recommend:
1. Regular, Thin Liquids
2. Medications - whole and/or crushed in puree
3. Strategies: upright to 90 degrees, small single sips/bites with breaks for breathing, alternate sips/bites (to help clear esophagus), remain upright for 30 minutes after PO intake (as a reflux precaution)
4. Will follow up briefly to discuss results with family as able/appropriate (given patient with cognitive deficits). No family available in room after study. Updated nurse.
5. Consider GI consult to assess esophageal stage of swallowing.
--- NOTE | 2023-10-25 13:15 | PTCARENOTE ---
Pt daughter called staff in - pt was coughing/ choking (no food present) resolved with sip of water per daughter- My assessment showing RR 25-35 visibly having slightly labored breathing. LC/ breath sounds throughout and 98% 3L. TT to Dr. Engle -
will monitor.
--- NOTE | 2023-10-25 15:11 | W.PN.NEPH.PH ---
Today's Communication / Plan
-
- hold lasix again today, consider restarting tomorrow
Assessment/Plan
-
Assessment:
hypernatremia
sepsis 2/2 to PNA
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
CKD (bl Cr 1.8-2.1)
Afib
CAD s/p recent stenting
Plan:
Hypernatremia
-i agree with liberalizing fluids
-sodium now at 141
-lasix held from 10/22-today, consider restarting tomorrow
ENRICO
-Cr peak at 3, now 2.8
-urine eos negative
-Lock to be placed
-Patient hemodynamically stable
-diuretics currently held --> ?cardiorenal?
-
-
Date of Service: October 25, 2023
CC / HPI / ROS
-
Chief Complaint:
hypernatremia
ENRICO
History of Present Illness:
hypernatremia now normalized
ENRICO Cr up to 2.8(bl 2)
Hemodynamically stable
Review of Systems:
-UOP 850cc
-Remains on oxygen
-Weights
-pleasantly confused
Labs
-
Labs:
WBC 11.0 10^3/uL (4.8-10.8) H 10/25/23 04:49
RBC 3.36 10^6/uL (4.70-6.10) L 10/25/23 04:49
Hgb 10.0 g/dL (13.0-18.0) L 10/25/23 04:49
Hct 31.7 % (39.0-52.0) L 10/25/23 04:49
Plt Count 223 10^3/uL (130-400) 10/25/23 04:49
Sodium 141 mmol/L (135-145) 10/25/23 04:49
Potassium 4.0 mmol/L (3.5-5.1) 10/25/23 04:49
Chloride 97 mmol/L (98-107) L 10/25/23 04:49
Carbon Dioxide 38 mmol/L (22-30) H 10/25/23 04:49
BUN 76 mg/dl (9-20) H 10/25/23 04:49
Creatinine 2.8 mg/dL (0.7-1.3) H 10/25/23 04:49
eGFR 21.31 10/25/23 04:49
Glucose 98 mg/dl (70-99) 10/25/23 04:49
Calcium 9.2 mg/dl (8.4-10.2) 10/25/23 04:49
Phosphorus 4.3 mg/dl (2.5-4.5) 10/25/23 04:49
Npm-F-Saecwqmdvdy Pept > 87499 pg/ml 10/16/23 10:08
Albumin 2.9 g/dl (3.5-5.0) L 10/19/23 05:31
Physical Exam
-
Vital Signs:
Vital Signs
Temp Pulse Resp BP Pulse Ox
97.6 F 85 28 133/62 97
10/25/23 11:35 10/25/23 06:01 10/25/23 06:01 10/25/23 06:01 10/25/23 08:30
Cardiovascular:: Regular rate and rhythm
Respiratory:: Bilateral: Coarse
Lung Excursion:: Normal
Abdomen:: Nontender and Soft
Bowel Sounds:: Normal
Extremity Edema:: +2: Bilateral:
Lock Catheter: No
--- NOTE | 2023-10-25 16:09 | PTCARENOTE ---
Weaning O2 on 2L maintains sao2 95-99%, when removed to room air drops to 88% and is dyspneic. Very poor appetite- encouraging ensure and asked for sue ad. Incontinent 2 dk brown loose soft stools today. Denies pain. Lock adequate output.
+2 general anasarca- no weeping noted. Q 2 turning.
--- NOTE | 2023-10-25 16:30 | PTCARENOTE ---
Earlier labored breathing resolved on own. RR16-24 now. Remains 99% on 4L NC- Weaning O2 on 2L maintains sao2 95-99%, when removed to room air drops to 88% and is dyspneic. Very poor appetite- encouraging ensure and asked for sue ad.
Incontinent 2 dk brown loose soft stools today. Denies pain. Lock adequate output. +2 general anasarca- no weeping noted. Q 2 turning.
[2023-10-25] MEDS: APRESOLINE 10 MG PO ×2 (17:50→21:25)
--- NOTE | 2023-10-25 17:54 | W.PN.CARDCBS ---
Today's Communication / Plan
-
Start low-dose hydralazine for afterload reduction
Appreciate nephrology input regarding diuretics, hopefully can be resumed soon
Impression / Plan
-
Primary Utility Inspector: Dr. Cooley of [facility]
Impression:
Presentation with change in mental status
Lethargy
Acute on chronic HFrEF
Now with hypernatremia
PAF new diagnosis
Acute hypercapnic respiratory failure, requiring BIPAP in ER
Elevated troponin
Leukocytosis with fever, presumed sepsis
ENRICO on CKD
Urinary retention
Admission to [facility] 08/2023 for acute inferior STEMI status post RCA PCI
ischemic cardiomyopathy EF 35 to 40% by echo 08/2023
HLD
HTN
RBBB, chronic
History of viral encephalitis approximately 25 years ago
Foot drop
Peripheral neuropathy
History of bladder cancer status post TURP in 2017
Pulmonary nodules
DNR code status
ECHO 08/21/2023: EF 35 to 40%, anteroseptal akinesis, mild global hypokinesis of the rest of LV, grade 1 diastolic dysfunction, trivial posterior pericardial effusion
Echo 10/16/2023, EF 30 to 35%, mild to moderate aortic stenosis, mean gradient 15, mild TR with PA pressure 55, RV hypokinesis
Plan:
HR and bp stable.
Lasix on hold for rising Cr, now down trending.
Cont to monitor cr and wt.
Appreciate nephrology input.
Remains in sinus on Eliquis 2.5 mg BID and Toprol XL 25 mg daily.
Cont to monitor for bleeding with Eliquis and Plavix for recent PCI. He had been on DAPT with ASA and Plavix post PCI and is now on Eliquis and Plavix.
Echo shows EF reduced with mild-mod and RV hypokinesis. EF remains reduced despite PCI.
Patient unfortunately cannot take ACEI/ARB/ARNI/Aldactone, SGLT2 inhibitor at present with ENRICO. GDMT as renal function and bp will allow.
Add hydralazine for afterload reduction
Cont medical therapy for nonMI trop with peak at 0.9.
Pt is DNR
Discussed with patient's daughter at bedside
Progress Note - Utility Inspector
Subjective
Date of Service: October 25, 2023
No acute overnight events. Patient resting comfortably in bed. Remains in IMU.
Objective
Labs:
10/25/23 04:49
10/25/23 04:49
Labs
Hgb 10.0 g/dL (13.0-18.0) L 10/25/23 04:49
Hct 31.7 % (39.0-52.0) L 10/25/23 04:49
Plt Count 223 10^3/uL (130-400) 10/25/23 04:49
PT 14.7 Sec (11.4-14.6) H 10/16/23 10:08
INR 1.14 10/16/23 10:08
APTT 99.6 Sec (23.4-35.0) H 10/21/23 13:12
Sodium 141 mmol/L (135-145) 10/25/23 04:49
Potassium 4.0 mmol/L (3.5-5.1) 10/25/23 04:49
BUN 76 mg/dl (9-20) H 10/25/23 04:49
Creatinine 2.8 mg/dL (0.7-1.3) H 10/25/23 04:49
Glucose 98 mg/dl (70-99) 10/25/23 04:49
Vital Signs and I&O:
Vital Signs
Temp Pulse Resp BP Pulse Ox
97.6 F 80 24 115/99 99
10/25/23 15:49 10/25/23 16:00 10/25/23 16:00 10/25/23 16:00 10/25/23 16:00
Vital Signs
Temp Pulse Resp BP Pulse Ox
97.6 F 80 24 115/99 99
10/25/23 15:49 10/25/23 16:00 10/25/23 16:00 10/25/23 16:00 10/25/23 16:00
Intake & Output
10/23/23 10/24/23 10/25/23 10/26/23
06:59 06:59 06:59 06:59
Intake Total 2444 / 2444 580 / 580 640 / 640
Output Total 1100 / 1100
Balance 2444 / 2444 580 / 580 -460 / -460
Physical Exam
Physical Exam
Gen: NAD, AA
HEENT: NC/AT, sclera anicteric
Neck: No JVD
CV: RRR, NL s1/s2
Lungs: Tachypneic on 3 L nasal cannula
Abd: S/ND
Ext: 2+ pitting b/l LE edema
Skin: Warm, dry
Neuro: Non-focal
[2023-10-26] VITALS (16 sets, daily range): BP systolic 99–171; BP diastolic 50–115; PULSE 2–84; O2SAT 99; BMI 32.9
--- NOTE | 2023-10-26 03:53 | PTCARENOTE ---
After walking rounds, Assumed care of pt resting in bed with headphones on watching TV. Pt's daughter present at bedside and had no questions at that time. She left for night approx 2029. Pt on 2L NC, fine crackles in bases, tachypneic with bed
mobility. BIPAP applied by Resp therapy approx 0 and pt tolerating BIPAP, sleeping soundly with Resp rate 22. Patient alert and asking for assist with TV remote earlier in the shift. He does follow simple instructions but appears confused
regarding plan of care for the night, plan of care reviewed and patient then resting quietly watching TV.Pt bernabe patent for dark yellow urine. Incontinent os small soft BM. Hygiene provided.
--- NOTE | 2023-10-26 07:53 | W.PN.CARDCBS ---
Today's Communication / Plan
-
HR and bp stable.
Cr improving to 2.6 on October 25, with holding lasix. Resume lasix once ok with nephrology.
Cont to monitor cr and wt.
Remains in sinus on Eliquis 2.5 mg BID and Toprol XL 25 mg daily.
Cont to monitor for bleeding with Eliquis and Plavix for recent PCI. He had been on DAPT with ASA and Plavix post PCI and is now on Eliquis and Plavix.
Echo shows EF reduced with mild-mod and RV hypokinesis. EF remains reduced despite PCI.
Patient unfortunately cannot take ACEI/ARB/ARNI/Aldactone, SGLT2 inhibitor at present with ENRICO. Hydralazine was added for afterload reduction.
GDMT as renal function and bp will allow.
Impression / Plan
-
Primary [employer] Sales Consultant: Dr. Cooley of [facility]
Impression:
Presentation with change in mental status
Lethargy
Acute on chronic HFrEF
Now with hypernatremia
PAF new diagnosis
Acute hypercapnic respiratory failure, requiring BIPAP in ER
Elevated troponin
Leukocytosis with fever, presumed sepsis
ENRICO on CKD
Urinary retention
Admission to [facility] 08/2023 for acute inferior STEMI status post RCA PCI
ischemic cardiomyopathy EF 35 to 40% by echo 08/2023
HLD
HTN
RBBB, chronic
History of viral encephalitis approximately 25 years ago
Foot drop
Peripheral neuropathy
History of bladder cancer status post TURP in 2017
Pulmonary nodules
DNR code status
ECHO 08/21/2023: EF 35 to 40%, anteroseptal akinesis, mild global hypokinesis of the rest of LV, grade 1 diastolic dysfunction, trivial posterior pericardial effusion
Echo 10/16/2023, EF 30 to 35%, mild to moderate aortic stenosis, mean gradient 15, mild TR with PA pressure 55, RV hypokinesis
Plan:
HR and bp stable.
Cr improving to 2.6 on October 25, with holding lasix. Resume lasix once ok with nephrology.
Cont to monitor cr and wt. Wt up slightly since admit
Appreciate nephrology input. Pt is not HD candidate.
Remains in sinus on Eliquis 2.5 mg BID and Toprol XL 25 mg daily.
Cont to monitor for bleeding with Eliquis and Plavix for recent PCI. He had been on DAPT with ASA and Plavix post PCI and is now on Eliquis and Plavix.
Echo shows EF reduced with mild-mod and RV hypokinesis. EF remains reduced despite PCI.
Patient unfortunately cannot take ACEI/ARB/ARNI/Aldactone, SGLT2 inhibitor at present with ENRICO. GDMT as renal function and bp will allow.
Hydralazine added for afterload reduction.
Cont medical therapy for nonMI trop with peak at 0.9.
Pt is DNR
Progress Note - [employer] Sales Consultant
Subjective
Date of Service: October 26, 2023
Pt seen and examined. No complaints. No chest pain or shortness of breath.
Objective
Labs:
Labs
Hgb 10.0 g/dL (13.0-18.0) L 10/25/23 04:49
Hct 31.7 % (39.0-52.0) L 10/25/23 04:49
Plt Count 223 10^3/uL (130-400) 10/25/23 04:49
PT 14.7 Sec (11.4-14.6) H 10/16/23 10:08
INR 1.14 10/16/23 10:08
APTT 99.6 Sec (23.4-35.0) H 10/21/23 13:12
Sodium 141 mmol/L (135-145) 10/25/23 04:49
Potassium 4.0 mmol/L (3.5-5.1) 10/25/23 04:49
BUN 76 mg/dl (9-20) H 10/25/23 04:49
Creatinine 2.8 mg/dL (0.7-1.3) H 10/25/23 04:49
Glucose 98 mg/dl (70-99) 10/25/23 04:49
Vital Signs and I&O:
Vital Signs
Temp Pulse Resp BP Pulse Ox
98.3 F 78 26 155/54 97
10/26/23 02:37 10/26/23 02:00 10/26/23 02:00 10/26/23 02:00 10/26/23 02:00
Vital Signs
Temp Pulse Resp BP Pulse Ox
98.3 F 78 26 155/54 97
10/26/23 02:37 10/26/23 02:00 10/26/23 02:00 10/26/23 02:00 10/26/23 02:00
Intake & Output
10/24/23 10/25/23 10/26/23 10/27/23
06:59 06:59 06:59 06:59
Intake Total 580 / 580 640 / 640 845 / 845
Output Total 1100 / 1100 1090 / 1090
Balance 580 / 580 -460 / -460 -245 / -245
Physical Exam
Physical Exam
General: No acute distress, AAOX3
Neck: Negative JVD
Heart: Regular, Negative S3 positive S1/S2, Negative S4, No murmur
Lungs: CTA b/l, negative wheezes/rales/rhonchi
Abd: Positive BS, NT/ND, neg rebound/rigidity/guarding
Ext: Negative cyanosis/clubbing/edema
Neuro: nonfocal
[2023-10-26 08:35] LABS: Hemoglobin 10.6 g/dL (13.0-18.0); Mean Corp Hgb Conc. 31.2 g/dL (33.0-37.0); Mean Corpuscular Volume 96.3 fL (80.0-94.0); Mean Platelet Volume 10.7 fL (7.4-10.4); Platelet Count 206 10^3/uL (130-400); Red Blood Cell Count 3.53 10^6/uL (4.70-6.10); Red Cell Dist. Width 13.6 % (11.5-14.5); White Blood Cell Count 9.7 10^3/uL (4.8-10.8)
[2023-10-26] MEDS: APRESOLINE 10 MG PO ×3 (08:40→21:48)
[2023-10-26] MEDS: PLAVIX 75 MG PO (08:40)
[2023-10-26] MEDS: PROSCAR 5 MG PO (08:41)
[2023-10-26] MEDS: KCL 20 MEQ PO ×2 (08:41→21:48)
[2023-10-26] MEDS: ELIQUIS 2.5 MG PO ×2 (08:41→21:48)
[2023-10-26] MEDS: TOPROL XL 25 MG PO (08:41)
[2023-10-26 08:58] LABS: Blood Urea Nitrogen 66 mg/dl (9-20); Calcium 9.6 mg/dl (8.4-10.2); Chloride 99 mmol/L (98-107); Estimated Creatinine Clearance 22 ml/min; Glucose 103 mg/dl (70-99); Magnesium 2.5 mg/dl (1.6-2.3); Phosphorus 4.2 mg/dl (2.5-4.5); Potassium 4.4 mmol/L (3.5-5.1); Sodium 143 mmol/L (135-145); eGFR 23.29
[2023-10-26 09:15] LABS: Carbon Dioxide 39 mmol/L (22-30)
--- NOTE | 2023-10-26 10:25 | W.PN.ID1 ---
Date of Service
Date of Service: October 26, 2023
Today's Communication
- continued clinical improvement off of antibiotics
ID service will no longer actively follow this patient please recall for further questions
Assessment / Plan
Possible Aspiration pneumonia - resolved
R sided Pleural Effusion - resolved
Leukocytosis - resolved
- continued clinical improvement off of antibiotics
ID service will no longer actively follow this patient please recall for further questions
Chief Complaint
-: Pneumonia
Subjective / Review of Systems
afebrile
bp stable
leukocytosis resolved
cr further improved
body fluid culture pending
no complaints
Vital Signs / Physical Exam
Vital Signs
Vital Signs
Temp Pulse Resp BP Pulse Ox
97.4 F 84 26 118/59 97
10/26/23 07:59 10/26/23 08:41 10/26/23 02:00 10/26/23 08:41 10/26/23 02:00
Physical Exam
Constitutional: No Acute Distress
Cardiovascular: Regular Rate and S1/S2; Negative Murmur or Rub
Pulmonary: Clear and Symmetric; Negative Wheezes or Rales
Gastrointestinal: Soft, Non Tender, Non Distended and Normal Bowel Sounds
Skin: Warm and Dry; Negative Rash or Jaundice
Neurological: Awake
Objective Data
Lab Data
Lab Results
10/26/23 08:25
10/26/23 08:25
PT 14.7 Sec (11.4-14.6) H 10/16/23 10:08
INR 1.14 10/16/23 10:08
APTT 99.6 Sec (23.4-35.0) H 10/21/23 13:12
Estimated Creat Clear 22 ml/min 10/26/23 08:25
Lactic Acid 1.0 mmol/L (0.7-2.0) 10/16/23 10:16
Total Bilirubin 0.8 mg/dl (0.2-1.3) 10/19/23 05:31
AST 21 U/L (17-59) 10/19/23 05:31
ALT 13 U/L (0-50) 10/19/23 05:31
Alkaline Phosphatase 78 U/L (38-126) 10/19/23 05:31
Most recent labs reviewed.
Micro Results:
10/25/23 10:06 Body Fluid Culture - Pending
Pleural Fluid Gram Stain - Preliminary
10/16/23 10:20 Blood Culture - Final
Blood/Venous No Growth - Final Report
10/16/23 10:17 Blood Culture - Final
Blood/Venous No Growth - Final Report
10/16/23 22:42 MRSA Screen - Final
Nose No Methicillin Resistant Staphylococcus aureus isolated.
10/16/23 15:22 Urine Culture - Final
Urine NO GROWTH
10/16/23 10:17 Influenza Types A & B (TIANA) - Final
Nasal Swab Negative for Influenza A & B, NAAT
Negative results must be combined with clinical observations
and patient history.
Nucleic Acid Amplification test (NAAT)performed on the
[employer] platform.
--- NOTE | 2023-10-26 10:38 | W.PN.HOSP.TC ---
Today's Communication/Plan
-
wean O2 supplementation as tolerated
BIPAP HS Naps/PRN
monitor off abx
monitor renal function, lasix as per nephro
PT/OT
GI eval
Assessment / Plan
Assessment / Plan
Physical Exam
General: Well Developed and Well Nourished
HEENT: Anicteric, Moist mucous membranes and Oxygen - 3L
Respiratory: Clear to auscultation b/l no wheezes crackles noted
Cardiac: S1/S2 and Regular Rhythm; No Murmur
GI: Soft and Non Tender
Genito-urinary: Lock
Musculoskeletal: No Clubbing, No Cyanosis, +2 pitting edema bilateral lower ext
Skin: Warm and Dry
Neuro: Awake Alert Conversant some confusion noted, disoriented to time
# Acute hypercapnic respiratory failure
�most likely exacerbated by acute on chronic HFrEF, as well as possible pneumonia with Fever impaired resp status
� Noncompliant to BiPAP at facility
� Continue BiPAP QHS and Naps/PRN
-wean O2 supplementation as tolerated
#Acute on chronic HFrEF
- echo: EF is depressed (30-35%) with moderate AAS and RV hypokinesis.
� Cardiology consult appreciated hydralazine added for afterload reduction 10/24
� Lasix switched from IV to PO since placed on hold d/t concerns overdiuresis progressive Hypernatremia
-Hypernatremia since resolved as below, kidney function appears stable, once lasix IV 40 mg ordered 10/22 as per cardio recc's, Cr however continued to worsen leading to hold on lasix again.
-10/25 Kidney function improving, IV lasix 60 mg daily as per nephro
�monitor I's and O's and daily weights
-Monitor daily weights, Is&Os
#New paroxysmal afib
Cardio eval appreciated
hep gtt transitioned to Eliquis renally dosed
cont Eliquis
#CAD
� Status post stent August 2023 [place]
� on aspirin and Plavix, w/ start of anticoagulation for pAfib as above, ASA discontinued in favor of Plavix/Eliquis combination as per Cardio
-Cont BB
#Severe Sepsis
� Possible pneumonia including a large aspiration pneumonia
-COVID, Flu negative
-Urine cultures negative
- Speech eval - reg, thin liquids
� cultures NGTD
� Empiric antibiotics Zosyn completed 7 days however leukocytosis remains persistent though mild, afebrile, ID eval appreciated, initially abx continued with unasyn, total 8 days abx including zosyn, abx since discontinued monitoring off
�MRSA swab - negative
-VSE repeat 10/24 noted improvement from prior VSE examination, no aspiration noted however esophageal retention noted concerning for back aspiration
GI eval appreciated
#Small moderate pleural effusion Right lung noted on chest US
IR eval thoracentesis appreciated only 150 cc drawn, pleural fluid studies not suggestive of infection
#Hypernatremia
#ENRICO
-most likely 2/2 to overdiuresis
-scheduled oral Lasix 80 mg BID placed on hold
-liberalized fluid restriction previously on 40 oz increased to 48 oz
-2g Na restriction
-hypernatremia since resolved
-Nephro eval appreciated IVF hydration D5W completed
-Cr improving 10/25 lasix since resumed as per nephro
#Elevated troponin, suspect nonischemic myocardial injury
� Troponin trended to peak 0.901 since trended down
- chest pain free
#Acute metabolic encephalopathy
� Secondary to most likely hypercapnia as well as possible infection
- treat as above
-fluctuating mental status throughout stay.
#Urinary retention
� Lock catheter placed
-TOV prior to dc
- finasteride
#Hypokalemia
-monitor and replete as necessary
-scheduled potassium 20 mEQ BID started 10/22
#Hyperlipidemia
� Resume statin when able to tolerate p.o.
#DVT prophylaxis
� HSQ
#Stage 2 pressure ulcer gluteal cleft, stage 1 pressure ulcer sacrum
cont local wound care
#DNR/DNI
discussed with Patient and Patient's daughter Andra
Total time spent on today's encounter was 55 minutes which included time spent in counseling the patient/family regarding diagnosis and treatment plan as listed above, goals of care, and symptom management. Case was discussed with nursing staff,
specialists, and care coordinators/case management. All labs and imaging personally reviewed by me. Remainder the time spent in detailed review of previous records, lab data, imaging, and other medical provider documentation.
Anticipated Discharge: > 48 hours
Subjective/Interval History
-
Date of Service: October 26, 2023
No acute distress appears comfortable at rest. AO x2 disoriented to time. Remains on oxygen supplementation.
Objective Data
-
Labs:
Laboratory Results
10/26/23
08:25
WBC 9.7
Hgb 10.6 L
Hct 34.0 L
Plt Count 206
Sodium 143
Potassium 4.4
Chloride 99
Carbon Dioxide 39 H
BUN 66 H
Creatinine 2.6 H
Glucose 103 H
Calcium 9.6
Vital Signs:
Vital Signs
Temp Pulse Resp BP Pulse Ox
97.4 F 77 18 132/73 96
10/26/23 07:59 10/26/23 10:00 10/26/23 10:00 10/26/23 10:00 10/26/23 10:00
I&O
10/25/23 10/26/23 10/27/23
06:59 06:59 06:59
Intake Total 640 / 640 845 / 845 300 / 300
Output Total 1100 / 1100 1090 / 1090
Balance -460 / -460 -245 / -245 300 / 300
--- NOTE | 2023-10-26 10:55 | CON.GI ---
Consultation
-
Date/Time Consultation Requested: 10/26/23 0817
Date/Time Consultation Performed: 10/26/23 1050
Requesting Provider: Dr. Cecilio Engle
Performing Provider: Dr. Siobhan Blank / Brittaney Avila PA-C
Reason for Consultation: dysphagia / esophageal retention seen on VSE
Medical History
Chief Complaint / HPI
Chief Complaint: dysphagia
History of Present Illness:
This is an 88 year old male who was admitted to on 10/16/23 with change in mental status following recent WA and cardiac stenting (August 2023), with past medical history of CHF, HTN, CAD, HTN, hyperlipidemia, COPD, peripheral neuropathy, MARICEL, and
bladder cancer. GI is asked to consult for dysphagia. Patient was evaluated by Speech therapy and had a video swallow exam which showed esophageal retention. Patient has been tolerating PO intake mostly without issue, per nursing staff. He does
cough at times with liquids. Patient was actively drinking water and sue ad from a cup during my examination and had no difficulties, no coughing. Patient denies any painful swallowing or sensation of food or pills 'sticking.' He states he
occasionally gets heartburn. I spoke with his daughter Andra who states that prior to admission, he had been eating 3 meals a day with a good appetite when he was in the care home following his WA. She is uncertain if he has ever had an
endoscopy. He is a former smoker. No alcohol use. Patient is a DNR and per daughter, he does not wish to have any invasive testing. There is no family history of GI malignancies.
Past Medical History
Past Medical History: CAD, Cancer (bladder), CHF, COPD, HTN, Hypercholesterolemia and Other (peripheral neuropathy, MARICEL)
Past Surgical History: Other
Social History
Tobacco: Former Smoker
Alcohol: None
Drug: None
Living: Custodial
Family History
Family History: Reviewed & Not Pertinent (no family history of GI malignancies)
Allergies / Home Medications
Allergy/AdvReac Type Severity Reaction Status Date / Time
No Known Allergies Allergy Unverified 10/16/23 09:59
�Medication �Instructions �Recorded
[place]-3 1,000 mg PO DAILY Supplement 10/16/23
acetaminophen 325 mg tablet 650 mg PO Q4H PRN mild 10/16/23
(Tylenol) pain/fever>100.4
ascorbic acid (vitamin C) 500 mg 1,000 mg PO DAILY Supplement 10/16/23
tablet (Vitamin C)
aspirin 81 mg tablet,delayed 81 mg PO DAILY Blood Clot 10/16/23
release Prevention/Tx
atorvastatin 80 mg tablet 80 mg PO QPM High Cholesterol 10/16/23
bisacodyl 10 mg rectal suppository 10 mg KS DAILY PRN q 3 days when 10/16/23
no BM and MOM/lactulose ineffective
clopidogrel 75 mg tablet 75 mg PO DAILY Blood Clot 10/16/23
Prevention/Tx
finasteride 5 mg tablet 5 mg PO DAILY Urinary Issue 10/16/23
folic acid 1 mg tablet 1 mg PO DAILY Supplement 10/16/23
furosemide 40 mg tablet 120 mg PO DAILY Fluid 10/16/23
Retention/Swelling
gabapentin 300 mg capsule 300 mg PO Q12H Pain 10/16/23
ginkgo biloba 60 mg tablet 60 mg PO DAILY Supplement 10/16/23
lactulose 10 gram/15 mL oral 30 ml PO HS PRN constipation 10/16/23
solution
lidocaine 4 % topical cream 1 applic topical BID B/L feet 10/16/23
loratadine 10 mg tablet 10 mg PO DAILY Allergies 10/16/23
metoprolol succinate 25 mg 25 mg PO DAILY Blood Pressure 10/16/23
tablet,extended release 24 hr
multivitamin 1 tab PO DAILY Supplement 10/16/23
nitroglycerin 0.4 mg sublingual 0.4 mg sublingual [id number] PRN 10/16/23
tablet acute angina
oxybutynin chloride 5 mg 5 mg PO DAILY Urinary Issue 10/16/23
tablet,extended release 24 hr
tramadol 50 mg tablet 50 mg PO BID PRN moderate pain 10/16/23
Review of Systems
-
History Source: Patient and Family
All other systems: A 12 pt ROS was Negative except as stated above in HPI
Vital Signs
Temp Pulse Resp BP Pulse Ox
97.4 F 77 18 132/73 96
10/26/23 07:59 10/26/23 10:00 10/26/23 10:00 10/26/23 10:00 10/26/23 10:32
Physical Exam
Exam
General: Well Developed, Well Nourished and No Apparent Distress
Respiratory: Clear
Cardiac: Regular Rhythm
GI: Soft, Non Tender, Non Distended and Normal Bowel Sounds
Skin: Warm and Dry
Neuro: Awake and Alert
Psych: Calm and Confused (somewhat confused)
Results
WBC 9.7 10^3/uL (4.8-10.8) 10/26/23 08:25
Hgb 10.6 g/dL (13.0-18.0) L 10/26/23 08:25
Hct 34.0 % (39.0-52.0) L 10/26/23 08:25
MCV 96.3 fL (80.0-94.0) H 10/26/23 08:25
Plt Count 206 10^3/uL (130-400) 10/26/23 08:25
Absolute Neuts (auto) 14.4 10^3/uL (1.4-6.5) H 10/16/23 10:08
PT 14.7 Sec (11.4-14.6) H 10/16/23 10:08
INR 1.14 10/16/23 10:08
APTT 99.6 Sec (23.4-35.0) H 10/21/23 13:12
Sodium 143 mmol/L (135-145) 10/26/23 08:25
Potassium 4.4 mmol/L (3.5-5.1) 10/26/23 08:25
Chloride 99 mmol/L (98-107) 10/26/23 08:25
Carbon Dioxide 39 mmol/L (22-30) H 10/26/23 08:25
BUN 66 mg/dl (9-20) H 10/26/23 08:25
Creatinine 2.6 mg/dL (0.7-1.3) H 10/26/23 08:25
Calcium 9.6 mg/dl (8.4-10.2) 10/26/23 08:25
Total Bilirubin 0.8 mg/dl (0.2-1.3) 10/19/23 05:31
AST 21 U/L (17-59) 10/19/23 05:31
ALT 13 U/L (0-50) 10/19/23 05:31
Alkaline Phosphatase 78 U/L (38-126) 10/19/23 05:31
Diagnostic Image Results:
Video swallow: 10/25/23
Summary: Oral and pharyngeal stages of swallowing grossly WFL. No laryngeal penetration or aspiration occurred. Esophageal sweep revealed retention throughout the esophagus which did not clear with a thin liquid wash. Risk for bottom up
aspiration is elevated.
Recommend:
1. Regular, Thin Liquids
2. Medications - whole and/or crushed in puree
3. Strategies: upright to 90 degrees, small single sips/bites with breaks for breathing, alternate sips/bites (to help clear esophagus), remain upright for 30 minutes after PO intake (as a reflux precaution)
4. Will follow up briefly to discuss results with family as able/appropriate (given patient with cognitive deficits). No family available in room after study. Updated nurse.
5. Consider GI consult to assess esophageal stage of swallowing.
Prior GI Procedures:
EGD: ?
Colonoscopy: per daughter, history of colon polyps
Assessment / Plan
-
88 year old male who was admitted to on 10/16/23 with change in mental status following recent WA and cardiac stenting (August 2023), with past medical history of CHF, HTN, CAD, HTN, hyperlipidemia, COPD, peripheral neuropathy, MARICEL, and bladder
cancer. GI is asked to consult for dysphagia. Patient was evaluated by Speech therapy and had a video swallow exam which showed esophageal retention. Patient has been tolerating PO intake mostly without issue, per nursing staff. He does cough at
times with liquids. Patient was actively drinking water and sue ad from a cup during my examination and had no difficulties, no coughing. Patient denies any painful swallowing or sensation of food or pills 'sticking.' He states he occasionally
gets heartburn. I spoke with his daughter Andra who states that prior to admission, he had been eating 3 meals a day with a good appetite when he was in the care home following his WA. She is uncertain if he has ever had an endoscopy. He is a
former smoker. No alcohol use. Patient is a DNR and per daughter, he does not wish to have any invasive testing. There is no family history of GI malignancies.
IMPRESSION / PLAN:
Dysphagia
-VSE showed some esophageal retention
-patient tolerating liquids without any difficulty during my examination and per conversation with his daughter was eating 3 meals a day at the care home prior to hospital admission
-will order barium esophagram for further evaluation
-per daughter, pt would not wish to have invasive testing so would hold off on endoscopy
-continue diet with Speech recommendations for supervision with PO's and assistance as needed
-
-
Thank you for consultation and allowing me to participate in the patient's care. Please call the [facility] GI physician during the after hours with any questions or concerns.
--- NOTE | 2023-10-26 11:37 | PTCARENOTE ---
Pt's daughter Andra present in room visiting Pt - informed this nurse that if any 'invasive' tests or procedures that are expected to be done she would like to be notified to assure Pt's wishes are followed. Pt resting comfortably in bed, will
continue to monitor and assess.
--- NOTE | 2023-10-26 13:59 | W.PN.NEPH.PH ---
Today's Communication / Plan
-
lasix 60IV daily
Assessment/Plan
-
Assessment:
hypernatremia
sepsis 2/2 to PNA
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
CKD (bl Cr 1.8-2.1)
Afib
CAD s/p recent stenting
Plan:
Hypernatremia
-i agree with liberalizing fluids
-sodium now at 143
-lasix held from 10/22, appears significantly volume up. will restart at this time. planning for 60IV daily
ENRICO
-Cr peak at 3, now 2.6
-urine eos negative
-Lock to be placed
-Patient hemodynamically stable
-diuretics currently held --> ?cardiorenal?
-
-
Date of Service: October 26, 2023
CC / HPI / ROS
-
Chief Complaint:
hypernatremia
ENRICO
History of Present Illness:
hypernatremia now normalized
ENRICO Cr up to 2.6(bl 2)
Hemodynamically stable
Review of Systems:
-UOP 1L
-Remains on oxygen
-Weights
-pleasantly confused
Labs
-
Labs:
WBC 9.7 10^3/uL (4.8-10.8) 10/26/23 08:25
RBC 3.53 10^6/uL (4.70-6.10) L 10/26/23 08:25
Hgb 10.6 g/dL (13.0-18.0) L 10/26/23 08:25
Hct 34.0 % (39.0-52.0) L 10/26/23 08:25
Plt Count 206 10^3/uL (130-400) 10/26/23 08:25
Sodium 143 mmol/L (135-145) 10/26/23 08:25
Potassium 4.4 mmol/L (3.5-5.1) 10/26/23 08:25
Chloride 99 mmol/L (98-107) 10/26/23 08:25
Carbon Dioxide 39 mmol/L (22-30) H 10/26/23 08:25
BUN 66 mg/dl (9-20) H 10/26/23 08:25
Creatinine 2.6 mg/dL (0.7-1.3) H 10/26/23 08:25
eGFR 23.29 10/26/23 08:25
Glucose 103 mg/dl (70-99) H 10/26/23 08:25
Calcium 9.6 mg/dl (8.4-10.2) 10/26/23 08:25
Phosphorus 4.2 mg/dl (2.5-4.5) 10/26/23 08:25
Iuj-Z-Pgaillsfmqo Pept > 81326 pg/ml 10/16/23 10:08
Albumin 2.9 g/dl (3.5-5.0) L 10/19/23 05:31
Physical Exam
-
Vital Signs:
Vital Signs
Temp Pulse Resp BP Pulse Ox
98.5 F 77 18 132/73 96
10/26/23 12:44 10/26/23 10:00 10/26/23 10:00 10/26/23 10:00 10/26/23 10:47
Cardiovascular:: Regular rate and rhythm
Respiratory:: Bilateral: Coarse
Lung Excursion:: Normal
Abdomen:: Nontender and Soft
Bowel Sounds:: Normal
Extremity Edema:: +2: Bilateral:
Lock Catheter: Yes
[2023-10-26] MEDS: LASIX 60 MG IV (14:22)
[2023-10-26] MEDS: PROTONIX IV 40 MG IV (14:23)
[2023-10-26] MEDS: NSS (PRESERVATIVE FREE) 10 ML IV (14:23)
[2023-10-27] VITALS (18 sets, daily range): BP systolic 103–134; BP diastolic 45–106; PULSE 2–85; BMI 32.1
--- NOTE | 2023-10-27 00:42 | PTCARENOTE ---
Assumed care of Pt from Day RN. Pt had no complaints at that time. Pt on BiPAP at HS. Pt appears to be tolerating well, respiration even and unlabored vitals stable at this time. Assessment care and vitals as charted
--- NOTE | 2023-10-27 03:40 | PTCARENOTE ---
Pt received from previous RN. Pt on BIPAP and tolerating, BIPAP to %L 02 05/14. Pt satting 95%. Respirations even and unlabored. no acute changes. call lyon in reach.
[2023-10-27 06:44] LABS: Hematocrit 29.9 % (39.0-52.0); Hemoglobin 9.4 g/dL (13.0-18.0); Mean Corp Hgb Conc. 31.4 g/dL (33.0-37.0); Mean Corpuscular Hgb 29.7 pg (27.0-31.0); Mean Corpuscular Volume 94.6 fL (80.0-94.0); Mean Platelet Volume 10.7 fL (7.4-10.4); Platelet Count 206 10^3/uL (130-400); Red Blood Cell Count 3.16 10^6/uL (4.70-6.10); Red Cell Dist. Width 13.4 % (11.5-14.5)
[2023-10-27 06:58] LABS: Blood Urea Nitrogen 58 mg/dl (9-20); Calcium 9.7 mg/dl (8.4-10.2); Carbon Dioxide 35 mmol/L (22-30); Chloride 101 mmol/L (98-107); Estimated Creatinine Clearance 25 ml/min; Glucose 96 mg/dl (70-99); Magnesium 2.4 mg/dl (1.6-2.3); Phosphorus 4.3 mg/dl (2.5-4.5); Potassium 4.8 mmol/L (3.5-5.1); Sodium 142 mmol/L (135-145); eGFR 26.98
--- NOTE | 2023-10-27 07:10 | W.PN.HOSP.TC ---
Today's Communication/Plan
-
wean O2 supplementation as tolerated
BIPAP HS Naps/PRN
monitor off abx
monitor renal function, lasix as per nephro
PT/OT
Barium pill Esophagram in AM
Assessment / Plan
Assessment / Plan
Physical Exam
General: Well Developed and Well Nourished
HEENT: Anicteric, Moist mucous membranes and Oxygen - 2L
Respiratory: Clear to auscultation b/l no wheezes crackles noted
Cardiac: S1/S2 and Regular Rhythm; No Murmur
GI: Soft and Non Tender
Genito-urinary: Lock
Musculoskeletal: No Clubbing, No Cyanosis, +2 pitting edema bilateral lower ext
Skin: Warm and Dry
Neuro: Awake Alert Conversant some confusion noted, oriented x3
# Acute hypercapnic respiratory failure
�most likely exacerbated by acute on chronic HFrEF, as well as possible pneumonia with Fever impaired resp status
� Noncompliant to BiPAP at facility
� Continue BiPAP QHS and Naps/PRN
-wean O2 supplementation as tolerated
#Acute on chronic HFrEF
- echo: EF is depressed (30-35%) with moderate AAS and RV hypokinesis.
� Cardiology consult appreciated hydralazine added for afterload reduction 10/24
� Lasix switched from IV to PO since placed on hold d/t concerns overdiuresis progressive Hypernatremia
-Hypernatremia since resolved as below, kidney function appears stable, once lasix IV 40 mg ordered 10/22 as per cardio recc's, Cr however continued to worsen leading to hold on lasix again.
-10/25 Kidney function improving, IV lasix 60 mg daily as per nephro
�monitor I's and O's and daily weights
-Monitor daily weights, Is&Os
#New paroxysmal afib
Cardio eval appreciated
hep gtt transitioned to Eliquis renally dosed
cont Eliquis
#CAD
� Status post stent August 2023 [place]
� on aspirin and Plavix, w/ start of anticoagulation for pAfib as above, ASA discontinued in favor of Plavix/Eliquis combination as per Cardio
-Cont BB
#Severe Sepsis
� Possible pneumonia including a large aspiration pneumonia
-COVID, Flu negative
-Urine cultures negative
- Speech eval - reg, thin liquids
� cultures NGTD
� Empiric antibiotics Zosyn completed 7 days however leukocytosis remains persistent though mild, afebrile, ID eval appreciated, initially abx continued with unasyn, total 8 days abx including zosyn, abx since discontinued monitoring off
�MRSA swab - negative
-VSE repeat 10/24 noted improvement from prior VSE examination, no aspiration noted however esophageal retention noted concerning for back aspiration
GI eval appreciated pending pill esophagram in AM
#Small moderate pleural effusion Right lung noted on chest US
IR eval thoracentesis appreciated only 150 cc drawn, pleural fluid studies not suggestive of infection
#Hypernatremia
#ENRICO
-most likely 2/2 to overdiuresis
-scheduled oral Lasix 80 mg BID placed on hold
-liberalized fluid restriction previously on 40 oz increased to 48 oz
-2g Na restriction
-hypernatremia since resolved
-Nephro eval appreciated IVF hydration D5W completed
-Cr improving 10/25 lasix since resumed as per nephro
#Elevated troponin, suspect nonischemic myocardial injury
� Troponin trended to peak 0.901 since trended down
- chest pain free
#Acute metabolic encephalopathy
� Secondary to most likely hypercapnia as well as possible infection
- treat as above
-fluctuating mental status throughout stay.
#Urinary retention
� Lock catheter placed
-TOV prior to dc
- finasteride
#Hypokalemia
-monitor and replete as necessary
-scheduled potassium 20 mEQ BID started 10/22
-hypokalemia resolved, K supplement reduced to daily 10/26
#Hyperlipidemia
� cont statin
#DVT prophylaxis
� HSQ
#Stage 2 pressure ulcer gluteal cleft, stage 1 pressure ulcer sacrum
cont local wound care
#DNR/DNI
discussed with Patient and Patient's daughter Andra
Total time spent on today's encounter was 55 minutes which included time spent in counseling the patient/family regarding diagnosis and treatment plan as listed above, goals of care, and symptom management. Case was discussed with nursing staff,
specialists, and care coordinators/case management. All labs and imaging personally reviewed by me. Remainder the time spent in detailed review of previous records, lab data, imaging, and other medical provider documentation.
Anticipated Discharge: > 48 hours
Subjective/Interval History
-
Date of Service: October 27, 2023
No acute distress appears comfortable though confused at times. AOx3
Objective Data
-
Labs:
Laboratory Results
10/27/23
06:38
WBC 10.0
Hgb 9.4 L
Hct 29.9 L
Plt Count 206
Sodium 142
Potassium 4.8
Chloride 101
Carbon Dioxide 35 H
BUN 58 H
Creatinine 2.3 H
Glucose 96
Calcium 9.7
Vital Signs:
Vital Signs
Temp Pulse Resp BP Pulse Ox
98.4 F 73 21 129/55 96
10/27/23 03:00 10/27/23 06:08 10/27/23 06:08 10/27/23 06:08 10/27/23 06:08
I&O
10/26/23 10/27/23 10/28/23
06:59 06:59 06:59
Intake Total 845 / 845 540 / 540
Output Total 1090 / 1090 1350 / 1350
Balance -245 / -245 -810 / -810
[2023-10-27] MEDS: LASIX 60 MG IV (07:37)
[2023-10-27] MEDS: PROTONIX IV 40 MG IV (07:37)
[2023-10-27] MEDS: ELIQUIS 2.5 MG PO ×2 (07:38→20:27)
[2023-10-27] MEDS: KCL 20 MEQ PO (07:38)
[2023-10-27] MEDS: NSS (PRESERVATIVE FREE) 10 ML IV (07:38)
[2023-10-27] MEDS: TOPROL XL 25 MG PO (07:38)
[2023-10-27] MEDS: PLAVIX 75 MG PO (07:38)
[2023-10-27] MEDS: APRESOLINE 10 MG PO ×3 (07:38→21:33)
[2023-10-27] MEDS: PROSCAR 5 MG PO (07:39)
--- NOTE | 2023-10-27 09:15 | W.PN.CARDCBS ---
Today's Communication / Plan
-
Diuresis as per nephrology
Continue to Plavix recent PCI and Eliquis for new atrial fibrillation
Impression / Plan
-
Primary Etcher Enameling: Dr. Cooley of [facility]
Impression:
Presentation with change in mental status
Lethargy
Acute on chronic HFrEF
Now with hypernatremia
PAF new diagnosis
Acute hypercapnic respiratory failure, requiring BIPAP in ER
Elevated troponin
Leukocytosis with fever, presumed sepsis
ENRICO on CKD
Urinary retention
Admission to [facility] [place] 08/2023 for acute inferior STEMI status post RCA PCI
ischemic cardiomyopathy EF 35 to 40% by echo 08/2023
HLD
HTN
RBBB, chronic
History of viral encephalitis approximately 25 years ago
Foot drop
Peripheral neuropathy
History of bladder cancer status post TURP in 2016
Pulmonary nodules
DNR code status
ECHO 08/21/2023: EF 35 to 40%, anteroseptal akinesis, mild global hypokinesis of the rest of LV, grade 1 diastolic dysfunction, trivial posterior pericardial effusion
Echo 10/16/2023, EF 30 to 35%, mild to moderate aortic stenosis, mean gradient 15, mild TR with PA pressure 55, RV hypokinesis
Plan:
HR and bp stable.
Cr improving to 2.3 on October 26 from 2.6 on October 25, with holding lasix. Lasix resumed as per nephrology at 60 mg IV daily.
Cont to monitor cr and wt. Wt up since admit
Appreciate nephrology input. Pt is not HD candidate.
Remains in sinus on Eliquis 2.5 mg BID and Toprol XL 25 mg daily.
Cont to monitor for bleeding with Eliquis and Plavix for recent PCI. He had been on DAPT with ASA and Plavix post PCI and is now on Eliquis and Plavix.
Echo shows EF reduced with mild-mod and RV hypokinesis. EF remains reduced despite PCI.
Patient unfortunately cannot take ACEI/ARB/ARNI/Aldactone, SGLT2 inhibitor at present with ENRICO. GDMT as renal function and bp will allow.
Hydralazine added for afterload reduction. Blood pressure remains on the lower side so will not titrate for now or add Imdur.
Cont medical therapy for nonMI trop with peak at 0.9.
Pt is DNR
Progress Note - [employer]
Subjective
Date of Service: October 27, 2023
Pt seen and examined. No complaints. No chest pain or shortness of breath.
Objective
Labs:
10/27/23 06:38
10/27/23 06:38
Labs
Hgb 9.4 g/dL (13.0-18.0) L 10/27/23 06:38
Hct 29.9 % (39.0-52.0) L 10/27/23 06:38
Plt Count 206 10^3/uL (130-400) 10/27/23 06:38
PT 14.7 Sec (11.4-14.6) H 10/16/23 10:08
INR 1.14 10/16/23 10:08
APTT 99.6 Sec (23.4-35.0) H 10/21/23 13:12
Sodium 142 mmol/L (135-145) 10/27/23 06:38
Potassium 4.8 mmol/L (3.5-5.1) 10/27/23 06:38
BUN 58 mg/dl (9-20) H 10/27/23 06:38
Creatinine 2.3 mg/dL (0.7-1.3) H 10/27/23 06:38
Glucose 96 mg/dl (70-99) 10/27/23 06:38
Vital Signs and I&O:
Vital Signs
Temp Pulse Resp BP Pulse Ox
98.4 F 70 21 108/66 96
10/27/23 03:00 10/27/23 07:38 10/27/23 06:08 10/27/23 07:38 10/27/23 06:08
Vital Signs
Temp Pulse Resp BP Pulse Ox
98.4 F 70 21 108/66 96
10/27/23 03:00 10/27/23 07:38 10/27/23 06:08 10/27/23 07:38 10/27/23 06:08
Intake & Output
10/25/23 10/26/23 10/27/23 10/28/23
06:59 06:59 06:59 06:59
Intake Total 640 / 640 845 / 845 540 / 540
Output Total 1100 / 1100 1090 / 1090 1350 / 1350
Balance -460 / -460 -245 / -245 -810 / -810
Physical Exam
Physical Exam
General: No acute distress, AAOX3
Neck: Negative JVD
Heart: Regular, Negative S3 positive S1/S2, Negative S4, No murmur
Lungs: CTA b/l, negative wheezes/rales/rhonchi
Abd: Positive BS, NT/ND, neg rebound/rigidity/guarding
Ext: Negative cyanosis/clubbing/edema
Neuro: nonfocal
[2023-10-27] MEDS: MYLICON 80 MG PO (10:54)
--- NOTE | 2023-10-27 12:40 | W.PN.NEPH.PH ---
Today's Communication / Plan
-
- continue diuiretics
Assessment/Plan
-
Assessment:
hypernatremia
sepsis 2/2 to PNA
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
CKD (bl Cr 1.8-2.1)
Afib
CAD s/p recent stenting
Plan:
Hypernatremia
-i agree with liberalizing oral fluids
-sodium now at 142
-lasix held from 10/22, appears significantly volume up. will restart at this time. planning for 60IV daily
ENRICO
-Cr peak at 3, now 2.3
-urine eos negative
-Lock in place
-Patient hemodynamically stable
-restarted diuretics, Cr improving --> cardiorenal most likely?
-
-
Date of Service: October 27, 2023
CC / HPI / ROS
-
Chief Complaint:
hypernatremia
ENRICO
History of Present Illness:
hypernatremia now normalized
ENRICO Cr up to 2.3(bl 2)
Hemodynamically stable
Review of Systems:
-UOP 1L
-Remains on oxygen
-Weights
-less confused today
Labs
-
Labs:
WBC 10.0 10^3/uL (4.8-10.8) 10/27/23 06:38
RBC 3.16 10^6/uL (4.70-6.10) L 10/27/23 06:38
Hgb 9.4 g/dL (13.0-18.0) L 10/27/23 06:38
Hct 29.9 % (39.0-52.0) L 10/27/23 06:38
Plt Count 206 10^3/uL (130-400) 10/27/23 06:38
Sodium 142 mmol/L (135-145) 10/27/23 06:38
Potassium 4.8 mmol/L (3.5-5.1) 10/27/23 06:38
Chloride 101 mmol/L (98-107) 10/27/23 06:38
Carbon Dioxide 35 mmol/L (22-30) H 10/27/23 06:38
BUN 58 mg/dl (9-20) H 10/27/23 06:38
Creatinine 2.3 mg/dL (0.7-1.3) H 10/27/23 06:38
eGFR 26.98 10/27/23 06:38
Glucose 96 mg/dl (70-99) 10/27/23 06:38
Calcium 9.7 mg/dl (8.4-10.2) 10/27/23 06:38
Phosphorus 4.3 mg/dl (2.5-4.5) 10/27/23 06:38
Qgx-D-Jpmakjwzlyb Pept > 94504 pg/ml 10/16/23 10:08
Albumin 2.9 g/dl (3.5-5.0) L 10/19/23 05:31
Physical Exam
-
Vital Signs:
Vital Signs
Temp Pulse Resp BP Pulse Ox
98.8 F 70 21 108/66 96
10/27/23 11:40 10/27/23 07:38 10/27/23 06:08 10/27/23 07:38 10/27/23 06:08
Cardiovascular:: Regular rate and rhythm
Respiratory:: Bilateral: Coarse
Lung Excursion:: Normal
Abdomen:: Nontender and Soft
Extremity Edema:: +1: Bilateral:
Lock Catheter: Yes
--- NOTE | 2023-10-27 14:35 | W.PN.GI.CBS2 ---
Today's Communication / Plan
-
--- Ordered esophagram tomorrow barium pill
Assessment / Plan
-
Hospitalist requested GI consultation due to questionable esophageal retention during swallow examination and concern for aspiration considering he has a persistent oxygen requirement of 3 L when his baseline is room air
Review of imaging:
10/21/23 chest x-ray shows interval worsening within the right lung suspicious for pneumonia with a pleural effusion
10/23/23 chest ultrasound shows a small to moderate pleural effusion
chest x-ray after a diagnostic thoracentesis on 10/25/2023 with a small to moderate right pleural effusion and probable atelectasis, mild pulmonary vascular congestion
10/16/23 echocardiogram reviewed. Technically limited due to patient movement, tachycardia, LVEF is 30 to 35%, mild to moderate aortic stenosis pulmonary artery pressure 55 mmHg
Overall, Robert is an 88-year-old male with recent NV status post PCI at [facility] in August 2023 on Eliquis 2.5 mg twice daily, and Plavix who also has a history of chronic CHF, viral encephalitis, foot drop, bladder cancer.
Patient was admitted on 10/16/2023 for fever and leukocytosis, CHF required BiPAP.
Now roughly 10 days later also found to have a small to moderate pleural effusion.
According to nursing he has had no issues while eating or drinking. Rare cough at times with liquids.
Video swallow examination done on 10/25/2023 showed no laryngeal penetration or aspiration but concern for esophageal retention.
Plan: Barium esophagram on Saturday to assess esophageal motility and stricture with barium pill
Start once daily PPI
Discussed with family at bedside. Pending esophagram will determine the need for EGD
Discussed with family the importance of him moving even just raising his arms and legs, he is severely deconditioned because of the 2 months of hospitalization
Mobilizing fluid
The oxygen requirement is likely multifactorial including CHF, CKD, deconditioning and lack of moving and mobilizing fluid
Total Time Spent with Patient (in minutes): 10
Subjective
Subjective
Date of Service: October 27, 2023
No new events other than losing some fluid/diuresis. Daughter noticed some burping after drinking liquids but not after eating solids
Objective
Data Reviewed
Laboratory Data:
Laboratory Results
10/27/23 06:38
10/27/23 06:38
Laboratory Results
PT 14.7 Sec (11.4-14.6) H 10/16/23 10:08
INR 1.14 10/16/23 10:08
APTT 99.6 Sec (23.4-35.0) H 10/21/23 13:12
Phosphorus 4.3 mg/dl (2.5-4.5) 10/27/23 06:38
Magnesium 2.4 mg/dl (1.6-2.3) H 10/27/23 06:38
Total Bilirubin 0.8 mg/dl (0.2-1.3) 10/19/23 05:31
AST 21 U/L (17-59) 10/19/23 05:31
ALT 13 U/L (0-50) 10/19/23 05:31
Alkaline Phosphatase 78 U/L (38-126) 10/19/23 05:31
Vital Signs and I&O:
Vital Signs
Temp Pulse Resp BP Pulse Ox
98.8 F 70 21 108/66 96
10/27/23 11:40 10/27/23 07:38 10/27/23 06:08 10/27/23 07:38 10/27/23 06:08
I&O
10/26/23 10/27/23 10/28/23
06:59 06:59 06:59
Intake Total 845 / 845 540 / 540
Output Total 1090 / 1090 1350 / 1350
Balance -245 / -245 -810 / -810
Physical Exam
Physical Exam
HEENT: Anicteric
GI: Soft and Non Tender
Extremities: Edema
--- NOTE | 2023-10-27 17:30 | PTCARENOTE ---
Family notified staff to a 'wet floor' underneath patients bed, eventually found that Pt's bernabe bag had a very small leak that created a large puddle. Area cleaned - house keeping made aware to mop. Bernabe bag replaced. Bernabe output now unclear
for shift. Will continue to monitor and assess.
[2023-10-27] MEDS: LIPITOR 80 MG PO (18:25)
--- NOTE | 2023-10-27 20:00 | PTCARENOTE ---
Pt received from previous shift. Pt oriented to self. Answers simple questions, follows commands. Pt on BIPAP, tolerating, respirations even and unlabored. BIPAP to 5L. /. NSR on monitor, with BBB. Lock, draining yellow urine. See nursing shift
assessment for head to toe. Call lyon in reach.
[2023-10-28] VITALS (17 sets, daily range): BP systolic 116–138; BP diastolic 60–101; PULSE 2–84; O2SAT 99; BMI 31.6
[2023-10-28 05:39] LABS: Hematocrit 31.7 % (39.0-52.0); Hemoglobin 9.7 g/dL (13.0-18.0); Mean Corp Hgb Conc. 30.6 g/dL (33.0-37.0); Mean Corpuscular Hgb 29.6 pg (27.0-31.0); Mean Corpuscular Volume 96.6 fL (80.0-94.0); Mean Platelet Volume 10.7 fL (7.4-10.4); Platelet Count 239 10^3/uL (130-400); Red Blood Cell Count 3.28 10^6/uL (4.70-6.10); Red Cell Dist. Width 13.5 % (11.5-14.5)
[2023-10-28 06:20] LABS: Blood Urea Nitrogen 54 mg/dl (9-20); Carbon Dioxide 36 mmol/L (22-30); Chloride 100 mmol/L (98-107); Estimated Creatinine Clearance 26 ml/min; Glucose 100 mg/dl (70-99); Magnesium 2.3 mg/dl (1.6-2.3); Phosphorus 4.2 mg/dl (2.5-4.5); Potassium 4.4 mmol/L (3.5-5.1); Sodium 142 mmol/L (135-145); eGFR 28.46
--- NOTE | 2023-10-28 07:48 | W.PN.HOSP.TC ---
Today's Communication/Plan
-
wean O2 supplementation as tolerated
BIPAP HS Naps/PRN
monitor renal function, lasix as per nephro
PT/OT
NPO after midnight for Barium pill Esophagram in AM
Assessment / Plan
Assessment / Plan
Physical Exam
General: Well Developed and Well Nourished
HEENT: Anicteric, Moist mucous membranes and Oxygen - 2L
Respiratory: Clear to auscultation b/l no wheezes crackles noted
Cardiac: S1/S2 and Regular Rhythm; No Murmur
GI: Soft and Non Tender
Genito-urinary: Lock
Musculoskeletal: No Clubbing, No Cyanosis, +2 pitting edema bilateral lower ext
Skin: Warm and Dry
Neuro: Awake Alert Conversant some confusion noted, oriented x3
# Acute hypercapnic respiratory failure
�most likely exacerbated by acute on chronic HFrEF, as well as possible pneumonia with Fever impaired resp status
� Noncompliant to BiPAP at facility
� Continue BiPAP QHS and Naps/PRN
-wean O2 supplementation as tolerated
#Acute on chronic HFrEF
- echo: EF is depressed (30-35%) with moderate AAS and RV hypokinesis.
� Cardiology consult appreciated hydralazine added for afterload reduction 10/24
� Lasix switched from IV to PO since placed on hold d/t concerns overdiuresis progressive Hypernatremia
-Hypernatremia since resolved as below, kidney function appears stable, once lasix IV 40 mg ordered 10/22 as per cardio recc's, Cr however continued to worsen leading to hold on lasix again.
-10/25 Kidney function improving, IV lasix 60 mg daily as per nephro
�monitor I's and O's and daily weights
-Monitor daily weights, Is&Os
#New paroxysmal afib
Cardio eval appreciated
hep gtt transitioned to Eliquis renally dosed
cont Eliquis
#CAD
� Status post stent August 2023 [facility]
� on aspirin and Plavix, w/ start of anticoagulation for pAfib as above, ASA discontinued in favor of Plavix/Eliquis combination as per Cardio
-Cont BB
#Severe Sepsis
� Possible pneumonia including a large aspiration pneumonia
-COVID, Flu negative
-Urine cultures negative
- Speech eval - reg, thin liquids
� cultures NGTD
� Empiric antibiotics Zosyn completed 7 days however leukocytosis remains persistent though mild, afebrile, ID eval appreciated, initially abx continued with unasyn, total 8 days abx including zosyn, abx since discontinued monitoring off
�MRSA swab - negative
-VSE repeat 10/24 noted improvement from prior VSE examination, no aspiration noted however esophageal retention noted concerning for back aspiration
GI eval appreciated pending pill esophagram in AM Tues 10/28 npo after midnight for study
Episode diarrhea overnight, Cdiff study pending, diarrhea however seems resolved at this time, unlikely Cdiff
#Small moderate pleural effusion Right lung noted on chest US
IR eval thoracentesis appreciated only 150 cc drawn, pleural fluid studies not suggestive of infection
#Hypernatremia
#ENRICO
-most likely 2/2 to overdiuresis
-scheduled oral Lasix 80 mg BID placed on hold
-liberalized fluid restriction previously on 40 oz increased to 48 oz
-2g Na restriction
-hypernatremia since resolved
-Nephro eval appreciated IVF hydration D5W completed
-Cr improving 10/25 lasix since resumed as per nephro
#Elevated troponin, suspect nonischemic myocardial injury
� Troponin trended to peak 0.901 since trended down
- chest pain free
#Acute metabolic encephalopathy
� Secondary to most likely hypercapnia as well as possible infection
- treat as above
-fluctuating mental status throughout stay.
#Urinary retention
� Lock catheter placed
-TOV prior to dc
- finasteride
#Hypokalemia
-monitor and replete as necessary
-scheduled potassium 20 mEQ BID started 10/22
-hypokalemia resolved, K supplement reduced to daily 10/26
#Hyperlipidemia
� cont statin
#DVT prophylaxis
� HSQ
#Stage 2 pressure ulcer gluteal cleft, stage 1 pressure ulcer sacrum
cont local wound care
#DNR/DNI
discussed with Patient and Patient's daughter Andra
Total time spent on today's encounter was 55 minutes which included time spent in counseling the patient/family regarding diagnosis and treatment plan as listed above, goals of care, and symptom management. Case was discussed with nursing staff,
specialists, and care coordinators/case management. All labs and imaging personally reviewed by me. Remainder the time spent in detailed review of previous records, lab data, imaging, and other medical provider documentation.
Anticipated Discharge: 24 - 48 hours
Subjective/Interval History
-
Date of Service: October 28, 2023
No acute distress resting comfortably in bed. Reports general malaise. AOx3
Objective Data
-
Labs:
Laboratory Results
10/28/23
05:28
WBC 12.0 H
Hgb 9.7 L
Hct 31.7 L
Plt Count 239
Sodium 142
Potassium 4.4
Chloride 100
Carbon Dioxide 36 H
BUN 54 H
Creatinine 2.2 H
Glucose 100 H
Calcium 10.0
Vital Signs:
Vital Signs
Temp Pulse Resp BP Pulse Ox
99.2 F 98 20 134/71 94
10/28/23 03:20 10/28/23 06:00 10/28/23 06:00 10/28/23 06:00 10/28/23 06:00
I&O
10/27/23 10/28/23 10/29/23
06:59 06:59 06:59
Intake Total 540 / 540 360 / 360
Output Total 1350 / 1350 600 / 600
Balance -810 / -810 -240 / -240
--- NOTE | 2023-10-28 08:42 | W.PN.GI.CBS2 ---
Addendum entered and electronically signed by Siobhan Blank DO 10/28/23 14:24:
Patient seen and examined independently of [facility]. I agree with her note with my additions below
No overnight changes. Fortunately the patient ate some breakfast and wants to delay the esophagram until tomorrow, n.p.o. after midnight.
Agree with C. difficile check in the setting of diarrhea and rising white count
Original Note:
Today's Communication / Plan
-
Barium esophagram. PPI daily. Check C. difficile.
Assessment / Plan
-
The patient is a pleasant 88-year-old male with a past medical significant for CAD with recent UT/stent placement on Plavix at [facility], CHF, hypertension, COPD, hyperlipidemia, sleep apnea with CPAP use, prior history of bladder cancer,
viral encephalitis, foot drop, cardiomyopathy with an ejection fraction of 35%, who initially was admitted for altered mental status with fevers. He was found to have acute hypercapnic respiratory failure and CHF exacerbation with a BNP greater
than 27,000 requiring BiPAP. He has been followed by cardiology during this hospitalization and is being diuresed. Also with findings suspicious for pneumonia possibly aspiration component. He was placed on antibiotics and is being followed by
infectious disease. Nephrology also has been following due to ENRICO thought to be secondary to overdiuresis. GI was asked to evaluate for concern for adverse aspiration given video swallow findings suggesting esophageal retention and concern for
aspiration. He has had persistent oxygen requirements and baseline tachypnea secondary to likely CHF and pneumonia. He is also on Eliquis 2.5 mg twice daily for new onset of A-fib and Plavix for recent stent as noted above.
Review of imaging:
10/21/23 chest x-ray shows interval worsening within the right lung suspicious for pneumonia with a pleural effusion
10/23/23 chest ultrasound shows a small to moderate pleural effusion
chest x-ray after a diagnostic thoracentesis on 10/25/2023 with a small to moderate right pleural effusion and probable atelectasis, mild pulmonary vascular congestion
10/16/23 echocardiogram reviewed. Technically limited due to patient movement, tachycardia, LVEF is 30 to 35%, mild to moderate aortic stenosis pulmonary artery pressure 55 mmHg
Problem list:
#Concern for aspiration pneumonia/reverse aspiration with esophageal retention on VSE.
---Interval history as noted above. According to nursing he has had no issues while eating or drinking. Rare cough at times with liquids.
---Video swallow examination done on 10/25/2023 showed no laryngeal penetration or aspiration but concern for esophageal retention.
---His oxygen requirements are at baseline along with his respiratory status
---No prior EGD on record
---Speech is following recommending regular solids and thin liquids with medications whole and or crushed in pur�e with aspiration precautions
#Diarrhea; likely secondary to antibiotics
--- His electrolytes are stable
--- Rising WBC count without fevers
--- Will check C. difficile, discussed with Dr. Engle
Recommendations:
-Pending barium esophagram today to assess esophageal motility and stricture with barium pill
-Continue daily PPI
-Pending esophagram results, to consider EGD once medically improved from a respiratory standpoint
-N.p.o. pending esophagram; per nursing he did have half a banana this morning but I have changed his diet order. I did advise her to discuss this with radiology to see if the esophagram can still be done. If not I will change his diet back to
previous diet and will plan for esophagram tomorrow if they are unable to do this today
-He is having loose stools, large per nursing documentation with mucus. Given his white blood cell count is rising and he had been on antibiotics this admission, will check for C. difficile
-Further management as per hospitalist and medical team. His oxygen requirement is likely multifactorial including CHF, CKD, deconditioning and lack of moving and mobilizing fluid. This is at baseline as discussed with the hospitalist.
Subjective
Subjective
Date of Service: October 28, 2023
The pt was seen and examined at the bedside. He is pending a barium esophagram today. He has no significant complaints this morning. He remains on oxygen. He notes some loose stools. WBC uptrending without fevers. Per nursing he did have a half a
banana this morning.
Objective
Data Reviewed
Laboratory Data:
Laboratory Results
10/28/23 05:28
10/28/23 05:28
Laboratory Results
PT 14.7 Sec (11.4-14.6) H 10/16/23 10:08
INR 1.14 10/16/23 10:08
APTT 99.6 Sec (23.4-35.0) H 10/21/23 13:12
Phosphorus 4.2 mg/dl (2.5-4.5) 10/28/23 05:28
Magnesium 2.3 mg/dl (1.6-2.3) 10/28/23 05:28
Total Bilirubin 0.8 mg/dl (0.2-1.3) 10/19/23 05:31
AST 21 U/L (17-59) 10/19/23 05:31
ALT 13 U/L (0-50) 10/19/23 05:31
Alkaline Phosphatase 78 U/L (38-126) 10/19/23 05:31
Vital Signs and I&O:
Vital Signs
Temp Pulse Resp BP Pulse Ox
99.2 F 98 20 134/71 94
10/28/23 03:20 10/28/23 06:00 10/28/23 06:00 10/28/23 06:00 10/28/23 06:00
I&O
10/27/23 10/28/23 10/29/23
06:59 06:59 06:59
Intake Total 540 / 540 360 / 360
Output Total 1350 / 1350 600 / 600
Balance -810 / -810 -240 / -240
Physical Exam
Physical Exam
HEENT: Anicteric
Cardiology: S1, S2 and Irregular Rate/Rhythm
Pulmonary: Other (overall diminished, on supplemental O2, mild tachypnea)
GI: Soft, Non Distended, Non Tender, Normal Bowel Sounds and Other (obese abdomen)
Extremities: Edema
--- NOTE | 2023-10-28 08:48 | W.PN.UPDATE ---
Update Note
Progress Note Update
Continue diuresis as per nephrology
Continue to Plavix recent PCI and Eliquis for new atrial fibrillation
Outpt follow up with his primary Rf Test Engineer: Dr. Cooley of [facility] to be arranged.
Please recall if needed
[2023-10-28] MEDS: ELIQUIS 2.5 MG PO ×2 (11:47→21:46)
[2023-10-28] MEDS: APRESOLINE 10 MG PO ×3 (11:47→21:46)
[2023-10-28] MEDS: TOPROL XL 25 MG PO (11:47)
[2023-10-28] MEDS: KCL 20 MEQ PO (11:48)
[2023-10-28] MEDS: PROSCAR 5 MG PO (11:48)
[2023-10-28] MEDS: LASIX 60 MG IV (11:48)
[2023-10-28] MEDS: PLAVIX 75 MG PO (11:48)
[2023-10-28] MEDS: NSS (PRESERVATIVE FREE) 10 ML IV (11:49)
[2023-10-28] MEDS: PROTONIX IV 40 MG IV (11:49)
--- NOTE | 2023-10-28 12:47 | W.PN.NEPH.PH ---
Today's Communication / Plan
-
Continue diuresis
Assessment/Plan
-
Assessment:
hypernatremia
sepsis 2/2 to PNA
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
CKD (bl Cr 1.8-2.1)
Afib
CAD s/p recent stenting
Plan:
Continue diuresis with intravenous Lasix for decompensated heart failure.
Plan to diurese at least another 5 to 10 pounds of weight.
Follow basic metabolic panel
Continue 48 ounce fluid restriction
-
-
Date of Service: October 28, 2023
CC / HPI / ROS
-
Chief Complaint:
hypernatremia
ENRICO
History of Present Illness:
hypernatremia now normalized
ENRICO Cr stable at 2.2
Hemodynamically stable
On IV Lasix for decompensated heart failure
Review of Systems:
UOP nonoliguric
Remains on oxygen
No chest pain
Labs
-
Labs:
WBC 12.0 10^3/uL (4.8-10.8) H 10/28/23 05:28
RBC 3.28 10^6/uL (4.70-6.10) L 10/28/23 05:28
Hgb 9.7 g/dL (13.0-18.0) L 10/28/23 05:28
Hct 31.7 % (39.0-52.0) L 10/28/23 05:28
Plt Count 239 10^3/uL (130-400) 10/28/23 05:28
Sodium 142 mmol/L (135-145) 10/28/23 05:28
Potassium 4.4 mmol/L (3.5-5.1) 10/28/23 05:28
Chloride 100 mmol/L (98-107) 10/28/23 05:28
Carbon Dioxide 36 mmol/L (22-30) H 10/28/23 05:28
BUN 54 mg/dl (9-20) H 10/28/23 05:28
Creatinine 2.2 mg/dL (0.7-1.3) H 10/28/23 05:28
eGFR 28.46 10/28/23 05:28
Glucose 100 mg/dl (70-99) H 10/28/23 05:28
Calcium 10.0 mg/dl (8.4-10.2) 10/28/23 05:28
Phosphorus 4.2 mg/dl (2.5-4.5) 10/28/23 05:28
Nkw-S-Dcrraomauvw Pept > 70629 pg/ml 10/16/23 10:08
Albumin 2.9 g/dl (3.5-5.0) L 10/19/23 05:31
Physical Exam
-
Vital Signs:
Vital Signs
Temp Pulse Resp BP Pulse Ox
99.5 F 98 20 134/71 94
10/28/23 07:50 10/28/23 06:00 10/28/23 06:00 10/28/23 06:00 10/28/23 06:00
Cardiovascular:: Regular rate and rhythm
Respiratory:: Bilateral: Coarse
Lung Excursion:: Normal
Abdomen:: Nontender and Soft
Bowel Sounds:: Normal
Extremity Edema:: +3: Bilateral: (To thighs)
[2023-10-28] MEDS: LIPITOR 80 MG PO (17:34)
[2023-10-29] VITALS (14 sets, daily range): BP systolic 93–140; BP diastolic 57–120; PULSE 2–76; O2SAT 98; BMI 31.3
[2023-10-29 06:33] LABS: Hematocrit 31.4 % (39.0-52.0); Hemoglobin 9.4 g/dL (13.0-18.0); Mean Corp Hgb Conc. 29.9 g/dL (33.0-37.0); Mean Corpuscular Hgb 29.6 pg (27.0-31.0); Mean Corpuscular Volume 98.7 fL (80.0-94.0); Mean Platelet Volume 10.9 fL (7.4-10.4); Platelet Count 246 10^3/uL (130-400); Red Blood Cell Count 3.18 10^6/uL (4.70-6.10); Red Cell Dist. Width 13.5 % (11.5-14.5); White Blood Cell Count 10.7 10^3/uL (4.8-10.8)
[2023-10-29 07:08] LABS: Blood Urea Nitrogen 49 mg/dl (9-20); Calcium 9.9 mg/dl (8.4-10.2); Carbon Dioxide 39 mmol/L (22-30); Chloride 100 mmol/L (98-107); Estimated Creatinine Clearance 27 ml/min; Glucose 90 mg/dl (70-99); Potassium 4.4 mmol/L (3.5-5.1); Sodium 143 mmol/L (135-145); eGFR 30.09
--- NOTE | 2023-10-29 08:50 | PTCARENOTE ---
Patient with pudding and applesauce at his bedside this morning on rounds. Patient reports that he ate both this morning. Pt is confused therefore asked patient to stick out his tongue and it was brown. Message sent to nightshift RN asking if he ate
them last night but she reported the pudding was full this morning, therefore patient must have just ate it. GI, made aware and advised to postpone esophagram until tomorrow. She also advised he could be put back on his diet prior to
being NPO.
[2023-10-29] MEDS: LASIX 60 MG IV (09:02)
[2023-10-29] MEDS: APRESOLINE 10 MG PO ×3 (09:02→21:32)
[2023-10-29] MEDS: KCL 20 MEQ PO (09:02)
[2023-10-29] MEDS: ELIQUIS 2.5 MG PO ×2 (09:02→21:33)
[2023-10-29] MEDS: PROSCAR 5 MG PO (09:02)
[2023-10-29] MEDS: PLAVIX 75 MG PO (09:02)
[2023-10-29] MEDS: TOPROL XL 25 MG PO (09:02)
[2023-10-29] MEDS: NSS (PRESERVATIVE FREE) 10 ML IV (09:03)
[2023-10-29] MEDS: PROTONIX IV 40 MG IV (09:03)
--- NOTE | 2023-10-29 09:20 | W.PN.HOSP.TC ---
Today's Communication/Plan
-
For barium esophagram
Assessment / Plan
Assessment / Plan
# Acute hypercapnic respiratory failure
�Most likely exacerbated by acute on chronic HFrEF, as well as possible pneumonia with Fever impaired resp status
�Noncompliant to BiPAP at facility
�Continue BiPAP QHS and Naps/PRN
-Currently requiring 3 L of oxygen, wean as tolerated
-NMNH
#Acute on chronic HFrEF
#Stage IIIb chronic kidney disease
- echo: EF is depressed (30-35%) with moderate AAS and RV hypokinesis.
� Cardiology consult appreciated hydralazine added for afterload reduction 10/24, hydralazine added as well
� Appreciate nephrology input, continue IV Lasix as per nephrology, trend daily weights, trend creatinine
#New paroxysmal afib
Cardio eval appreciated
Continue metoprolol succinate for rate control, Eliquis for anticoagulation
#CAD
� Status post stent August 2023 [facility]
� on aspirin and Plavix, w/ start of anticoagulation for pAfib as above, ASA discontinued in favor of Plavix/Eliquis combination as per Cardio
-Cont BB
#Severe Sepsis
� Possible pneumonia including a large aspiration pneumonia
-COVID, Flu negative
-Urine cultures negative
- Speech eval - reg, thin liquids
� cultures NGTD
� Empiric antibiotics Zosyn completed 7 days however leukocytosis remains persistent though mild, afebrile, ID eval appreciated, initially abx continued with unasyn, total 8 days abx including zosyn, abx since discontinued monitoring off
�MRSA swab - negative
-VSE repeat 10/24 noted improvement from prior VSE examination, no aspiration noted however esophageal retention noted concerning for back aspiration
GI eval appreciated pending pill esophagram in AM 10/28 npo after midnight for study
Episode diarrhea overnight, Cdiff study pending, diarrhea however seems resolved at this time, unlikely Cdiff
#Small moderate pleural effusion Right lung noted on chest US
IR eval thoracentesis appreciated only 150 cc drawn, pleural fluid studies not suggestive of infection
#Hypernatremia
-most likely 2/2 to overdiuresis, resolved
#Elevated troponin, suspect nonischemic myocardial injury
� Troponin trended to peak 0.901 since trended down
- chest pain free
#Acute metabolic encephalopathy
� Secondary to most likely hypercapnia as well as possible infection
- treat as above
-fluctuating mental status throughout stay.
#Urinary retention
� Lock catheter placed
-TOV prior to dc
- finasteride
#Hypokalemia
-monitor and replete as necessary
-hypokalemia resolved, K supplement reduced to daily 10/26
#Hyperlipidemia
� cont statin
#Stage 2 pressure ulcer gluteal cleft, stage 1 pressure ulcer sacrum
cont local wound care
DVT prophylaxis�subcu heparin
DNR
Total time spent to see the patient on the floor, examine the patient, review data and lab results, discuss treatment plan with patient, nursing staff around 35 minutes.
Physical Exam
General: Lethargic appearing, no acute distress
HEENT: Anicteric, Moist mucous membranes and Oxygen - 2L
Respiratory: Clear to auscultation b/l no wheezes crackles noted
Cardiac: S1/S2 and Regular Rhythm; No Murmur
GI: Soft and Non Tender
Genito-urinary: Lock
Musculoskeletal: No Clubbing, No Cyanosis, +2 pitting edema bilateral lower ext
Skin:
stage 2 pressure ulcer gluteal cleft, stage 1 pressure ulcer sacrum
Neuro: Awake Alert Conversant some confusion noted, oriented x3
Anticipated Discharge: > 48 hours
Subjective/Interval History
-
Date of Service: October 29, 2023
Patient appears lethargic. Her shortness of breath has improved. No fever, no vomiting.
Objective Data
-
Labs:
Laboratory Results
10/29/23
06:01
WBC 10.7
Hgb 9.4 L
Hct 31.4 L
Plt Count 246
Sodium 143
Potassium 4.4
Chloride 100
Carbon Dioxide 39 H
BUN 49 H
Creatinine 2.1 H
Glucose 90
Calcium 9.9
Vital Signs:
Vital Signs
Temp Pulse Resp BP Pulse Ox
97.7 F 79 21 140/66 96
10/29/23 07:09 10/29/23 09:02 10/29/23 08:00 10/29/23 09:02 10/29/23 09:09
I&O
10/28/23 10/29/23 10/30/23
06:59 06:59 06:59
Intake Total 360 / 360 240 / 240
Output Total 600 / 600 1500 / 1500
Balance -240 / -240 -1260 / -1260
--- NOTE | 2023-10-29 09:38 | W.PN.NEPH.PH ---
Addendum entered and electronically signed by Armando Grace MD 10/29/23 12:02:
[id number]
Original Note:
Today's Communication / Plan
-
continue IV lasix
Assessment/Plan
-
Assessment:
hypernatremia
sepsis 2/2 to PNA
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
CKD (bl Cr 1.8-2.1)
Afib
CAD s/p recent stenting
Plan:
Continue diuresis with intravenous Lasix for decompensated heart failure.
Plan to diurese at least another 5 pounds before considering po lasix
Follow basic metabolic panel
Continue 48 ounce fluid restriction
-
-
Date of Service: October 29, 2023
CC / HPI / ROS
-
Chief Complaint:
hypernatremia
ENRICO
History of Present Illness:
hypernatremia now normalized 143
ENRICO Cr stable at 2.1
Hemodynamically stable
On IV Lasix for decompensated heart failure, weights improving
Review of Systems:
UOP nonoliguric
Remains on oxygen
No chest pain
Labs
-
Labs:
WBC 10.7 10^3/uL (4.8-10.8) 10/29/23 06:01
RBC 3.18 10^6/uL (4.70-6.10) L 10/29/23 06:01
Hgb 9.4 g/dL (13.0-18.0) L 10/29/23 06:01
Hct 31.4 % (39.0-52.0) L 10/29/23 06:01
Plt Count 246 10^3/uL (130-400) 10/29/23 06:01
Sodium 143 mmol/L (135-145) 10/29/23 06:01
Potassium 4.4 mmol/L (3.5-5.1) 10/29/23 06:01
Chloride 100 mmol/L (98-107) 10/29/23 06:01
Carbon Dioxide 39 mmol/L (22-30) H 10/29/23 06:01
BUN 49 mg/dl (9-20) H 10/29/23 06:01
Creatinine 2.1 mg/dL (0.7-1.3) H 10/29/23 06:01
eGFR 30.09 10/29/23 06:01
Glucose 90 mg/dl (70-99) 10/29/23 06:01
Calcium 9.9 mg/dl (8.4-10.2) 10/29/23 06:01
Phosphorus 4.2 mg/dl (2.5-4.5) 10/28/23 05:28
Zul-R-Sxthaynjqzf Pept > 00024 pg/ml 10/16/23 10:08
Albumin 2.9 g/dl (3.5-5.0) L 10/19/23 05:31
Physical Exam
-
Vital Signs:
Vital Signs
Temp Pulse Resp BP Pulse Ox
97.7 F 79 21 140/66 96
10/29/23 07:09 10/29/23 09:02 10/29/23 08:00 10/29/23 09:02 10/29/23 09:09
Cardiovascular:: Regular rate and rhythm
Respiratory:: Bilateral: Coarse
Lung Excursion:: Normal
Abdomen:: Nontender and Soft
Bowel Sounds:: Normal
Extremity Edema:: +3: Bilateral:
--- NOTE | 2023-10-29 10:30 | W.PN.GI.CBS2 ---
Addendum entered and electronically signed by Gaviota Toro MD 10/29/23 12:16:
I saw and examined the patient.
The PEST CONTROL TECHNICIAN or PA's note was reviewed and I agree with the note.
Comment: Patient unable to have esophagram given he had pudding this morning.
He was able to have applesauce as well and denies any choking or coughing or sensation of retention in the esophagus.
Will plan for esophagram for tomorrow, n.p.o. past midnight.
Discussed with RN and daughter as well.
Not planning for any endoscopy procedures given medically not optimal.
Will follow for now.
Original Note:
Today's Communication / Plan
-
-for esophagram today but patient ate pudding at bedside-- plan to try again tomorrow with strict NPO
still with dyspnea at rest -- management per hospitalist, renal cards with concern for CHF with concurrent renal disease
if esophagram abnormal remain on Plavix and Eliquis and medically not currently optimized for any procedures
cont diet for today
diarrhea improved likely abx related c-diff neg
Assessment / Plan
-
Pt is a 88yo with a past medical significant for CAD with recent [place]/stent placement on Plavix at [facility], CHF, hypertension, COPD, hyperlipidemia, sleep apnea with CPAP use, prior history of bladder cancer, viral encephalitis, foot drop,
cardiomyopathy with an ejection fraction of 35%, who initially was admitted for altered mental status with fevers. He was found to have acute hypercapnic respiratory failure and CHF exacerbation with a BNP greater than 27,000 requiring BiPAP. He
has been followed by cardiology during this hospitalization and is being diuresed. Also with findings suspicious for pneumonia possibly aspiration component. He was placed on antibiotics and is being followed by infectious disease. Nephrology
also has been following due to ENRICO thought to be secondary to overdiuresis. GI was asked to evaluate for concern for adverse aspiration given video swallow findings suggesting esophageal retention and concern for aspiration. He has had persistent
oxygen requirements and baseline tachypnea secondary to likely CHF and pneumonia. He is also on Eliquis 2.5 mg twice daily for new onset of A-fib and Plavix for recent stent as noted above.
10/25/23 CXR no pneumo
10/25/23 thora 150ml removed
10/21/23 chest x-ray shows interval worsening within the right lung suspicious for pneumonia with a pleural effusion
10/23/23 chest ultrasound shows a small to moderate pleural effusion
chest x-ray after a diagnostic thoracentesis on 10/25/2023 with a small to moderate right pleural effusion and probable atelectasis, mild pulmonary vascular congestion
10/16/23 echocardiogram reviewed. Technically limited due to patient movement, tachycardia, LVEF is 30 to 35%, mild to moderate aortic stenosis pulmonary artery pressure 55 mmHg
Problem list:
#Concern for aspiration pneumonia/reverse aspiration with esophageal retention on VSE.
---Interval history as noted above. According to nursing he has had no issues while eating or drinking. Rare cough at times with liquids.
---Video swallow examination done on 10/25/2023 showed no laryngeal penetration or aspiration but concern for esophageal retention.
---His oxygen requirements are at baseline along with his respiratory status
---No prior EGD on record
---Speech is following recommending regular solids and thin liquids with medications whole and or crushed in pur�e with aspiration precautions
#Diarrhea; likely secondary to antibiotics
--c-diff neg
-- last stool 10/26
Recommendations:
-for esophagram today but patient ate pudding at bedside-- plan to try again tomorrow with strict NPO
still with dyspnea at rest -- management per hospitalist, renal cards with concern for CHF with concurrent renal disease
if esophagram abnormal remain on Plavix and Eliquis and medically not currently optimized for any procedures
cont diet for today
diarrhea improved likely abx related c-diff neg
Subjective
Subjective
Date of Service: October 29, 2023
for esophagram today but ate pudding as was forgetful to diet, complaints of shortness of breath at rest
Objective
Data Reviewed
Laboratory Data:
Laboratory Results
10/29/23 06:01
10/29/23 06:01
Laboratory Results
PT 14.7 Sec (11.4-14.6) H 10/16/23 10:08
INR 1.14 10/16/23 10:08
APTT 99.6 Sec (23.4-35.0) H 10/21/23 13:12
Phosphorus 4.2 mg/dl (2.5-4.5) 10/28/23 05:28
Magnesium 2.3 mg/dl (1.6-2.3) 10/28/23 05:28
Total Bilirubin 0.8 mg/dl (0.2-1.3) 10/19/23 05:31
AST 21 U/L (17-59) 10/19/23 05:31
ALT 13 U/L (0-50) 10/19/23 05:31
Alkaline Phosphatase 78 U/L (38-126) 10/19/23 05:31
Vital Signs and I&O:
Vital Signs
Temp Pulse Resp BP Pulse Ox
97.7 F 79 21 140/66 96
10/29/23 07:09 10/29/23 09:02 10/29/23 08:00 10/29/23 09:02 10/29/23 09:09
I&O
10/28/23 10/29/23 10/30/23
06:59 06:59 06:59
Intake Total 360 / 360 240 / 240
Output Total 600 / 600 1500 / 1500
Balance -240 / -240 -1260 / -1260
Physical Exam
Physical Exam
HEENT: Anicteric and Moist mucous membranes
Cardiology: Normal Sinus Rhythm
Pulmonary: Other (+ dyspnea at rest )
GI: Soft, Non Distended and Non Tender
Extremities: Edema
Neuro: Other (forgetful)
--- NOTE | 2023-10-29 10:42 | PN.CDI ---
CDI
- -
CDI:
Physician Documentation Request
Admit Date: 10/16/23 13:36
Dear Doctor,
Please review the following and provide your response in the progress notes.
Clinical Indicators:
Pt admitted with sepsis 2/2 PNA/ Acute on Chronic HFrEF on IV lasix
Documented in Nephrology consult and notes , ' CKD (bl Cr 1.8-2.1)...'
Nephrology note 10/27, ' CKD (bl Cr 1.8-2.1)...ENRICO Cr stable at 2.1...'
10/16/23 10/18/23 10/29/23
10:08 04:50 06:01
Creatinine 1.8 H 2.0 H 2.1 H
eGFR 36.21 31.90 30.09
Please provide the suspected stage of the documented CKD:
Stages of Chronic Kidney Disease*
Level Description GFR
G1 Normal or High >90
G2 Mildly decreased 60-89
G3a Mildly to moderately decreased 45-59
G3b Moderately to severely decreased 30-44
G4 Severely decreased 15-29
G5 Kidney failure <15
Use of terms such as suspected, likely, concern for, or probable (associated with a specific diagnosis that is being evaluated, monitored, or treated as if it exists) are acceptable and can be coded in the inpatient setting, when documented at the
time of discharge.
Thank you,
Zoila Naylor RN
CDI Specialist
[place] [facility]
Please use your independent medical judgment in providing your response.
*Source: Kidney Disease: Improving Global Outcomes (KDIGO) 2012
--- NOTE | 2023-10-29 12:07 | PTCARENOTE ---
Assumed care of patient this morning. Patient ringing call lyon incessantly and when answered patient is confused and states that he needs help but he is not able to elaborate on how he needs help. Then he starts talking about what is on tv and he
would like to talk about it. Attempted to educate patient on use of call lyon, however, pt unable to learn at this time due to confusion. He is only oriented to himself and answers some questions appropriately. Pt's daughter, Andra, now at the
bedside and updated per RN ability. Assessment, care and VS as charted.
--- NOTE | 2023-10-29 13:33 | CM ---
CM following re: discharge planning.
Reviewed pt's chart, met with pt.
PT and OT continues recommending SNF level of care.
Pt is admitted from [facility] where he was for a short term rehab and per CM note, pt is private bed hold.
CM spoke to [facility] channel director and updated her on pt's discharge plan progress.
[facility] nursing report: [phone]
Discharge instructions fax: fax [phone].
D/C plan: Return back to [facility] to continue on skilled services.
CM will follow with discharge plan updates as hospitalization progresses
--- NOTE | 2023-10-29 15:13 | W.HF.CON ---
Heart Failure
- LV Function
Left ventricular function study result: LV Ejection fraction </= 35%
Ejection Fraction Percentage: 30-35
- ARNI
Patient already on ARNI: No
Heart Failure ARNI Contraindication: Acute Renal Failure, Hypotension
- ACEI/ARB
Patient already on ACEI/ARB: No
Heart Failure ACEI/ARB Contraindication: Acute Renal Failure, Hypotension
- Beta Rosalinda
Patient already on Evidence Based Beta Rosalinda: Yes
- Mineralocorticord Receptor Antagonist
Patient already on MRA: No
Heart Failure MRA Contraindication: Acute Renal Insufficiency, Cr > 2.5 in Men, Hypotension
- SGLT-2 Inhibitor
Patient already on SGLT-2 Inhibitor: No
Heart Failure SGLT-2 Inhibitor Contraindication: eGFR < 25
- Afib Anticoagulation
Patient already on Anticoagulation for Afib: Yes
- NYHA CHF Classification
NYHA CHF Classification Level: Class III - Symptoms w/ min exertion, interferes w/ nml daily activity
- ACC/AHA Stage
ACC/AHA Stage: Stage C: Symptomatic Heart Failure
[2023-10-29] MEDS: LIPITOR 80 MG PO (16:56)
[2023-10-30] VITALS (13 sets, daily range): BP systolic 117–144; BP diastolic 53–126; PULSE 2–74; BMI 31.2
--- NOTE | 2023-10-30 04:55 | PTCARENOTE ---
Pt placed on BiPAP around 22:30 and stayed on until 02:30. Pt is confused and unable to correctly state time and place. Educated pt on the use of call lyon as pt rings the lyon consistently while awake. Currently on 3L NC with pulse ox at 98%.
Pt offers no complaints. Resting in bed with call lyon in reach.
[2023-10-30 06:47] LABS: Blood Urea Nitrogen 55 mg/dl (9-20); Calcium 9.8 mg/dl (8.4-10.2); Chloride 99 mmol/L (98-107); Estimated Creatinine Clearance 32 ml/min; Glucose 100 mg/dl (70-99); Potassium 4.5 mmol/L (3.5-5.1); Sodium 144 mmol/L (135-145); eGFR 36.21
[2023-10-30 06:57] LABS: Carbon Dioxide 40 mmol/L (22-30)
--- NOTE | 2023-10-30 07:54 | W.PN.HOSP.TC ---
Today's Communication/Plan
-
Stable for tele
Assessment / Plan
Assessment / Plan
# Acute hypercapnic respiratory failure
�Most likely exacerbated by acute on chronic HFrEF, as well as possible pneumonia with Fever impaired resp status
�Noncompliant to BiPAP at facility
�Continue BiPAP QHS and Naps/PRN
-Currently requiring 2 L of oxygen, wean as tolerated
-From [facility] STR
#Acute on chronic HFrEF
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
- echo: EF is depressed (30-35%) with moderate AAS and RV hypokinesis.
� Cardiology consult appreciated hydralazine added for afterload reduction 10/24, hydralazine added as well
� Appreciate nephrology input, status post IV Lasix, nephrology transitioned to Diamox 10/29
#New paroxysmal afib
Cardio eval appreciated
Continue metoprolol succinate for rate control, Eliquis for anticoagulation
#CAD
� Status post stent August 2023 [place]
� on aspirin and Plavix, w/ start of anticoagulation for pAfib as above, ASA discontinued in favor of Plavix/Eliquis combination as per Cardio
-Cont BB
#Severe Sepsis
� Possible pneumonia including a large aspiration pneumonia
-COVID, Flu negative
-Urine cultures negative
- Speech eval - reg, thin liquids
� cultures NGTD
� Empiric antibiotics Zosyn completed 7 days however leukocytosis remains persistent though mild, afebrile, ID eval appreciated, initially abx continued with unasyn, total 8 days abx including zosyn, abx since discontinued monitoring off
�MRSA swab - negative
-VSE repeat 10/24 noted improvement from prior VSE examination, no aspiration noted however esophageal retention noted concerning for back aspiration
GI eval appreciated status post esophagram 10/29, results pending
Episode diarrhea overnight, Cdiff study pending, diarrhea however seems resolved at this time, unlikely Cdiff
#Small moderate pleural effusion Right lung noted on chest US
IR eval thoracentesis appreciated only 150 cc drawn, pleural fluid studies not suggestive of infection
#Hypernatremia
-most likely 2/2 to overdiuresis, resolved
#Elevated troponin, suspect nonischemic myocardial injury
� Troponin trended to peak 0.901 since trended down
- Has intermittent chest pain, cardiology recommends medical management as above
#Acute metabolic encephalopathy
� Secondary to most likely hypercapnia as well as possible infection
- treat as above
-fluctuating mental status throughout stay.
#Urinary retention
� Lock catheter placed
-TOV prior to dc
- finasteride
#Hypokalemia
-monitor and replete as necessary
-hypokalemia resolved, K supplement reduced to daily 10/26
#Hyperlipidemia
� cont statin
#Stage 2 pressure ulcer gluteal cleft, stage 1 pressure ulcer sacrum
cont local wound care
DVT prophylaxis�Eliquis
DNR
Updated daughter on phone 10/29
Total time spent to see the patient on the floor, examine the patient, review data and lab results, discuss treatment plan with patient, nursing staff around 50 minutes.
Physical Exam
General: Lethargic appearing, no acute distress
HEENT: Anicteric, Moist mucous membranes and Oxygen - 2L
Respiratory: Clear to auscultation b/l no wheezes crackles noted
Cardiac: S1/S2 and Regular Rhythm; No Murmur
GI: Soft and Non Tender
Genito-urinary: Lock
Musculoskeletal: No Clubbing, No Cyanosis, +2 pitting edema bilateral lower ext
Skin:
stage 2 pressure ulcer gluteal cleft, stage 1 pressure ulcer sacrum
Neuro: Awake Alert Conversant some confusion noted, oriented x3
Anticipated Discharge: > 48 hours
Subjective/Interval History
-
Date of Service: October 29, 2023
Appears weak. No fever, no vomiting.
Objective Data
-
Labs:
Laboratory Results
10/29/23
06:01
WBC 10.7
Hgb 9.4 L
Hct 31.4 L
Plt Count 246
Sodium 143
Potassium 4.4
Chloride 100
Carbon Dioxide 39 H
BUN 49 H
Creatinine 2.1 H
Glucose 90
Calcium 9.9
Vital Signs:
Vital Signs
Temp Pulse Resp BP Pulse Ox
97.8 F 80 38 112/84 98
10/29/23 11:35 10/29/23 14:00 10/29/23 14:00 10/29/23 14:00 10/29/23 14:00
I&O
10/28/23 10/29/23 10/30/23
06:59 06:59 06:59
Intake Total 360 / 360 240 / 240
Output Total 600 / 600 1500 / 1500
Balance -240 / -240 -1260 / -1260
[2023-10-30] MEDS: LASIX 60 MG IV (08:32)
[2023-10-30] MEDS: NSS (PRESERVATIVE FREE) 10 ML IV (08:33)
[2023-10-30] MEDS: PROTONIX IV 40 MG IV (08:33)
[2023-10-30] MEDS: APRESOLINE 10 MG PO ×3 (10:20→22:25)
[2023-10-30] MEDS: TOPROL XL 25 MG PO (10:21)
[2023-10-30] MEDS: PLAVIX 75 MG PO (10:21)
[2023-10-30] MEDS: KCL 20 MEQ PO ×2 (10:21→11:22)
[2023-10-30] MEDS: ELIQUIS 2.5 MG PO ×2 (10:21→22:25)
[2023-10-30] MEDS: PROSCAR 5 MG PO (10:21)
[2023-10-30] MEDS: TYLENOL 1000 MG PO (11:22)
--- NOTE | 2023-10-30 11:38 | W.PN.NEPH.PH ---
Today's Communication / Plan
-
- acetazolamide today
Assessment/Plan
-
Assessment:
hypernatremia
sepsis 2/2 to PNA
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
CKD (bl Cr 1.8-2.1)
Afib
CAD s/p recent stenting
Plan:
noted to be more alkalotic today
transition to acetazolamide for diuresis (125mg BID)
stop lasix for now
Follow basic metabolic panel
Continue 48 ounce fluid restriction
-
-
Date of Service: October 30, 2023
CC / HPI / ROS
-
Chief Complaint:
hypernatremia
ENRICO
History of Present Illness:
hypernatremia now normalized
ENRICO Cr stable at 1.8
Hemodynamically stable
on acetazolamide after metabolic alkalosis noted
Review of Systems:
UOP nonoliguric
Remains on oxygen
No chest pain
Labs
-
Labs:
WBC 10.7 10^3/uL (4.8-10.8) 10/29/23 06:01
RBC 3.18 10^6/uL (4.70-6.10) L 10/29/23 06:01
Hgb 9.4 g/dL (13.0-18.0) L 10/29/23 06:01
Hct 31.4 % (39.0-52.0) L 10/29/23 06:01
Plt Count 246 10^3/uL (130-400) 10/29/23 06:01
Sodium 144 mmol/L (135-145) 10/30/23 06:08
Potassium 4.5 mmol/L (3.5-5.1) 10/30/23 06:08
Chloride 99 mmol/L (98-107) 10/30/23 06:08
Carbon Dioxide 40 mmol/L (22-30) H 10/30/23 06:08
BUN 55 mg/dl (9-20) H 10/30/23 06:08
Creatinine 1.8 mg/dL (0.7-1.3) H 10/30/23 06:08
eGFR 36.21 10/30/23 06:08
Glucose 100 mg/dl (70-99) H 10/30/23 06:08
Calcium 9.8 mg/dl (8.4-10.2) 10/30/23 06:08
Phosphorus 4.2 mg/dl (2.5-4.5) 10/28/23 05:28
Miv-E-Yhirk[place] Pept > 78565 pg/ml 10/16/23 10:08
Albumin 2.9 g/dl (3.5-5.0) L 10/19/23 05:31
Physical Exam
-
Vital Signs:
Vital Signs
Temp Pulse Resp BP Pulse Ox
98.4 F 86 20 121/82 97
10/30/23 07:25 10/30/23 10:20 10/29/23 16:00 10/30/23 10:20 10/29/23 20:30
Cardiovascular:: Regular rate and rhythm
Respiratory:: Bilateral: Coarse
Lung Excursion:: Normal
Abdomen:: Nontender and Soft
Bowel Sounds:: Normal
Extremity Edema:: +2: Bilateral:
Olck Catheter: Yes
--- NOTE | 2023-10-30 12:47 | PTCARENOTE ---
pt complaining of mild chest tightness -Sats stable 97% on 2L, pt remains sl tachypneic which is not new. BP 125/53, HR [address] Carver notified, ECG ordered and obtained. Cardiology also notified per Dr. Carver -TT sent to
[facility]. Daughter remains at bedside.
--- NOTE | 2023-10-30 13:22 | W.PN.GI.CBS2 ---
Today's Communication / Plan
-
- esophagram done but pending results
if esophagram abnormal remain on Plavix and Eliquis and medically not currently optimized for any procedures
cont diet
Still with loose stool but not significant amount, c-diff neg
Will follow
Assessment / Plan
-
Pt is a 88yo with a past medical significant for CAD with recent [place]/stent placement on Plavix at [facility], CHF, hypertension, COPD, hyperlipidemia, sleep apnea with CPAP use, prior history of bladder cancer, viral encephalitis, foot drop,
cardiomyopathy with an ejection fraction of 35%, who initially was admitted for altered mental status with fevers. He was found to have acute hypercapnic respiratory failure and CHF exacerbation with a BNP greater than 27,000 requiring BiPAP. He
has been followed by cardiology during this hospitalization and is being diuresed. Also with findings suspicious for pneumonia possibly aspiration component. He was placed on antibiotics and is being followed by infectious disease. Nephrology
also has been following due to ENRICO thought to be secondary to overdiuresis. GI was asked to evaluate for concern for adverse aspiration given video swallow findings suggesting esophageal retention and concern for aspiration. He has had persistent
oxygen requirements and baseline tachypnea secondary to likely CHF and pneumonia. He is also on Eliquis 2.5 mg twice daily for new onset of A-fib and Plavix for recent stent as noted above.
10/25/23 CXR no pneumo
10/25/23 thora 150ml removed
10/21/23 chest x-ray shows interval worsening within the right lung suspicious for pneumonia with a pleural effusion
10/23/23 chest ultrasound shows a small to moderate pleural effusion
chest x-ray after a diagnostic thoracentesis on 10/25/2023 with a small to moderate right pleural effusion and probable atelectasis, mild pulmonary vascular congestion
10/16/23 echocardiogram reviewed. Technically limited due to patient movement, tachycardia, LVEF is 30 to 35%, mild to moderate aortic stenosis pulmonary artery pressure 55 mmHg
Problem list:
#Concern for aspiration pneumonia/reverse aspiration with esophageal retention on VSE.
---Interval history as noted above. According to nursing he has had no issues while eating or drinking. Rare cough at times with liquids.
---Video swallow examination done on 10/25/2023 showed no laryngeal penetration or aspiration but concern for esophageal retention.
---His oxygen requirements are at baseline along with his respiratory status
---No prior EGD on record
---Speech is following recommending regular solids and thin liquids with medications whole and or crushed in pur�e with aspiration precautions
#Diarrhea; likely secondary to antibiotics
--c-diff neg
-- last stool 10/26
Recommendations:
- esophagram done but pending results
if esophagram abnormal remain on Plavix and Eliquis and medically not currently optimized for any procedures
cont diet
Still with loose stool but not significant amount, c-diff neg
Will follow
Subjective
Subjective
Date of Service: October 30, 2023
No events overnight. No abdominal pain, tolerated diet, bowel movement last night but not this morning
Objective
Data Reviewed
Laboratory Data:
Laboratory Results
10/29/23 06:01
10/30/23 06:08
Laboratory Results
PT 14.7 Sec (11.4-14.6) H 10/16/23 10:08
INR 1.14 10/16/23 10:08
APTT 99.6 Sec (23.4-35.0) H 10/21/23 13:12
Phosphorus 4.2 mg/dl (2.5-4.5) 10/28/23 05:28
Magnesium 2.3 mg/dl (1.6-2.3) 10/28/23 05:28
Total Bilirubin 0.8 mg/dl (0.2-1.3) 10/19/23 05:31
AST 21 U/L (17-59) 10/19/23 05:31
ALT 13 U/L (0-50) 10/19/23 05:31
Alkaline Phosphatase 78 U/L (38-126) 10/19/23 05:31
Vital Signs and I&O:
Vital Signs
Temp Pulse Resp BP Pulse Ox
97.7 F 86 20 121/82 97
10/30/23 11:24 10/30/23 10:20 10/29/23 16:00 10/30/23 10:20 10/29/23 20:30
I&O
10/29/23 10/30/23 10/31/23
06:59 06:59 06:59
Intake Total 240 / 240 600 / 600
Output Total 1500 / 1500 1275 / 1275
Balance -1260 / -1260 -675 / -675
Physical Exam
Physical Exam
GI: Soft, Non Distended and Non Tender
--- NOTE | 2023-10-30 14:03 | W.PN.CARDCBS ---
Addendum entered and electronically signed by Phyllis Copeland MD 10/30/23 16:12:
I saw and examined the patient.
The Manager Program's note was reviewed and I agree with the note.
Comment: Asked to see patient again due to complaints of chest 'tightness' Evaluate at bedside however patinet couldn't even recall episode of chest pain. No active CP or SOB. HE underwent esophagram 10/29/22 and sxs reported afterwards. No other
complaints.
Sxs relieved with tylenol. VSS. Labs reviewed. On exam patient is an older gentleman, frail, ill appearing, confused, A+O x 2, RR, normal S1 and S2, Anasarcic, bibasilar rales, abd obese, soft, NT, ND, warm ext, 2+ BETO
ECG with no ischemic changes.
I do not think this episode is consistent with cardiac chest pain. Would cont supportive care and previous plan as outlined by cardiology. No further workup recommended for now unless symptoms re-occur.
We will sign off. Please call with additional questions or concerns.
Phyllis Copeland MD, [facility], [facility]
Original Note:
Today's Communication / Plan
-
Recheck ECG in AM
Ongoing edema, protein and albumin levels low
Impression / Plan
-
PC: Dr. Je Owen
Primary Multimedia Assistant: Dr. Cooley of [facility]
Impression:
Presentation with change in mental status
Lethargy
Acute on chronic HFrEF
Now with hypernatremia
PAF new diagnosis
Acute hypercapnic respiratory failure, requiring BIPAP in ER
Elevated troponin
Leukocytosis with fever, presumed sepsis
ENRICO on CKD
Urinary retention
Admission to [facility] 08/2023 for acute inferior STEMI status post RCA PCI
ischemic cardiomyopathy EF 35 to 40% by echo 08/2023
HLD
HTN
RBBB, chronic
History of viral encephalitis approximately 25 years ago
Foot drop
Peripheral neuropathy
History of bladder cancer status post TURP in 2017
Pulmonary nodules
DNR code status
Chest pain 10/30/23
ECHO 08/21/2023: EF 35 to 40%, anteroseptal akinesis, mild global hypokinesis of the rest of LV, grade 1 diastolic dysfunction, trivial posterior pericardial effusion
Echo 10/16/2023, EF 30 to 35%, mild to moderate aortic stenosis, mean gradient 15, mild TR with PA pressure 55, RV hypokinesis
Plan:
-Called back to see patient 10/30/23 for chest pain. Patient had esophagram 10/30/23 for concerns of reverse aspiration. Patient is not sure if he had chest pain, but talked with his RN and confirmed patient with chest pain earlier. Chest pain
relieved with Tylenol and has not recurred. ECG reviewed by me without ischemic changes. Patient is tender to palpation of chest and now also complains of abdominal pain. Doubt ACS. Check ECG again in AM.
-[place] and RCA PCI at [facility] 08/2023. Plavix continued throughout admission.
-Newly diagnosed with Afib this admission and started on Eliquis 2.5 mg BID. Aspirin was stopped when Eliquis was started.
-Patient spontaneously converted to SR this admission and remains in SR by ECG 10/30/23.
-Patient remains diffusely edematous. Protein and albumin are low. Nephrology following and Lasix 60 mg IV daily stopped 10/30/23. Now ordered acetazolamide. Fluids restricted at 48 oz a day.
-ICM prior to admission and outpatient dose of Toprol XL 25 mg daily has been continued.
-Patient unfortunately cannot take ACEI/ARB/ARNI/Aldactone, SGLT2 inhibitor at present with ENRICO. GDMT as renal function and bp will allow.
-Hydralazine added for afterload reduction. Blood pressure remains on the lower side so will not titrate for now or add Imdur.
HPI: Patient is an 88 yo F with PMH of viral encephalitis ~25 years ago, foot drop and neuropathy, ambulatory around apartment with walker, history of bladder cancer s/p TURBT 2017 who had recent admission to [facility] 08/2023. He was found to have acute
inferior STEMI and underwent cath resulting in RCA PCI per daughter. Echo during that admission showed ICM with EF 35-40%. He had issues with his kidneys during that admission per daughters. He was discharged to [facility] and was not on diuretic upon DC
(he had been on chlorthalidone prior which was stopped during admission). Daughter believes he had post admission blood work ~10/03 [place] [address]. He was started on po lasix 40mg daily at that time. He was then seen in office
by Dr. Cooley's [employer] last and was felt to be grossly volume overloaded. reportedly had echo in office same day which was 'good for him.' his lasix dose was increased to 80mg daily x5 days with plan to increase to 120mg daily thereafter if
still with volume overload. He was increased to 120mg daily yesterday as weight has continued to trend up. He has also had difficulty with urination, resulting in bernabe placement and then hematuria, which was removed at [facility] ~2 weeks post discharge.
[facility] due to change in mental status. with fever and leukocytosis. Also with proBNP >24479. Currently on BIPAP, which he was reportedly supposed to be getting at [facility] but was not by report.
Progress Note - Multimedia Assistant
Subjective
Date of Service: October 30, 2023
He can't remember if he had chest pain
Objective
Labs:
10/29/23 06:01
10/30/23 06:08
Labs
Hgb 9.4 g/dL (13.0-18.0) L 10/29/23 06:01
Hct 31.4 % (39.0-52.0) L 10/29/23 06:01
Plt Count 246 10^3/uL (130-400) 10/29/23 06:01
PT 14.7 Sec (11.4-14.6) H 10/16/23 10:08
INR 1.14 10/16/23 10:08
APTT 99.6 Sec (23.4-35.0) H 10/21/23 13:12
Sodium 144 mmol/L (135-145) 10/30/23 06:08
Potassium 4.5 mmol/L (3.5-5.1) 10/30/23 06:08
BUN 55 mg/dl (9-20) H 10/30/23 06:08
Creatinine 1.8 mg/dL (0.7-1.3) H 10/30/23 06:08
Glucose 100 mg/dl (70-99) H 10/30/23 06:08
Vital Signs and I&O:
Vital Signs
Temp Pulse Resp BP Pulse Ox
97.7 F 86 20 121/82 97
10/30/23 11:24 10/30/23 10:20 10/29/23 16:00 10/30/23 10:20 10/29/23 20:30
Vital Signs
Temp Pulse Resp BP Pulse Ox
97.7 F 86 20 121/82 97
10/30/23 11:24 10/30/23 10:20 10/29/23 16:00 10/30/23 10:20 10/29/23 20:30
Intake & Output
10/28/23 10/29/23 10/30/23 10/31/23
06:59 06:59 06:59 06:59
Intake Total 360 / 360 240 / 240 600 / 600
Output Total 600 / 600 1500 / 1500 1275 / 1275
Balance -240 / -240 -1260 / -1260 -675 / -675
Physical Exam
Physical Exam
General: AAO to person and situation
HEENT: EOMI
Heart: SR on tele
Lungs: Clear anterolaterally
Abd: ND
Ext: +2-3 pitting edema B/L LE
Neuro: nonfocal
--- NOTE | 2023-10-30 14:41 | PTCARENOTE ---
Vitals pulled over from previous shift, cannot verify accuracy.
[2023-10-30] MEDS: LIPITOR 80 MG PO (15:46)
[2023-10-30] MEDS: DIAMOX 125 MG PO (22:25)
[2023-10-31] VITALS (14 sets, daily range): BP systolic 87–143; BP diastolic 51–118; PULSE 2–73; O2SAT 97–98; BMI 31.2
--- NOTE | 2023-10-31 00:33 | PTCARENOTE ---
Lock order changed to be d/c on 11/02 at 06:00 per nephrology. See orders.
[2023-10-31 08:03] LABS: ALT (SGPT) 13 U/L (0-50); AST (SGOT) 23 U/L (17-59); Albumin 3.2 g/dl (3.5-5.0); Alkaline Phosphatase 66 U/L (38-126); Blood Urea Nitrogen 48 mg/dl (9-20); Calcium 10.1 mg/dl (8.4-10.2); Carbon Dioxide 35 mmol/L (22-30); Chloride 101 mmol/L (98-107); Direct Bilirubin 0.4 mg/dl (0.0-0.4); Estimated Creatinine Clearance 27 ml/min; Glucose 96 mg/dl (70-99); Potassium 4.5 mmol/L (3.5-5.1); Sodium 142 mmol/L (135-145); Total Bilirubin 0.5 mg/dl (0.2-1.3); eGFR 30.09
--- NOTE | 2023-10-31 08:17 | PTCARENOTE ---
Pt was due for am labs, mult attempts to obtain unsuccessful, phleb at bedside attempting, now lab notified QNS-phleb was notified to redraw at 0756.
--- NOTE | 2023-10-31 09:30 | W.PN.HOSP.TC ---
Today's Communication/Plan
-
see bold
Assessment / Plan
Assessment / Plan
# Acute hypercapnic respiratory failure
�Most likely exacerbated by acute on chronic HFrEF, as well as possible pneumonia with Fever impaired resp status
�Noncompliant to BiPAP at facility
�Continue BiPAP QHS and Naps/PRN
-Currently requiring 2 L of oxygen, wean as tolerated
-From [facility] STR
#Acute on chronic HFrEF
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
- echo: EF is depressed (30-35%) with moderate AAS and RV hypokinesis.
� Cardiology consult appreciated hydralazine added for afterload reduction 10/24
� Appreciate nephrology input, status post IV Lasix, nephrology transitioned to Diamox 10/29
- Monitor creatinine
#New paroxysmal afib
Cardio eval appreciated
Continue metoprolol succinate for rate control, Eliquis for anticoagulation
#Esophageal dysmotility
-VSE repeat 10/24 noted improvement from prior VSE examination, no aspiration noted however esophageal retention noted concerning for back aspiration
-10/29 barium swallow negative for obstruction, shows tortuous esophagus with esophageal dysmotility
-Continue regular diet with thin liquids
-Continue Ensure twice daily, encourage oral intake
#CAD
� Status post stent August 2023 [facility]
� on aspirin and Plavix, w/ start of anticoagulation for pAfib as above, ASA discontinued in favor of Plavix/Eliquis combination as per Cardio
-Cont BB
#Severe Sepsis
� Possible pneumonia including a large aspiration pneumonia
-COVID, Flu negative
-Urine cultures negative
- Speech eval - reg, thin liquids
� cultures NGTD
� Empiric antibiotics Zosyn completed 7 days however leukocytosis remains persistent though mild, afebrile, ID eval appreciated, initially abx continued with unasyn, total 8 days abx including zosyn, abx since discontinued monitoring off
�MRSA swab - negative
#Small moderate pleural effusion Right lung noted on chest US
IR eval thoracentesis appreciated only 150 cc drawn, pleural fluid studies not suggestive of infection
#Hypernatremia
-most likely 2/2 to overdiuresis, resolved
#Elevated troponin, suspect nonischemic myocardial injury
� Troponin trended to peak 0.901 since trended down
- Has intermittent chest pain, cardiology recommends medical management as above
#Acute metabolic encephalopathy
� Secondary to most likely hypercapnia as well as possible infection
- treat as above
-fluctuating mental status throughout stay.
#Urinary retention
� Lock catheter placed
-TOV prior to dc
- finasteride
#Hypokalemia
-monitor and replete as necessary
-hypokalemia resolved, K supplement reduced to daily 10/26
#Hyperlipidemia
� cont statin
#Stage 2 pressure ulcer gluteal cleft, stage 1 pressure ulcer sacrum
cont local wound care
DVT prophylaxis�Eliquis
DNR
Updated daughter on phone 10/30
Total time spent to see the patient on the floor, examine the patient, review data and lab results, discuss treatment plan with patient, nursing staff around 51 minutes.
Physical Exam
General: Lethargic appearing, no acute distress
HEENT: Anicteric, Moist mucous membranes and Oxygen - 2L
Respiratory: Clear to auscultation b/l no wheezes crackles noted
Cardiac: S1/S2 and Regular Rhythm; No Murmur
GI: Soft and Non Tender
Genito-urinary: Lock
Musculoskeletal: No Clubbing, No Cyanosis, +2 pitting edema bilateral lower ext
Skin:
stage 2 pressure ulcer gluteal cleft, stage 1 pressure ulcer sacrum
Neuro: Awake Alert Conversant some confusion noted, oriented x3
Anticipated Discharge: > 48 hours
Subjective/Interval History
-
Date of Service: October 31, 2023
Patient continues to be weak and lethargic. No more chest pain. No fever, no vomiting.
Objective Data
-
Labs:
Laboratory Results
10/31/23 10/31/23
07:31 07:56
WBC Cancelled Pending
Hgb Cancelled Pending
Hct Cancelled Pending
Plt Count Cancelled Pending
Sodium 142
Potassium 4.5
Chloride 101
Carbon Dioxide 35 H
BUN 48 H
Creatinine 2.1 H
Glucose 96
Calcium 10.1
Total Bilirubin 0.5
AST 23
ALT 13
Alkaline Phosphatase 66
Vital Signs:
Vital Signs
Temp Pulse Resp BP Pulse Ox
97.9 F 68 21 129/118 97
10/31/23 03:40 10/31/23 06:00 10/31/23 06:00 10/31/23 06:00 10/31/23 06:00
I&O
10/30/23 10/31/23 11/01/23
06:59 06:59 06:59
Intake Total 600 / 600 598 / 598
Output Total 1275 / 1275 1475 / 1475
Balance -675 / -675 -877 / -877
[2023-10-31] MEDS: DIAMOX 125 MG PO ×2 (10:18→20:16)
[2023-10-31] MEDS: PROTONIX 40 MG PO (10:18)
[2023-10-31] MEDS: ELIQUIS 2.5 MG PO ×2 (10:19→20:16)
[2023-10-31] MEDS: APRESOLINE 10 MG PO ×3 (10:19→20:16)
[2023-10-31] MEDS: KCL 20 MEQ PO (10:20)
[2023-10-31] MEDS: PLAVIX 75 MG PO (10:20)
[2023-10-31] MEDS: TOPROL XL 25 MG PO (10:20)
[2023-10-31] MEDS: PROSCAR 5 MG PO (10:20)
[2023-10-31 11:29] LABS: Hematocrit 33.8 % (39.0-52.0); Mean Corp Hgb Conc. 29.6 g/dL (33.0-37.0); Mean Corpuscular Hgb 29.5 pg (27.0-31.0); Mean Corpuscular Volume 99.7 fL (80.0-94.0); Mean Platelet Volume 10.7 fL (7.4-10.4); Platelet Count 272 10^3/uL (130-400); Red Blood Cell Count 3.39 10^6/uL (4.70-6.10); Red Cell Dist. Width 13.8 % (11.5-14.5); White Blood Cell Count 12.1 10^3/uL (4.8-10.8)
[2023-10-31] MEDS: TYLENOL 1000 MG PO (12:15)
[2023-10-31] MEDS: LIPITOR 80 MG PO (16:24)
--- NOTE | 2023-10-31 16:34 | W.PN.NEPH.PH ---
Today's Communication / Plan
-
- continue diamox
Assessment/Plan
-
Assessment:
hypernatremia
sepsis 2/2 to PNA
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
CKD (bl Cr 1.8-2.1)
Afib
CAD s/p recent stenting
Plan:
noted to be more alkalotic on 10/29
transition to acetazolamide for diuresis (125mg BID)
making good urine with diamox, will continue for now
stop lasix
Follow basic metabolic panel
Continue 48 ounce fluid restriction
-
-
Date of Service: October 31, 2023
CC / HPI / ROS
-
Chief Complaint:
hypernatremia
ENRICO
History of Present Illness:
hypernatremia now normalized
ENRICO Cr stable at 2.1
Hemodynamically stable
on acetazolamide after metabolic alkalosis noted
Review of Systems:
UOP nonoliguric
Remains on oxygen
No chest pain
Labs
-
Labs:
WBC 12.1 10^3/uL (4.8-10.8) H 10/31/23 11:08
RBC 3.39 10^6/uL (4.70-6.10) L 10/31/23 11:08
Hgb 10.0 g/dL (13.0-18.0) L 10/31/23 11:08
Hct 33.8 % (39.0-52.0) L 10/31/23 11:08
Plt Count 272 10^3/uL (130-400) 10/31/23 11:08
Sodium 142 mmol/L (135-145) 10/31/23 07:31
Potassium 4.5 mmol/L (3.5-5.1) 10/31/23 07:31
Chloride 101 mmol/L (98-107) 10/31/23 07:31
Carbon Dioxide 35 mmol/L (22-30) H 10/31/23 07:31
BUN 48 mg/dl (9-20) H 10/31/23 07:31
Creatinine 2.1 mg/dL (0.7-1.3) H 10/31/23 07:31
eGFR 30.09 10/31/23 07:31
Glucose 96 mg/dl (70-99) 10/31/23 07:31
Calcium 10.1 mg/dl (8.4-10.2) 10/31/23 07:31
Phosphorus 4.2 mg/dl (2.5-4.5) 10/28/23 05:28
Uld-K-Twzhtrawoly Pept > 07024 pg/ml 10/16/23 10:08
Albumin 3.2 g/dl (3.5-5.0) L 10/31/23 07:31
Physical Exam
-
Vital Signs:
Vital Signs
Temp Pulse Resp BP Pulse Ox
98.3 F 67 21 113/54 99
10/31/23 14:56 10/31/23 16:23 10/31/23 14:00 10/31/23 16:23 10/31/23 14:00
Cardiovascular:: Regular rate and rhythm
Respiratory:: Bilateral: Coarse
Lung Excursion:: Normal
Abdomen:: Nontender and Soft
Bowel Sounds:: Normal
Extremity Edema:: +2: Bilateral:
Lock Catheter: Yes
--- NOTE | 2023-10-31 18:59 | W.PN.GI.CBS2 ---
Today's Communication / Plan
-
Recommendations:
Tortuous esophagus though there is no obstruction to the barium flow or barium tablet, esophageal motility disorder suspected
Discussed with patient's daughter that soft bite sized food might be better choice with Ensure to prevent any aspiration
As long as patient is able to tolerate the diet and keeping up calorie intake, will continue this.
No further GI workup at this time. Will sign off, please call back if needed.
Assessment / Plan
-
Pt is a 88yo with a past medical significant for CAD with recent CO/stent placement on Plavix at [facility], CHF, hypertension, COPD, hyperlipidemia, sleep apnea with CPAP use, prior history of bladder cancer, viral encephalitis, foot drop,
cardiomyopathy with an ejection fraction of 35%, who initially was admitted for altered mental status with fevers. He was found to have acute hypercapnic respiratory failure and CHF exacerbation with a BNP greater than 27,000 requiring BiPAP. He
has been followed by cardiology during this hospitalization and is being diuresed. Also with findings suspicious for pneumonia possibly aspiration component. He was placed on antibiotics and is being followed by infectious disease. Nephrology
also has been following due to ENRICO thought to be secondary to overdiuresis. GI was asked to evaluate for concern for adverse aspiration given video swallow findings suggesting esophageal retention and concern for aspiration. He has had persistent
oxygen requirements and baseline tachypnea secondary to likely CHF and pneumonia. He is also on Eliquis 2.5 mg twice daily for new onset of A-fib and Plavix for recent stent as noted above.
10/25/23 CXR no pneumo
10/25/23 thora 150ml removed
10/21/23 chest x-ray shows interval worsening within the right lung suspicious for pneumonia with a pleural effusion
10/23/23 chest ultrasound shows a small to moderate pleural effusion
chest x-ray after a diagnostic thoracentesis on 10/25/2023 with a small to moderate right pleural effusion and probable atelectasis, mild pulmonary vascular congestion
10/16/23 echocardiogram reviewed. Technically limited due to patient movement, tachycardia, LVEF is 30 to 35%, mild to moderate aortic stenosis pulmonary artery pressure 55 mmHg
Problem list:
#Concern for aspiration pneumonia/reverse aspiration with esophageal retention on VSE.
---Interval history as noted above. According to nursing he has had no issues while eating or drinking. Rare cough at times with liquids.
---Video swallow examination done on 10/25/2023 showed no laryngeal penetration or aspiration but concern for esophageal retention.
---His oxygen requirements are at baseline along with his respiratory status
---No prior EGD on record
---Speech is following recommending regular solids and thin liquids with medications whole and or crushed in pur�e with aspiration precautions
#Diarrhea; likely secondary to antibiotics
--c-diff neg
-- last stool 10/26
Esophagram-1. No fluoroscopic evidence for esophageal obstruction.
2. Very tortuous esophagus, mild to moderate esophageal distention, and increased tertiary contractions throughout the esophagus consistent with an ESOPHAGEAL MOTILITY DISORDER.
3. Multiple small nonobstructing esophageal strictures.
4. ACUTE CARDIOGENIC PULMONARY EDEMA.
Recommendations:
Tortuous esophagus though there is no obstruction to the barium flow or barium tablet, esophageal motility disorder suspected
Discussed with patient's daughter that soft bite sized food might be better choice with Ensure to prevent any aspiration
As long as patient is able to tolerate the diet and keeping up calorie intake, will continue this.
No further GI workup at this time. Will sign off, please call back if needed.
Subjective
Subjective
Date of Service: October 31, 2023
no events overnight
Objective
Data Reviewed
Laboratory Data:
Laboratory Results
10/31/23 11:08
10/31/23 07:31
Laboratory Results
PT 14.7 Sec (11.4-14.6) H 10/16/23 10:08
INR 1.14 10/16/23 10:08
APTT 99.6 Sec (23.4-35.0) H 10/21/23 13:12
Phosphorus 4.2 mg/dl (2.5-4.5) 10/28/23 05:28
Magnesium 2.3 mg/dl (1.6-2.3) 10/28/23 05:28
Total Bilirubin 0.5 mg/dl (0.2-1.3) 10/31/23 07:31
AST 23 U/L (17-59) 10/31/23 07:31
ALT 13 U/L (0-50) 10/31/23 07:31
Alkaline Phosphatase 66 U/L (38-126) 10/31/23 07:31
Vital Signs and I&O:
Vital Signs
Temp Pulse Resp BP Pulse Ox
98.3 F 67 21 113/54 99
10/31/23 14:56 10/31/23 16:23 10/31/23 14:00 10/31/23 16:23 10/31/23 14:00
I&O
10/30/23 10/31/23 11/01/23
06:59 06:59 06:59
Intake Total 600 / 600 598 / 598 357 / 357
Output Total 1275 / 1275 1475 / 1475 350 / 350
Balance -675 / -675 -877 / -877
Physical Exam
Physical Exam
GI: Soft, Non Distended and Non Tender
[2023-11-01] VITALS (9 sets, daily range): BP systolic 114–142; BP diastolic 59–95; PULSE 2–98; BMI 30.8
[2023-11-01 03:41] LABS: Hemoglobin 9.9 g/dL (13.0-18.0); Mean Corp Hgb Conc. 30.9 g/dL (33.0-37.0); Mean Corpuscular Hgb 29.6 pg (27.0-31.0); Mean Corpuscular Volume 95.8 fL (80.0-94.0); Mean Platelet Volume 10.7 fL (7.4-10.4); Platelet Count 279 10^3/uL (130-400); Red Blood Cell Count 3.34 10^6/uL (4.70-6.10); Red Cell Dist. Width 14.1 % (11.5-14.5)
[2023-11-01 04:10] LABS: Blood Urea Nitrogen 46 mg/dl (9-20); Calcium 10.4 mg/dl (8.4-10.2); Carbon Dioxide 36 mmol/L (22-30); Chloride 100 mmol/L (98-107); Estimated Creatinine Clearance 28 ml/min; Glucose 89 mg/dl (70-99); Potassium 4.5 mmol/L (3.5-5.1); Sodium 144 mmol/L (135-145)
[2023-11-01] MEDS: ELIQUIS 2.5 MG PO ×2 (08:13→21:17)
[2023-11-01] MEDS: KCL 20 MEQ PO (08:13)
[2023-11-01] MEDS: PLAVIX 75 MG PO (08:13)
[2023-11-01] MEDS: PROSCAR 5 MG PO (08:13)
[2023-11-01] MEDS: DIAMOX 125 MG PO ×2 (08:13→21:17)
[2023-11-01] MEDS: PROTONIX 40 MG PO (08:13)
[2023-11-01] MEDS: APRESOLINE 10 MG PO ×3 (08:13→21:17)
[2023-11-01] MEDS: TOPROL XL 25 MG PO (08:13)
--- NOTE | 2023-11-01 08:43 | W.PN.HOSP.TC ---
Today's Communication/Plan
-
See bold
Assessment / Plan
Assessment / Plan
# Acute hypercapnic respiratory failure
�Most likely exacerbated by acute on chronic HFrEF, as well as possible pneumonia with Fever impaired resp status
�Noncompliant to BiPAP at facility
�Continue BiPAP QHS and Naps/PRN
-Currently requiring 1 L of oxygen, wean as tolerated. Daughter states he does not wear oxygen normally
-From [facility]
#Acute on chronic HFrEF
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
- echo: EF is depressed (30-35%) with moderate AAS and RV hypokinesis.
� Cardiology consult appreciated hydralazine added for afterload reduction 10/24
� Appreciate nephrology input, status post IV Lasix, nephrology transitioned to Diamox 10/29, nephrology added torsemide 10/31
- Patient is 89 kg today, down from 94 kg, continue trending weights, monitor creatinine
#New paroxysmal afib
Cardio eval appreciated
Continue metoprolol succinate for rate control, Eliquis for anticoagulation
#Esophageal dysmotility
-VSE repeat 10/24 noted improvement from prior VSE examination, no aspiration noted however esophageal retention noted concerning for back aspiration
-10/29 barium swallow negative for obstruction, shows tortuous esophagus with esophageal dysmotility
-Diet changed to soft/bite-size
-Continue Ensure twice daily, encourage oral intake
#CAD
� Status post stent August 2023 [facility]
� on aspirin and Plavix, w/ start of anticoagulation for pAfib as above, ASA discontinued in favor of Plavix/Eliquis combination as per Cardio
-Cont BB
#Severe Sepsis
� Possible pneumonia including a large aspiration pneumonia
-COVID, Flu negative
-Urine cultures negative
- Speech eval - reg, thin liquids
� cultures NGTD
� Empiric antibiotics Zosyn completed 7 days however leukocytosis remains persistent though mild, afebrile, ID eval appreciated, initially abx continued with unasyn, total 8 days abx including zosyn, abx since discontinued monitoring off
�MRSA swab - negative
#Small moderate pleural effusion Right lung noted on chest US
IR eval thoracentesis appreciated only 150 cc drawn, pleural fluid studies not suggestive of infection
#Hypernatremia
-most likely 2/2 to overdiuresis, resolved
#Elevated troponin, suspect nonischemic myocardial injury
� Troponin trended to peak 0.901 since trended down
- Has intermittent chest pain, cardiology recommends medical management as above
#Acute metabolic encephalopathy
� Secondary to most likely hypercapnia as well as possible infection
- treat as above
-fluctuating mental status throughout stay.
#Urinary retention
� Lock catheter placed
-Continue Proscar, add Flomax
-Remove Lock 10/31 for void trial
#Hypokalemia
-monitor and replete as necessary
-hypokalemia resolved, K supplement reduced to daily 10/26
#Hyperlipidemia
� cont statin
#Stage 2 pressure ulcer gluteal cleft, stage 1 pressure ulcer sacrum
cont local wound care
DVT prophylaxis�Eliquis
DNR
Updated daughter on phone 10/31
Total time spent to see the patient on the floor, examine the patient, review data and lab results, discuss treatment plan with patient, nursing staff around 51 minutes.
Physical Exam
General: Lethargic appearing, no acute distress
HEENT: Anicteric, Moist mucous membranes and Oxygen - 2L
Respiratory: Clear to auscultation b/l no wheezes crackles noted
Cardiac: S1/S2 and Regular Rhythm; No Murmur
GI: Soft and Non Tender
Genito-urinary: Lock
Musculoskeletal: No Clubbing, No Cyanosis, +2 pitting edema bilateral lower ext
Skin:
stage 2 pressure ulcer gluteal cleft, stage 1 pressure ulcer sacrum
Neuro: Awake Alert Conversant some confusion noted, oriented x3
Anticipated Discharge: 24 - 48 hours
Subjective/Interval History
-
Date of Service: November 01, 2023
Patient continues to be short of breath. No fever, no vomiting.
Objective Data
-
Labs:
Laboratory Results
11/01/23
03:14
WBC 11.0 H
Hgb 9.9 L
Hct 32.0 L
Plt Count 279
Sodium 144
Potassium 4.5
Chloride 100
Carbon Dioxide 36 H
BUN 46 H
Creatinine 2.0 H
Glucose 89
Calcium 10.4 H
Vital Signs:
Vital Signs
Temp Pulse Resp BP Pulse Ox
98.7 F 69 20 123/61 98
11/01/23 03:49 11/01/23 06:00 11/01/23 06:00 11/01/23 04:00 11/01/23 06:00
I&O
10/31/23 11/01/23 11/02/23
06:59 06:59 06:59
Intake Total 598 / 598 357 / 357
Output Total 1475 / 1475 1050 / 1050
Balance -877 / -877 -693 / -693
--- NOTE | 2023-11-01 09:50 | W.PN.NEPH.PH ---
Today's Communication / Plan
-
torsemide
Assessment/Plan
-
Assessment:
hypernatremia
sepsis 2/2 to PNA
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
CKD (bl Cr 1.8-2.1)
Afib
CAD s/p recent stenting
Plan:
start torsemide po 20mg daily, titrate as needed
follow BMP
continue diamox
-
-
Date of Service: November 01, 2023
CC / HPI / ROS
-
Chief Complaint:
hypernatremia
ENRICO
History of Present Illness:
hypernatremia now normalized
ENRICO Cr stable at 2.0
Hemodynamically stable
on diamox for alkalosis
Review of Systems:
UOP nonoliguric
Remains on oxygen
No chest pain
Labs
-
Labs:
WBC 11.0 10^3/uL (4.8-10.8) H 11/01/23 03:14
RBC 3.34 10^6/uL (4.70-6.10) L 11/01/23 03:14
Hgb 9.9 g/dL (13.0-18.0) L 11/01/23 03:14
Hct 32.0 % (39.0-52.0) L 11/01/23 03:14
Plt Count 279 10^3/uL (130-400) 11/01/23 03:14
Sodium 144 mmol/L (135-145) 11/01/23 03:14
Potassium 4.5 mmol/L (3.5-5.1) 11/01/23 03:14
Chloride 100 mmol/L (98-107) 11/01/23 03:14
Carbon Dioxide 36 mmol/L (22-30) H 11/01/23 03:14
BUN 46 mg/dl (9-20) H 11/01/23 03:14
Creatinine 2.0 mg/dL (0.7-1.3) H 11/01/23 03:14
eGFR 31.90 11/01/23 03:14
Glucose 89 mg/dl (70-99) 11/01/23 03:14
Calcium 10.4 mg/dl (8.4-10.2) H 11/01/23 03:14
Phosphorus 4.2 mg/dl (2.5-4.5) 10/28/23 05:28
Gwt-S-Dlmosrjrgsq Pept > 72184 pg/ml 10/16/23 10:08
Albumin 3.2 g/dl (3.5-5.0) L 10/31/23 07:31
Physical Exam
-
Vital Signs:
Vital Signs
Temp Pulse Resp BP Pulse Ox
98.7 F 69 20 123/61 98
11/01/23 03:49 11/01/23 06:00 11/01/23 06:00 11/01/23 04:00 11/01/23 06:00
Cardiovascular:: Regular rate and rhythm
Respiratory:: Bilateral: Coarse
Lung Excursion:: Normal
Abdomen:: Nontender and Soft
Bowel Sounds:: Normal
Extremity Edema:: +3: Bilateral:
--- NOTE | 2023-11-01 11:23 | CM ---
M following re: discharge planning.
Reviewed pt's chart, met with pt. Nephrology and Gastroenterology following.
PT and OT continues recommending SNF level of care.
Pt is admitted from [facility] where he was for a short term rehab and per CM note, pt is private bed hold.
CM spoke to [facility] global expansion sales director and updated her on pt's discharge plan progress.
[facility] nursing report: [phone]
Discharge instructions fax: fax [phone].
D/C plan: Return back to [facility] to continue on skilled services.
CM will follow with discharge plan updates as hospitalization progresses
[2023-11-01] MEDS: DEMADEX 20 MG PO (13:27)
[2023-11-01] MEDS: FLOMAX 0.400000000000000022 MG PO (17:09)
[2023-11-01] MEDS: LIPITOR 80 MG PO (17:09)
[2023-11-01] MEDS: MIRALAX 17 GRAMS PO (17:09)
--- NOTE | 2023-11-01 17:10 | PTCARENOTE ---
pt transferred to [facility] at approx 1510. report given to Erickson.belongings with pt . transferred via stretcher.
[2023-11-02] VITALS (9 sets, daily range): BP systolic 106–134; BP diastolic 56–65; PULSE 2; BMI 31.4
[2023-11-02 07:48] LABS: Hematocrit 27.8 % (39.0-52.0); Hemoglobin 8.8 g/dL (13.0-18.0); Mean Corp Hgb Conc. 31.7 g/dL (33.0-37.0); Mean Corpuscular Hgb 29.8 pg (27.0-31.0); Mean Corpuscular Volume 94.2 fL (80.0-94.0); Mean Platelet Volume 11.5 fL (7.4-10.4); Platelet Count 141 10^3/uL (130-400); Red Blood Cell Count 2.95 10^6/uL (4.70-6.10); Red Cell Dist. Width 14.1 % (11.5-14.5); White Blood Cell Count 9.1 10^3/uL (4.8-10.8)
--- NOTE | 2023-11-02 08:40 | W.PN.HOSP.TC ---
Today's Communication/Plan
-
see bold
Assessment / Plan
Assessment / Plan
# Acute hypercapnic respiratory failure
�Most likely exacerbated by acute on chronic HFrEF, as well as possible pneumonia with Fever impaired resp status
�Noncompliant to BiPAP at facility
�Continue BiPAP QHS and Naps/PRN
-Currently requiring 1 L of oxygen (down from as high as 6), wean as tolerated. Daughter states he does not wear oxygen normally
-From [facility]
#Acute on chronic HFrEF
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
- echo: EF is depressed (30-35%) with moderate AAS and RV hypokinesis.
� Cardiology consult appreciated, hydralazine added for afterload reduction 10/24, cards signed off
� Appreciate nephrology input, status post IV Lasix, nephrology transitioned to Diamox 10/29, nephrology added torsemide 10/31, increased to 20 mg bid 11/01
- Patient is 90 kg today, down from 94 kg, continue trending weights, monitor creatinine
#New paroxysmal afib
Cardio eval appreciated
Continue metoprolol succinate for rate control, Eliquis for anticoagulation
#Esophageal dysmotility
-VSE repeat 10/24 noted improvement from prior VSE examination, no aspiration noted however esophageal retention noted concerning for back aspiration
-10/29 barium swallow negative for obstruction, shows tortuous esophagus with esophageal dysmotility
-Diet changed to soft/bite-size
-Continue Ensure twice daily, encourage oral intake
#CAD
� Status post stent August 2023 [place]
� on aspirin and Plavix, w/ start of anticoagulation for pAfib as above, ASA discontinued in favor of Plavix/Eliquis combination as per Cardio
-Cont BB
#Severe Sepsis
� Possible pneumonia including a large aspiration pneumonia
-COVID, Flu negative
-Urine cultures negative
- Speech eval - reg, thin liquids
� cultures NGTD
� Empiric antibiotics Zosyn completed 7 days however leukocytosis remains persistent though mild, afebrile, ID eval appreciated, initially abx continued with unasyn, total 8 days abx including zosyn, abx since discontinued monitoring off
�MRSA swab - negative
#Small moderate pleural effusion Right lung noted on chest US
IR eval thoracentesis appreciated only 150 cc drawn, pleural fluid studies not suggestive of infection
#Hypernatremia
-most likely 2/2 to overdiuresis, resolved
#Elevated troponin, suspect nonischemic myocardial injury
� Troponin trended to peak 0.901 since trended down
- Has intermittent chest pain, cardiology recommends medical management as above
#Acute metabolic encephalopathy
� Secondary to most likely hypercapnia as well as possible infection
- treat as above
-fluctuating mental status throughout stay.
#Urinary retention
� Lock catheter placed 10/27
-Continue Proscar, Flomax
-Removed Lock 10/31, patient has been voiding per RN
#Hypokalemia
-monitor and replete as necessary
-hypokalemia resolved, K supplement reduced to daily 10/26
#Hyperlipidemia
� cont statin
#Stage 2 pressure ulcer gluteal cleft, stage 1 pressure ulcer sacrum
cont local wound care
DVT prophylaxis�Eliquis
DNR
Updated daughter on phone 10/31
Total time spent to see the patient on the floor, examine the patient, review data and lab results, discuss treatment plan with patient, nursing staff around 35 minutes.
Physical Exam
General: Lethargic appearing, no acute distress
HEENT: Anicteric, Moist mucous membranes
Respiratory: Clear to auscultation b/l no wheezes crackles noted
Cardiac: S1/S2 and Regular Rhythm; No Murmur
GI: Soft and Non Tender
Musculoskeletal: No Clubbing, No Cyanosis, +2 pitting edema bilateral lower ext
Skin:
stage 2 pressure ulcer gluteal cleft, stage 1 pressure ulcer sacrum
Anticipated Discharge: > 48 hours
Subjective/Interval History
-
Date of Service: November 02, 2023
No acute events. No fever, no vomiting.
Objective Data
-
Labs:
Laboratory Results
11/02/23
07:38
WBC 9.1
Hgb 8.8 L
Hct 27.8 L
Plt Count 141 D
Sodium Pending
Potassium Pending
Chloride Pending
Carbon Dioxide Pending
BUN Pending
Creatinine Pending
Glucose Pending
Calcium Pending
Vital Signs:
Vital Signs
Temp Pulse Resp BP Pulse Ox
98 F 73 19 134/57 97
11/02/23 07:45 11/02/23 07:45 11/02/23 07:45 11/02/23 07:45 11/02/23 07:45
I&O
11/01/23 11/02/23 11/03/23
06:59 06:59 06:59
Intake Total 357 / 357 60 / 300 240 / 240
Output Total 1050 / 1050 600 / 600
Balance -693 / -693 60 / -300 -360 / -360
[2023-11-02] MEDS: FLOMAX 0.400000000000000022 MG PO (08:55)
[2023-11-02] MEDS: ELIQUIS 2.5 MG PO ×2 (08:55→21:30)
[2023-11-02] MEDS: DEMADEX 20 MG PO ×2 (08:55→15:34)
[2023-11-02] MEDS: KCL 20 MEQ PO (08:55)
[2023-11-02] MEDS: MIRALAX 17 GRAMS PO (08:55)
[2023-11-02] MEDS: TOPROL XL 25 MG PO (08:55)
[2023-11-02] MEDS: PLAVIX 75 MG PO (08:55)
[2023-11-02] MEDS: PROTONIX 40 MG PO (08:55)
[2023-11-02] MEDS: APRESOLINE 10 MG PO ×3 (08:55→21:29)
[2023-11-02] MEDS: PROSCAR 5 MG PO (08:55)
[2023-11-02] MEDS: DIAMOX 125 MG PO ×2 (08:55→21:29)
[2023-11-02 09:27] LABS: Blood Urea Nitrogen 42 mg/dl (9-20); Calcium 10.1 mg/dl (8.4-10.2); Carbon Dioxide 39 mmol/L (22-30); Chloride 99 mmol/L (98-107); Estimated Creatinine Clearance 29 ml/min; Glucose 94 mg/dl (70-99); Magnesium 2.2 mg/dl (1.6-2.3); Phosphorus 3.1 mg/dl (2.5-4.5); Potassium 4.1 mmol/L (3.5-5.1); Sodium 142 mmol/L (135-145)
--- NOTE | 2023-11-02 11:15 | W.PN.NEPH.PH ---
Today's Communication / Plan
-
increase torsemide
Assessment/Plan
-
Assessment:
hypernatremia
sepsis 2/2 to PNA
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
CKD (bl Cr 1.8-2.1)
Afib
CAD s/p recent stenting
Plan:
increase torsemide po 20mg BID
follow BMP
continue diamox
-
-
Date of Service: November 02, 2023
CC / HPI / ROS
-
Chief Complaint:
hypernatremia
ENRICO
History of Present Illness:
hypernatremia now normalized
ENRICO Cr stable at 2.0
Hemodynamically stable
on diamox for alkalosis 39 stable
Review of Systems:
UOP nonoliguric
Remains on oxygen
No chest pain
Labs
-
Labs:
WBC 9.1 10^3/uL (4.8-10.8) 11/02/23 07:38
RBC 2.95 10^6/uL (4.70-6.10) L 11/02/23 07:38
Hgb 8.8 g/dL (13.0-18.0) L 11/02/23 07:38
Hct 27.8 % (39.0-52.0) L 11/02/23 07:38
Plt Count 141 10^3/uL (130-400) D 11/02/23 07:38
Sodium 142 mmol/L (135-145) 11/02/23 09:02
Potassium 4.1 mmol/L (3.5-5.1) 11/02/23 09:02
Chloride 99 mmol/L (98-107) 11/02/23 09:02
Carbon Dioxide 39 mmol/L (22-30) H 11/02/23 09:02
BUN 42 mg/dl (9-20) H 11/02/23 09:02
Creatinine 2.0 mg/dL (0.7-1.3) H 11/02/23 09:02
eGFR 31.90 11/02/23 09:02
Glucose 94 mg/dl (70-99) 11/02/23 09:02
Calcium 10.1 mg/dl (8.4-10.2) 11/02/23 09:02
Phosphorus 3.1 mg/dl (2.5-4.5) 11/02/23 09:02
Vpf-O-Cvjewnwrdik Pept > 67316 pg/ml 10/16/23 10:08
Albumin 3.2 g/dl (3.5-5.0) L 10/31/23 07:31
Physical Exam
-
Vital Signs:
Vital Signs
Temp Pulse Resp BP Pulse Ox
98 F 73 19 134/57 95
11/02/23 07:45 11/02/23 07:45 11/02/23 07:45 11/02/23 07:45 11/02/23 09:00
Cardiovascular:: Regular rate and rhythm
Respiratory:: Bilateral: Coarse
Lung Excursion:: Normal
Abdomen:: Nontender and Soft
Bowel Sounds:: Normal
Extremity Edema:: +3: Bilateral:
[2023-11-02] MEDS: LIPITOR 80 MG PO (15:35)
[2023-11-03] VITALS (9 sets, daily range): BP systolic 96–116; BP diastolic 49–71; PULSE 2–76; BMI 30.5
[2023-11-03] MEDS: APRESOLINE 10 MG PO ×3 (07:11→22:35)
[2023-11-03] MEDS: FLOMAX 0.400000000000000022 MG PO (07:13)
[2023-11-03] MEDS: DIAMOX 125 MG PO ×2 (07:13→20:11)
[2023-11-03] MEDS: ELIQUIS 2.5 MG PO ×2 (07:14→20:11)
[2023-11-03] MEDS: PROSCAR 5 MG PO (07:14)
[2023-11-03] MEDS: PROTONIX 40 MG PO (07:14)
[2023-11-03] MEDS: TOPROL XL 25 MG PO (07:14)
[2023-11-03] MEDS: PLAVIX 75 MG PO (07:14)
[2023-11-03] MEDS: DEMADEX 20 MG PO ×2 (07:14→15:55)
[2023-11-03] MEDS: MIRALAX PO (07:15)
[2023-11-03] MEDS: KCL 20 MEQ PO (07:15)
--- NOTE | 2023-11-03 07:51 | W.PN.HOSP.TC ---
Today's Communication/Plan
-
see bold
Assessment / Plan
Assessment / Plan
# Acute hypercapnic respiratory failure
�Most likely exacerbated by acute on chronic HFrEF, as well as possible pneumonia with Fever impaired resp status
�Noncompliant to BiPAP at facility
�Continue BiPAP QHS and Naps/PRN
-Currently requiring 2-3 L of oxygen (down from as high as 6), wean as tolerated. Daughter states he does not wear oxygen normally
-From [facility]
#Acute on chronic HFrEF
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
- echo: EF is depressed (30-35%) with moderate AAS and RV hypokinesis.
� Cardiology consult appreciated, hydralazine added for afterload reduction 10/24, cards signed off
� Appreciate nephrology input, status post IV Lasix, nephrology transitioned to Diamox 10/29, nephrology added torsemide 10/31, increased to 20 mg bid 11/01
- Patient is 88 kg, down from 94 kg, continue trending weights, monitor creatinine
#Anemia of chronic kidney disease
Monitor hemoglobin
#New paroxysmal afib
Cardio eval appreciated
Continue metoprolol succinate for rate control, Eliquis for anticoagulation
#Esophageal dysmotility
-VSE repeat 10/24 noted improvement from prior VSE examination, no aspiration noted however esophageal retention noted concerning for back aspiration
-10/29 barium swallow negative for obstruction, shows tortuous esophagus with esophageal dysmotility
-Diet changed to soft/bite-size
-Continue Ensure twice daily, encourage oral intake
#CAD
� Status post stent August 2023 [place]
� on aspirin and Plavix, w/ start of anticoagulation for pAfib as above, ASA discontinued in favor of Plavix/Eliquis combination as per Cardio
-Cont BB
#Severe Sepsis
� Possible pneumonia including a large aspiration pneumonia
-COVID, Flu negative
-Urine cultures negative
- Speech eval - reg, thin liquids
� cultures NGTD
� Empiric antibiotics Zosyn completed 7 days however leukocytosis remains persistent though mild, afebrile, ID eval appreciated, initially abx continued with unasyn, total 8 days abx including zosyn, abx since discontinued monitoring off
�MRSA swab - negative
#Small moderate pleural effusion Right lung noted on chest US
IR eval thoracentesis appreciated only 150 cc drawn, pleural fluid studies not suggestive of infection
#Hypernatremia
-most likely 2/2 to overdiuresis, resolved
#Elevated troponin, suspect nonischemic myocardial injury
� Troponin trended to peak 0.901 since trended down
- Has intermittent chest pain, cardiology recommends medical management as above
#Acute metabolic encephalopathy
� Secondary to most likely hypercapnia as well as possible infection
- treat as above
-fluctuating mental status throughout stay.
#Urinary retention
� Lock catheter placed 10/27
-Continue Proscar, Flomax
-Removed Lock 10/31, patient has been voiding per RN
#Hypokalemia
-monitor and replete as necessary
-hypokalemia resolved, K supplement reduced to daily 10/26
#Hyperlipidemia
� cont statin
#Stage 2 pressure ulcer gluteal cleft, stage 1 pressure ulcer sacrum
cont local wound care
DVT prophylaxis�Eliquis
DNR
Updated daughter on phone 10/31
Total time spent to see the patient on the floor, examine the patient, review data and lab results, discuss treatment plan with patient, nursing staff around 35 minutes.
Physical Exam
General: Lethargic appearing, no acute distress
HEENT: Anicteric, Moist mucous membranes
Respiratory: Clear to auscultation b/l no wheezes crackles noted
Cardiac: S1/S2 and Regular Rhythm; No Murmur
GI: Soft and Non Tender
Musculoskeletal: No Clubbing, No Cyanosis, +2 pitting edema bilateral lower ext
Skin:
stage 2 pressure ulcer gluteal cleft, stage 1 pressure ulcer sacrum
Anticipated Discharge: 24 - 48 hours
Subjective/Interval History
-
Date of Service: November 03, 2023
Patient complains of back pain. His breathing continues to be intermittently labored. No fever, no vomiting.
Objective Data
-
Labs:
Laboratory Results
11/03/23
06:00
WBC Pending
Hgb Pending
Hct Pending
Plt Count Pending
Sodium Pending
Potassium Pending
Chloride Pending
Carbon Dioxide Pending
BUN Pending
Creatinine Pending
Glucose Pending
Calcium Pending
Vital Signs:
Vital Signs
Temp Pulse Resp BP Pulse Ox
97.8 F 86 20 116/54 98
11/03/23 03:29 11/03/23 03:29 11/03/23 03:29 11/03/23 03:29 11/03/23 03:29
I&O
11/02/23 11/03/23 11/04/23
06:59 06:59 06:59
Intake Total 60 / 300 720 / 720
Output Total 600 / 600
Balance 60 / -300 120 / 120
[2023-11-03 08:10] LABS: Hematocrit 29.7 % (39.0-52.0); Hemoglobin 9.3 g/dL (13.0-18.0); Mean Corp Hgb Conc. 31.3 g/dL (33.0-37.0); Mean Corpuscular Hgb 30.4 pg (27.0-31.0); Mean Corpuscular Volume 97.1 fL (80.0-94.0); Mean Platelet Volume 10.8 fL (7.4-10.4); Platelet Count 251 10^3/uL (130-400); Red Blood Cell Count 3.06 10^6/uL (4.70-6.10); White Blood Cell Count 11.4 10^3/uL (4.8-10.8)
[2023-11-03 08:48] LABS: Blood Urea Nitrogen 41 mg/dl (9-20); Calcium 10.2 mg/dl (8.4-10.2); Carbon Dioxide 35 mmol/L (22-30); Chloride 99 mmol/L (98-107); Estimated Creatinine Clearance 27 ml/min; Glucose 107 mg/dl (70-99); Magnesium 2.2 mg/dl (1.6-2.3); Phosphorus 3.4 mg/dl (2.5-4.5); Sodium 143 mmol/L (135-145); eGFR 30.09
[2023-11-03] MEDS: TYLENOL 1000 MG PO ×3 (12:35→22:35)
--- NOTE | 2023-11-03 12:43 | W.PN.NEPH.PH ---
Today's Communication / Plan
-
continue torsemide
Assessment/Plan
-
Assessment:
hypernatremia
sepsis 2/2 to PNA
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
CKD (bl Cr 1.8-2.1)
Afib
CAD s/p recent stenting
Plan:
continue torsemide po 20mg BID
follow BMP
continue diamox
follow weights
d/w family at bedside
-
-
Date of Service: November 03, 2023
CC / HPI / ROS
-
Chief Complaint:
hypernatremia
ENRICO
History of Present Illness:
hypernatremia now normalized
ENRICO Cr stable at 2.1
Hemodynamically stable
on diamox for alkalosis 35
Review of Systems:
UOP nonoliguric
Remains on oxygen
No chest pain
Labs
-
Labs:
WBC 11.4 10^3/uL (4.8-10.8) H 11/03/23 07:54
RBC 3.06 10^6/uL (4.70-6.10) L 11/03/23 07:54
Hgb 9.3 g/dL (13.0-18.0) L 11/03/23 07:54
Hct 29.7 % (39.0-52.0) L 11/03/23 07:54
Plt Count 251 10^3/uL (130-400) D 11/03/23 07:54
Sodium 143 mmol/L (135-145) 11/03/23 07:54
Potassium 4.0 mmol/L (3.5-5.1) 11/03/23 07:54
Chloride 99 mmol/L (98-107) 11/03/23 07:54
Carbon Dioxide 35 mmol/L (22-30) H 11/03/23 07:54
BUN 41 mg/dl (9-20) H 11/03/23 07:54
Creatinine 2.1 mg/dL (0.7-1.3) H 11/03/23 07:54
eGFR 30.09 11/03/23 07:54
Glucose 107 mg/dl (70-99) H 11/03/23 07:54
Calcium 10.2 mg/dl (8.4-10.2) 11/03/23 07:54
Phosphorus 3.4 mg/dl (2.5-4.5) 11/03/23 07:54
Mbt-B-Fyavgocujcu Pept > 79621 pg/ml 10/16/23 10:08
Albumin 3.2 g/dl (3.5-5.0) L 10/31/23 07:31
Physical Exam
-
Vital Signs:
Vital Signs
Temp Pulse Resp BP Pulse Ox
98.0 F 73 24 96/56 98
11/03/23 11:43 11/03/23 11:43 11/03/23 11:43 11/03/23 11:43 11/03/23 11:43
Cardiovascular:: Regular rate and rhythm
Respiratory:: Bilateral: Coarse
Lung Excursion:: Normal
Abdomen:: Nontender and Soft
Bowel Sounds:: Normal
Extremity Edema:: +3: Bilateral:
[2023-11-03] MEDS: LIPITOR 80 MG PO (15:54)
[2023-11-04] VITALS (9 sets, daily range): BP systolic 100–123; BP diastolic 43–61; PULSE 2; BMI 31.0
--- NOTE | 2023-11-04 06:08 | W.PN.HOSP.TC ---
Today's Communication/Plan
-
cont diuresis diamox as per nephro
monitor renal function
wean O2 supplementation as tolerated
PT/OT
Assessment / Plan
Assessment / Plan
88M Obesity HFrEF CKDIII AOCD pAfib CAD s/p stents here for hypercapneic respiratory failure acute on CKDIII
# Acute hypercapnic respiratory failure
�Most likely exacerbated by acute on chronic HFrEF, as well as possible pneumonia with Fever impaired resp status
�Noncompliant to BiPAP at facility
�Continue BiPAP QHS and Naps/PRN
-Currently requiring 2-3 L of oxygen (down from as high as 6), wean as tolerated. Daughter states he does not wear oxygen normally
-From [facility]
#Acute on chronic HFrEF
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
- echo: EF is depressed (30-35%) with moderate AAS and RV hypokinesis.
� Cardiology consult appreciated, hydralazine added for afterload reduction 10/24, cards signed off
� Appreciate nephrology input, status post IV Lasix, nephrology transitioned to Diamox 10/29, nephrology added torsemide 10/31, increased to 20 mg bid 11/01
-daily weights I/O
#Anemia of chronic kidney disease
Monitor hemoglobin
#New paroxysmal afib
Cardio eval appreciated
Continue metoprolol succinate for rate control, Eliquis for anticoagulation
#Esophageal dysmotility
-VSE repeat 10/24 noted improvement from prior VSE examination, no aspiration noted however esophageal retention noted concerning for back aspiration
-10/29 barium swallow negative for obstruction, shows tortuous esophagus with esophageal dysmotility
-Diet changed to soft/bite-size
-Continue Ensure twice daily, encourage oral intake
#CAD
� Status post stent August 2023 [place]
� on aspirin and Plavix, w/ start of anticoagulation for pAfib as above, ASA discontinued in favor of Plavix/Eliquis combination as per Cardio
-Cont BB
#Severe Sepsis
� Possible pneumonia including a large aspiration pneumonia
-COVID, Flu negative
-Urine cultures negative
- Speech eval - reg, thin liquids
� cultures NGTD
� Empiric antibiotics Zosyn completed 7 days however leukocytosis remains persistent though mild, afebrile, ID eval appreciated, initially abx continued with unasyn, total 8 days abx including zosyn, abx since discontinued monitoring off
�MRSA swab - negative
#Small moderate pleural effusion Right lung noted on chest US
IR eval thoracentesis appreciated only 150 cc drawn, pleural fluid studies not suggestive of infection
#Hypernatremia
-most likely 2/2 to overdiuresis, resolved
#Elevated troponin, suspect nonischemic myocardial injury
� Troponin trended to peak 0.901 since trended down
- Has intermittent chest pain, cardiology recommends medical management as above
#Acute metabolic encephalopathy
� Secondary to most likely hypercapnia as well as possible infection
- treat as above
-fluctuating mental status throughout stay.
#Urinary retention
� Lock catheter placed 10/27
-Continue Proscar, Flomax
-Removed Lock 10/31, patient has been voiding per RN
#Hypokalemia
-monitor and replete as necessary
-hypokalemia resolved, K supplement reduced to daily 10/26
#Hyperlipidemia
� cont statin
#Stage 2 pressure ulcer gluteal cleft, stage 1 pressure ulcer sacrum
cont local wound care
DVT prophylaxis�Eliquis
DNR
Updated daughter on phone 11/03
Total time spent to see the patient on the floor, examine the patient, review data and lab results, discuss treatment plan with patient, nursing staff around 50 minutes.
Physical Exam
General: Lethargic appearing, no acute distress
HEENT: Anicteric, Moist mucous membranes
Respiratory: Clear to auscultation b/l no wheezes crackles noted
Cardiac: S1/S2 and Regular Rhythm; No Murmur
GI: Soft and Non Tender
Musculoskeletal: No Clubbing, No Cyanosis, +1 pitting edema bilateral lower ext
Skin:
stage 2 pressure ulcer gluteal cleft, stage 1 pressure ulcer sacrum
Neuro: lethargic but arousable, conversant
Anticipated Discharge: 24 - 48 hours
Subjective/Interval History
-
Date of Service: November 04, 2023
No acute distress appears comfortable at this time. Low dose oxygen supplementation. Sleeping but arousable, conversant
Objective Data
-
Labs:
Laboratory Results
11/04/23
06:00
WBC Pending
Hgb Pending
Hct Pending
Plt Count Pending
Sodium Pending
Potassium Pending
Chloride Pending
Carbon Dioxide Pending
BUN Pending
Creatinine Pending
Glucose Pending
Calcium Pending
Total Bilirubin Pending
AST Pending
ALT Pending
Alkaline Phosphatase Pending
Vital Signs:
Vital Signs
Temp Pulse Resp BP Pulse Ox
98.2 F 65 20 103/43 96
11/04/23 03:00 11/04/23 03:00 11/04/23 03:00 11/04/23 03:00 11/04/23 03:00
I&O
11/02/23 11/03/23 11/04/23
06:59 06:59 06:59
Intake Total 60 / 300 720 / 720 960 / 960
Output Total 600 / 600
Balance 60 / -300 120 / 120 960 / 960
[2023-11-04 08:15] LABS: Hematocrit 27.4 % (39.0-52.0); Hemoglobin 8.2 g/dL (13.0-18.0); Mean Corp Hgb Conc. 29.9 g/dL (33.0-37.0); Mean Corpuscular Hgb 30.3 pg (27.0-31.0); Mean Corpuscular Volume 101.1 fL (80.0-94.0); Mean Platelet Volume 11.5 fL (7.4-10.4); Platelet Count 193 10^3/uL (130-400); Red Blood Cell Count 2.71 10^6/uL (4.70-6.10); Red Cell Dist. Width 14.1 % (11.5-14.5); White Blood Cell Count 7.7 10^3/uL (4.8-10.8)
[2023-11-04 08:42] LABS: ALT (SGPT) 11 U/L (0-50); AST (SGOT) 18 U/L (17-59); Albumin 2.7 g/dl (3.5-5.0); Alkaline Phosphatase 64 U/L (38-126); Blood Urea Nitrogen 43 mg/dl (9-20); Calcium 9.6 mg/dl (8.4-10.2); Carbon Dioxide 38 mmol/L (22-30); Chloride 98 mmol/L (98-107); Direct Bilirubin 0.3 mg/dl (0.0-0.4); Estimated Creatinine Clearance 25 ml/min; Glucose 96 mg/dl (70-99); Magnesium 2.1 mg/dl (1.6-2.3); Phosphorus 3.9 mg/dl (2.5-4.5); Potassium 4.4 mmol/L (3.5-5.1); Sodium 140 mmol/L (135-145); Total Bilirubin 0.3 mg/dl (0.2-1.3); Total Protein 5.1 g/dl (6.3-8.2); eGFR 26.98
[2023-11-04] MEDS: ELIQUIS 2.5 MG PO ×2 (10:22→19:59)
[2023-11-04] MEDS: KCL 20 MEQ PO (10:22)
[2023-11-04] MEDS: APRESOLINE 10 MG PO ×3 (10:22→21:10)
[2023-11-04] MEDS: DIAMOX 125 MG PO ×2 (10:23→20:00)
[2023-11-04] MEDS: PROTONIX 40 MG PO (10:23)
[2023-11-04] MEDS: PLAVIX 75 MG PO (10:23)
[2023-11-04] MEDS: TYLENOL 1000 MG PO ×3 (10:23→21:10)
[2023-11-04] MEDS: FLOMAX 0.400000000000000022 MG PO (10:23)
[2023-11-04] MEDS: DEMADEX 20 MG PO ×2 (10:24→15:50)
[2023-11-04] MEDS: TOPROL XL 25 MG PO (10:24)
[2023-11-04] MEDS: PROSCAR 5 MG PO (10:24)
[2023-11-04] MEDS: MIRALAX PO (10:25)
--- NOTE | 2023-11-04 11:57 | W.PN.NEPH.PH ---
Today's Communication / Plan
-
follow BMP
Assessment/Plan
-
Assessment:
hypernatremia
sepsis 2/2 to PNA
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
CKD (bl Cr 1.8-2.1)
Afib
CAD s/p recent stenting
Plan:
continue torsemide po 20mg BID
follow BMP
continue diamox for now
follow weights
PT/OT
d/w family at bedside
-
-
Date of Service: November 04, 2023
CC / HPI / ROS
-
Chief Complaint:
hypernatremia
ENRICO
History of Present Illness:
hypernatremia now normalized
ENR[place] Cr stable at 2.3
Hemodynamically stable
on diamox for alkalosis 38
weights stable
Review of Systems:
UOP nonoliguric
Remains on oxygen
No chest pain
back pain
Labs
-
Labs:
WBC 7.7 10^3/uL (4.8-10.8) 11/04/23 07:46
RBC 2.71 10^6/uL (4.70-6.10) L 11/04/23 07:46
Hgb 8.2 g/dL (13.0-18.0) L 11/04/23 07:46
Hct 27.4 % (39.0-52.0) L 11/04/23 07:46
Plt Count 193 10^3/uL (130-400) D 11/04/23 07:46
Sodium 140 mmol/L (135-145) 11/04/23 07:46
Potassium 4.4 mmol/L (3.5-5.1) 11/04/23 07:46
Chloride 98 mmol/L (98-107) 11/04/23 07:46
Carbon Dioxide 38 mmol/L (22-30) H 11/04/23 07:46
BUN 43 mg/dl (9-20) H 11/04/23 07:46
Creatinine 2.3 mg/dL (0.7-1.3) H 11/04/23 07:46
eGFR 26.98 11/04/23 07:46
Glucose 96 mg/dl (70-99) 11/04/23 07:46
Calcium 9.6 mg/dl (8.4-10.2) 11/04/23 07:46
Phosphorus 3.9 mg/dl (2.5-4.5) 11/04/23 07:46
Xsu-U-Znflybwmsxi Pept > 30805 pg/ml 10/16/23 10:08
Albumin 2.7 g/dl (3.5-5.0) L 11/04/23 07:46
Physical Exam
-
Vital Signs:
Vital Signs
Temp Pulse Resp BP Pulse Ox
98.1 F 82 14 123/61 98
11/04/23 10:57 11/04/23 10:57 11/04/23 10:57 11/04/23 10:57 11/04/23 10:57
Cardiovascular:: Regular rate and rhythm
Respiratory:: Bilateral: Coarse
Lung Excursion:: Normal
Abdomen:: Nontender and Soft
Bowel Sounds:: Normal
Extremity Edema:: +3: Bilateral:
[2023-11-04] MEDS: LIPITOR 80 MG PO (17:34)
--- NOTE | 2023-11-04 21:00 | PTCARENOTE ---
RN took care of patient from 7p-9p. Assessment did not change from previous shift. Patient resting in bed with call lyon in hand. Report handed off to next nurse.
[2023-11-05] VITALS (11 sets, daily range): BP systolic 104–119; BP diastolic 46–70; PULSE 2–76; O2SAT 95; BMI 31.3
--- NOTE | 2023-11-05 07:16 | W.PN.HOSP.TC ---
Today's Communication/Plan
-
cont diuresis diamox as per nephro
monitor renal function
wean O2 supplementation as tolerated
PT/OT
Assessment / Plan
Assessment / Plan
88M Obesity HFrEF CKDIII AOCD pAfib CAD s/p stents here for hypercapneic respiratory failure acute on CKDIII
# Acute hypercapnic respiratory failure
�Most likely exacerbated by acute on chronic HFrEF, as well as possible pneumonia with Fever impaired resp status
�Noncompliant to BiPAP at facility
�Continue BiPAP QHS and Naps/PRN
-Currently requiring 2-3 L of oxygen (down from as high as 6), wean as tolerated. Daughter states he does not wear oxygen normally
-From [facility]
#Acute on chronic HFrEF
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
- echo: EF is depressed (30-35%) with moderate AAS and RV hypokinesis.
� Cardiology consult appreciated, hydralazine added for afterload reduction 10/24, cards signed off
� Appreciate nephrology input, status post IV Lasix, nephrology transitioned to Diamox 10/29, nephrology added torsemide 10/31, increased to 20 mg bid 11/01
-daily weights I/O
#Anemia of chronic kidney disease
H&H stable
#New paroxysmal afib
Cardio eval appreciated
Continue metoprolol succinate for rate control, Eliquis for anticoagulation
#Esophageal dysmotility
-VSE repeat 10/24 noted improvement from prior VSE examination, no aspiration noted however esophageal retention noted concerning for back aspiration
-10/29 barium swallow negative for obstruction, shows tortuous esophagus with esophageal dysmotility
-Diet changed to soft/bite-size
-Continue Ensure twice daily, encourage oral intake
#CAD
� Status post stent August 2023 [facility]
� on aspirin and Plavix, w/ start of anticoagulation for pAfib as above, ASA discontinued in favor of Plavix/Eliquis combination as per Cardio
-Cont BB
#Severe Sepsis
� Possible pneumonia including a large aspiration pneumonia
-COVID, Flu negative
-Urine cultures negative
- Speech eval - reg, thin liquids
� cultures NGTD
� Empiric antibiotics Zosyn completed 7 days however leukocytosis remains persistent though mild, afebrile, ID eval appreciated, initially abx continued with unasyn, total 8 days abx including zosyn, abx since discontinued monitoring off
�MRSA swab - negative
#Small moderate pleural effusion Right lung noted on chest US
IR eval thoracentesis appreciated only 150 cc drawn, pleural fluid studies not suggestive of infection
#Hypernatremia
-most likely 2/2 to overdiuresis, resolved
#Elevated troponin, suspect nonischemic myocardial injury
� Troponin trended to peak 0.901 since trended down
- Has intermittent chest pain, cardiology recommends medical management as above
#Acute metabolic encephalopathy
� Secondary to most likely hypercapnia as well as possible infection
- treat as above
-fluctuating mental status throughout stay.
#Urinary retention
� Lock catheter placed 10/27
-Continue Proscar, Flomax
-Removed Lock 10/31, patient has been voiding per RN
#Hypokalemia
-monitor and replete as necessary
-hypokalemia resolved, K supplement reduced to daily 10/26
#Hyperlipidemia
� cont statin
#Stage 2 pressure ulcer gluteal cleft, stage 1 pressure ulcer sacrum
cont local wound care
PT/OT appreciated SNF rehab
DVT prophylaxis�Eliquis
DNR
discussed with patient's son Robbie at bedside 11/04
Total time spent to see the patient on the floor, examine the patient, review data and lab results, discuss treatment plan with patient, nursing staff around 50 minutes.
Physical Exam
General: Lethargic appearing, no acute distress, chronically ill
HEENT: Anicteric, Moist mucous membranes
Respiratory: Clear to auscultation b/l no wheezes crackles noted
Cardiac: S1/S2 and Regular Rhythm; No Murmur
GI: Soft and Non Tender
Musculoskeletal: No Clubbing, No Cyanosis, +1 pitting edema bilateral lower ext
Skin:
stage 2 pressure ulcer gluteal cleft, stage 1 pressure ulcer sacrum
Neuro: lethargic but arousable, conversant, disoriented to time
Anticipated Discharge: > 48 hours
Subjective/Interval History
-
Date of Service: November 05, 2023
no acute distress. lethargic but arousable disoriented to time. Son Robbie present during evaluation.
Objective Data
-
Labs:
Laboratory Results
11/05/23
06:00
WBC Pending
Hgb Pending
Hct Pending
Plt Count Pending
Sodium Pending
Potassium Pending
Chloride Pending
Carbon Dioxide Pending
BUN Pending
Creatinine Pending
Glucose Pending
Calcium Pending
Vital Signs:
Vital Signs
Temp Pulse Resp BP Pulse Ox
97.2 F 66 20 104/46 97
11/05/23 03:00 11/05/23 03:00 11/05/23 03:00 11/05/23 03:00 11/05/23 03:00
I&O
11/04/23 11/05/23 11/06/23
06:59 06:59 06:59
Intake Total 960 / 960 960 / 960
Balance 960 / 960 960 / 960
[2023-11-05] MEDS: DEMADEX 20 MG PO ×2 (08:02→17:54)
[2023-11-05] MEDS: MIRALAX 17 GRAMS PO (08:02)
[2023-11-05] MEDS: KCL 20 MEQ PO (08:03)
[2023-11-05] MEDS: TOPROL XL 25 MG PO (08:03)
[2023-11-05] MEDS: PROTONIX 40 MG PO (08:04)
[2023-11-05] MEDS: TYLENOL 1000 MG PO ×3 (08:04→22:36)
[2023-11-05] MEDS: FLOMAX 0.400000000000000022 MG PO (08:04)
[2023-11-05] MEDS: ELIQUIS 2.5 MG PO ×2 (08:04→19:31)
[2023-11-05] MEDS: PLAVIX 75 MG PO (08:04)
[2023-11-05] MEDS: DIAMOX 125 MG PO ×2 (08:04→19:32)
[2023-11-05 08:13] LABS: Hematocrit 28.7 % (39.0-52.0); Hemoglobin 8.7 g/dL (13.0-18.0); Mean Corp Hgb Conc. 30.3 g/dL (33.0-37.0); Mean Corpuscular Hgb 29.9 pg (27.0-31.0); Mean Corpuscular Volume 98.6 fL (80.0-94.0); Mean Platelet Volume 11.7 fL (7.4-10.4); Platelet Count 176 10^3/uL (130-400); Red Blood Cell Count 2.91 10^6/uL (4.70-6.10); Red Cell Dist. Width 14.1 % (11.5-14.5); White Blood Cell Count 7.9 10^3/uL (4.8-10.8)
[2023-11-05] MEDS: APRESOLINE 10 MG PO ×3 (08:14→22:36)
[2023-11-05] MEDS: PROSCAR 5 MG PO (08:15)
[2023-11-05 08:46] LABS: Blood Urea Nitrogen 44 mg/dl (9-20); Calcium 9.7 mg/dl (8.4-10.2); Carbon Dioxide 36 mmol/L (22-30); Chloride 96 mmol/L (98-107); Estimated Creatinine Clearance 26 ml/min; Glucose 87 mg/dl (70-99); Magnesium 2.1 mg/dl (1.6-2.3); Phosphorus 3.8 mg/dl (2.5-4.5); Potassium 4.3 mmol/L (3.5-5.1); Sodium 139 mmol/L (135-145); eGFR 28.46
--- NOTE | 2023-11-05 14:55 | W.PN.NEPH.PH ---
Today's Communication / Plan
-
- continue diuretics
Assessment/Plan
-
Assessment:
hypernatremia
sepsis 2/2 to PNA
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
CKD (bl Cr 1.8-2.1)
Afib
CAD s/p recent stenting
Plan:
continue torsemide po 20mg BID
follow BMP
continue diamox for now
follow weights
PT/OT
d/w patient
-
-
Date of Service: November 05, 2023
CC / HPI / ROS
-
Chief Complaint:
hypernatremia
ENRICO
History of Present Illness:
hypernatremia now normalized
ENRICO Cr stable at 2.2
Hemodynamically stable
on diamox for alkalosis 36
weights stable
Review of Systems:
UOP nonoliguric
Remains on oxygen
No chest pain
back pain
Labs
-
Labs:
WBC 7.9 10^3/uL (4.8-10.8) 11/05/23 07:25
RBC 2.91 10^6/uL (4.70-6.10) L 11/05/23 07:25
Hgb 8.7 g/dL (13.0-18.0) L 11/05/23 07:25
Hct 28.7 % (39.0-52.0) L 11/05/23 07:25
Plt Count 176 10^3/uL (130-400) 11/05/23 07:25
Sodium 139 mmol/L (135-145) 11/05/23 07:25
Potassium 4.3 mmol/L (3.5-5.1) 11/05/23 07:25
Chloride 96 mmol/L (98-107) L 11/05/23 07:25
Carbon Dioxide 36 mmol/L (22-30) H 11/05/23 07:25
BUN 44 mg/dl (9-20) H 11/05/23 07:25
Creatinine 2.2 mg/dL (0.7-1.3) H 11/05/23 07:25
eGFR 28.46 11/05/23 07:25
Glucose 87 mg/dl (70-99) 11/05/23 07:25
Calcium 9.7 mg/dl (8.4-10.2) 11/05/23 07:25
Phosphorus 3.8 mg/dl (2.5-4.5) 11/05/23 07:25
Qwm-E-Arblhfioeoo Pept > 81925 pg/ml 10/16/23 10:08
Albumin 2.7 g/dl (3.5-5.0) L 11/04/23 07:46
Physical Exam
-
Vital Signs:
Vital Signs
Temp Pulse Resp BP Pulse Ox
97.6 F 74 16 108/46 97
11/05/23 11:19 11/05/23 11:19 11/05/23 11:19 11/05/23 11:19 11/05/23 11:19
Cardiovascular:: Regular rate and rhythm
Respiratory:: Bilateral: Coarse
Lung Excursion:: Normal
Abdomen:: Nontender and Soft
Bowel Sounds:: Normal
Extremity Edema:: +3: Bilateral:
Lock Catheter: No
[2023-11-05] MEDS: LIPITOR 80 MG PO (17:54)
[2023-11-06] VITALS (8 sets, daily range): BP systolic 99–138; BP diastolic 55–73; PULSE 2; BMI 31.6
--- NOTE | 2023-11-06 07:53 | W.PN.HOSP.TC ---
Today's Communication/Plan
-
cont Diuresis Diamox as per Nephro
wean O2 supplementation as tolerated
pain control
discharge planning SNF rehab Palliative Care follow up
Assessment / Plan
Assessment / Plan
88M Obesity HFrEF CKDIII AOCD pAfib CAD s/p stents here for hypercapneic respiratory failure acute on CKDIII
# Acute hypercapnic respiratory failure
�Most likely exacerbated by acute on chronic HFrEF, as well as possible pneumonia with Fever impaired resp status
�Noncompliant to BiPAP at facility
�Continue BiPAP QHS and Naps/PRN
-Currently requiring 2-3 L of oxygen (down from as high as 6), wean as tolerated. Daughter states he does not wear oxygen normally
-From [facility]
#Acute on chronic HFrEF
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
- echo: EF is depressed (30-35%) with moderate AAS and RV hypokinesis.
� Cardiology consult appreciated, hydralazine added for afterload reduction 10/24, cards signed off
� Appreciate nephrology input, status post IV Lasix, nephrology transitioned to Diamox 10/29, nephrology added torsemide 10/31, increased to 20 mg bid 11/01, 11/05 Torsemide increased to 20 mg AM and 40 mg QPM
-daily weights I/O
#Anemia of chronic kidney disease
H&H stable
#New paroxysmal afib
Cardio eval appreciated
Continue metoprolol succinate for rate control, Eliquis for anticoagulation
#Esophageal dysmotility
-VSE repeat 10/24 noted improvement from prior VSE examination, no aspiration noted however esophageal retention noted concerning for back aspiration
-10/29 barium swallow negative for obstruction, shows tortuous esophagus with esophageal dysmotility
-Diet changed to soft/bite-size
-Continue Ensure twice daily, encourage oral intake
#CAD
� Status post stent August 2023 [facility]
� on aspirin and Plavix, w/ start of anticoagulation for pAfib as above, ASA discontinued in favor of Plavix/Eliquis combination as per Cardio
-Cont BB
#Severe Sepsis
� Possible pneumonia including a large aspiration pneumonia
-COVID, Flu negative
-Urine cultures negative
- Speech eval - reg, thin liquids
� cultures NGTD
� Empiric antibiotics Zosyn completed 7 days however leukocytosis remains persistent though mild, afebrile, ID eval appreciated, initially abx continued with unasyn, total 8 days abx including zosyn, abx since discontinued monitoring off
�MRSA swab - negative
#Small moderate pleural effusion Right lung noted on chest US
IR eval thoracentesis appreciated only 150 cc drawn, pleural fluid studies not suggestive of infection
#Hypernatremia
-most likely 2/2 to overdiuresis, resolved
#Elevated troponin, suspect nonischemic myocardial injury
� Troponin trended to peak 0.901 since trended down
- Has intermittent chest pain, cardiology recommends medical management as above
#Acute metabolic encephalopathy
� Secondary to most likely hypercapnia as well as possible infection
- treat as above
-fluctuating mental status throughout stay.
#Urinary retention
� Lock catheter placed 10/27
-Continue Proscar, Flomax
-Removed Lock 10/31, patient has been voiding per RN
#Lower back pain
prn tramadol 25 m bid, dilaudid 0.25 mg IV Q4Hprn for severe breakthrough pain (has not required)
#Hypokalemia
-monitor and replete as necessary
-hypokalemia resolved, K supplement reduced to daily 10/26
#Hyperlipidemia
� cont statin
#Stage 2 pressure ulcer gluteal cleft, stage 1 pressure ulcer sacrum
cont local wound care
PT/OT appreciated SNF rehab
DVT prophylaxis�Eliquis
DNR
discussed with patient's daughter Andra 11/05
Goals of care discussion 11/05 patient's family (daughter Andra and son Robbie) raised concerns regarding patient's prognosis/quality of life persistent hospitalization physical debilitation. Discussed with patient's daughter Andra, patient a
candidate for Palliative care. Also discussed patient potentially a candidate for hospice but given patient's current improvement, though slow, recommended to pursue palliative care at this time to follow up with patient at SNF rehab when ready for
discharge. Discussed palliative care philosophy, goal to maximize quality of life, and potential to assist with transition to hospice care should patient further deteriorate. All questions answered, patient's daughter in agreement with plan. Case
management consult requested for outpatient Palliative eval.
Total time spent to see the patient on the floor, examine the patient, review data and lab results, discuss treatment plan with patient, nursing staff around 58 minutes.
Physical Exam
General: Lethargic appearing, no acute distress, chronically ill
HEENT: Anicteric, Moist mucous membranes
Respiratory: Clear to auscultation b/l no wheezes crackles noted
Cardiac: S1/S2 and Regular Rhythm; No Murmur
GI: Soft and Non Tender
Musculoskeletal: No Clubbing, No Cyanosis, +1 pitting edema bilateral lower ext
Skin:
stage 2 pressure ulcer gluteal cleft, stage 1 pressure ulcer sacrum
Neuro: Awake alert conversant
Anticipated Discharge: 24 - 48 hours
Subjective/Interval History
-
Date of Service: November 06, 2023
Seen and examined at bedside in no acute distress sitting up comfortably in bed. Reports lower back pain, relieved with prn Tramadol. Respiratory status appears improved oxygen requirement down to 1.5L.
Objective Data
-
Labs:
Laboratory Results
11/06/23
07:34
WBC Pending
Hgb Pending
Hct Pending
Plt Count Pending
Sodium Pending
Potassium Pending
Chloride Pending
Carbon Dioxide Pending
BUN Pending
Creatinine Pending
Glucose Pending
Calcium Pending
Vital Signs:
Vital Signs
Temp Pulse Resp BP Pulse Ox
98.3 F 68 17 132/65 100
11/06/23 07:38 11/06/23 07:38 11/06/23 07:38 11/06/23 07:38 11/06/23 07:38
I&O
11/05/23 11/06/23 11/07/23
06:59 06:59 06:59
Intake Total 960 / 960 640 / 640
Balance 960 / 960 640 / 640
[2023-11-06 07:59] LABS: Hematocrit 27.5 % (39.0-52.0); Hemoglobin 8.6 g/dL (13.0-18.0); Mean Corp Hgb Conc. 31.3 g/dL (33.0-37.0); Mean Corpuscular Hgb 29.9 pg (27.0-31.0); Mean Corpuscular Volume 95.5 fL (80.0-94.0); Mean Platelet Volume 11.5 fL (7.4-10.4); Platelet Count 167 10^3/uL (130-400); Red Blood Cell Count 2.88 10^6/uL (4.70-6.10); Red Cell Dist. Width 14.1 % (11.5-14.5); White Blood Cell Count 7.5 10^3/uL (4.8-10.8)
[2023-11-06 08:09] LABS: Blood Urea Nitrogen 46 mg/dl (9-20); Calcium 9.9 mg/dl (8.4-10.2); Carbon Dioxide 32 mmol/L (22-30); Chloride 97 mmol/L (98-107); Estimated Creatinine Clearance 26 ml/min; Glucose 90 mg/dl (70-99); Magnesium 2.3 mg/dl (1.6-2.3); Phosphorus 3.9 mg/dl (2.5-4.5); Potassium 4.6 mmol/L (3.5-5.1); Sodium 137 mmol/L (135-145); eGFR 28.46
[2023-11-06] MEDS: DIAMOX 125 MG PO ×2 (08:43→20:26)
[2023-11-06] MEDS: FLOMAX 0.400000000000000022 MG PO (08:54)
[2023-11-06] MEDS: MIRALAX 17 GRAMS PO (08:54)
[2023-11-06] MEDS: KCL 20 MEQ PO (08:54)
[2023-11-06] MEDS: TOPROL XL 25 MG PO (08:54)
[2023-11-06] MEDS: PROTONIX 40 MG PO (08:54)
[2023-11-06] MEDS: PLAVIX 75 MG PO (08:55)
[2023-11-06] MEDS: TYLENOL 1000 MG PO ×3 (08:55→22:14)
[2023-11-06] MEDS: PROSCAR 5 MG PO (08:55)
[2023-11-06] MEDS: DEMADEX 20 MG PO (08:55)
[2023-11-06] MEDS: ELIQUIS 2.5 MG PO ×2 (08:58→20:36)
[2023-11-06] MEDS: APRESOLINE 10 MG PO ×3 (09:02→22:14)
--- NOTE | 2023-11-06 11:31 | W.PN.NEPH.PH ---
Today's Communication / Plan
-
diurese
Assessment/Plan
-
Assessment:
hypernatremia
sepsis 2/2 to PNA
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
CKD (bl Cr 1.8-2.1)
Afib
CAD s/p recent stenting
Plan:
increase torsemide po
follow BMP
continue diamox for now
follow weights
PT/OT
family is considering palliative care
-
-
Date of Service: November 06, 2023
CC / HPI / ROS
-
Chief Complaint:
hypernatremia
ENRICO
History of Present Illness:
hypernatremia now normalized
ENRICO Cr stable at 2.2
Hemodynamically stable
on diamox for alkalosis 32
weights stable
Review of Systems:
UOP nonoliguric
Remains on oxygen
No chest pain
back pain still
generalized pain
Labs
-
Labs:
WBC 7.5 10^3/uL (4.8-10.8) 11/06/23 07:34
RBC 2.88 10^6/uL (4.70-6.10) L 11/06/23 07:34
Hgb 8.6 g/dL (13.0-18.0) L 11/06/23 07:34
Hct 27.5 % (39.0-52.0) L 11/06/23 07:34
Plt Count 167 10^3/uL (130-400) 11/06/23 07:34
Sodium 137 mmol/L (135-145) 11/06/23 07:34
Potassium 4.6 mmol/L (3.5-5.1) 11/06/23 07:34
Chloride 97 mmol/L (98-107) L 11/06/23 07:34
Carbon Dioxide 32 mmol/L (22-30) H 11/06/23 07:34
BUN 46 mg/dl (9-20) H 11/06/23 07:34
Creatinine 2.2 mg/dL (0.7-1.3) H 11/06/23 07:34
eGFR 28.46 11/06/23 07:34
Glucose 90 mg/dl (70-99) 11/06/23 07:34
Calcium 9.9 mg/dl (8.4-10.2) 11/06/23 07:34
Phosphorus 3.9 mg/dl (2.5-4.5) 11/06/23 07:34
Tdw-J-Wynsetztdop Pept > 38579 pg/ml 10/16/23 10:08
Albumin 2.7 g/dl (3.5-5.0) L 11/04/23 07:46
Physical Exam
-
Vital Signs:
Vital Signs
Temp Pulse Resp BP Pulse Ox
98.2 F 70 16 99/73 96
11/06/23 11:00 11/06/23 11:00 11/06/23 11:00 11/06/23 11:00 11/06/23 11:00
Cardiovascular:: Regular rate and rhythm
Respiratory:: Bilateral: Coarse
Lung Excursion:: Normal
Abdomen:: Nontender and Soft
Bowel Sounds:: Normal
Extremity Edema:: +3: Bilateral:
--- NOTE | 2023-11-06 11:40 | CM ---
Addendum entered by Cheyenne Ceron 11/06/23 16:06:
CM spoke with patients daughter, Andra, may be interested in Hospice, unsure at this time. Andra asking about facilities that may be able to offer a private bed to patient if the goal was to discharge to a facility with hospice. CM emailed list of
facilities who offer private beds to . Andra reports they are still paying for a bed hold for patient to return to [place].
Original Note:
CM reviewed chart, per Hospitalist, possible discharge Saturday. JULIANNE spoke with Janelle from [facility], patient on private pay bed hold for SNF. CM will continue to update [facility] on patient discharge status.
Plan; return to [facility] SNF when stable
[facility] nursing report: [phone]
Discharge instructions fax: fax [phone].
[2023-11-06] MEDS: ULTRAM 25 MG PO (11:53)
[2023-11-06] MEDS: LIPITOR 80 MG PO (16:27)
[2023-11-06] MEDS: DEMADEX 40 MG PO (16:27)
[2023-11-07] VITALS (8 sets, daily range): BP systolic 109–146; BP diastolic 45–77; PULSE 2–77; O2SAT 93; BMI 31.7
[2023-11-07] MEDS: ULTRAM 25 MG PO (06:18)
--- NOTE | 2023-11-07 06:56 | W.PN.HOSP.TC ---
Today's Communication/Plan
-
cont Diuresis Diamox as per Nephro
wean O2 supplementation as tolerated
pain control
discharge planning SNF rehab
Assessment / Plan
Assessment / Plan
88M Obesity HFrEF CKDIII AOCD pAfib CAD s/p stents here for hypercapneic respiratory failure acute on CKDIII
# Acute hypercapnic respiratory failure
�Most likely exacerbated by acute on chronic HFrEF, as well as possible pneumonia with Fever impaired resp status
�Noncompliant to BiPAP at facility
�Continue BiPAP QHS and Naps/PRN
-Currently requiring 2-3 L of oxygen (down from as high as 6), wean as tolerated. Daughter states he does not wear oxygen normally
-From [facility]
#Acute on chronic HFrEF
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
- echo: EF is depressed (30-35%) with moderate AAS and RV hypokinesis.
� Cardiology consult appreciated, hydralazine added for afterload reduction 10/24, cards signed off
� Appreciate nephrology input, status post IV Lasix, nephrology transitioned to Diamox 10/29, nephrology added torsemide 10/31, increased to 20 mg bid 11/01, 11/05 Torsemide increased to 20 mg AM and 40 mg QPM
-daily weights I/O
#Anemia of chronic kidney disease
H&H stable
#New paroxysmal afib
Cardio eval appreciated
Continue metoprolol succinate for rate control, Eliquis for anticoagulation
#Esophageal dysmotility
-VSE repeat 10/24 noted improvement from prior VSE examination, no aspiration noted however esophageal retention noted concerning for back aspiration
-10/29 barium swallow negative for obstruction, shows tortuous esophagus with esophageal dysmotility
-Diet changed to soft/bite-size
-Continue Ensure twice daily, encourage oral intake
#CAD
� Status post stent August 2023 [place]
� on aspirin and Plavix, w/ start of anticoagulation for pAfib as above, ASA discontinued in favor of Plavix/Eliquis combination as per Cardio
-Cont BB
#Severe Sepsis
� Possible pneumonia including a large aspiration pneumonia
-COVID, Flu negative
-Urine cultures negative
- Speech eval - reg, thin liquids
� cultures NGTD
� Empiric antibiotics Zosyn completed 7 days however leukocytosis remains persistent though mild, afebrile, ID eval appreciated, initially abx continued with unasyn, total 8 days abx including zosyn, abx since discontinued monitoring off
�MRSA swab - negative
#Small moderate pleural effusion Right lung noted on chest US
IR eval thoracentesis appreciated only 150 cc drawn, pleural fluid studies not suggestive of infection
#Hypernatremia
-most likely 2/2 to overdiuresis, resolved
#Elevated troponin, suspect nonischemic myocardial injury
� Troponin trended to peak 0.901 since trended down
- Has intermittent chest pain, cardiology recommends medical management as above
#Acute metabolic encephalopathy
� Secondary to most likely hypercapnia as well as possible infection
- treat as above
-fluctuating mental status throughout stay.
#Urinary retention
� Lock catheter placed 10/27
-Continue Proscar, Flomax
-Removed Lock 10/31, patient has been voiding per RN
#Lower back pain
prn tramadol 25 m bid, dilaudid 0.25 mg IV Q4Hprn for severe breakthrough pain (has not required)
#Hypokalemia
-monitor and replete as necessary
-hypokalemia resolved, K supplement reduced to daily 10/26
#Hyperlipidemia
� cont statin
#Stage 2 pressure ulcer gluteal cleft, stage 1 pressure ulcer sacrum
cont local wound care
PT/OT appreciated SNF rehab
DVT prophylaxis�Eliquis
DNR
discussed with patient's daughter Andra 11/06
Total time spent to see the patient on the floor, examine the patient, review data and lab results, discuss treatment plan with patient, nursing staff around 58 minutes.
Physical Exam
General: Lethargic appearing, no acute distress, chronically ill
HEENT: Anicteric, Moist mucous membranes
Respiratory: Clear to auscultation b/l no wheezes crackles noted
Cardiac: S1/S2 and Regular Rhythm; No Murmur
GI: Soft and Non Tender
Musculoskeletal: No Clubbing, No Cyanosis, +1 pitting edema bilateral lower ext
Skin:
stage 2 pressure ulcer gluteal cleft, stage 1 pressure ulcer sacrum
Neuro: Awake alert conversant
Anticipated Discharge: 24 - 48 hours
Subjective/Interval History
-
Date of Service: November 07, 2023
Sitting up comfortably in bed. Awake Alert Conversant though slow mentation hard of hearing.
Objective Data
-
Labs:
Laboratory Results
11/07/23
06:00
WBC Pending
Hgb Pending
Hct Pending
Plt Count Pending
Sodium Pending
Potassium Pending
Chloride Pending
Carbon Dioxide Pending
BUN Pending
Creatinine Pending
Glucose Pending
Calcium Pending
Vital Signs:
Vital Signs
Temp Pulse Resp BP Pulse Ox
97.9 F 69 26 129/66 99
11/07/23 04:28 11/07/23 04:28 11/07/23 04:28 11/07/23 04:28 11/07/23 04:28
I&O
11/05/23 11/06/23 11/07/23
06:59 06:59 06:59
Intake Total 960 / 960 640 / 640 820 / 820
Balance 960 / 960 640 / 640 820 / 820
[2023-11-07] MEDS: MIRALAX 17 GRAMS PO (08:13)
[2023-11-07] MEDS: APRESOLINE 10 MG PO ×3 (08:13→20:16)
[2023-11-07] MEDS: FLOMAX 0.400000000000000022 MG PO (08:15)
[2023-11-07] MEDS: KCL 20 MEQ PO (08:15)
[2023-11-07] MEDS: TOPROL XL 25 MG PO (08:15)
[2023-11-07] MEDS: PROSCAR 5 MG PO (08:16)
[2023-11-07] MEDS: PLAVIX 75 MG PO (08:16)
[2023-11-07] MEDS: DEMADEX 20 MG PO (08:16)
[2023-11-07] MEDS: ELIQUIS 2.5 MG PO ×2 (08:16→20:15)
[2023-11-07] MEDS: DIAMOX 125 MG PO ×2 (08:17→20:15)
[2023-11-07] MEDS: TYLENOL 1000 MG PO ×3 (08:17→20:15)
[2023-11-07] MEDS: PROTONIX 40 MG PO (08:17)
[2023-11-07 09:16] LABS: Hematocrit 28.6 % (39.0-52.0); Hemoglobin 8.6 g/dL (13.0-18.0); Mean Corp Hgb Conc. 30.1 g/dL (33.0-37.0); Mean Corpuscular Hgb 29.7 pg (27.0-31.0); Mean Corpuscular Volume 98.6 fL (80.0-94.0); Mean Platelet Volume 11.8 fL (7.4-10.4); Platelet Count 160 10^3/uL (130-400); Red Cell Dist. Width 14.1 % (11.5-14.5); White Blood Cell Count 7.4 10^3/uL (4.8-10.8)
--- NOTE | 2023-11-07 09:50 | CM ---
Addendum entered by Chyeenne Ceron 11/07/23 10:49:
CM received call from Xavier and Janelle at [facility]. Per Janelle, they can not provide palliative care at the same time patient is receiving skilled rehab, however, patient can complete skilled rehab and team can continue to review and assess patient
needs for palliative/hospice care which [facility] [place] will pursue with family. CM will send patients daughterAndra, and email with an update. Facility requesting a morning discharge if possible for when patient is ready for discharge.
Original Note:
CM spoke with daughter, Andra, in regards to patient returning to SNF with PAL care. Andra reports she did have some questions about the difference between PAL care vs Hospice and what PAL care would provide patient back at [facility]. CM spoke with
Xavier from [facility], reports [facility] does not have a specific PAL care agency and PAL care is handled by the Doctors and staff at facility. Xavier will provide patients Social Workers name and information to answer questions to family, will
provide CM with this information shorty. Andra requesting this information be emailed to her so she can pass information along to other family members. CM will continue to follow for discharge planning needs.
Plan; return to [facility] with potential PAL care.
--- NOTE | 2023-11-07 10:50 | W.PN.NEPH.PH ---
Today's Communication / Plan
-
follow BMP
Assessment/Plan
-
Assessment:
hypernatremia
sepsis 2/2 to PNA
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
CKD (bl Cr 1.8-2.1)
Afib
CAD s/p recent stenting
Plan:
continue torsemide po
follow BMP today
continue diamox for now
follow weights
PT/OT
family is considering palliative care
-
-
Date of Service: November 07, 2023
CC / HPI / ROS
-
Chief Complaint:
hypernatremia
ENRICO
History of Present Illness:
hypernatremia now normalized
ENRICO Cr stable at 2.2 yesterday
Hemodynamically stable
on diamox for alkalosis
weights stable
Review of Systems:
UOP nonoliguric
Remains on oxygen
No chest pain
back pain still
Labs
-
Labs:
WBC 7.4 10^3/uL (4.8-10.8) 11/07/23 08:37
RBC 2.90 10^6/uL (4.70-6.10) L 11/07/23 08:37
Hgb 8.6 g/dL (13.0-18.0) L 11/07/23 08:37
Hct 28.6 % (39.0-52.0) L 11/07/23 08:37
Plt Count 160 10^3/uL (130-400) 11/07/23 08:37
eGFR 28.46 11/06/23 07:34
Otk-O-Ybupnfrzbml Pept > 42199 pg/ml 10/16/23 10:08
Albumin 2.7 g/dl (3.5-5.0) L 11/04/23 07:46
Physical Exam
-
Vital Signs:
Vital Signs
Temp Pulse Resp BP Pulse Ox
97.5 F 68 20 123/54 99
11/07/23 07:00 11/07/23 08:13 11/07/23 07:00 11/07/23 08:13 11/07/23 07:00
Cardiovascular:: Regular rate and rhythm
Respiratory:: Bilateral: Coarse
Lung Excursion:: Normal
Abdomen:: Nontender and Soft
Bowel Sounds:: Normal
Extremity Edema:: +3: Bilateral:
[2023-11-07 11:03] LABS: Blood Urea Nitrogen 44 mg/dl (9-20); Carbon Dioxide 31 mmol/L (22-30); Chloride 96 mmol/L (98-107); Estimated Creatinine Clearance 26 ml/min; Glucose 85 mg/dl (70-99); Magnesium 2.2 mg/dl (1.6-2.3); Phosphorus 3.9 mg/dl (2.5-4.5); Potassium 4.1 mmol/L (3.5-5.1); Sodium 136 mmol/L (135-145); eGFR 28.46
[2023-11-07 11:24] LABS: Iron 39 ug/dl (49-181)
[2023-11-07 11:33] LABS: Percent Saturation 16 % (20-50); Total Iron Binding Capacity 242 ug/dl (261-462)
[2023-11-07] MEDS: DEMADEX 40 MG PO (16:14)
[2023-11-07] MEDS: LIPITOR 80 MG PO (16:18)
[2023-11-08] VITALS (8 sets, daily range): BP systolic 98–129; BP diastolic 43–69; PULSE 2; BMI 31.7
--- NOTE | 2023-11-08 07:24 | W.PN.HOSP.TC ---
Today's Communication/Plan
-
Diamox increase, Torsemide hold as per Nephro
wean O2 supplementation as tolerated
pain control
PT/OT
Assessment / Plan
Assessment / Plan
88M Obesity HFrEF CKDIII AOCD pAfib CAD s/p stents here for hypercapneic respiratory failure acute on CKDIII
# Acute hypercapnic respiratory failure
�Most likely exacerbated by acute on chronic HFrEF, as well as possible pneumonia with Fever impaired resp status
�Noncompliant to BiPAP at facility
�Continue BiPAP QHS and Naps/PRN
-Currently requiring 1-2 L of oxygen (down from as high as 6), wean as tolerated. Daughter states he does not wear oxygen normally
-From [facility]
#Acute on chronic HFrEF
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
- echo: EF is depressed (30-35%) with moderate AAS and RV hypokinesis.
� Cardiology consult appreciated, hydralazine added for afterload reduction 10/24, cards signed off
� Appreciate nephrology input, status post IV Lasix, nephrology transitioned to Diamox 10/29, nephrology added torsemide 10/31, increased to 20 mg bid 11/01, 11/05 Torsemide increased to 20 mg AM and 40 mg QPM 11/07 Diamox increased to 250 mg BID
Torsemide on hold
-daily weights I/O
#Anemia of chronic kidney disease
H&H stable
#New paroxysmal afib
Cardio eval appreciated
Continue metoprolol succinate for rate control, Eliquis for anticoagulation
#Esophageal dysmotility
-VSE repeat 10/24 noted improvement from prior VSE examination, no aspiration noted however esophageal retention noted concerning for back aspiration
-10/29 barium swallow negative for obstruction, shows tortuous esophagus with esophageal dysmotility
-Diet changed to soft/bite-size
-Continue Ensure twice daily, encourage oral intake
#CAD
� Status post stent August 2023 [facility]
� on aspirin and Plavix, w/ start of anticoagulation for pAfib as above, ASA discontinued in favor of Plavix/Eliquis combination as per Cardio
-Cont BB
#Severe Sepsis
� Possible pneumonia including a large aspiration pneumonia
-COVID, Flu negative
-Urine cultures negative
- Speech eval - reg, thin liquids
� cultures NGTD
� Empiric antibiotics Zosyn completed 7 days however leukocytosis remains persistent though mild, afebrile, ID eval appreciated, initially abx continued with unasyn, total 8 days abx including zosyn, abx since discontinued monitoring off
�MRSA swab - negative
#Small moderate pleural effusion Right lung noted on chest US
IR eval thoracentesis appreciated only 150 cc drawn, pleural fluid studies not suggestive of infection
#Hypernatremia
-most likely 2/2 to overdiuresis, resolved
#Elevated troponin, suspect nonischemic myocardial injury
� Troponin trended to peak 0.901 since trended down
- Has intermittent chest pain, cardiology recommends medical management as above
#Acute metabolic encephalopathy
� Secondary to most likely hypercapnia as well as possible infection
- treat as above
-fluctuating mental status throughout stay.
#Urinary retention
� Lock catheter placed 10/27
-Continue Proscar, Flomax
-Removed Lock 10/31, patient has been voiding per RN
#Lower back pain
prn tramadol 25 m bid, dilaudid 0.25 mg IV Q4Hprn for severe breakthrough pain (has not required)
#Hypokalemia
-monitor and replete as necessary
-hypokalemia resolved, K supplement reduced to daily 10/26
#Hyperlipidemia
� cont statin
#Stage 2 pressure ulcer gluteal cleft, stage 1 pressure ulcer sacrum
cont local wound care
PT/OT appreciated SNF rehab
DVT prophylaxis�Eliquis
DNR
discussed with patient's daughter Andra 11/06
Total time spent to see the patient on the floor, examine the patient, review data and lab results, discuss treatment plan with patient, nursing staff around 58 minutes.
Physical Exam
General: Lethargic appearing, no acute distress, chronically ill
HEENT: Anicteric, Moist mucous membranes
Respiratory: Clear to auscultation b/l no wheezes crackles noted
Cardiac: S1/S2 and Regular Rhythm; No Murmur
GI: Soft and Non Tender
Musculoskeletal: No Clubbing, No Cyanosis, +1 pitting edema bilateral lower ext
Skin:
stage 2 pressure ulcer gluteal cleft, stage 1 pressure ulcer sacrum
Neuro: Awake alert conversant
Anticipated Discharge: > 48 hours
Subjective/Interval History
-
Date of Service: November 08, 2023
No acute distress. Comfortable
Objective Data
-
Labs:
Laboratory Results
11/08/23
06:00
WBC Pending
Hgb Pending
Hct Pending
Plt Count Pending
Sodium Pending
Potassium Pending
Chloride Pending
Carbon Dioxide Pending
BUN Pending
Creatinine Pending
Glucose Pending
Calcium Pending
Vital Signs:
Vital Signs
Temp Pulse Resp BP Pulse Ox
97.5 F 70 20 129/68 97
11/08/23 03:44 11/08/23 03:44 11/08/23 03:44 11/08/23 03:44 11/08/23 03:44
I&O
11/07/23 11/08/23 11/09/23
06:59 06:59 06:59
Intake Total 820 / 820 540 / 540
Balance 820 / 820 540 / 540
[2023-11-08] MEDS: APRESOLINE 10 MG PO ×2 (08:23→16:31)
[2023-11-08] MEDS: KCL 20 MEQ PO (08:24)
[2023-11-08] MEDS: DEMADEX 20 MG PO (08:24)
[2023-11-08] MEDS: PLAVIX 75 MG PO (08:24)
[2023-11-08] MEDS: ELIQUIS 2.5 MG PO ×2 (08:24→21:02)
[2023-11-08] MEDS: FLOMAX 0.400000000000000022 MG PO (08:24)
[2023-11-08] MEDS: PROTONIX 40 MG PO (08:24)
[2023-11-08] MEDS: DIAMOX 125 MG PO (08:25)
[2023-11-08] MEDS: PROSCAR 5 MG PO (08:25)
[2023-11-08] MEDS: TOPROL XL 25 MG PO (08:25)
[2023-11-08] MEDS: TYLENOL 1000 MG PO ×3 (08:26→21:02)
[2023-11-08] MEDS: MIRALAX PO (08:33)
[2023-11-08 08:38] LABS: Hematocrit 29.5 % (39.0-52.0); Mean Corp Hgb Conc. 30.5 g/dL (33.0-37.0); Mean Corpuscular Hgb 29.8 pg (27.0-31.0); Mean Corpuscular Volume 97.7 fL (80.0-94.0); Mean Platelet Volume 11.8 fL (7.4-10.4); Platelet Count 176 10^3/uL (130-400); Red Blood Cell Count 3.02 10^6/uL (4.70-6.10); Red Cell Dist. Width 13.9 % (11.5-14.5); White Blood Cell Count 10.2 10^3/uL (4.8-10.8)
[2023-11-08 09:18] LABS: Blood Urea Nitrogen 42 mg/dl (9-20); Calcium 9.8 mg/dl (8.4-10.2); Carbon Dioxide 34 mmol/L (22-30); Chloride 97 mmol/L (98-107); Estimated Creatinine Clearance 27 ml/min; Glucose 88 mg/dl (70-99); Magnesium 2.1 mg/dl (1.6-2.3); Potassium 4.1 mmol/L (3.5-5.1); Sodium 138 mmol/L (135-145); eGFR 30.09
--- NOTE | 2023-11-08 14:28 | W.PN.NEPH.PH ---
Today's Communication / Plan
-
- increase diamox
Assessment/Plan
-
Assessment:
hypernatremia
sepsis 2/2 to PNA
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
CKD (bl Cr 1.8-2.1)
Afib
CAD s/p recent stenting
Plan:
hold torsemide
increase diamox to 250mg BID
follow BMP today
follow weights
PT/OT
family is considering palliative care
-
-
Date of Service: November 08, 2023
CC / HPI / ROS
-
Chief Complaint:
hypernatremia
ENRICO
History of Present Illness:
hypernatremia now normalized
ENRICO Cr stable at 2.1 today
Hemodynamically stable
on diamox for alkalosis
weights stable
Review of Systems:
UOP nonoliguric
Remains on oxygen
No chest pain
back pain still
Labs
-
Labs:
WBC 10.2 10^3/uL (4.8-10.8) 11/08/23 08:08
RBC 3.02 10^6/uL (4.70-6.10) L 11/08/23 08:08
Hgb 9.0 g/dL (13.0-18.0) L 11/08/23 08:08
Hct 29.5 % (39.0-52.0) L 11/08/23 08:08
Plt Count 176 10^3/uL (130-400) 11/08/23 08:08
Sodium 138 mmol/L (135-145) 11/08/23 08:08
Potassium 4.1 mmol/L (3.5-5.1) 11/08/23 08:08
Chloride 97 mmol/L (98-107) L 11/08/23 08:08
Carbon Dioxide 34 mmol/L (22-30) H 11/08/23 08:08
BUN 42 mg/dl (9-20) H 11/08/23 08:08
Creatinine 2.1 mg/dL (0.7-1.3) H 11/08/23 08:08
eGFR 30.09 11/08/23 08:08
Glucose 88 mg/dl (70-99) 11/08/23 08:08
Calcium 9.8 mg/dl (8.4-10.2) 11/08/23 08:08
Phosphorus 4.0 mg/dl (2.5-4.5) 11/08/23 08:08
Wgs-B-Colvgaxoqim Pept > 66698 pg/ml 10/16/23 10:08
Albumin 2.7 g/dl (3.5-5.0) L 11/04/23 07:46
Physical Exam
-
Vital Signs:
Vital Signs
Temp Pulse Resp BP Pulse Ox
97.7 F 72 20 104/43 96
11/08/23 11:15 11/08/23 11:15 11/08/23 11:15 11/08/23 11:15 11/08/23 11:15
Cardiovascular:: Regular rate and rhythm
Respiratory:: Bilateral: Coarse
Lung Excursion:: Normal
Abdomen:: Nontender and Soft
Bowel Sounds:: Normal
Extremity Edema:: +3: Bilateral:
Lock Catheter: No
--- NOTE | 2023-11-08 15:40 | CM ---
CM reviewed chart, per Hospitalist, not clear for discharge at this time, potentially Saturday. CM updated [facility] on patients discharge status. CM will continue to follow for discharge planning needs.
Plan; return to [facility] when stable, on bed hold.
[facility] nursing report: [phone]
Discharge instructions fax: fax [phone].
[2023-11-08] MEDS: LIPITOR 80 MG PO (18:32)
[2023-11-08] MEDS: APRESOLINE PO (21:02)
[2023-11-08] MEDS: DIAMOX 250 MG PO (21:03)
[2023-11-09] VITALS (8 sets, daily range): BP systolic 115–163; BP diastolic 62–81; PULSE 2–69; BMI 31.3
[2023-11-09 07:16] LABS: Hematocrit 28.9 % (39.0-52.0); Hemoglobin 8.9 g/dL (13.0-18.0); Mean Corp Hgb Conc. 30.8 g/dL (33.0-37.0); Mean Corpuscular Hgb 29.7 pg (27.0-31.0); Mean Corpuscular Volume 96.3 fL (80.0-94.0); Mean Platelet Volume 11.8 fL (7.4-10.4); Platelet Count 166 10^3/uL (130-400); Red Cell Dist. Width 14.1 % (11.5-14.5); White Blood Cell Count 7.2 10^3/uL (4.8-10.8)
[2023-11-09 07:41] LABS: Blood Urea Nitrogen 41 mg/dl (9-20); Calcium 9.9 mg/dl (8.4-10.2); Carbon Dioxide 32 mmol/L (22-30); Chloride 97 mmol/L (98-107); Estimated Creatinine Clearance 28 ml/min; Glucose 91 mg/dl (70-99); Magnesium 2.2 mg/dl (1.6-2.3); Phosphorus 3.6 mg/dl (2.5-4.5); Potassium 3.8 mmol/L (3.5-5.1); Sodium 136 mmol/L (135-145)
--- NOTE | 2023-11-09 08:22 | W.PN.HOSP.TC ---
Today's Communication/Plan
-
Diamox as per Nephro
wean O2 supplementation as tolerated
pain control
PT/OT
Assessment / Plan
Assessment / Plan
88M Obesity HFrEF CKDIII AOCD pAfib CAD s/p stents here for hypercapneic respiratory failure acute on CKDIII
# Acute hypercapnic respiratory failure
�Most likely exacerbated by acute on chronic HFrEF, as well as possible pneumonia with Fever impaired resp status
�Noncompliant to BiPAP at facility
�Continue BiPAP QHS and Naps/PRN
-Currently requiring 1-2 L of oxygen (down from as high as 6), wean as tolerated. Daughter states he does not wear oxygen normally
-From [facility]
#Acute on chronic HFrEF
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
- echo: EF is depressed (30-35%) with moderate AAS and RV hypokinesis.
� Cardiology consult appreciated, hydralazine added for afterload reduction 10/24, cards signed off
� Appreciate nephrology input, status post IV Lasix, nephrology transitioned to Diamox 10/29, nephrology added torsemide 10/31, increased to 20 mg bid 11/01, 11/05 Torsemide increased to 20 mg AM and 40 mg QPM 11/07 Diamox increased to 250 mg BID
Torsemide on hold
-daily weights I/O
#Anemia of chronic kidney disease
H&H stable
#New paroxysmal afib
Cardio eval appreciated
Continue metoprolol succinate for rate control, Eliquis for anticoagulation
#Esophageal dysmotility
-VSE repeat 10/24 noted improvement from prior VSE examination, no aspiration noted however esophageal retention noted concerning for back aspiration
-10/29 barium swallow negative for obstruction, shows tortuous esophagus with esophageal dysmotility
-Diet changed to soft/bite-size
-Continue Ensure twice daily, encourage oral intake
#CAD
� Status post stent August 2023 [facility]
� on aspirin and Plavix, w/ start of anticoagulation for pAfib as above, ASA discontinued in favor of Plavix/Eliquis combination as per Cardio
-Cont BB
#Severe Sepsis
� Possible pneumonia including a large aspiration pneumonia
-COVID, Flu negative
-Urine cultures negative
- Speech eval - reg, thin liquids
� cultures NGTD
� Empiric antibiotics Zosyn completed 7 days however leukocytosis remains persistent though mild, afebrile, ID eval appreciated, initially abx continued with unasyn, total 8 days abx including zosyn, abx since discontinued monitoring off
�MRSA swab - negative
#Small moderate pleural effusion Right lung noted on chest US
IR eval thoracentesis appreciated only 150 cc drawn, pleural fluid studies not suggestive of infection
#Hypernatremia
-most likely 2/2 to overdiuresis, resolved
#Elevated troponin, suspect nonischemic myocardial injury
� Troponin trended to peak 0.901 since trended down
- Has intermittent chest pain, cardiology recommends medical management as above
#Acute metabolic encephalopathy
� Secondary to most likely hypercapnia as well as possible infection
- treat as above
-fluctuating mental status throughout stay.
#Urinary retention
� Lock catheter placed 10/27
-Continue Proscar, Flomax
-Removed Lock 10/31, patient has been voiding per RN
#Lower back pain
prn tramadol 25 m bid, dilaudid 0.25 mg IV Q4Hprn for severe breakthrough pain (has not required)
#Hypokalemia
-monitor and replete as necessary
-hypokalemia resolved, K supplement reduced to daily 10/26
#Hyperlipidemia
� cont statin
#Stage 2 pressure ulcer gluteal cleft, stage 1 pressure ulcer sacrum
cont local wound care
PT/OT appreciated SNF rehab
DVT prophylaxis�Eliquis
DNR
Total time spent to see the patient on the floor, examine the patient, review data and lab results, discuss treatment plan with patient, nursing staff around 58 minutes.
Physical Exam
General: no acute distress, chronically ill
HEENT: Anicteric, Moist mucous membranes
Respiratory: Clear to auscultation b/l no wheezes crackles noted
Cardiac: S1/S2 and Regular Rhythm; No Murmur
GI: Soft and Non Tender
Musculoskeletal: No Clubbing, No Cyanosis, +1 pitting edema bilateral lower ext
Skin:
stage 2 pressure ulcer gluteal cleft, stage 1 pressure ulcer sacrum
Neuro: Awake alert conversant
Anticipated Discharge: > 48 hours
Subjective/Interval History
-
Date of Service: November 09, 2023
No new acute issues. Appears comfortable
Objective Data
-
Labs:
Laboratory Results
11/09/23
06:24
WBC 7.2
Hgb 8.9 L
Hct 28.9 L
Plt Count 166
Sodium 136
Potassium 3.8
Chloride 97 L
Carbon Dioxide 32 H
BUN 41 H
Creatinine 2.0 H
Glucose 91
Calcium 9.9
Vital Signs:
Vital Signs
Temp Pulse Resp BP Pulse Ox
97.6 F 85 20 163/81 94
11/09/23 04:03 11/09/23 04:03 11/09/23 04:03 11/09/23 04:03 11/09/23 04:03
I&O
11/08/23 11/09/23 11/10/23
06:59 06:59 06:59
Intake Total 540 / 540 360 / 360
Balance 540 / 540 360 / 360
[2023-11-09] MEDS: PROTONIX 40 MG PO (09:08)
[2023-11-09] MEDS: TYLENOL 1000 MG PO ×2 (09:08→21:12)
[2023-11-09] MEDS: PLAVIX 75 MG PO (09:08)
[2023-11-09] MEDS: APRESOLINE 10 MG PO ×2 (09:08→21:12)
[2023-11-09] MEDS: FLOMAX 0.400000000000000022 MG PO (09:08)
[2023-11-09] MEDS: MIRALAX 17 GRAMS PO (09:09)
[2023-11-09] MEDS: DIAMOX 250 MG PO ×2 (09:09→21:00)
[2023-11-09] MEDS: TOPROL XL 25 MG PO (09:09)
[2023-11-09] MEDS: ELIQUIS 2.5 MG PO ×2 (09:09→21:12)
[2023-11-09] MEDS: KCL 20 MEQ PO (09:09)
[2023-11-09] MEDS: FEOSOL 325 MG PO (09:09)
[2023-11-09] MEDS: PROSCAR 5 MG PO (09:09)
[2023-11-09] MEDS: ULTRAM 25 MG PO (11:01)
--- NOTE | 2023-11-09 13:03 | W.PN.NEPH.PH ---
Today's Communication / Plan
-
- discussed with family about pall care
Assessment/Plan
-
Assessment:
hypernatremia
sepsis 2/2 to PNA
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
CKD (bl Cr 1.8-2.1)
Afib
CAD s/p recent stenting
Plan:
hold torsemide
increase diamox to 250mg BID
follow BMP today
weights coming down
PT/OT
family is considering palliative care
-
-
Date of Service: November 09, 2023
CC / HPI / ROS
-
Chief Complaint:
hypernatremia
ENRICO
History of Present Illness:
hypernatremia now normalized
ENRICO Cr stable at 2.0 today
Hemodynamically stable
on diamox for alkalosis
weights stable
Review of Systems:
UOP nonoliguric
Remains on oxygen
No chest pain
back pain still
Labs
-
Labs:
WBC 7.2 10^3/uL (4.8-10.8) 11/09/23 06:24
RBC 3.00 10^6/uL (4.70-6.10) L 11/09/23 06:24
Hgb 8.9 g/dL (13.0-18.0) L 11/09/23 06:24
Hct 28.9 % (39.0-52.0) L 11/09/23 06:24
Plt Count 166 10^3/uL (130-400) 11/09/23 06:24
Sodium 136 mmol/L (135-145) 11/09/23 06:24
Potassium 3.8 mmol/L (3.5-5.1) 11/09/23 06:24
Chloride 97 mmol/L (98-107) L 11/09/23 06:24
Carbon Dioxide 32 mmol/L (22-30) H 11/09/23 06:24
BUN 41 mg/dl (9-20) H 11/09/23 06:24
Creatinine 2.0 mg/dL (0.7-1.3) H 11/09/23 06:24
eGFR 31.90 11/09/23 06:24
Glucose 91 mg/dl (70-99) 11/09/23 06:24
Calcium 9.9 mg/dl (8.4-10.2) 11/09/23 06:24
Phosphorus 3.6 mg/dl (2.5-4.5) 11/09/23 06:24
Xoy-V-Mtyfxorqyle Pept > 59615 pg/ml 10/16/23 10:08
Albumin 2.7 g/dl (3.5-5.0) L 11/04/23 07:46
Physical Exam
-
Vital Signs:
Vital Signs
Temp Pulse Resp BP Pulse Ox
98 F 78 18 122/62 98
11/09/23 11:00 11/09/23 11:00 11/09/23 11:00 11/09/23 11:00 11/09/23 11:00
Cardiovascular:: Regular rate and rhythm
Respiratory:: Bilateral: Coarse
Lung Excursion:: Normal
Abdomen:: Nontender and Soft
Bowel Sounds:: Normal
Extremity Edema:: +3: Bilateral:
Lock Catheter: No
[2023-11-09] MEDS: DILAUDID 0.25 MG IV (13:24)
[2023-11-09] MEDS: APRESOLINE PO (18:30)
[2023-11-09] MEDS: TYLENOL PO (18:30)
[2023-11-09] MEDS: LIPITOR PO (18:31)
[2023-11-10] VITALS (8 sets, daily range): BP systolic 104–131; BP diastolic 46–82; PULSE 2; BMI 31.3
--- NOTE | 2023-11-10 06:58 | W.PN.HOSP.TC ---
Today's Communication/Plan
-
Diamox as per Nephro
wean O2 supplementation as tolerated
pain control
PT/OT
Assessment / Plan
Assessment / Plan
88M Obesity HFrEF CKDIII AOCD pAfib CAD s/p stents here for hypercapneic respiratory failure acute on CKDIII
# Acute hypercapnic respiratory failure
�Most likely exacerbated by acute on chronic HFrEF, as well as possible pneumonia with Fever impaired resp status
�Noncompliant to BiPAP at facility
�Continue BiPAP QHS and Naps/PRN
-Currently requiring 1-2 L of oxygen (down from as high as 6), wean as tolerated. Daughter states he does not wear oxygen normally
-From [facility]
#Acute on chronic HFrEF
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
- echo: EF is depressed (30-35%) with moderate AAS and RV hypokinesis.
� Cardiology consult appreciated, hydralazine added for afterload reduction 10/24, cards signed off
� Appreciate nephrology input, status post IV Lasix, nephrology transitioned to Diamox 10/29, nephrology added torsemide 10/31, increased to 20 mg bid 11/01, 11/05 Torsemide increased to 20 mg AM and 40 mg QPM 11/07 Diamox increased to 250 mg BID
Torsemide on hold
-daily weights I/O
#Anemia of chronic kidney disease
H&H stable
#New paroxysmal afib
Cardio eval appreciated
Continue metoprolol succinate for rate control, Eliquis for anticoagulation
#Esophageal dysmotility
-VSE repeat 10/24 noted improvement from prior VSE examination, no aspiration noted however esophageal retention noted concerning for back aspiration
-10/29 barium swallow negative for obstruction, shows tortuous esophagus with esophageal dysmotility
-Diet changed to soft/bite-size
-Continue Ensure twice daily, encourage oral intake
#CAD
� Status post stent August 2023 [facility]
� on aspirin and Plavix, w/ start of anticoagulation for pAfib as above, ASA discontinued in favor of Plavix/Eliquis combination as per Cardio
-Cont BB
#Severe Sepsis
� Possible pneumonia including a large aspiration pneumonia
-COVID, Flu negative
-Urine cultures negative
- Speech eval - reg, thin liquids
� cultures NGTD
� Empiric antibiotics Zosyn completed 7 days however leukocytosis remains persistent though mild, afebrile, ID eval appreciated, initially abx continued with unasyn, total 8 days abx including zosyn, abx since discontinued monitoring off
�MRSA swab - negative
#Small moderate pleural effusion Right lung noted on chest US
IR eval thoracentesis appreciated only 150 cc drawn, pleural fluid studies not suggestive of infection
#Hypernatremia
-most likely 2/2 to overdiuresis, resolved
#Elevated troponin, suspect nonischemic myocardial injury
� Troponin trended to peak 0.901 since trended down
- Has intermittent chest pain, cardiology recommends medical management as above
#Acute metabolic encephalopathy
� Secondary to most likely hypercapnia as well as possible infection
- treat as above
-fluctuating mental status throughout stay.
#Urinary retention
� Lock catheter placed 10/27
-Continue Proscar, Flomax
-Removed Lock 10/31, patient has been voiding per RN
#Lower back pain
prn tramadol 25 m bid, dilaudid 0.25 mg IV Q4Hprn for severe breakthrough pain (has not required)
#Hypokalemia
-monitor and replete as necessary
-hypokalemia resolved, K supplement reduced to daily 10/26
#Hyperlipidemia
� cont statin
#Stage 2 pressure ulcer gluteal cleft, stage 1 pressure ulcer sacrum
cont local wound care
PT/OT appreciated SNF rehab
DVT prophylaxis�Eliquis
DNR
Patient's family considering Palliative/Hospice, at this time plan is to pursue SNF rehab and consider transition to palliative/hospice care if patient progressively declines
Total time spent to see the patient on the floor, examine the patient, review data and lab results, discuss treatment plan with patient, nursing staff around 55 minutes.
Physical Exam
General: no acute distress, chronically ill
HEENT: Anicteric, Moist mucous membranes
Respiratory: Clear to auscultation b/l no wheezes crackles noted
Cardiac: S1/S2 and Regular Rhythm; No Murmur
GI: Soft and Non Tender
Musculoskeletal: No Clubbing, No Cyanosis, +1 pitting edema bilateral lower ext
Skin:
stage 2 pressure ulcer gluteal cleft, stage 1 pressure ulcer sacrum
Neuro: Awake alert conversant
Anticipated Discharge: > 48 hours
Subjective/Interval History
-
Date of Service: November 10, 2023
Appears more alert active cheerful with family's visit.
Objective Data
-
Labs:
Laboratory Results
11/10/23
06:49
WBC Pending
Hgb Pending
Hct Pending
Plt Count Pending
Sodium Pending
Potassium Pending
Chloride Pending
Carbon Dioxide Pending
BUN Pending
Creatinine Pending
Glucose Pending
Calcium Pending
Vital Signs:
Vital Signs
Temp Pulse Resp BP Pulse Ox
97.9 F 76 20 106/74 96
11/10/23 03:50 11/10/23 03:50 11/10/23 03:50 11/10/23 03:50 11/10/23 03:50
I&O
11/08/23 11/09/23 11/10/23
06:59 06:59 06:59
Intake Total 540 / 540 360 / 360 1080 / 1080
Balance 540 / 540 360 / 360 1080 / 1080
[2023-11-10 07:51] LABS: Hematocrit 29.6 % (39.0-52.0); Mean Corp Hgb Conc. 30.4 g/dL (33.0-37.0); Mean Corpuscular Hgb 29.5 pg (27.0-31.0); Mean Platelet Volume 11.9 fL (7.4-10.4); Platelet Count 171 10^3/uL (130-400); Red Blood Cell Count 3.05 10^6/uL (4.70-6.10); Red Cell Dist. Width 14.2 % (11.5-14.5); White Blood Cell Count 7.7 10^3/uL (4.8-10.8)
[2023-11-10 08:10] LABS: Blood Urea Nitrogen 38 mg/dl (9-20); Carbon Dioxide 32 mmol/L (22-30); Chloride 98 mmol/L (98-107); Estimated Creatinine Clearance 28 ml/min; Glucose 83 mg/dl (70-99); Magnesium 2.1 mg/dl (1.6-2.3); Phosphorus 3.6 mg/dl (2.5-4.5); Potassium 3.6 mmol/L (3.5-5.1); Sodium 138 mmol/L (135-145)
[2023-11-10] MEDS: MIRALAX 17 GRAMS PO (08:13)
[2023-11-10] MEDS: FEOSOL 325 MG PO (08:16)
[2023-11-10] MEDS: TYLENOL 1000 MG PO ×3 (08:16→21:02)
[2023-11-10] MEDS: KCL 20 MEQ PO (08:16)
[2023-11-10] MEDS: PLAVIX 75 MG PO (08:16)
[2023-11-10] MEDS: PROTONIX 40 MG PO (08:17)
[2023-11-10] MEDS: DIAMOX 250 MG PO ×2 (08:18→20:41)
[2023-11-10] MEDS: APRESOLINE 10 MG PO ×3 (08:18→21:02)
[2023-11-10] MEDS: TOPROL XL 25 MG PO (08:19)
[2023-11-10] MEDS: PROSCAR 5 MG PO (08:19)
[2023-11-10] MEDS: FLOMAX 0.400000000000000022 MG PO (08:20)
[2023-11-10] MEDS: ELIQUIS 2.5 MG PO ×2 (08:20→20:41)
--- NOTE | 2023-11-10 11:13 | PTCARENOTE ---
Assumed care of pt from previous nurse. Pt denies pain. Pt is on tele running nsr with pvc's and bbb. Pt call [facility]on is within reach, pt rings [facility]. will cont to monitor. bed alarm in place.
--- NOTE | 2023-11-10 12:50 | W.PN.NEPH.PH ---
Today's Communication / Plan
-
c/w diamox
Assessment/Plan
-
Assessment:
hypernatremia
sepsis 2/2 to PNA
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
CKD (bl Cr 1.8-2.1)
Afib
CAD s/p recent stenting
Plan:
hold torsemide
c/w diamox to 250mg BID
follow BMP today
weights coming down
PT/OT
family is considering palliative care
-
-
Date of Service: November 10, 2023
CC / HPI / ROS
-
Chief Complaint:
hypernatremia
ENRICO
History of Present Illness:
hypernatremia now normalized
ENR[place] Cr stable at 2.0 today
Hemodynamically stable
on diamox for alkalosis
weights stable
Review of Systems:
UOP nonoliguric
Remains on oxygen
No chest pain
back pain still
Labs
-
Labs:
WBC 7.7 10^3/uL (4.8-10.8) 11/10/23 06:49
RBC 3.05 10^6/uL (4.70-6.10) L 11/10/23 06:49
Hgb 9.0 g/dL (13.0-18.0) L 11/10/23 06:49
Hct 29.6 % (39.0-52.0) L 11/10/23 06:49
Plt Count 171 10^3/uL (130-400) 11/10/23 06:49
Sodium 138 mmol/L (135-145) 11/10/23 06:49
Potassium 3.6 mmol/L (3.5-5.1) 11/10/23 06:49
Chloride 98 mmol/L (98-107) 11/10/23 06:49
Carbon Dioxide 32 mmol/L (22-30) H 11/10/23 06:49
BUN 38 mg/dl (9-20) H 11/10/23 06:49
Creatinine 2.0 mg/dL (0.7-1.3) H 11/10/23 06:49
eGFR 31.90 11/10/23 06:49
Glucose 83 mg/dl (70-99) 11/10/23 06:49
Calcium 10.0 mg/dl (8.4-10.2) 11/10/23 06:49
Phosphorus 3.6 mg/dl (2.5-4.5) 11/10/23 06:49
Xnr-M-Uysugohbzxj Pept > 67486 pg/ml 10/16/23 10:08
Albumin 2.7 g/dl (3.5-5.0) L 11/04/23 07:46
Physical Exam
-
Vital Signs:
Vital Signs
Temp Pulse Resp BP Pulse Ox
97.8 F 79 20 104/46 98
11/10/23 11:00 11/10/23 11:00 11/10/23 11:00 11/10/23 11:00 11/10/23 11:00
Cardiovascular:: Regular rate and rhythm
Respiratory:: Bilateral: Coarse
Lung Excursion:: Normal
Abdomen:: Nontender and Soft
Bowel Sounds:: Normal
Extremity Edema:: +1: Bilateral:
Lock Catheter: No
[2023-11-10] MEDS: LIPITOR 80 MG PO (17:57)
[2023-11-11] VITALS (8 sets, daily range): BP systolic 97–125; BP diastolic 48–74; PULSE 2–70; O2SAT 98; BMI 30.9
[2023-11-11 08:29] LABS: Hematocrit 28.5 % (39.0-52.0); Hemoglobin 8.4 g/dL (13.0-18.0); Mean Corp Hgb Conc. 29.5 g/dL (33.0-37.0); Mean Corpuscular Hgb 29.2 pg (27.0-31.0); Mean Platelet Volume 11.6 fL (7.4-10.4); Platelet Count 161 10^3/uL (130-400); Red Blood Cell Count 2.88 10^6/uL (4.70-6.10); Red Cell Dist. Width 14.5 % (11.5-14.5); White Blood Cell Count 8.3 10^3/uL (4.8-10.8)
[2023-11-11 08:47] LABS: Blood Urea Nitrogen 38 mg/dl (9-20); Calcium 9.6 mg/dl (8.4-10.2); Carbon Dioxide 33 mmol/L (22-30); Chloride 100 mmol/L (98-107); Estimated Creatinine Clearance 30 ml/min; Glucose 96 mg/dl (70-99); Magnesium 2.1 mg/dl (1.6-2.3); Phosphorus 3.8 mg/dl (2.5-4.5); Potassium 3.6 mmol/L (3.5-5.1); Sodium 140 mmol/L (135-145); eGFR 33.93
[2023-11-11] MEDS: FEOSOL 325 MG PO (09:00)
[2023-11-11] MEDS: PROTONIX 40 MG PO (09:00)
[2023-11-11] MEDS: KCL 20 MEQ PO (09:00)
[2023-11-11] MEDS: APRESOLINE 10 MG PO ×2 (09:00→17:07)
[2023-11-11] MEDS: PLAVIX 75 MG PO (09:01)
[2023-11-11] MEDS: PROSCAR 5 MG PO (09:01)
[2023-11-11] MEDS: MIRALAX 17 GRAMS PO (09:01)
[2023-11-11] MEDS: TYLENOL 1000 MG PO ×2 (09:01→17:07)
[2023-11-11] MEDS: TOPROL XL 25 MG PO (09:01)
[2023-11-11] MEDS: ELIQUIS 2.5 MG PO ×2 (09:01→20:16)
[2023-11-11] MEDS: DIAMOX 250 MG PO (09:01)
[2023-11-11] MEDS: FLOMAX 0.400000000000000022 MG PO (09:01)
[2023-11-11] MEDS: TOPROL XL PO (09:12)
[2023-11-11] MEDS: PLAVIX PO (09:12)
--- NOTE | 2023-11-11 10:26 | W.PN.HOSP.TC ---
Today's Communication/Plan
-
Discharge to nursing facility rehab tomorrow
Assessment / Plan
Assessment / Plan
88M Obesity HFrEF CKDIII AOCD pAfib CAD s/p stents here for hypercapneic respiratory failure acute on CKDIII
# Acute hypercapnic respiratory failure
�Most likely exacerbated by acute on chronic HFrEF, as well as possible pneumonia with Fever impaired resp status
�Noncompliant to BiPAP at facility
�Continue BiPAP QHS and Naps/PRN
-Currently requiring 1-2 L of oxygen (down from as high as 6), wean as tolerated. Daughter states he does not wear oxygen normally
-From [facility]
#Acute on chronic HFrEF
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
- echo: EF is depressed (30-35%) with moderate AAS and RV hypokinesis.
� Cardiology consult appreciated, hydralazine added for afterload reduction 10/24, cards signed off
� Appreciate nephrology input, status post IV Lasix, nephrology transitioned to Diamox 10/29, nephrology added torsemide 10/31, increased to 20 mg bid 11/01, 11/05 Torsemide increased to 20 mg AM and 40 mg QPM 11/07 Diamox increased to 250 mg BID
Torsemide on hold 11/10 nephrology discontinued Diamox, recommends discharge on torsemide 20 mg twice a day
-daily weights I/O
#Anemia of chronic kidney disease
H&H stable
#New paroxysmal afib
Cardio eval appreciated
Continue metoprolol succinate for rate control, Eliquis for anticoagulation
#Esophageal dysmotility
-VSE repeat 10/24 noted improvement from prior VSE examination, no aspiration noted however esophageal retention noted concerning for back aspiration
-10/29 barium swallow negative for obstruction, shows tortuous esophagus with esophageal dysmotility
-Diet changed to soft/bite-size
-Continue Ensure twice daily, encourage oral intake
#CAD
� Status post stent August 2023 [place]
� on aspirin and Plavix, w/ start of anticoagulation for pAfib as above, ASA discontinued in favor of Plavix/Eliquis combination as per Cardio
-Cont BB
#Severe Sepsis
� Possible pneumonia including a large aspiration pneumonia
-COVID, Flu negative
-Urine cultures negative
- Speech eval - reg, thin liquids
� cultures NGTD
� Empiric antibiotics Zosyn completed 7 days however leukocytosis remains persistent though mild, afebrile, ID eval appreciated, initially abx continued with unasyn, total 8 days abx including zosyn, abx since discontinued monitoring off
�MRSA swab - negative
#Small moderate pleural effusion Right lung noted on chest US
IR eval thoracentesis appreciated only 150 cc drawn, pleural fluid studies not suggestive of infection
#Hypernatremia
-most likely 2/2 to overdiuresis, resolved
#Elevated troponin, suspect nonischemic myocardial injury
� Troponin trended to peak 0.901 since trended down
- Has intermittent chest pain, cardiology recommends medical management as above
#Acute metabolic encephalopathy
� Secondary to most likely hypercapnia as well as possible infection
- treat as above
-fluctuating mental status throughout stay.
#Urinary retention
� Lock catheter placed 10/27
-Continue Proscar, Flomax
-Removed Lock 10/31, patient has been voiding per RN
#Lower back pain
prn tramadol 25 m bid, dilaudid 0.25 mg IV Q4Hprn for severe breakthrough pain (has not required)
#Hypokalemia
-monitor and replete as necessary
-hypokalemia resolved, K supplement reduced to daily 10/26
#Hyperlipidemia
� cont statin
#Stage 2 pressure ulcer gluteal cleft, stage 1 pressure ulcer sacrum
cont local wound care
PT/OT appreciated SNF rehab
DVT prophylaxis�Eliquis
DNR
Patient's family considering Palliative/Hospice, at this time plan is to pursue SNF rehab and consider transition to palliative/hospice care if patient progressively declines
Updated daughter 11/10
Total time spent to see the patient on the floor, examine the patient, review data and lab results, discuss treatment plan with patient, nursing staff around 35 minutes.
Physical Exam
General: no acute distress, chronically ill
HEENT: Anicteric, Moist mucous membranes
Respiratory: Clear to auscultation b/l no wheezes crackles noted
Cardiac: S1/S2 and Regular Rhythm; No Murmur
GI: Soft and Non Tender
Musculoskeletal: No Clubbing, No Cyanosis, +1 pitting edema bilateral lower ext
Skin:
stage 2 pressure ulcer gluteal cleft, stage 1 pressure ulcer sacrum
Neuro: Awake alert conversant
Anticipated Discharge: Within 24 hours
Subjective/Interval History
-
Date of Service: November 11, 2023
No acute events. No shortness of breath, no fever, no vomiting.
Objective Data
-
Labs:
Laboratory Results
11/11/23
07:59
WBC 8.3
Hgb 8.4 L
Hct 28.5 L
Plt Count 161
Sodium 140
Potassium 3.6
Chloride 100
Carbon Dioxide 33 H
BUN 38 H
Creatinine 1.9 H
Glucose 96
Calcium 9.6
Vital Signs:
Vital Signs
Temp Pulse Resp BP Pulse Ox
97.8 F 78 16 123/57 99
11/11/23 07:00 11/11/23 07:00 11/11/23 07:00 11/11/23 07:00 11/11/23 07:00
I&O
11/10/23 11/11/23 11/12/23
06:59 06:59 06:59
Intake Total 1080 / 1080 600 / 600
Balance 1080 / 1080 600 / 600
[2023-11-11] MEDS: ULTRAM 25 MG PO (10:28)
--- NOTE | 2023-11-11 16:05 | W.PN.NEPH.PH ---
Today's Communication / Plan
-
d/c diamox
start Torsemide with close monitoring of renal function
Assessment/Plan
-
Assessment:
hypernatremia
sepsis 2/2 to PNA
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
CKD (bl Cr 1.8-2.1)
Afib
CAD s/p recent stenting
Plan:
stable renal function at baseline
met alkalosis is improved, ok to d/c diamox
resume torsemide 20mg BID and titrate as needed
cont pO Kcl same
monitor daily wts, unlikely all edema is amenable for diuresis
PT/OT
reportedly family is considering palliative care
-
-
Date of Service: November 11, 2023
CC / HPI / ROS
-
Chief Complaint:
hypernatremia
ENRICO
History of Present Illness:
Cr stable at 1.9 today
Hemodynamically stable
on diamox for alkalosis
weights stable
Review of Systems:
UOP not documented
Remains on oxygen 2lit NC
No chest pain
offers no complaints, no n/v
Labs
-
Labs:
WBC 8.3 10^3/uL (4.8-10.8) 11/11/23 07:59
RBC 2.88 10^6/uL (4.70-6.10) L 11/11/23 07:59
Hgb 8.4 g/dL (13.0-18.0) L 11/11/23 07:59
Hct 28.5 % (39.0-52.0) L 11/11/23 07:59
Plt Count 161 10^3/uL (130-400) 11/11/23 07:59
Sodium 140 mmol/L (135-145) 11/11/23 07:59
Potassium 3.6 mmol/L (3.5-5.1) 11/11/23 07:59
Chloride 100 mmol/L (98-107) 11/11/23 07:59
Carbon Dioxide 33 mmol/L (22-30) H 11/11/23 07:59
BUN 38 mg/dl (9-20) H 11/11/23 07:59
Creatinine 1.9 mg/dL (0.7-1.3) H 11/11/23 07:59
eGFR 33.93 11/11/23 07:59
Glucose 96 mg/dl (70-99) 11/11/23 07:59
Calcium 9.6 mg/dl (8.4-10.2) 11/11/23 07:59
Phosphorus 3.8 mg/dl (2.5-4.5) 11/11/23 07:59
Ycd-E-Gvhanwemopr Pept > 15976 pg/ml 10/16/23 10:08
Albumin 2.7 g/dl (3.5-5.0) L 11/04/23 07:46
Physical Exam
-
Vital Signs:
Vital Signs
Temp Pulse Resp BP Pulse Ox
97.7 F 73 16 115/58 97
11/11/23 11:00 11/11/23 11:00 11/11/23 11:00 11/11/23 11:00 11/11/23 11:00
Cardiovascular:: Regular rate and rhythm
Respiratory:: Bilateral: CTA (decreased BS)
Lung Excursion:: Normal
Abdomen:: Nontender and Soft
Extremity Edema:: +3: Bilateral:
Lock Catheter: No
--- NOTE | 2023-11-11 16:12 | CM ---
CM reviwed chart, per Hospitalist, patient cleared by nephrology for discharge, plan for discharge tomorrow. CM sent message to Xavier in admissions at [facility] to provide update, will send updates in [facility]. CM will continue to follow for
discharge planning needs.
Plan; return to [facility] nursing report: [phone]
Discharge instructions fax: fax [phone].
[2023-11-11] MEDS: DEMADEX 20 MG PO (17:07)
[2023-11-11] MEDS: LIPITOR 80 MG PO (17:39)
[2023-11-12] MEDS: APRESOLINE 10 MG PO ×4 (00:18→21:08)
[2023-11-12] MEDS: TYLENOL 1000 MG PO ×4 (00:18→21:07)
[2023-11-12] MEDS: ULTRAM 25 MG PO (01:58)
[2023-11-12 03:45] VITALS: BP 114/81
[2023-11-12 06:00] VITALS: BMI 31.5
[2023-11-12 07:15] VITALS: BP 119/63
[2023-11-12] MEDS: KCL 20 MEQ PO (08:55)
[2023-11-12] MEDS: TOPROL XL 25 MG PO (08:55)
[2023-11-12] MEDS: PROTONIX 40 MG PO (08:55)
[2023-11-12] MEDS: ELIQUIS 2.5 MG PO ×2 (08:56→21:01)
[2023-11-12] MEDS: MIRALAX 17 GRAMS PO (08:56)
[2023-11-12] MEDS: PROSCAR 5 MG PO (08:56)
[2023-11-12] MEDS: FEOSOL 325 MG PO (08:56)
[2023-11-12] MEDS: PLAVIX 75 MG PO (08:56)
[2023-11-12] MEDS: DEMADEX 20 MG PO ×2 (08:56→16:09)
[2023-11-12] MEDS: FLOMAX 0.400000000000000022 MG PO (08:56)
[2023-11-12 09:09] LABS: Hematocrit 27.8 % (39.0-52.0); Hemoglobin 8.5 g/dL (13.0-18.0); Mean Corp Hgb Conc. 30.6 g/dL (33.0-37.0); Mean Corpuscular Hgb 29.6 pg (27.0-31.0); Mean Corpuscular Volume 96.9 fL (80.0-94.0); Mean Platelet Volume 11.4 fL (7.4-10.4); Platelet Count 166 10^3/uL (130-400); Red Blood Cell Count 2.87 10^6/uL (4.70-6.10); Red Cell Dist. Width 14.2 % (11.5-14.5); White Blood Cell Count 7.3 10^3/uL (4.8-10.8)
--- NOTE | 2023-11-12 09:19 | W.PN.HOSP.TC ---
Today's Communication/Plan
-
Cancel discharge
Asked nephrology to reassess diuretics
Assessment / Plan
Assessment / Plan
88M Obesity HFrEF CKDIII AOCD pAfib CAD s/p stents here for hypercapneic respiratory failure acute on CKDIII
# Acute hypercapnic respiratory failure
�Most likely exacerbated by acute on chronic HFrEF, as well as possible pneumonia with Fever impaired resp status
�Noncompliant to BiPAP at facility
�Continue BiPAP QHS and Naps/PRN
-Currently requiring 1-2 L of oxygen (down from as high as 6), wean as tolerated. Daughter states he does not wear oxygen normally
-From [facility]
#Acute on chronic HFrEF
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
- echo: EF is depressed (30-35%) with moderate AAS and RV hypokinesis.
� Cardiology consult appreciated, hydralazine added for afterload reduction 10/24, cards signed off
� Appreciate nephrology input, status post IV Lasix, nephrology transitioned to Diamox 10/29, nephrology added torsemide 10/31, increased to 20 mg bid 11/01, 11/05 Torsemide increased to 20 mg AM and 40 mg QPM 11/07 Diamox increased to 250 mg BID
Torsemide on hold 11/10 nephrology discontinued Diamox, recommends discharge on torsemide 20 mg twice a day
-11/11, weight is increased, cancel discharge, asked nephrology to reassess diuretics
#Right upper extremity edema
� Check Dopplers to rule out DVT
#Anemia of chronic kidney disease
H&H stable
#New paroxysmal afib
Cardio eval appreciated
Continue metoprolol succinate for rate control, Eliquis for anticoagulation
#Esophageal dysmotility
-VSE repeat 10/24 noted improvement from prior VSE examination, no aspiration noted however esophageal retention noted concerning for back aspiration
-10/29 barium swallow negative for obstruction, shows tortuous esophagus with esophageal dysmotility
-Diet changed to soft/bite-size
-Continue Ensure twice daily, encourage oral intake
#CAD
� Status post stent August 2023 [place]
� on aspirin and Plavix, w/ start of anticoagulation for pAfib as above, ASA discontinued in favor of Plavix/Eliquis combination as per Cardio
-Cont BB
#Severe Sepsis
� Possible pneumonia including a large aspiration pneumonia
-COVID, Flu negative
-Urine cultures negative
- Speech eval - reg, thin liquids
� cultures NGTD
� Empiric antibiotics Zosyn completed 7 days however leukocytosis remains persistent though mild, afebrile, ID eval appreciated, initially abx continued with unasyn, total 8 days abx including zosyn, abx since discontinued monitoring off
�MRSA swab - negative
#Small moderate pleural effusion Right lung noted on chest US
IR eval thoracentesis appreciated only 150 cc drawn, pleural fluid studies not suggestive of infection
#Hypernatremia
-most likely 2/2 to overdiuresis, resolved
#Elevated troponin, suspect nonischemic myocardial injury
� Troponin trended to peak 0.901 since trended down
- Has intermittent chest pain, cardiology recommends medical management as above
#Acute metabolic encephalopathy
� Secondary to most likely hypercapnia as well as possible infection
- treat as above
-fluctuating mental status throughout stay.
#Urinary retention
� Lock catheter placed 10/27
-Continue Proscar, Flomax
-Removed Lock 10/31, patient has been voiding per RN
#Lower back pain
prn tramadol 25 m bid, dilaudid 0.25 mg IV Q4Hprn for severe breakthrough pain (has not required)
#Hypokalemia
-monitor and replete as necessary
-hypokalemia resolved, K supplement reduced to daily 10/26
#Hyperlipidemia
� cont statin
#Stage 2 pressure ulcer gluteal cleft, stage 1 pressure ulcer sacrum
cont local wound care
PT/OT appreciated SNF rehab
DVT prophylaxis�Eliquis
DNR
Patient's family considering Palliative/Hospice, at this time plan is to pursue SNF rehab and consider transition to palliative/hospice care if patient progressively declines
Updated daughter 6/3, call daughter 6/4� Line Busy
Total time spent to see the patient on the floor, examine the patient, review data and lab results, discuss treatment plan with patient, nursing staff around 35 minutes.
Physical Exam
General: no acute distress, chronically ill
HEENT: Anicteric, Moist mucous membranes
Respiratory: Clear to auscultation b/l no wheezes crackles noted
Cardiac: S1/S2 and Regular Rhythm; No Murmur
GI: Soft and Non Tender
Musculoskeletal: No Clubbing, No Cyanosis, +1 pitting edema bilateral lower ext
Skin:
stage 2 pressure ulcer gluteal cleft, stage 1 pressure ulcer sacrum
Neuro: Awake alert conversant
Musculoskeletal: Right upper extremity edema noted
Anticipated Discharge: 24 - 48 hours
Subjective/Interval History
-
Date of Service: November 12, 2023
Patient appears more labored with his breathing today. No fever, no vomiting.
Objective Data
-
Labs:
Laboratory Results
11/12/23
08:40
WBC 7.3
Hgb 8.5 L
Hct 27.8 L
Plt Count 166
Sodium Pending
Potassium Pending
Chloride Pending
Carbon Dioxide Pending
BUN Pending
Creatinine Pending
Glucose Pending
Calcium Pending
Vital Signs:
Vital Signs
Temp Pulse Resp BP Pulse Ox
97.9 F 69 18 119/63 99
11/12/23 07:15 11/12/23 07:15 11/12/23 07:15 11/12/23 07:15 11/12/23 07:15
I&O
11/11/23 11/12/23 11/13/23
06:59 06:59 06:59
Intake Total 600 / 600 360 / 360
Balance 600 / 600 360 / 360
[2023-11-12 09:48] LABS: Blood Urea Nitrogen 39 mg/dl (9-20); Carbon Dioxide 31 mmol/L (22-30); Chloride 100 mmol/L (98-107); Estimated Creatinine Clearance 30 ml/min; Glucose 93 mg/dl (70-99); Magnesium 2.2 mg/dl (1.6-2.3); Phosphorus 3.8 mg/dl (2.5-4.5); Potassium 3.9 mmol/L (3.5-5.1); Sodium 138 mmol/L (135-145); eGFR 33.93
[2023-11-12 11:12] VITALS: BP 113/58
--- NOTE | 2023-11-12 11:48 | CM ---
CM spoke with patients daughterAndra, discussed plan for discharge today, will update with ambulance transportation time. IMM reviewed over the phone, emailed to [email or web address].
CM spoke with Hospitalist, patient appears more labored today, will hold off on discharge. Transport cancelled, Janelle at [facility] made aware. CM spoke with patients Andra may, updated on holding off on discharge for today. CM
will continue to follow for discharge planning needs.
Plan; return to [facility] SNF when stable.
[2023-11-12] MEDS: DILAUDID 0.25 MG IV (13:54)
[2023-11-12 15:13] VITALS: BP 120/58
--- NOTE | 2023-11-12 16:27 | W.PN.NEPH.PH ---
Today's Communication / Plan
-
cont TOrsemide
Assessment/Plan
-
Assessment:
hypernatremia
sepsis 2/2 to PNA
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
CKD (bl Cr 1.8-2.1)
Afib
CAD s/p recent stenting
Plan:
stable renal function at baseline
met alkalosis improved, off diamox 11/10
wt increasing, cont torsemide 20mg BID and titrate as needed
cont pO Kcl same
monitor daily wts, unlikely all edema is amenable for diuresis
PT/OT
reportedly family is considering palliative care
-
-
Date of Service: November 12, 2023
CC / HPI / ROS
-
Chief Complaint:
hypernatremia
ENRICO
History of Present Illness:
Cr stable at 1.9 today
Hemodynamically stable
off diamox , bicarb at 31
weights up today
Review of Systems:
UOP not documented
Remains on oxygen 2lit NC
No chest pain
offers no complaints, no n/v
Labs
-
Labs:
WBC 7.3 10^3/uL (4.8-10.8) 11/12/23 08:40
RBC 2.87 10^6/uL (4.70-6.10) L 11/12/23 08:40
Hgb 8.5 g/dL (13.0-18.0) L 11/12/23 08:40
Hct 27.8 % (39.0-52.0) L 11/12/23 08:40
Plt Count 166 10^3/uL (130-400) 11/12/23 08:40
Sodium 138 mmol/L (135-145) 11/12/23 08:40
Potassium 3.9 mmol/L (3.5-5.1) 11/12/23 08:40
Chloride 100 mmol/L (98-107) 11/12/23 08:40
Carbon Dioxide 31 mmol/L (22-30) H 11/12/23 08:40
BUN 39 mg/dl (9-20) H 11/12/23 08:40
Creatinine 1.9 mg/dL (0.7-1.3) H 11/12/23 08:40
eGFR 33.93 11/12/23 08:40
Glucose 93 mg/dl (70-99) 11/12/23 08:40
Calcium 10.0 mg/dl (8.4-10.2) 11/12/23 08:40
Phosphorus 3.8 mg/dl (2.5-4.5) 11/12/23 08:40
Xfw-S-Hmqjmzzexwq Pept > 67737 pg/ml 10/16/23 10:08
Albumin 2.7 g/dl (3.5-5.0) L 11/04/23 07:46
Physical Exam
-
Vital Signs:
Vital Signs
Temp Pulse Resp BP Pulse Ox
97.9 F 69 17 120/58 99
11/12/23 15:13 11/12/23 15:13 11/12/23 15:13 11/12/23 15:13 11/12/23 15:13
Cardiovascular:: Regular rate and rhythm
Respiratory:: Bilateral: CTA (decreased)
Lung Excursion:: Normal
Abdomen:: Nontender and Soft
Extremity Edema:: +2: Bilateral:
Lock Catheter: No
[2023-11-12] MEDS: LIPITOR 80 MG PO (17:50)
[2023-11-12 19:00] VITALS: BP 119/65
[2023-11-12 21:39] LABS: Glucose - Point of Care 138 mg/dl (70-99)
--- NOTE | 2023-11-12 21:48 | PTCARENOTE ---
Addendum entered by Azucena Hinkle RN 11/13/23 07:19:
Throughout slot shift manager, pt was verbally arousable and able to hold conversations with nursing staff while wearing Bipap. When turning to change and clean pt, pt was able to hold onto the side rail while nursing staff cleaned and changed pt. Plan of
care ongoing.
Original Note:
When assumed care, pt drowsy and verbally arousable. Now pt presenting with increased drowsiness. Pt is verbally and tactile arousable, pt asleep once this RN stops talking. VS: BP 127/66, HR 65, O2 99% on 2L NC, RR 20, Temp 97.2. Blood sugar 138.
Pt is resting comfortable with no signs of distress. Pt received IV pain medication ~13:54. Notified DEON Drew. New orders placed. Respiratory placed pt on Bipap. Plan of care ongoing.
22:12 Pt awake and holding confused conversation with this RN. Pt on Bipap. Plan of care ongoing.
[2023-11-12 23:13] VITALS: BP 114/61
[2023-11-13] VITALS (11 sets, daily range): BP systolic 99–130; BP diastolic 44–62; PULSE 2–81; BMI 31.0
[2023-11-13] MEDS: ELIQUIS 2.5 MG PO ×2 (08:25→19:53)
[2023-11-13] MEDS: FLOMAX 0.400000000000000022 MG PO (08:25)
[2023-11-13] MEDS: APRESOLINE 10 MG PO ×3 (08:25→23:05)
[2023-11-13] MEDS: DEMADEX 20 MG PO ×2 (08:25→16:32)
[2023-11-13] MEDS: FEOSOL 325 MG PO (08:25)
[2023-11-13] MEDS: PLAVIX 75 MG PO (08:25)
[2023-11-13] MEDS: PROSCAR 5 MG PO (08:25)
[2023-11-13] MEDS: TOPROL XL 25 MG PO (08:25)
[2023-11-13] MEDS: TYLENOL 1000 MG PO ×3 (08:26→23:06)
[2023-11-13] MEDS: PROTONIX 40 MG PO (08:26)
[2023-11-13] MEDS: KCL 20 MEQ PO (08:26)
[2023-11-13] MEDS: MIRALAX 17 GRAMS PO (08:26)
--- NOTE | 2023-11-13 10:01 | W.PN.HOSP.TC ---
Today's Communication/Plan
-
see bold
Assessment / Plan
Assessment / Plan
88M Obesity HFrEF CKDIII AOCD pAfib CAD s/p stents here for hypercapneic respiratory failure acute on CKDIII
# Acute hypercapnic respiratory failure
�Most likely exacerbated by acute on chronic HFrEF, as well as possible pneumonia with Fever impaired resp status
�Noncompliant to BiPAP at facility
�Continue BiPAP QHS and Naps/PRN
-Currently requiring 1-2 L of oxygen (down from as high as 6), wean as tolerated. Daughter states he does not wear oxygen normally
-From [facility]
#Acute on chronic HFrEF
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
- echo: EF is depressed (30-35%) with moderate AAS and RV hypokinesis.
� Cardiology consult appreciated, hydralazine added for afterload reduction 10/24, cards signed off
� Appreciate nephrology input, status post IV Lasix, nephrology transitioned to Diamox 10/29, nephrology added torsemide 10/31, increased to 20 mg bid 11/01, 11/05 Torsemide increased to 20 mg AM and 40 mg QPM 11/07 Diamox increased to 250 mg BID
Torsemide on hold 11/10 nephrology discontinued Diamox, recommends torsemide 20 mg twice a day
#Right upper extremity edema
� Check Dopplers to rule out DVT
#Dysuria
Check urine analysis
#Urinary retention
Bladder scan protocol
#Anemia of chronic kidney disease
H&H stable
#New paroxysmal afib
Cardio eval appreciated
Continue metoprolol succinate for rate control, Eliquis for anticoagulation
#Esophageal dysmotility
-VSE repeat 10/24 noted improvement from prior VSE examination, no aspiration noted however esophageal retention noted concerning for back aspiration
-10/29 barium swallow negative for obstruction, shows tortuous esophagus with esophageal dysmotility
-Diet changed to soft/bite-size
-Continue Ensure twice daily, encourage oral intake
#CAD
� Status post stent August 2023 [place]
� on aspirin and Plavix, w/ start of anticoagulation for pAfib as above, ASA discontinued in favor of Plavix/Eliquis combination as per Cardio
-Cont BB
#Severe Sepsis
� Possible pneumonia including a large aspiration pneumonia
-COVID, Flu negative
-Urine cultures negative
- Speech eval - reg, thin liquids
� cultures NGTD
� Empiric antibiotics Zosyn completed 7 days however leukocytosis remains persistent though mild, afebrile, ID eval appreciated, initially abx continued with unasyn, total 8 days abx including zosyn, abx since discontinued monitoring off
�MRSA swab - negative
#Small moderate pleural effusion Right lung noted on chest US
IR eval thoracentesis appreciated only 150 cc drawn, pleural fluid studies not suggestive of infection
#Hypernatremia
-most likely 2/2 to overdiuresis, resolved
#Elevated troponin, suspect nonischemic myocardial injury
� Troponin trended to peak 0.901 since trended down
- Has intermittent chest pain, cardiology recommends medical management as above
#Acute metabolic encephalopathy
� Secondary to most likely hypercapnia as well as possible infection
- treat as above
-fluctuating mental status throughout stay.
#Urinary retention
� Lock catheter placed 10/27
-Continue Proscar, Flomax
-Removed Lock 10/31, patient has been voiding per RN
#Lower back pain
prn tramadol 25 m bid, dilaudid 0.25 mg IV Q4Hprn for severe breakthrough pain (has not required)
#Hypokalemia
-monitor and replete as necessary
-hypokalemia resolved, K supplement reduced to daily 10/26
#Hyperlipidemia
� cont statin
#Stage 2 pressure ulcer gluteal cleft, stage 1 pressure ulcer sacrum
cont local wound care
PT/OT appreciated SNF rehab
DVT prophylaxis�Eliquis
DNR
Patient's family considering Palliative/Hospice, at this time plan is to pursue SNF rehab and consider transition to palliative/hospice care if patient progressively declines
Updated daughter 11/12
Total time spent to see the patient on the floor, examine the patient, review data and lab results, discuss treatment plan with patient, nursing staff around 50 minutes.
Physical Exam
General: no acute distress, chronically ill
HEENT: Anicteric, Moist mucous membranes
Respiratory: Clear to auscultation b/l no wheezes crackles noted
Cardiac: S1/S2 and Regular Rhythm; No Murmur
GI: Soft and Non Tender
Musculoskeletal: No Clubbing, No Cyanosis, +1 pitting edema bilateral lower ext
Skin:
stage 2 pressure ulcer gluteal cleft, stage 1 pressure ulcer sacrum
Neuro: Awake alert conversant
Musculoskeletal: Right upper extremity edema noted
Anticipated Discharge: 24 - 48 hours
Subjective/Interval History
-
Date of Service: November 13, 2023
Nurse reports patient having urinary retention. He was able to void. No fever, no vomiting.
Objective Data
-
Vital Signs:
Vital Signs
Temp Pulse Resp BP Pulse Ox
97.2 F 67 22 121/55 100
11/13/23 07:30 11/13/23 08:25 11/13/23 07:30 11/13/23 08:25 11/13/23 07:30
I&O
11/12/23 11/13/23 11/14/23
06:59 06:59 06:59
Intake Total 360 / 360 480 / 480
Balance 360 / 360 480 / 480
--- NOTE | 2023-11-13 12:38 | W.PN.NEPH.PH ---
Today's Communication / Plan
-
continue torsemide
Assessment/Plan
-
Assessment:
hypernatremia
sepsis 2/2 to PNA
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
CKD (bl Cr 1.8-2.1)
Afib
CAD s/p recent stenting
Plan:
stable renal function at baseline
off diamox
continue torsemide 20mg BID and titrate as needed
for UE US doppler
d/w daughter edema and plan for slow diuresis
-
-
Date of Service: November 13, 2023
CC / HPI / ROS
-
Chief Complaint:
hypernatremia
ENR[place]
History of Present Illness:
Cr stable at 1.9 yesterday
Hemodynamically stable
off diamox
weights stable
Review of Systems:
UOP not documented
Remains on oxygen 2lit NC
c/o back pain
dtr reports right UE edema
Labs
-
Labs:
WBC 7.3 10^3/uL (4.8-10.8) 11/12/23 08:40
RBC 2.87 10^6/uL (4.70-6.10) L 11/12/23 08:40
Hgb 8.5 g/dL (13.0-18.0) L 11/12/23 08:40
Hct 27.8 % (39.0-52.0) L 11/12/23 08:40
Plt Count 166 10^3/uL (130-400) 11/12/23 08:40
Sodium 138 mmol/L (135-145) 11/12/23 08:40
Potassium 3.9 mmol/L (3.5-5.1) 11/12/23 08:40
Chloride 100 mmol/L (98-107) 11/12/23 08:40
Carbon Dioxide 31 mmol/L (22-30) H 11/12/23 08:40
BUN 39 mg/dl (9-20) H 11/12/23 08:40
Creatinine 1.9 mg/dL (0.7-1.3) H 11/12/23 08:40
eGFR 33.93 11/12/23 08:40
Glucose 93 mg/dl (70-99) 11/12/23 08:40
Calcium 10.0 mg/dl (8.4-10.2) 11/12/23 08:40
Phosphorus 3.8 mg/dl (2.5-4.5) 11/12/23 08:40
Tct-T-Owwjrkxremn Pept > 86119 pg/ml 10/16/23 10:08
Albumin 2.7 g/dl (3.5-5.0) L 11/04/23 07:46
Physical Exam
-
Vital Signs:
Vital Signs
Temp Pulse Resp BP Pulse Ox
97.8 F 84 18 123/45 97
11/13/23 11:26 11/13/23 11:26 11/13/23 11:26 11/13/23 11:26 11/13/23 11:26
Cardiovascular:: Regular rate and rhythm
Respiratory:: Bilateral: Coarse
Lung Excursion:: Normal
Abdomen:: Nontender and Soft
Bowel Sounds:: Normal
Extremity Edema:: +3: Bilateral:
--- NOTE | 2023-11-13 13:39 | CM ---
CM reviewed chart, per Hospitalist, hold off on discharge, potential discharge tomorrow. Janelle at [facility] updated. CM will continue to follow for discharge planning needs.
Plan; return to [facility] nursing report: [phone]
Discharge instructions fax: fax [phone].
[2023-11-13 15:08] LABS: Urine Albumin 1+ (Neg - Trace); Urine Bilirubin Negative (Negative); Urine Character Very Cloudy (Clear); Urine Color Yellow; Urine Glucose Negative (Negative); Urine Ketone Negative (Negative); Urine Leukocyte 2+ (Negative); Urine Nitrite Negative (Negative); Urine Occult Blood 3+ (Negative); Urine Urobilinogen Negative (Neg - 1+)
[2023-11-13 15:39] LABS: Urine Red Blood Cell >100 /HPF (0-2); Urine Squamous Cell 0-2 /LPF (Few)
[2023-11-13 15:40] LABS: Urine Bacteria Few (Negative)
[2023-11-13] MEDS: LIPITOR 80 MG PO (17:43)
[2023-11-14] VITALS (7 sets, daily range): BP systolic 111–134; BP diastolic 53–89; PULSE 2–69; BMI 31.4
[2023-11-14] MEDS: ULTRAM 25 MG PO (06:04)
--- NOTE | 2023-11-14 07:34 | W.PN.HOSP.TC ---
Today's Communication/Plan
-
see bold
Assessment / Plan
Assessment / Plan
88M Obesity HFrEF CKDIII AOCD pAfib CAD s/p stents here for hypercapneic respiratory failure acute on CKDIII
# Acute hypercapnic respiratory failure
�Most likely exacerbated by acute on chronic HFrEF, as well as possible pneumonia with Fever impaired resp status
�Noncompliant to BiPAP at facility
�Continue BiPAP QHS and Naps/PRN
-Currently requiring 1-2 L of oxygen (down from as high as 6), wean as tolerated. Daughter states he does not wear oxygen normally
-From [facility]
#Acute on chronic HFrEF
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
- echo: EF is depressed (30-35%) with moderate AAS and RV hypokinesis.
� Cardiology consult appreciated, hydralazine added for afterload reduction 10/24, cards signed off
� Appreciate nephrology input, status post IV Lasix, nephrology transitioned to Diamox 10/29, nephrology added torsemide 10/31, increased to 20 mg bid 11/01, 11/05 Torsemide increased to 20 mg AM and 40 mg QPM 11/07 Diamox increased to 250 mg BID
Torsemide on hold 11/10 nephrology discontinued Diamox, recommends torsemide 20 mg twice a day. 11/13 Give lasix 60 mg IV x 1 today
#Right upper extremity edema
� Dopplers neg for DVT
#Dysuria
Urine analysis -not convincing for infection, monitor off antibiotics, follow-up on urine culture
#Urinary retention
� Lock catheter placed 10/27
-Continue Proscar, Flomax
-Removed Lock 10/31, patient has been voiding per RN
-Bladder scan protocol
#Anemia of chronic kidney disease
H&H stable
#New paroxysmal afib
Cardio eval appreciated
Continue metoprolol succinate for rate control, Eliquis for anticoagulation
#Esophageal dysmotility
-VSE repeat 10/24 noted improvement from prior VSE examination, no aspiration noted however esophageal retention noted concerning for back aspiration
-10/29 barium swallow negative for obstruction, shows tortuous esophagus with esophageal dysmotility
-Diet changed to soft/bite-size
-Continue Ensure twice daily, encourage oral intake
#CAD
� Status post stent August 2023 [facility]
� on aspirin and Plavix, w/ start of anticoagulation for pAfib as above, ASA discontinued in favor of Plavix/Eliquis combination as per Cardio
-Cont BB
#Severe Sepsis
� Possible pneumonia including a large aspiration pneumonia
-COVID, Flu negative
-Urine cultures negative
- Speech eval - reg, thin liquids
� cultures NGTD
� Empiric antibiotics Zosyn completed 7 days however leukocytosis remains persistent though mild, afebrile, ID eval appreciated, initially abx continued with unasyn, total 8 days abx including zosyn, abx since discontinued monitoring off
�MRSA swab - negative
#Small moderate pleural effusion Right lung noted on chest US
IR eval thoracentesis appreciated only 150 cc drawn, pleural fluid studies not suggestive of infection
#Hypernatremia
-most likely 2/2 to overdiuresis, resolved
#Elevated troponin, suspect nonischemic myocardial injury
� Troponin trended to peak 0.901 since trended down
- Has intermittent chest pain, cardiology recommends medical management as above
#Acute metabolic encephalopathy
� Secondary to most likely hypercapnia as well as possible infection
- treat as above
-fluctuating mental status throughout stay.
#Lower back pain
prn tramadol 25 m bid, dilaudid 0.25 mg IV Q4Hprn for severe breakthrough pain (has not required)
#Hypokalemia
-monitor and replete as necessary
-hypokalemia resolved, K supplement reduced to daily 10/26
#Hyperlipidemia
� cont statin
#Stage 2 pressure ulcer gluteal cleft, stage 1 pressure ulcer sacrum
cont local wound care
PT/OT appreciated SNF rehab
DVT prophylaxis�Eliquis
DNR
Patient's family considering Palliative/Hospice, at this time plan is to pursue SNF rehab and consider transition to palliative/hospice care if patient progressively declines
Updated daughter 11/13
Total time spent to see the patient on the floor, examine the patient, review data and lab results, discuss treatment plan with patient, nursing staff around 51 minutes.
Physical Exam
General: no acute distress, chronically ill
HEENT: Anicteric, Moist mucous membranes
Respiratory: Clear to auscultation b/l no wheezes crackles noted
Cardiac: S1/S2 and Regular Rhythm; No Murmur
GI: Soft and Non Tender
Musculoskeletal: No Clubbing, No Cyanosis, +2 pitting edema bilateral lower ext
Skin:
stage 2 pressure ulcer gluteal cleft, stage 1 pressure ulcer sacrum
Neuro: Awake alert conversant
Musculoskeletal: Right upper extremity edema noted
Anticipated Discharge: 24 - 48 hours
Subjective/Interval History
-
Date of Service: November 14, 2023
Reports shortness of breath. No fever, no vomiting.
Objective Data
-
Labs:
Laboratory Results
11/14/23
07:25
WBC Pending
Hgb Pending
Hct Pending
Plt Count Pending
Sodium Pending
Potassium Pending
Chloride Pending
Carbon Dioxide Pending
BUN Pending
Creatinine Pending
Glucose Pending
Calcium Pending
Vital Signs:
Vital Signs
Temp Pulse Resp BP Pulse Ox
97.9 F 78 18 115/59 94
11/14/23 03:18 11/14/23 03:18 11/14/23 03:18 11/14/23 03:18 11/14/23 03:18
I&O
11/13/23 11/14/23 11/15/23
06:59 06:59 06:59
Intake Total 480 / 480 720 / 720
Balance 480 / 480 720 / 720
[2023-11-14 07:42] LABS: Hematocrit 27.7 % (39.0-52.0); Hemoglobin 8.3 g/dL (13.0-18.0); Mean Corpuscular Hgb 29.2 pg (27.0-31.0); Mean Corpuscular Volume 97.5 fL (80.0-94.0); Mean Platelet Volume 11.4 fL (7.4-10.4); Platelet Count 161 10^3/uL (130-400); Red Blood Cell Count 2.84 10^6/uL (4.70-6.10); Red Cell Dist. Width 14.5 % (11.5-14.5); White Blood Cell Count 7.9 10^3/uL (4.8-10.8)
[2023-11-14 08:02] LABS: Blood Urea Nitrogen 40 mg/dl (9-20); Calcium 9.7 mg/dl (8.4-10.2); Carbon Dioxide 32 mmol/L (22-30); Chloride 102 mmol/L (98-107); Estimated Creatinine Clearance 32 ml/min; Glucose 105 mg/dl (70-99); Potassium 4.1 mmol/L (3.5-5.1); Sodium 139 mmol/L (135-145); eGFR 36.21
--- NOTE | 2023-11-14 11:32 | W.PN.NEPH.PH ---
Today's Communication / Plan
-
follow BMP
Assessment/Plan
-
Assessment:
hypernatremia
sepsis 2/2 to PNA
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
CKD (bl Cr 1.8-2.1)
Afib
CAD s/p recent stenting
Plan:
stable renal function at baseline
continue torsemide 20mg BID. can titrate as needed, though I do not think volume will be removed easily
for UE US doppler
PT/OT
prognosis guarded
-
-
Date of Service: November 14, 2023
CC / HPI / ROS
-
Chief Complaint:
hypernatremia
[place]
History of Present Illness:
Cr stable at 1.8
Hemodynamically stable
off diamox
on torsemide
weights stable
Review of Systems:
UOP not documented
Remains on oxygen 2lit NC
c/o back pain and stomach pain
says he is unable to get into chair
Labs
-
Labs:
WBC 7.9 10^3/uL (4.8-10.8) 11/14/23 07:25
RBC 2.84 10^6/uL (4.70-6.10) L 11/14/23 07:25
Hgb 8.3 g/dL (13.0-18.0) L 11/14/23 07:25
Hct 27.7 % (39.0-52.0) L 11/14/23 07:25
Plt Count 161 10^3/uL (130-400) 11/14/23 07:25
Sodium 139 mmol/L (135-145) 11/14/23 07:25
Potassium 4.1 mmol/L (3.5-5.1) 06/06/24 07:25
Chloride 102 mmol/L (98-107) 11/14/23 07:25
Carbon Dioxide 32 mmol/L (22-30) H 11/14/23 07:25
BUN 40 mg/dl (9-20) H 11/14/23 07:25
Creatinine 1.8 mg/dL (0.7-1.3) H 11/14/23 07:25
eGFR 36.21 11/14/23 07:25
Glucose 105 mg/dl (70-99) H 11/14/23 07:25
Calcium 9.7 mg/dl (8.4-10.2) 11/14/23 07:25
Phosphorus 3.8 mg/dl (2.5-4.5) 11/12/23 08:40
Vsa-Z-Vgncbdpjuqn Pept > 16251 pg/ml 10/16/23 10:08
Albumin 2.7 g/dl (3.5-5.0) L 11/04/23 07:46
Physical Exam
-
Vital Signs:
Vital Signs
Temp Pulse Resp BP Pulse Ox
98.7 F 83 20 130/73 94
11/14/23 11:00 11/14/23 11:00 11/14/23 11:00 11/14/23 11:00 11/14/23 11:00
Cardiovascular:: Regular rate and rhythm
Respiratory:: Bilateral: Coarse
Lung Excursion:: Normal
Abdomen:: Nontender and Soft
Bowel Sounds:: Normal
Extremity Edema:: +3: Bilateral:
[2023-11-14] MEDS: MIRALAX 17 GRAMS PO (11:56)
[2023-11-14] MEDS: PROSCAR 5 MG PO (12:02)
[2023-11-14] MEDS: FLOMAX 0.400000000000000022 MG PO (12:02)
[2023-11-14] MEDS: ELIQUIS 2.5 MG PO ×2 (12:03→20:32)
[2023-11-14] MEDS: PROTONIX 40 MG PO (12:03)
[2023-11-14] MEDS: KCL 20 MEQ PO (12:05)
[2023-11-14] MEDS: TYLENOL 1000 MG PO ×3 (12:06→22:59)
[2023-11-14] MEDS: PLAVIX 75 MG PO (12:08)
[2023-11-14] MEDS: TOPROL XL 25 MG PO (12:08)
[2023-11-14] MEDS: DEMADEX 20 MG PO ×2 (12:09→18:25)
[2023-11-14] MEDS: FEOSOL 325 MG PO (12:09)
[2023-11-14] MEDS: APRESOLINE 10 MG PO ×3 (12:10→22:59)
[2023-11-14] MEDS: LASIX 60 MG IV (15:10)
[2023-11-14] MEDS: FLUSH (NSS) 1 FLUSH IV (15:12)
--- NOTE | 2023-11-14 15:17 | CM ---
CM met with daughter, Andra. Per Andra, her brother will be coming to hospital later, they will discuss hospice with patient. Andra is unsure if they want patient to return to rehab or return to facility on hospice. CM updated Janelle at [facility], would accept patient back on hospice care- [place] [facility], and [facility]. CM will continue to follow for discharge planning needs. Family to discuss with patient today to decide
return to [facility] with rehab or hospice, family will need to choose a hospice agency.
Plan; return to [facility] SNF vs [facility] with Hospice, pending families decision.
[2023-11-14] MEDS: LIPITOR 80 MG PO (18:24)
[2023-11-15 03:24] VITALS: PULSE 2
[2023-11-15 05:16] VITALS: BMI 31.7
[2023-11-15 07:51] VITALS: BP 148/67
[2023-11-15] MEDS: PLAVIX 75 MG PO (08:10)
[2023-11-15] MEDS: KCL 20 MEQ PO (08:10)
[2023-11-15] MEDS: MIRALAX 17 GRAMS PO (08:10)
[2023-11-15] MEDS: PROSCAR 5 MG PO (08:10)
[2023-11-15] MEDS: PROTONIX 40 MG PO (08:10)
[2023-11-15] MEDS: TYLENOL 1000 MG PO ×3 (08:10→21:41)
[2023-11-15] MEDS: DEMADEX 20 MG PO ×2 (08:10→16:21)
[2023-11-15] MEDS: TOPROL XL 25 MG PO (08:10)
[2023-11-15] MEDS: FLOMAX 0.400000000000000022 MG PO (08:10)
[2023-11-15] MEDS: ELIQUIS 2.5 MG PO ×2 (08:10→19:32)
[2023-11-15] MEDS: FEOSOL 325 MG PO (08:10)
[2023-11-15] MEDS: APRESOLINE 10 MG PO ×3 (08:10→21:41)
[2023-11-15 08:31] LABS: Hematocrit 29.3 % (39.0-52.0); Hemoglobin 9.3 g/dL (13.0-18.0); Mean Corp Hgb Conc. 31.7 g/dL (33.0-37.0); Mean Corpuscular Hgb 29.4 pg (27.0-31.0); Mean Corpuscular Volume 92.7 fL (80.0-94.0); Mean Platelet Volume 10.8 fL (7.4-10.4); Platelet Count 175 10^3/uL (130-400); Red Blood Cell Count 3.16 10^6/uL (4.70-6.10); Red Cell Dist. Width 14.5 % (11.5-14.5); White Blood Cell Count 9.1 10^3/uL (4.8-10.8)
--- NOTE | 2023-11-15 08:43 | W.PN.HOSP.TC ---
Today's Communication/Plan
-
see bold
Assessment / Plan
Assessment / Plan
88M Obesity HFrEF CKDIII AOCD pAfib CAD s/p stents here for hypercapneic respiratory failure acute on CKDIII
# Acute hypercapnic respiratory failure
�Most likely exacerbated by acute on chronic HFrEF, as well as possible pneumonia with Fever impaired resp status
�Noncompliant to BiPAP at facility
�Continue BiPAP QHS and Naps/PRN
-Currently requiring 1-2 L of oxygen (down from as high as 6), wean as tolerated. Daughter states he does not wear oxygen normally
-From [facility]
#Acute on chronic HFrEF
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
- echo: EF is depressed (30-35%) with moderate AAS and RV hypokinesis.
� Cardiology consult appreciated, hydralazine added for afterload reduction 10/24, cards signed off
� Appreciate nephrology input, status post IV Lasix, nephrology transitioned to Diamox 10/29, nephrology added torsemide 10/31, increased to 20 mg bid 11/01, 11/05 Torsemide increased to 20 mg AM and 40 mg QPM 11/07 Diamox increased to 250 mg BID
Torsemide on hold 11/10 nephrology discontinued Diamox, recommends torsemide 20 mg twice a day. 11/13 lasix 60 mg IV x 1 today
#Right upper extremity edema
� Dopplers neg for DVT
#Dysuria
#Acute urinary tract infection
Urine culture growing Pseudomonas, start levofloxacin, renally dosed through 11/21/23
#Urinary retention
� Lock catheter placed 10/27
-Continue Proscar, Flomax
-Removed Lock 10/31, patient has been voiding per RN
-Bladder scan protocol
#Anemia of chronic kidney disease
H&H stable
#New paroxysmal afib
Cardio eval appreciated
Continue metoprolol succinate for rate control, Eliquis for anticoagulation
#Esophageal dysmotility
-VSE repeat 10/24 noted improvement from prior VSE examination, no aspiration noted however esophageal retention noted concerning for back aspiration
-10/29 barium swallow negative for obstruction, shows tortuous esophagus with esophageal dysmotility
-Diet changed to soft/bite-size
-Continue Ensure twice daily, encourage oral intake
#CAD
� Status post stent August 2023 [facility]
� on aspirin and Plavix, w/ start of anticoagulation for pAfib as above, ASA discontinued in favor of Plavix/Eliquis combination as per Cardio
-Cont BB
#Severe Sepsis
� Possible pneumonia including a large aspiration pneumonia
-COVID, Flu negative
-Urine cultures negative
- Speech eval - reg, thin liquids
� cultures NGTD
� Empiric antibiotics Zosyn completed 7 days however leukocytosis remains persistent though mild, afebrile, ID eval appreciated, initially abx continued with unasyn, total 8 days abx including zosyn, abx since discontinued monitoring off
�MRSA swab - negative
#Small moderate pleural effusion Right lung noted on chest US
IR eval thoracentesis appreciated only 150 cc drawn, pleural fluid studies not suggestive of infection
#Hypernatremia
-most likely 2/2 to overdiuresis, resolved
#Elevated troponin, suspect nonischemic myocardial injury
� Troponin trended to peak 0.901 since trended down
- Has intermittent chest pain, cardiology recommends medical management as above
#Acute metabolic encephalopathy
� Secondary to most likely hypercapnia as well as possible infection
- treat as above
-fluctuating mental status throughout stay.
#Lower back pain
prn tramadol 25 m bid, dilaudid 0.25 mg IV Q4Hprn for severe breakthrough pain (has not required)
#Hypokalemia
-monitor and replete as necessary
-hypokalemia resolved, K supplement reduced to daily 10/26
#Hyperlipidemia
� cont statin
#Stage 2 pressure ulcer gluteal cleft, stage 1 pressure ulcer sacrum
cont local wound care
PT/OT appreciated SNF rehab
DVT prophylaxis�Eliquis
DNR
Patient's family considering Palliative/Hospice, at this time plan is to pursue SNF rehab and consider transition to palliative/hospice care if patient progressively declines
Updated daughter 11/13
Physical Exam
General: no acute distress, chronically ill
HEENT: Anicteric, Moist mucous membranes
Respiratory: Clear to auscultation b/l no wheezes crackles noted
Cardiac: S1/S2 and Regular Rhythm; No Murmur
GI: Soft and Non Tender
Musculoskeletal: No Clubbing, No Cyanosis, +2 pitting edema bilateral lower ext
Skin:
stage 2 pressure ulcer gluteal cleft, stage 1 pressure ulcer sacrum
Neuro: Awake alert conversant
Musculoskeletal: Right upper extremity edema noted
Anticipated Discharge: 24 - 48 hours
Subjective/Interval History
-
Date of Service: November 15, 2023
Patient continues to complain of shortness of breath. No fever, no vomiting.
Objective Data
-
Labs:
Laboratory Results
11/15/23
08:10
WBC 9.1
Hgb 9.3 L
Hct 29.3 L
Plt Count 175
Sodium Pending
Potassium Pending
Chloride Pending
Carbon Dioxide Pending
BUN Pending
Creatinine Pending
Glucose Pending
Calcium Pending
Vital Signs:
Vital Signs
Temp Pulse Resp BP Pulse Ox
98.6 F 67 21 148/67 97
11/15/23 07:51 11/15/23 07:51 11/15/23 07:51 11/15/23 07:51 11/15/23 07:51
I&O
11/14/23 11/15/23 11/16/23
06:59 06:59 06:59
Intake Total 720 / 720 1080 / 1080
Balance 720 / 720 1080 / 1080
[2023-11-15 09:17] LABS: Blood Urea Nitrogen 38 mg/dl (9-20); Carbon Dioxide 33 mmol/L (22-30); Chloride 100 mmol/L (98-107); Estimated Creatinine Clearance 34 ml/min; Glucose 95 mg/dl (70-99); Potassium 3.7 mmol/L (3.5-5.1); Sodium 139 mmol/L (135-145); eGFR 38.78
[2023-11-15] MEDS: LEVAQUIN 500 MG PO (09:52)
--- NOTE | 2023-11-15 10:04 | WOUNDNOTE ---
WO RN NOTE: Reviewed chart and met with patient. Patient has unstageable sacral/gluteal cleft pressure injury. Wound is covered with adherent brown and yellow slough. No odor or drainage noted. Patient found to be on air overlay and wound was
appropriately covered with thin layer of zinc ointment and adhesive foam. Heels intact and off-loaded on pillows. Air added to static air overlay by this RN. Plan is for honey gel and 5 layer silicone border foam to sacral wound. Patients family
currently deciding on goals of care. Patient has several co-morbidities including COPD and CHF. Current wound may worsen and new wounds may develop even with optimal care. RN Mayra given update and will confirm orders with hospitalist. Will continue
to follow as needed.
--- NOTE | 2023-11-15 12:06 | WOUNDNOTE ---
SACRAL/GLUTEAL CLEFT
--- NOTE | 2023-11-15 15:03 | W.PN.NEPH.PH ---
Today's Communication / Plan
-
cont TOrsemide
Assessment/Plan
-
Assessment:
hypernatremia
sepsis 2/2 to PNA
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
CKD (bl Cr 1.8-2.1)
Afib
CAD s/p recent stenting
Plan:
stable renal function at baseline
continue torsemide 20mg BID. can titrate as needed, though I do not think volume will be removed easily
wts are not accurate on bedscale
PT/OT
prognosis guarded
-
-
Date of Service: November 15, 2023
CC / HPI / ROS
-
Chief Complaint:
hypernatremia
EN[place]
History of Present Illness:
Cr stable at 1.8
Hemodynamically stable
off diamox
on torsemide
weights stable for last few days with mild fluctuations
Review of Systems:
UOP not documented
Remains on oxygen 2lit NC, BIPAP at HS
c/o back pain
says he is unable to get into chair
Labs
-
Labs:
WBC 9.1 10^3/uL (4.8-10.8) 11/15/23 08:10
RBC 3.16 10^6/uL (4.70-6.10) L 11/15/23 08:10
Hgb 9.3 g/dL (13.0-18.0) L 11/15/23 08:10
Hct 29.3 % (39.0-52.0) L 11/15/23 08:10
Plt Count 175 10^3/uL (130-400) 11/15/23 08:10
Sodium 139 mmol/L (135-145) 11/15/23 08:10
Potassium 3.7 mmol/L (3.5-5.1) 11/15/23 08:10
Chloride 100 mmol/L (98-107) 11/15/23 08:10
Carbon Dioxide 33 mmol/L (22-30) H 11/15/23 08:10
BUN 38 mg/dl (9-20) H 11/15/23 08:10
Creatinine 1.7 mg/dL (0.7-1.3) H 11/15/23 08:10
eGFR 38.78 11/15/23 08:10
Glucose 95 mg/dl (70-99) 11/15/23 08:10
Calcium 10.0 mg/dl (8.4-10.2) 11/15/23 08:10
Phosphorus 3.8 mg/dl (2.5-4.5) 11/12/23 08:40
Lbo-J-Rjswmwnduyd Pept > 66396 pg/ml 10/16/23 10:08
Albumin 2.7 g/dl (3.5-5.0) L 11/04/23 07:46
Physical Exam
-
Vital Signs:
Vital Signs
Temp Pulse Resp BP Pulse Ox
98.6 F 67 21 148/67 97
11/15/23 07:51 11/15/23 07:51 11/15/23 07:51 11/15/23 07:51 11/15/23 07:51
Cardiovascular:: Regular rate and rhythm
Respiratory:: Bilateral: Coarse
Lung Excursion:: Normal
Abdomen:: Nontender and Soft
Extremity Edema:: +3: Bilateral:
Lock Catheter: No
[2023-11-15 15:28] VITALS: BP 124/55
[2023-11-15] MEDS: LIPITOR 80 MG PO (17:27)
[2023-11-15] MEDS: ULTRAM 25 MG PO (19:32)
[2023-11-15 22:59] VITALS: PULSE 2
[2023-11-15 23:00] VITALS: BP 114/51
[2023-11-16 04:18] VITALS: PULSE 2
[2023-11-16 06:00] VITALS: BMI 31.4
[2023-11-16 07:05] VITALS: BP 130/65
--- NOTE | 2023-11-16 08:18 | W.PN.HOSP.TC ---
Today's Communication/Plan
-
Discharge to short-term rehab Saturday
Assessment / Plan
Assessment / Plan
88M Obesity HFrEF CKDIII AOCD pAfib CAD s/p stents here for hypercapneic respiratory failure acute on CKDIII
# Acute hypercapnic respiratory failure
�Most likely exacerbated by acute on chronic HFrEF, as well as possible pneumonia with Fever impaired resp status
�Noncompliant to BiPAP at facility
�Continue BiPAP QHS and Naps/PRN
-Currently requiring 1-2 L of oxygen (down from as high as 6), wean as tolerated. Daughter states he does not wear oxygen normally
-From [facility]
#Acute on chronic HFrEF
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
- echo: EF is depressed (30-35%) with moderate AAS and RV hypokinesis.
� Cardiology consult appreciated, hydralazine added for afterload reduction 10/24, cards signed off
� Appreciate nephrology input, status post IV Lasix, nephrology transitioned to Diamox 10/29, nephrology added torsemide 10/31, increased to 20 mg bid 11/01, 11/05 Torsemide increased to 20 mg AM and 40 mg QPM 11/07 Diamox increased to 250 mg BID
Torsemide on hold 11/10 nephrology discontinued Diamox, recommends torsemide 20 mg twice a day. 11/13 lasix 60 mg IV x 1 today
#Right upper extremity edema
� Dopplers neg for DVT
#Dysuria
#Acute urinary tract infection
Urine culture growing Pseudomonas, start levofloxacin, renally dosed through 11/21/23
#Urinary retention
� Lock catheter placed 10/27
-Continue Proscar, Flomax
-Removed Lock 10/31, patient has been voiding per RN
-Bladder scan protocol
#Anemia of chronic kidney disease
H&H stable
#New paroxysmal afib
Cardio eval appreciated
Continue metoprolol succinate for rate control, Eliquis for anticoagulation
#Esophageal dysmotility
-VSE repeat 10/24 noted improvement from prior VSE examination, no aspiration noted however esophageal retention noted concerning for back aspiration
-10/29 barium swallow negative for obstruction, shows tortuous esophagus with esophageal dysmotility
-Diet changed to soft/bite-size
-Continue Ensure twice daily, encourage oral intake
#CAD
� Status post stent August 2023 [facility]
� on aspirin and Plavix, w/ start of anticoagulation for pAfib as above, ASA discontinued in favor of Plavix/Eliquis combination as per Cardio
-Cont BB
#Severe Sepsis
� Possible pneumonia including a large aspiration pneumonia
-COVID, Flu negative
-Urine cultures negative
- Speech eval - reg, thin liquids
� cultures NGTD
� Empiric antibiotics Zosyn completed 7 days however leukocytosis remains persistent though mild, afebrile, ID eval appreciated, initially abx continued with unasyn, total 8 days abx including zosyn, abx since discontinued monitoring off
�MRSA swab - negative
#Small moderate pleural effusion Right lung noted on chest US
IR eval thoracentesis appreciated only 150 cc drawn, pleural fluid studies not suggestive of infection
#Hypernatremia
-most likely 2/2 to overdiuresis, resolved
#Elevated troponin, suspect nonischemic myocardial injury
� Troponin trended to peak 0.901 since trended down
- Has intermittent chest pain, cardiology recommends medical management as above
#Acute metabolic encephalopathy
� Secondary to most likely hypercapnia as well as possible infection
- treat as above
-fluctuating mental status throughout stay.
#Lower back pain
prn tramadol 25 m bid, dilaudid 0.25 mg IV Q4Hprn for severe breakthrough pain (has not required)
#Hypokalemia
-monitor and replete as necessary
-hypokalemia resolved, K supplement reduced to daily 10/26
#Hyperlipidemia
� cont statin
#Stage 2 pressure ulcer gluteal cleft, stage 1 pressure ulcer sacrum
cont local wound care
PT/OT appreciated SNF rehab
DVT prophylaxis�Eliquis
DNR
Patient's family considering Palliative/Hospice, at this time plan is to pursue SNF rehab and consider transition to palliative/hospice care if patient progressively declines
Updated daughter 11/15
Physical Exam
General: no acute distress, chronically ill
HEENT: Anicteric, Moist mucous membranes
Respiratory: Clear to auscultation b/l no wheezes crackles noted
Cardiac: S1/S2 and Regular Rhythm; No Murmur
GI: Soft and Non Tender
Musculoskeletal: No Clubbing, No Cyanosis, +2 pitting edema bilateral lower ext
Skin:
stage 2 pressure ulcer gluteal cleft, stage 1 pressure ulcer sacrum
Neuro: Awake alert conversant
Musculoskeletal: Right upper extremity edema noted
Anticipated Discharge: 24 - 48 hours
Subjective/Interval History
-
Date of Service: November 16, 2023
Patient continues to have intermittent shortness of breath. He complains of back pain. No fever, no vomiting.
Objective Data
-
Labs:
Laboratory Results
11/16/23
06:00
WBC Pending
Hgb Pending
Hct Pending
Plt Count Pending
Sodium Pending
Potassium Pending
Chloride Pending
Carbon Dioxide Pending
BUN Pending
Creatinine Pending
Glucose Pending
Calcium Pending
Vital Signs:
Vital Signs
Temp Pulse Resp BP Pulse Ox
97.4 F 75 18 130/65 98
11/16/23 07:05 11/16/23 07:05 11/16/23 07:05 11/16/23 07:05 11/16/23 07:05
I&O
11/15/23 11/16/23 11/17/23
06:59 06:59 06:59
Intake Total 1080 / 1080 360 / 360
Balance 1080 / 1080 360 / 360
[2023-11-16] MEDS: DEMADEX 20 MG PO ×2 (09:27→15:52)
[2023-11-16] MEDS: TOPROL XL 25 MG PO (09:27)
[2023-11-16] MEDS: PROTONIX 40 MG PO (09:27)
[2023-11-16] MEDS: ELIQUIS 2.5 MG PO ×2 (09:27→19:55)
[2023-11-16] MEDS: PROSCAR 5 MG PO (09:27)
[2023-11-16] MEDS: FEOSOL 325 MG PO (09:28)
[2023-11-16] MEDS: KCL 20 MEQ PO (09:28)
[2023-11-16] MEDS: FLOMAX 0.400000000000000022 MG PO (09:28)
[2023-11-16] MEDS: TYLENOL 1000 MG PO ×3 (09:29→22:53)
[2023-11-16] MEDS: PLAVIX 75 MG PO (09:29)
[2023-11-16] MEDS: MIRALAX PO (09:30)
[2023-11-16] MEDS: APRESOLINE 10 MG PO ×3 (09:32→22:53)
--- NOTE | 2023-11-16 10:10 | CM ---
Addendum entered by Jennifer Mcclain 11/16/23 14:53:
Spoke with daughter, would like to try skilled rehab, will see if PT/OT can work with patient tomorrow.
Patient appears comfortable.
Family interested in [facility] when appropriate.
Original Note:
Plan back to [facility] under skilled rehab.
Need updated PT/OT notes.
Plan: [facility] when bed available.
[2023-11-16 11:04] LABS: Hematocrit 28.6 % (39.0-52.0); Hemoglobin 8.6 g/dL (13.0-18.0); Mean Corp Hgb Conc. 30.1 g/dL (33.0-37.0); Mean Corpuscular Hgb 29.5 pg (27.0-31.0); Mean Corpuscular Volume 97.9 fL (80.0-94.0); Mean Platelet Volume 10.4 fL (7.4-10.4); Platelet Count 161 10^3/uL (130-400); Red Blood Cell Count 2.92 10^6/uL (4.70-6.10); Red Cell Dist. Width 14.4 % (11.5-14.5); White Blood Cell Count 9.3 10^3/uL (4.8-10.8)
[2023-11-16 11:34] LABS: Blood Urea Nitrogen 35 mg/dl (9-20); Calcium 9.7 mg/dl (8.4-10.2); Carbon Dioxide 35 mmol/L (22-30); Chloride 99 mmol/L (98-107); Estimated Creatinine Clearance 34 ml/min; Glucose 109 mg/dl (70-99); Potassium 3.8 mmol/L (3.5-5.1); Sodium 140 mmol/L (135-145); eGFR 38.78
--- NOTE | 2023-11-16 14:45 | W.PN.NEPH.PH ---
Today's Communication / Plan
-
cont Torsemide
Assessment/Plan
-
Assessment:
hypernatremia
sepsis 2/2 to PNA
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
CKD (bl Cr 1.8-2.1)
Afib
CAD s/p recent stenting
Plan:
stable renal function at baseline
continue torsemide 20mg BID. can titrate as needed, though I do not think volume will be removed easily
wts are not accurate on bedscale
monitor evolving met alkalosis
PT/OT
prognosis guarded
-
-
Date of Service: November 16, 2023
CC / HPI / ROS
-
Chief Complaint:
hypernatremia
[place]
History of Present Illness:
Cr stable at 1.7
Hemodynamically stable
off diamox
on torsemide
weights stable for last few days with mild fluctuations
Review of Systems:
UOP not documented
Remains on oxygen 2lit NC, BIPAP at HS
says he is unable to get into chair
Labs
-
Labs:
WBC 9.3 10^3/uL (4.8-10.8) 11/16/23 10:56
RBC 2.92 10^6/uL (4.70-6.10) L 11/16/23 10:56
Hgb 8.6 g/dL (13.0-18.0) L 11/16/23 10:56
Hct 28.6 % (39.0-52.0) L 11/16/23 10:56
Plt Count 161 10^3/uL (130-400) 11/16/23 10:56
Sodium 140 mmol/L (135-145) 11/16/23 10:56
Potassium 3.8 mmol/L (3.5-5.1) 06/08/24 10:56
Chloride 99 mmol/L (98-107) 11/16/23 10:56
Carbon Dioxide 35 mmol/L (22-30) H 11/16/23 10:56
BUN 35 mg/dl (9-20) H 11/16/23 10:56
Creatinine 1.7 mg/dL (0.7-1.3) H 11/16/23 10:56
eGFR 38.78 11/16/23 10:56
Glucose 109 mg/dl (70-99) H 11/16/23 10:56
Calcium 9.7 mg/dl (8.4-10.2) 11/16/23 10:56
Phosphorus 3.8 mg/dl (2.5-4.5) 11/12/23 08:40
Hgm-G-Bopuwghqibx Pept > 36397 pg/ml 10/16/23 10:08
Albumin 2.7 g/dl (3.5-5.0) L 11/04/23 07:46
Physical Exam
-
Vital Signs:
Vital Signs
Temp Pulse Resp BP Pulse Ox
97.4 F 75 18 130/65 98
11/16/23 07:05 11/16/23 07:05 11/16/23 07:05 11/16/23 07:05 11/16/23 07:05
Cardiovascular:: Regular rate and rhythm
Respiratory:: Bilateral: Coarse
Lung Excursion:: Normal
Abdomen:: Nontender and Soft
Extremity Edema:: +3: Bilateral:
Lock Catheter: No
[2023-11-16 15:57] VITALS: BP 143/69
[2023-11-16] MEDS: LIPITOR 80 MG PO (17:37)
[2023-11-16 21:45] VITALS: PULSE 2; PULSE 87
[2023-11-16 23:00] VITALS: BP 155/55
[2023-11-17 03:17] VITALS: PULSE 2
[2023-11-17 06:00] VITALS: BMI 31.0
[2023-11-17 07:00] VITALS: BP 141/77
--- NOTE | 2023-11-17 09:01 | W.PN.HOSP.TC ---
Today's Communication/Plan
-
Discharge to short-term rehab tomorrow
Assessment / Plan
Assessment / Plan
88M Obesity HFrEF CKDIII AOCD pAfib CAD s/p stents here for hypercapneic respiratory failure acute on CKDIII
# Acute hypercapnic respiratory failure
�Most likely exacerbated by acute on chronic HFrEF, as well as possible pneumonia with Fever impaired resp status
�Noncompliant to BiPAP at facility
�Continue BiPAP QHS and Naps/PRN
-Currently requiring 1-2 L of oxygen (down from as high as 6), wean as tolerated. Daughter states he does not wear oxygen normally
-From [facility]
#Acute on chronic HFrEF
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
- echo: EF is depressed (30-35%) with moderate AAS and RV hypokinesis.
� Cardiology consult appreciated, hydralazine added for afterload reduction 10/24, cards signed off
� Appreciate nephrology input, status post IV Lasix, nephrology transitioned to Diamox 10/29, nephrology added torsemide 10/31, increased to 20 mg bid 11/01, 11/05 Torsemide increased to 20 mg AM and 40 mg QPM 11/07 Diamox increased to 250 mg BID
Torsemide on hold 11/10 nephrology discontinued Diamox, recommends torsemide 20 mg twice a day. 11/13 lasix 60 mg IV x 1 today
#Right upper extremity edema
� Dopplers neg for DVT
#Dysuria
#Acute urinary tract infection
Urine culture growing Pseudomonas, start levofloxacin, renally dosed through 11/21/23
#Urinary retention
� Lock catheter placed 10/27
-Continue Proscar, Flomax
-Removed Lock 10/31, patient has been voiding per RN
-Bladder scan protocol
#Anemia of chronic kidney disease
H&H stable
#New paroxysmal afib
Cardio eval appreciated
Continue metoprolol succinate for rate control, Eliquis for anticoagulation
#Esophageal dysmotility
-VSE repeat 10/24 noted improvement from prior VSE examination, no aspiration noted however esophageal retention noted concerning for back aspiration
-10/29 barium swallow negative for obstruction, shows tortuous esophagus with esophageal dysmotility
-Diet changed to soft/bite-size
-Continue Ensure twice daily, encourage oral intake
#CAD
� Status post stent August 2023 [place]
� on aspirin and Plavix, w/ start of anticoagulation for pAfib as above, ASA discontinued in favor of Plavix/Eliquis combination as per Cardio
-Cont BB
#Severe Sepsis
� Possible pneumonia including a large aspiration pneumonia
-COVID, Flu negative
-Urine cultures negative
- Speech eval - reg, thin liquids
� cultures NGTD
� Empiric antibiotics Zosyn completed 7 days however leukocytosis remains persistent though mild, afebrile, ID eval appreciated, initially abx continued with unasyn, total 8 days abx including zosyn, abx since discontinued monitoring off
�MRSA swab - negative
#Small moderate pleural effusion Right lung noted on chest US
IR eval thoracentesis appreciated only 150 cc drawn, pleural fluid studies not suggestive of infection
#Hypernatremia
-most likely 2/2 to overdiuresis, resolved
#Elevated troponin, suspect nonischemic myocardial injury
� Troponin trended to peak 0.901 since trended down
- Has intermittent chest pain, cardiology recommends medical management as above
#Acute metabolic encephalopathy
� Secondary to most likely hypercapnia as well as possible infection
- treat as above
-fluctuating mental status throughout stay.
#Lower back pain
prn tramadol 25 m bid, dilaudid 0.25 mg IV Q4Hprn for severe breakthrough pain (has not required)
#Hypokalemia
-monitor and replete as necessary
-hypokalemia resolved, K supplement reduced to daily 10/26
#Hyperlipidemia
� cont statin
#Stage 2 pressure ulcer gluteal cleft, stage 1 pressure ulcer sacrum
cont local wound care
PT/OT appreciated SNF rehab
DVT prophylaxis�Eliquis
DNR
Patient's family considering Palliative/Hospice, at this time plan is to pursue SNF rehab and consider transition to palliative/hospice care if patient progressively declines
Updated daughter 11/15
Physical Exam
General: no acute distress, chronically ill
HEENT: Anicteric, Moist mucous membranes
Respiratory: Clear to auscultation b/l no wheezes crackles noted
Cardiac: S1/S2 and Regular Rhythm; No Murmur
GI: Soft and Non Tender
Musculoskeletal: No Clubbing, No Cyanosis, +2 pitting edema bilateral lower ext
Skin:
stage 2 pressure ulcer gluteal cleft, stage 1 pressure ulcer sacrum
Neuro: Awake alert conversant
Musculoskeletal: Right upper extremity edema noted
Anticipated Discharge: Within 24 hours
Subjective/Interval History
-
Date of Service: November 17, 2023
No acute events. Patient has chronic shortness of breath, which appears improved today. No fever, no vomiting.
Objective Data
-
Labs:
Laboratory Results
11/17/23
06:00
WBC Pending
Hgb Pending
Hct Pending
Plt Count Pending
Sodium Pending
Potassium Pending
Chloride Pending
Carbon Dioxide Pending
BUN Pending
Creatinine Pending
Glucose Pending
Calcium Pending
Vital Signs:
Vital Signs
Temp Pulse Resp BP Pulse Ox
97.9 F 81 16 141/77 97
11/17/23 07:00 11/17/23 07:00 11/17/23 07:00 11/17/23 07:00 11/17/23 07:00
I&O
11/16/23 11/17/23 11/18/23
06:59 06:59 06:59
Intake Total 360 / 360 360 / 360
Balance 360 / 360 360 / 360
[2023-11-17] MEDS: PROTONIX 40 MG PO (09:35)
[2023-11-17] MEDS: PROSCAR 5 MG PO (09:36)
[2023-11-17] MEDS: TOPROL XL 25 MG PO (09:36)
[2023-11-17] MEDS: ELIQUIS 2.5 MG PO ×2 (09:36→19:48)
[2023-11-17] MEDS: APRESOLINE 10 MG PO ×3 (09:36→22:49)
[2023-11-17] MEDS: LEVAQUIN 500 MG PO (09:36)
[2023-11-17] MEDS: FLOMAX 0.400000000000000022 MG PO (09:36)
[2023-11-17] MEDS: KCL 20 MEQ PO (09:36)
[2023-11-17] MEDS: TYLENOL 1000 MG PO ×3 (09:36→22:48)
[2023-11-17] MEDS: DEMADEX 20 MG PO ×2 (09:36→16:49)
[2023-11-17] MEDS: PLAVIX 75 MG PO (09:36)
[2023-11-17] MEDS: FEOSOL 325 MG PO (09:36)
[2023-11-17] MEDS: MIRALAX PO (09:37)
[2023-11-17 11:40] LABS: Hematocrit 28.2 % (39.0-52.0); Hemoglobin 8.6 g/dL (13.0-18.0); Mean Corp Hgb Conc. 30.5 g/dL (33.0-37.0); Mean Corpuscular Hgb 29.7 pg (27.0-31.0); Mean Corpuscular Volume 97.2 fL (80.0-94.0); Mean Platelet Volume 10.9 fL (7.4-10.4); Platelet Count 167 10^3/uL (130-400); Red Cell Dist. Width 14.5 % (11.5-14.5)
[2023-11-17 11:43] LABS: Blood Urea Nitrogen 33 mg/dl (9-20); Calcium 9.9 mg/dl (8.4-10.2); Carbon Dioxide 34 mmol/L (22-30); Chloride 101 mmol/L (98-107); Estimated Creatinine Clearance 35 ml/min; Glucose 121 mg/dl (70-99); Potassium 4.5 mmol/L (3.5-5.1); Sodium 141 mmol/L (135-145)
--- NOTE | 2023-11-17 12:28 | CM ---
Addendum entered by Cheyenne Ceron 11/17/23 14:55:
Patient and family would like to have PT/OT evaluate patient, plan for return to [place] SNF then transition to Hospice if needed after rehab time. CM will update NM.
Original Note:
CM spoke with Desiree from [facility], spoke with patients family, would like patient to return to [facility] on Hospice. Referral sent to [facility] in [facility]. CM sent updated clinicals to [facility], placed call to admissions, spoke to
Hui, relayed message on patient discharge to return to [place] with Hospice for tomorrow. CM will continue to follow for discharge planning needs.
Plan; patient will need ambulance transport, requesting a 2:00 p.m. transport time.
--- NOTE | 2023-11-17 13:25 | HOSPNOTE ---
Referral recieved. Spoke to patients daughter Andra- the plan was to admit to hospice at [facility] tomorrow. Andra just called this SN to report that after she spoke with patient, patient wishes to try skilled rehab at [facility] first before singing onto
hospice. PT is going to work with patient today or tomorrow while he is in the hospital. I let CM and attending know the updated plan. I informed Andra to reach out to SN if patient decides to not do rehab and wants hospice for tomorrow as
originally planned. Hospice will be available if patient choses to not seek skilled rehab at [facility].
[2023-11-17 15:00] VITALS: BP 127/64
--- NOTE | 2023-11-17 15:52 | W.PN.NEPH.PH ---
Today's Communication / Plan
-
cont diuresis
d/c plan
Assessment/Plan
-
Assessment:
hypernatremia
sepsis 2/2 to PNA
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
CKD (bl Cr 1.8-2.1)
Afib
CAD s/p recent stenting
Plan:
stable renal function at baseline
continue torsemide 20mg BID. can titrate as needed, though I do not think volume will be removed easily
wts are not accurate on bedscale-over all stable over few days
monitor evolving met alkalosis
PT/OT
prognosis guarded
-
-
Date of Service: November 17, 2023
CC / HPI / ROS
-
Chief Complaint:
hypernatremia
ENRICO
History of Present Illness:
Cr stable at 1.6, bicarb 34
Hemodynamically stable
off diamox
on torsemide
weights stable for last few days with mild fluctuations
Review of Systems:
UOP not documented
Remains on oxygen 2lit NC, BIPAP at HS
says he is unable to get into chair
no cp or sob at rest
Labs
-
Labs:
WBC 8.0 10^3/uL (4.8-10.8) 11/17/23 11:08
RBC 2.90 10^6/uL (4.70-6.10) L 11/17/23 11:08
Hgb 8.6 g/dL (13.0-18.0) L 11/17/23 11:08
Hct 28.2 % (39.0-52.0) L 11/17/23 11:08
Plt Count 167 10^3/uL (130-400) 11/17/23 11:08
Sodium 141 mmol/L (135-145) 06/09/24 11:08
Potassium 4.5 mmol/L (3.5-5.1) 11/17/23 11:08
Chloride 101 mmol/L (98-107) 11/17/23 11:08
Carbon Dioxide 34 mmol/L (22-30) H 11/17/23 11:08
BUN 33 mg/dl (9-20) H 11/17/23 11:08
Creatinine 1.6 mg/dL (0.7-1.3) H 11/17/23 11:08
eGFR 41.70 11/17/23 11:08
Glucose 121 mg/dl (70-99) H 11/17/23 11:08
Calcium 9.9 mg/dl (8.4-10.2) 11/17/23 11:08
Phosphorus 3.8 mg/dl (2.5-4.5) 11/12/23 08:40
Fja-D-Cyecgnqhkda Pept > 25633 pg/ml 10/16/23 10:08
Albumin 2.7 g/dl (3.5-5.0) L 11/04/23 07:46
Physical Exam
-
Vital Signs:
Vital Signs
Temp Pulse Resp BP Pulse Ox
98.3 F 79 18 127/64 100
11/17/23 15:00 11/17/23 15:00 11/17/23 15:00 11/17/23 15:00 11/17/23 15:00
Cardiovascular:: Regular rate and rhythm
Respiratory:: Bilateral: CTA
Lung Excursion:: Normal
Abdomen:: Nontender and Soft
Extremity Edema:: +2: Bilateral:
Lock Catheter: No
--- NOTE | 2023-11-17 15:57 | PTCARENOTE ---
Patient resting comfortably. Patient encourage to use arms to feed himself. RN had patient to arm raise and use trapeze to reposition himself, patient demonstrated trapeze use. Call lyon in reach
[2023-11-17] MEDS: LIPITOR 80 MG PO (16:48)
[2023-11-17 22:40] VITALS: PULSE 2; PULSE 88
[2023-11-17 23:00] VITALS: BP 146/78
[2023-11-18 03:08] VITALS: PULSE 2
[2023-11-18 06:00] VITALS: BMI 31.1
[2023-11-18 07:00] VITALS: BP 156/92
[2023-11-18] MEDS: TOPROL XL 25 MG PO (08:00)
[2023-11-18] MEDS: TYLENOL 1000 MG PO (08:00)
[2023-11-18] MEDS: PROTONIX 40 MG PO (08:00)
[2023-11-18] MEDS: PROSCAR 5 MG PO (08:00)
[2023-11-18] MEDS: APRESOLINE 10 MG PO (08:01)
[2023-11-18] MEDS: ELIQUIS 2.5 MG PO (08:01)
[2023-11-18] MEDS: KCL 20 MEQ PO (08:01)
[2023-11-18] MEDS: FEOSOL 325 MG PO (08:01)
[2023-11-18] MEDS: FLOMAX 0.400000000000000022 MG PO (08:01)
[2023-11-18] MEDS: DEMADEX 20 MG PO (08:01)
[2023-11-18] MEDS: PLAVIX 75 MG PO (08:01)
[2023-11-18] MEDS: MIRALAX 17 GRAMS PO (08:02)
[2023-11-18 08:35] VITALS: BP 146/77; PULSE 95; O2SAT 97
[2023-11-18 08:40] VITALS: BP 146/77; PULSE 95; O2SAT 97
--- NOTE | 2023-11-18 09:10 | W.PN.HOSP.TC ---
Today's Communication/Plan
-
Discharge to short-term rehab today
Assessment / Plan
Assessment / Plan
88M Obesity HFrEF CKDIII AOCD pAfib CAD s/p stents here for hypercapneic respiratory failure acute on CKDIII
# Acute hypercapnic respiratory failure
�Most likely exacerbated by acute on chronic HFrEF, as well as possible pneumonia with Fever impaired resp status
�Noncompliant to BiPAP at facility
�Continue BiPAP QHS and Naps/PRN
-Currently requiring 1-2 L of oxygen (down from as high as 6), wean as tolerated. Daughter states he does not wear oxygen normally
-From [facility]
#Acute on chronic HFrEF
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
- echo: EF is depressed (30-35%) with moderate AAS and RV hypokinesis.
� Cardiology consult appreciated, hydralazine added for afterload reduction 10/24, cards signed off
� Appreciate nephrology input, status post IV Lasix, nephrology transitioned to Diamox 10/29, nephrology added torsemide 10/31, increased to 20 mg bid 11/01, 11/05 Torsemide increased to 20 mg AM and 40 mg QPM 11/07 Diamox increased to 250 mg BID
Torsemide on hold 11/10 nephrology discontinued Diamox, recommends torsemide 20 mg twice a day. 11/13 lasix 60 mg IV x 1 today
#Right upper extremity edema
� Dopplers neg for DVT
#Dysuria
#Acute urinary tract infection
Urine culture growing Pseudomonas, start levofloxacin, renally dosed through 11/21/23
#Urinary retention
� Lock catheter placed 10/27
-Continue Proscar, Flomax
-Removed Lock 10/31, patient has been voiding per RN
-Bladder scan protocol
#Anemia of chronic kidney disease
H&H stable
#New paroxysmal afib
Cardio eval appreciated
Continue metoprolol succinate for rate control, Eliquis for anticoagulation
#Esophageal dysmotility
-VSE repeat 10/24 noted improvement from prior VSE examination, no aspiration noted however esophageal retention noted concerning for back aspiration
-10/29 barium swallow negative for obstruction, shows tortuous esophagus with esophageal dysmotility
-Diet changed to soft/bite-size
-Continue Ensure twice daily, encourage oral intake
#CAD
� Status post stent August 2023 [place]
� on aspirin and Plavix, w/ start of anticoagulation for pAfib as above, ASA discontinued in favor of Plavix/Eliquis combination as per Cardio
-Cont BB
#Severe Sepsis
� Possible pneumonia including a large aspiration pneumonia
-COVID, Flu negative
-Urine cultures negative
- Speech eval - reg, thin liquids
� cultures NGTD
� Empiric antibiotics Zosyn completed 7 days however leukocytosis remains persistent though mild, afebrile, ID eval appreciated, initially abx continued with unasyn, total 8 days abx including zosyn, abx since discontinued monitoring off
�MRSA swab - negative
#Small moderate pleural effusion Right lung noted on chest US
IR eval thoracentesis appreciated only 150 cc drawn, pleural fluid studies not suggestive of infection
#Hypernatremia
-most likely 2/2 to overdiuresis, resolved
#Elevated troponin, suspect nonischemic myocardial injury
� Troponin trended to peak 0.901 since trended down
- Has intermittent chest pain, cardiology recommends medical management as above
#Acute metabolic encephalopathy
� Secondary to most likely hypercapnia as well as possible infection
- treat as above
-fluctuating mental status throughout stay.
#Lower back pain
prn tramadol 25 m bid, dilaudid 0.25 mg IV Q4Hprn for severe breakthrough pain (has not required)
#Hypokalemia
-monitor and replete as necessary
-hypokalemia resolved, K supplement reduced to daily 10/26
#Hyperlipidemia
� cont statin
#Stage 2 pressure ulcer gluteal cleft, stage 1 pressure ulcer sacrum
cont local wound care
PT/OT appreciated SNF rehab
DVT prophylaxis�Eliquis
DNR
Patient's family considering Palliative/Hospice, at this time plan is to pursue SNF rehab and consider transition to palliative/hospice care if patient progressively declines
Updated daughter 11/15
Physical Exam
General: no acute distress, chronically ill
HEENT: Anicteric, Moist mucous membranes
Respiratory: Clear to auscultation b/l no wheezes crackles noted
Cardiac: S1/S2 and Regular Rhythm; No Murmur
GI: Soft and Non Tender
Musculoskeletal: No Clubbing, No Cyanosis, +2 pitting edema bilateral lower ext
Skin:
stage 2 pressure ulcer gluteal cleft, stage 1 pressure ulcer sacrum
Neuro: Awake alert conversant
Musculoskeletal: Right upper extremity edema noted
Anticipated Discharge: Today
Subjective/Interval History
-
Date of Service: November 18, 2023
No acute changes. Patient continues to be weak. He continues to have baseline dyspnea, seems to be worse this morning due to anxiety. No fever, no vomiting.
Objective Data
-
Labs:
Laboratory Results
11/18/23
08:51
WBC Pending
Hgb Pending
Hct Pending
Plt Count Pending
Sodium Pending
Potassium Pending
Chloride Pending
Carbon Dioxide Pending
BUN Pending
Creatinine Pending
Glucose Pending
Calcium Pending
Vital Signs:
Vital Signs
Temp Pulse Resp BP Pulse Ox
98.6 F 93 20 156/92 94
11/18/23 07:00 11/18/23 07:00 11/18/23 07:00 11/18/23 07:00 11/18/23 07:00
I&O
11/17/23 11/18/23 11/19/23
06:59 06:59 06:59
Intake Total 360 / 360 180 / 180
Balance 360 / 360 180 / 180
[2023-11-18 09:46] LABS: Hematocrit 32.4 % (39.0-52.0); Hemoglobin 10.1 g/dL (13.0-18.0); Mean Corp Hgb Conc. 31.2 g/dL (33.0-37.0); Mean Corpuscular Hgb 28.9 pg (27.0-31.0); Mean Corpuscular Volume 92.8 fL (80.0-94.0); Mean Platelet Volume 10.6 fL (7.4-10.4); Platelet Count 190 10^3/uL (130-400); Red Blood Cell Count 3.49 10^6/uL (4.70-6.10); Red Cell Dist. Width 14.7 % (11.5-14.5)
[2023-11-18 10:45] LABS: Blood Urea Nitrogen 31 mg/dl (9-20); Calcium 10.3 mg/dl (8.4-10.2); Carbon Dioxide 31 mmol/L (22-30); Chloride 102 mmol/L (98-107); Estimated Creatinine Clearance 41 ml/min; Glucose 117 mg/dl (70-99); Magnesium 2.1 mg/dl (1.6-2.3); Sodium 140 mmol/L (135-145); eGFR 48.95
--- NOTE | 2023-11-18 11:14 | W.DCSUMMARY ---
Discharge Summary
Discharge Data
Date of Admission: 10/16/23
Date of Discharge: 11/18/23
-
Pending Results: No
Hospital Course
Discharge diagnosis:
Acute hypoxic hypercapnic respiratory failure
Acute on chronic heart failure with reduced ejection fraction
Acute kidney injury superimposed on stage IIIb chronic kidney disease
Chronic debility
Right upper extremity edema
Acute urinary tract infection
Dysuria
Acute urinary retention status post Lock catheter
Anemia of chronic disease
Paroxysmal atrial fibrillation
Esophageal dysmotility
Coronary artery disease
Severe sepsis
Probable aspiration pneumonia
Small right pleural effusion
Hypernatremia
Nonischemic myocardial injury
Acute toxic metabolic encephalopathy
Lower back pain
Hypokalemia
Hyperlipidemia
Stage 2 pressure ulcer gluteal cleft, stage 1 pressure ulcer sacrum
Consults: Cardiology, ID, nephrology, GI
Hospital course:
88-year-old male with a past medical history of CAD, SC, CHF, hypertension, COPD, obstructive sleep apnea, chronic kidney disease, and obesity was sent from [facility] for altered mental status. He was found to have acute hypoxic and
hypercapnic respiratory failure secondary to sepsis from probable aspiration pneumonia. Patient was seen in conjunction with ID. He was treated with IV Zosyn. Patient had a small right pleural effusion. He underwent thoracentesis, draining 150
cc of fluid. Pleural fluid studies were negative for infection. He completed his full course of antibiotics, and his mentation improved.
Patient was seen in conjunction with [facility] and GI for concerns of dysphagia. He was found to have esophageal dysmotility. GI recommends his diet be changed to a soft/bite-size diet. He tolerated his diet.
Patient had urinary retention. Lock catheter was placed on 10/28/2023. Lock was removed on 11/01/2023, he has been voiding well. He can continue Proscar and Flomax.
Patient was found to have new onset paroxysmal atrial fibrillation. He was started on anticoagulation with Eliquis 2.5 mg twice a day. He was started on metoprolol succinate 25 mg daily. His rate became controlled. He has a history of coronary
artery disease with SC status post stent placement at [place], and has been on aspirin and Plavix. Cardiology recommends discontinuing aspirin, since he has been started on Eliquis for atrial fibrillation. He was continued on his Plavix and
atorvastatin.
Patient's hospital course was complicated by acute on chronic heart failure with reduced ejection fraction, as well as acute kidney injury superimposed on stage IIIb chronic kidney disease. Patient was seen in conjunction with nephrology. He was
diuresed with IV Lasix. Patient's hospital course was prolonged secondary to the difficulty of removing fluid from him. Nephrology tried various diuretics, including Diamox. Despite different strategies, nephrology states that not all of his
fluid can be removed. His breathing status improved dramatically. He was requiring as much as 6 L of oxygen, was down to 1-2 L. He has chronic shortness of breath, that will wax and wane. He also has anxiety, that contributes to his shortness of
breath. Nephrology recommends that he be discharged on torsemide 20 mg twice a day.
Patient complained of dysuria. Urine cultures grew out Pseudomonas. He was treated with levofloxacin, renally dosed through 11/21/2023.
Patient became severely debilitated. While his mentation did improve, it waxed and waned. Multiple goals of care discussions were held with his daughter. It is unclear if he will be able to tolerate rehab. In either case, patient wishes to go to
rehab to try to get stronger. If he is unable to tolerate rehab, patient and daughter will consider transitioning to palliative care or hospice.
Patient's multiple medical conditions have been optimized. He is discharged to short-term rehab.
Disposition: Short-term rehab
Discharge planning: Required 65 minutes
Discharge Plan
-
Patient Disposition: Senior Living/SNF
Discharge Diagnosis/Procedures: Acute hypoxic respiratory insufficiency, congestive heart failure, chronic kidney disease, sepsis secondary to probable aspiration pneumonia, weakness, esophageal dysmotility, paroxysmal atrial fibrillation, anemia of
chronic kidney disease, acute urinary tract infection, acute urinary retention
Condition: Serious
Diet: Chop all food and Restrict fluids to 48 oz
Activity: As tolerated
Other Services: PT and OT
Specialty Instructions: Weigh Daily- Call MD for wt gain/loss 3 lbs overnight/5 lbs in 1 week
Activity Restrictions/Additional Instructions:
Levofloxacin, renally dosed through 11/21/23.
Wound Care Instructions Sacral Wound- Clean with normal saline or soap and water. Apply small amount of Honey Gel to wound and cover with silicone 5 layer sacral foam. Change Q 48 hours and PRN if loose or soiled.
Air mattress/static air overlay
Frequent continence care
Keep heels off-loaded with pillows under calves
Turning schedule
Follow up at wound care center call for an appointment.
Instructions: *PCP/Other Rating Specialist Heart Failure Instructions
Referrals:
Je Owen DO [Family Provider] - in one week
Prescriptions:
New
hydralazine 10 mg Tablet
10 mg PO TID Qty: 0 0RF
torsemide 20 mg Tablet
20 mg PO BID@0800,1600 Qty: 0 0RF
Eliquis 2.5 mg Tablet
2.5 mg PO BID 30 Days Qty: 0 0RF
ferrous sulfate [FeroSul] 325 mg (65 mg iron) Tablet
325 mg PO DAILY Qty: 0 0RF
polyethylene glycol 3350 [HealthyLax] 17 gram Powder In Packet
17 g PO DAILY Qty: 0 0RF
potassium chloride 20 mEq Tablet,Er Particles/Crystals
20 meq PO DAILY Qty: 30 0RF
tamsulosin 0.4 mg Capsule
0.4 mg PO DAILY Qty: 0 0RF
levofloxacin 500 mg Tablet
500 mg PO Q48H 3 Days Qty: 2 0RF
acetaminophen [Tylenol Extra Strength] 500 mg Tablet
1,000 mg PO TID Qty: 0 0RF
pantoprazole 40 mg Tablet,Delayed Release (Dr/Ec)
40 mg PO DAILY Qty: 0 0RF
Continued
multivitamin Tablet
1 tab PO DAILY
atorvastatin 80 mg Tablet
80 mg PO QPM
clopidogrel 75 mg Tablet
75 mg PO DAILY
ascorbic acid (vitamin C) [Vitamin C] 500 mg Tablet
1,000 mg PO DAILY
bisacodyl 10 mg Suppository
10 mg GA DAILY PRN (Reason: q 3 days when no BM and MOM/lactulose ineffective)
folic acid 1 mg Tablet
1 mg PO DAILY
metoprolol succinate 25 mg Tablet Extended Release 24 Hr
25 mg PO DAILY
finasteride 5 mg Tablet
5 mg PO DAILY
loratadine 10 mg Tablet
10 mg PO DAILY
lactulose 10 gram/15 mL Solution
30 ml PO HS PRN (Reason: constipation)
tramadol 50 mg Tablet
50 mg PO BID PRN (Reason: moderate pain) Qty: 3 0RF
Discontinued
furosemide 40 mg Tablet
120 mg PO DAILY
acetaminophen [Tylenol] 325 mg Tablet
650 mg PO Q4H MDD 3000 mg PRN (Reason: mild pain/fever>100.4)
lidocaine 4 % Cream
1 applic TOPICAL BID
Patient Comments:
10/16/2023, first date: 10/03/2023 given for 14 days.
aspirin 81 mg Tablet,Delayed Release (Dr/Ec)
81 mg PO DAILY
ginkgo biloba 60 mg Tablet
60 mg PO DAILY
nitroglycerin 0.4 mg Tablet, Sublingual
0.4 mg SUBLINGUAL [id number] PRN (Reason: acute angina)
oxybutynin chloride 5 mg Tablet Extended Release 24hr
5 mg PO DAILY
gabapentin 300 mg Capsule
300 mg PO Q12H
[place]-3 1,000 mg capsule
1,000 mg PO DAILY
Discharge Orders:
Discharge Patient (As Directed); Ordered 11/18/23
Ordered By: Spencer Carver
Discharge Date and Time
Discharge Date/Time: 11/18/23 15:34
Print Language: SWEDISH
--- NOTE | 2023-11-18 12:19 | CM ---
Addendum entered by Cheyenne Ceron 11/18/23 12:25:
Plan; return to [facility] nursing report: [phone]
Discharge instructions fax: fax [phone].
Original Note:
Patient for discharge today, back to [facility]. Patient seen by PT/OT today, updated clinicals sent in [facility] to [facility]. CM spoke with patients daughterAndra, provided updated on patients discharge, 3:00 p.m. ambulance transport
scheduled. Daughter requesting aids at [facility] please do not shave patients nguyen, passed message to Xavier at [facility]. Daughter requesting call when patient leaves hospital, CM will call daughter. Patient seen bedside, discussed 3:00 p.m.
ambulance transport. CM will continue to follow for discharge planning needs.
Plan; [facility], 3:00 p.m. ambulance transport.
[2023-11-18 15:37] VITALS: BP 134/64
== END 2023-11-18 15:34 | DRG 871 ==
LOC: 4 WEST ACU 13:36
PROVIDERS: Internal Medicine; Internal Medicine Cardiovascular Disease; Physician Assistant Medical; Radiology Vascular & Interventional Radiology; Specialist; ADMITTING PHYSICIAN Internal Medicine; ATTENDING PHYSICIAN Family Medicine; CONSULT PHYSICIAN Internal Medicine; CONSULT PHYSICIAN Internal Medicine Cardiovascular Disease; CONSULT PHYSICIAN Student in an Organized Health Care Education/Training Program; EMERGENCY PHYSICIAN Emergency Medicine; FAMILY PHYSICIAN Student in an Organized Health Care Education/Training Program
PROC: 0W993ZZ Drainage of Right Pleural Cavity, Percutaneous Approach (ICD-10-PCS; 2023-10-25)
PROC: 5A09357 Assistance with Respiratory Ventilation, Less than 24 Consecutive Hours, Continuous Positive Airway Pressure (ICD-10-PCS; 2023-11-07)
DX: A41.9 Sepsis, unspecified organism (principal); G92.8 Other toxic encephalopathy; I50.23 Acute on chronic systolic (congestive) heart failure; J96.02 Acute respiratory failure with hypercapnia; J96.01 Acute respiratory failure with hypoxia; J69.0 Pneumonitis due to inhalation of food and vomit; I13.0 Hypertensive heart and chronic kidney disease with heart failure and stage 1 through stage 4 chronic kidney disease, or unspecified chronic kidney disease; N39.0 Urinary tract infection, site not specified; N17.9 Acute kidney failure, unspecified; E87.0 Hyperosmolality and hypernatremia; J44.0 Chronic obstructive pulmonary disease with (acute) lower respiratory infection; J91.8 Pleural effusion in other conditions classified elsewhere; I5A Non-ischemic myocardial injury (non-traumatic); E87.3 Alkalosis; I48.0 Paroxysmal atrial fibrillation; K22.4 Dyskinesia of esophagus; R65.20 Severe sepsis without septic shock; N18.32 Chronic kidney disease, stage 3b; R33.8 Other retention of urine; Z66 Do not resuscitate; I25.10 Atherosclerotic heart disease of native coronary artery without angina pectoris; I25.5 Ischemic cardiomyopathy; G62.9 Polyneuropathy, unspecified; G47.33 Obstructive sleep apnea (adult) (pediatric); I45.10 Unspecified right bundle-branch block; E87.6 Hypokalemia; L89.302 Pressure ulcer of unspecified buttock, stage 2; L89.151 Pressure ulcer of sacral region, stage 1; E66.9 Obesity, unspecified; D63.1 Anemia in chronic kidney disease; E78.00 Pure hypercholesterolemia, unspecified; R19.7 Diarrhea, unspecified; I25.2 Old myocardial infarction; Z11.52 Encounter for screening for COVID-19; Z68.31 Body mass index [BMI] 31.0-31.9, adult; Z79.01 Long term (current) use of anticoagulants; Z79.02 Long term (current) use of antithrombotics/antiplatelets; Z79.82 Long term (current) use of aspirin; Z79.899 Other long term (current) drug therapy; Z85.51 Personal history of malignant neoplasm of bladder; Z87.891 Personal history of nicotine dependence; Z91.198 Patient's noncompliance with other medical treatment and regimen for other reason; Z95.5 Presence of coronary angioplasty implant and graft
CPT/HCPCS: 32555; 36600; 71045; 74221; 74230; 76604; 80048; 80053; 80061; 81003; 81015; 81099; 82248; 82607; 82746; 82805; 82945; 82962; 83540; 83550; 83605; 83615; 83735; 83880; 83986; 84100; 84157; 84443; 84478; 84484; 85025; 85027; 85610; 85730; 87015; 87040; 87070; 87086; 87088; 87186; 87205; 87324; 87449; 87502; 87811; 88112; 89051; 92526; 92610; 92611; 93005; 93306; 93971; 94660; 96365; 96366; 96375; 97110; 97163; 97167; 97530; 97535; 99291

== ENCOUNTER → 2023-11-21 09:28 | Outpatient (REF) | payer OTHER, MEDICARE, SELFPAY ==
[2023-11-21 12:43] LABS: % Basophils 0.8 % (0-2); % Eosinophils 2.1 % (0-6); % Immature Granulocytes 0.4 % (0-0.5); % Lymphocytes 12.9 % (20.5-51.1); % Monocytes 6.9 % (1.7-9.3); % Neutrophils 76.9 % (42.2-75.2); Absolute Basophils 0.1 10^3/uL (0-0.2); Absolute Eosinophils 0.2 10^3/uL (0-0.7); Absolute Immature Granulocytes 0.1 10^3/uL (0-0.05); Absolute Lymphocytes 1.5 10^3/uL (1.2-3.4); Absolute Monocytes 0.8 10^3/uL (0.1-0.6); Absolute Neutrophils 8.6 10^3/uL (1.4-6.5); Hematocrit 29.1 % (39.0-52.0); Hemoglobin 8.9 g/dL (13.0-18.0); Mean Corp Hgb Conc. 30.6 g/dL (33.0-37.0); Mean Corpuscular Hgb 29.6 pg (27.0-31.0); Mean Corpuscular Volume 96.7 fL (80.0-94.0); Mean Platelet Volume 10.8 fL (7.4-10.4); Nucleated Red Blood Cells % 0 % (-); Platelet Count 184 10^3/uL (130-400); Red Blood Cell Count 3.01 10^6/uL (4.70-6.10); Red Cell Dist. Width 14.6 % (11.5-14.5); White Blood Cell Count 11.3 10^3/uL (4.8-10.8)
[2023-11-21 13:34] LABS: ALT (SGPT) 11 U/L (0-50); AST (SGOT) 23 U/L (17-59); Albumin 3.2 g/dl (3.5-5.0); Alkaline Phosphatase 93 U/L (38-126); Blood Urea Nitrogen 31 mg/dl (9-20); Calcium 10.1 mg/dl (8.4-10.2); Carbon Dioxide 32 mmol/L (22-30); Chloride 100 mmol/L (98-107); Glucose 92 mg/dl (70-99); Magnesium 2.1 mg/dl (1.6-2.3); Potassium 4.2 mmol/L (3.5-5.1); Sodium 141 mmol/L (135-145); Total Bilirubin 0.5 mg/dl (0.2-1.3); Total Protein 5.9 g/dl (6.3-8.2); eGFR 38.78
== END ==
LOC: OLABN 09:28
PROVIDERS: ATTENDING PHYSICIAN Student in an Organized Health Care Education/Training Program
DX: I50.20 Unspecified systolic (congestive) heart failure (principal); N18.9 Chronic kidney disease, unspecified
CPT/HCPCS: 36415; 80053; 83735; 85025

== ENCOUNTER → 2023-11-25 10:19 | Outpatient (REF) | payer OTHER, MEDICARE, SELFPAY ==
[2023-11-25 11:42] LABS: % Basophils 0.7 % (0-2); % Eosinophils 2.1 % (0-6); % Immature Granulocytes 0.5 % (0-0.5); % Lymphocytes 12.8 % (20.5-51.1); % Monocytes 6.4 % (1.7-9.3); % Neutrophils 77.5 % (42.2-75.2); Absolute Basophils 0.1 10^3/uL (0-0.2); Absolute Eosinophils 0.2 10^3/uL (0-0.7); Absolute Lymphocytes 1.1 10^3/uL (1.2-3.4); Absolute Monocytes 0.6 10^3/uL (0.1-0.6); Absolute Neutrophils 6.7 10^3/uL (1.4-6.5); Hematocrit 26.1 % (39.0-52.0); Mean Corp Hgb Conc. 30.7 g/dL (33.0-37.0); Mean Corpuscular Hgb 29.3 pg (27.0-31.0); Mean Corpuscular Volume 95.6 fL (80.0-94.0); Mean Platelet Volume 10.8 fL (7.4-10.4); Nucleated Red Blood Cells % 0 % (-); Platelet Count 184 10^3/uL (130-400); Red Blood Cell Count 2.73 10^6/uL (4.70-6.10); Red Cell Dist. Width 14.8 % (11.5-14.5); Reticulocyte Count 0.9 % (0.4-2.8); White Blood Cell Count 8.6 10^3/uL (4.8-10.8)
[2023-11-25 12:22] LABS: Total Iron Binding Capacity 213 ug/dl (261-462)
[2023-11-25 12:23] LABS: Iron < 20 ug/dl (49-181)
[2023-11-27 10:41] LABS: Transferrin 238 mg/dL (200-360)
== END ==
LOC: OLABN 10:19
PROVIDERS: ATTENDING PHYSICIAN Student in an Organized Health Care Education/Training Program
DX: D64.9 Anemia, unspecified (principal)
CPT/HCPCS: 36415; 82728; 83540; 83550; 84466; 85025; 85045